=== PATIENT | female | born 1960 | race Caucasian/White ===

== ENCOUNTER 2016-09-25 18:38 | Emergency (ER) | payer MEDICARE, MEDICAID ==
[2016-09-25 18:41] VITALS: BP 125/57; PULSE 70; RESP 20; TEMP 98.1; O2SAT 98
--- NOTE | 2016-09-25 19:59 | PD ---
HPI Chief Complaint: Skin Problem Time Seen by Provider: 19:35 Travel History International Travel<30 days: No Contact w/Intl Traveler<30days: No Traveled to known affect area: No History of Present Illness HPI Patient comes in complaining of a painful lump in right axilla that she first noticed last night. Patient describes pain as a stinging-like sensation is worse with certain movement of her right upper extremity. Patient denies any trauma, numbness tingling, fevers, weight loss, chest pain, shortness breath, or previous symptoms like this. Patient states she's been taking Tylenol and using ice with minimal relief of her symptoms. PFSH Past Medical History Hx Anticoagulant Therapy: Yes (Plavix) Depression: Yes Cerebrovascular Accident: Yes Social History Alcohol Use: No Tobacco Use: No Substance Use: No Allergies-Medications (Allergen,Severity, Reaction): Coded Allergies: Bee Sting (Verified Allergy, Unknown, 09/25/16) Reported Meds & Prescriptions Reported Meds & Active Scripts Active No Active Prescriptions or Reported Medications Review of Systems Except as stated in HPI: all other systems reviewed are Neg Physical Exam Narrative GENERAL: Well-developed, overly nourished, in no acute distress, and non-ill appearing. SKIN: Warm and dry. There is no erythematous, crepitus, mass, lymph nodes, fluctuance, induration, lesion, or other signs of patient's reported mass. When comparing left axilla to the right over the area where patient states the lump/pain is there is no noticeable difference appears just a fatty skin fold. HEAD: Atraumatic. Normocephalic. EYES: Pupils equal and round. EOMI. No scleral icterus. No injection or drainage. ENT: No nasal bleeding or discharge. Mucous membranes pink and moist. NECK: Trachea midline. Supple. No nuclear rigidity. RESPIRATORY: No accessory muscle use. No respiratory distress. MUSCULOSKELETAL: No obvious deformities. No clubbing. No cyanosis. No edema. Full range of motion. NEUROLOGICAL: Awake and alert. No obvious cranial nerve deficits. Motor grossly within normal limits. Normal speech. PSYCHIATRIC: Appropriate mood and affect; insight and judgment normal. Data Data Last Documented VS Vital Signs Date Time Temp Pulse Resp B/P Pulse Ox O2 Delivery O2 Flow Rate FiO2 09/25/16 18:41 98.1 70 20 125/57 98 Room Air MDM Medical Decision Making Medical Screen Exam Complete: Yes Emergency Medical Condition: No Differential Diagnosis Abscess, cellulitis, lymphadenopathy, other Narrative Course Patient in no obvious distress upon re-evaluation. Any questions/concerns in reference to patient diagnosis/condition discussed and clarified prior to patient's discharge. Reinforced sheer importance of close follow up with patient 's primary physician or primary care clinic. Instructed patient to return to ED immediately, if symptoms return/worsen. Pt showed understanding of above instructions. Further instructions and recommendations were detailed in discharge paperwork. Pt ambulated without difficulty out of ED at discharge. Diagnosis Primary Impression: Pain in right axilla Referrals: [facility] Primary Care Physician Patient Instructions: General Instructions Additional Instructions: Follow-up with your primary care physician in 2-3 days reevaluation. Use over- the-counter Tylenol as needed for pain. Follow instructions on the packaging. Return to the emergency department if symptoms get worse. Scripts No Active Prescriptions or Reported Meds Disposition: 01 DISCHARGE HOME Condition: Stable Babatunde Stack Sep 25, 2016 19:58
== END 2016-09-25 20:14 | disposition home or self-care (01) ==
LOC: NEPB 18:38
DX: M79.621 Pain in right upper arm (principal)
CPT/HCPCS: 99283

== ENCOUNTER 2016-11-05 15:24 | Inpatient (IN) | payer MEDICARE, MEDICAID ==
[~2016-11-05] VITALS: Ht 157.5 cm; Wt 60.0 kg
[2016-11-05 15:27] VITALS: BP 93/55; PULSE 87; RESP 16; TEMP 97.8; O2SAT 100
[2016-11-05] MEDS ORDERED: SODIUM CHLOR 0.9% 1000 ML INJ 1,000 ML IV SCH (15:47)
[2016-11-05] MEDS ORDERED: MORPHINE SULFATE 4 MG/ML INJ IV PUSH ONE ×2 (16:00→19:45)
[2016-11-05] MEDS ORDERED: ONDANSETRON HCL 4 MG/2 ML VIAL IVP ONE (16:00)
[2016-11-05] MEDS ORDERED: SODIUM CHLORIDE 0.9% FLUSH 10 ML FLUSH IV FLUSH PRN ×2 (16:00→20:30)
[2016-11-05] MEDS ORDERED: DIATRIZOATE MEGLUM/DIATRIZOATE SOD 9 ML CUP ONE ×2 (16:10)
[2016-11-05 16:20] LABS: AUTOMATED NEUTROPHIL # 5.1 TH/MM3 (1.8-7.7); BASOPHIL % 0.2 % (0.0-2.0); EOSINOPHIL # 0.2 TH/MM3 (0-0.4); EOSINOPHIL % 1.9 % (0.0-4.0); HEMATOCRIT 37.4 % (35.0-46.0); HEMO FLAGS DIFF FINAL; LYMPHOCYTE # 3.1 TH/MM3 (1.0-4.8); MEAN CELL VOLUME 88.1 FL (80.0-100.0); MEAN CORPUSCULAR HEMOGLOBIN 29.9 PG (27.0-34.0); MEAN CORPUSCULAR HGB CONC 33.9 % (32.0-36.0); MONO % 7.2 % (0.0-8.0); NEUT % 56.7 % (16.0-70.0); PLATELET COUNT 337 TH/MM3 (150-450); RED BLOOD COUNT 4.25 MIL/MM3 (4.00-5.30); RED CELL DISTRIBUTION WIDTH 14.9 % (11.6-17.2); WHITE BLOOD COUNT 9.1 TH/MM3 (4.0-11.0)
[2016-11-05 16:23] VITALS: BP 99/61; PULSE 60; RESP 12; O2SAT 100
[2016-11-05 16:28] VITALS: BP 99/61; PULSE 62; RESP 16; O2SAT 100
[2016-11-05 16:29] LABS: ALT (GPT) 15 U/L (10-53); ANION GAP 4 MEQ/L (5-15); AST (GOT) 12 U/L (15-37); BLOOD UREA NITROGEN 11 MG/DL (7-18); CHLORIDE 111 MEQ/L (98-107); GLOMERULAR FILTRATION RATE 76 ML/MIN (>89); POTASSIUM 4.3 MEQ/L (3.5-5.1); SODIUM (NA) 141 MEQ/L (136-145)
[2016-11-05 16:31] LABS: ALKALINE PHOSPHATASE 105 U/L (45-117); TOTAL BILIRUBIN ADULT 0.2 MG/DL (0.2-1.0)
[2016-11-05 16:35] LABS: BLOOD, URINE NEG (NEG); COMMENT (UR) CULT NOT INDICATED; CULTURE IF INDICATED CULT NOT INDICATED; GLUCOSE,URINE NEG (NEG); KETONE, URINE NEG (NEG); NITRITE,URINE NEG (NEG); PH, URINE 6.5 (5.0-8.5); SQUAMOUS EPITHELIAL CELL URINE <1 /hpf (0-5); URINE COLOR LIGHT-YELLOW (YELLW/STRAW)
--- NOTE | 2016-11-05 17:20 | PD ---
HPI Chief Complaint: Abdominal Pain Time Seen by Provider: 15:44 Travel History International Travel<30 days: No Contact w/Intl Traveler<30days: No Traveled to known affect area: No History of Present Illness HPI 55-year-old female here with complaint of abdominal pain, nausea vomiting. Patient states that since this morning she has had mid abdominal pain. Really she describes this as diffuse pain throughout the right side of the abdomen most notable in the right upper but does extend into the right lower quadrant. Associated nausea, vomiting. No hematemesis. She is seen by a PCP today who recommended outpatient ultrasound the patient felt as though she couldn't wait prompting ER visit. No fevers or chills. PFSH Past Medical History Hx Anticoagulant Therapy: Yes (PLAVIX) Depression: Yes (on medication ) Cerebrovascular Accident: Yes (stroke 2007) Diabetes: No Diminished Hearing: No Tetanus Vaccination: > 5 Years ?: Not Past Surgical History Abdominal Surgery: Yes Section: Yes Hysterectomy: Yes Social History Alcohol Use: No Tobacco Use: Yes Substance Use: No Allergies-Medications (Allergen,Severity, Reaction): Coded Allergies: Bee Sting (Verified Allergy, Unknown, 09/25/16) Reported Meds & Prescriptions Reported Meds & Active Scripts Active No Active Prescriptions or Reported Medications Review of Systems Except as stated in HPI: all other systems reviewed are Neg Physical Exam Narrative GENERAL: Middle-aged female in no acute distress SKIN: Focused skin assessment warm/dry. HEAD: Normocephalic. EYES: No scleral icterus. No injection or drainage. ENT: Mucous membranes pink and moist. NECK: Supple CARDIOVASCULAR: Regular rate and rhythm. No murmur appreciated. RESPIRATORY: No accessory muscle use. Clear to auscultation. Breath sounds equal bilaterally. GASTROINTESTINAL: Abdomen soft, diffuse right sided abdominal tenderness to palpation without rebound or guarding, nondistended. No CVA tenderness. MUSCULOSKELETAL: Normal gait NEUROLOGICAL: Awake and alert. Normal speech. PSYCHIATRIC: Appropriate mood and affect; insight and judgment normal. Data Data Last Documented VS Vital Signs Date Time Temp Pulse Resp B/P Pulse Ox O2 Delivery O2 Flow Rate FiO2 11/05/16 16:28 62 16 99/61 100 Room Air 11/05/16 15:27 97.8 Orders Complete Blood Count With Diff (11/05/16 15:47) Comprehensive Metabolic Panel (11/05/16 15:47) Lipase (11/05/16 15:47) Urinalysis - C+S If Indicated (11/05/16 15:47) Ct Abd/Pel W Iv Contrast(Rout) (11/05/16 15:47) Iv Access Insert/Monitor (11/05/16 15:47) Ecg Monitoring (11/05/16 15:47) Oximetry (11/05/16 15:47) Morphine Inj (Morphine Inj) (11/05/16 16:00) Ondansetron Inj (Zofran Inj) (11/05/16 16:00) Sodium Chlor 0.9% 1000 Ml Inj (Ns 1000 M (11/05/16 15:47) Sodium Chloride 0.9% Flush (Ns Flush) (11/05/16 16:00) Oral Contrast - Adult (11/05/16 15:51) Diatrizoate Liq ( Gastroview Liq) (11/05/16 16:10) Diatrizoate Liq (Md Don Liq) (11/05/16 16:10) Labs Laboratory Tests Test 11/05/16 15:45 White Blood Count 9.1 TH/MM3 Red Blood Count 4.25 MIL/MM3 Hemoglobin 12.7 GM/DL Hematocrit 37.4 % Mean Corpuscular Volume 88.1 FL Mean Corpuscular Hemoglobin 29.9 PG Mean Corpuscular Hemoglobin 33.9 % Concent Red Cell Distribution Width 14.9 % Platelet Count 337 TH/MM3 Mean Platelet Volume 7.4 FL Neutrophils (%) (Auto) 56.7 % Lymphocytes (%) (Auto) 34.0 % Monocytes (%) (Auto) 7.2 % Eosinophils (%) (Auto) 1.9 % Basophils (%) (Auto) 0.2 % Neutrophils # (Auto) 5.1 TH/MM3 Lymphocytes # (Auto) 3.1 TH/MM3 Monocytes # (Auto) 0.7 TH/MM3 Eosinophils # (Auto) 0.2 TH/MM3 Basophils # (Auto) 0.0 TH/MM3 CBC Comment DIFF FINAL Differential Comment Urine Color LIGHT-YELLOW Urine Turbidity CLEAR Urine pH 6.5 Urine Specific [place] 1.010 Urine Protein NEG mg/dL Urine Glucose (UA) NEG mg/dL Urine Ketones NEG mg/dL Urine Occult Blood NEG Urine Nitrite NEG Urine Bilirubin NEG Urine Urobilinogen LESS THAN 2.0 MG/DL Urine Leukocyte Esterase NEG Urine WBC LESS THAN 1 /hpf Urine Squamous Epithelial <1 /hpf Cells Microscopic Urinalysis Comment CULT NOT INDICATED Sodium Level 141 MEQ/L Potassium Level 4.3 MEQ/L Chloride Level 111 MEQ/L Carbon Dioxide Level 26.0 MEQ/L Anion Gap 4 MEQ/L Blood Urea Nitrogen 11 MG/DL Creatinine 0.78 MG/DL Estimat Glomerular Filtration 76 ML/MIN Rate Random Glucose 81 MG/DL Calcium Level 8.7 MG/DL Total Bilirubin 0.2 MG/DL Aspartate Amino Transf 12 U/L (AST/SGOT) Alanine Aminotransferase 15 U/L (ALT/SGPT) Alkaline Phosphatase 105 U/L Total Protein 7.6 GM/DL Albumin 3.7 GM/DL Lipase 149 U/L [facility] Medical Decision Making Medical Screen Exam Complete: Yes Emergency Medical Condition: Yes Medical Record Reviewed: Yes Differential Diagnosis 55-year-old female here with right sided abdominal pain, nausea vomiting since this morning. Diffuse right sided abdominal tenderness palpation on exam. Differential includes hepatobiliary pathology, pancreatitis, appendicitis, UTI, ureterolithiasis. Patient has had a previous hysterectomy. Narrative Course Patient placed on monitor, IV established and blood obtained. Given 4 mg morphine, 4 mg Zofran. CBC, CMP, lipase, urinalysis unremarkable. CT of the abdomen and pelvis remains pending at time of dictation. Patient signed out to oncoming provider waiting results of same. Scripts No Active Prescriptions or Reported Meds Kita Starr MD Nov 05, 2016 17:20
[2016-11-05] MEDS ORDERED: IOHEXOL 350 MG/ML 10 ML VIAL (for RAD DIAG) IV ONE (17:53)
--- NOTE | 2016-11-05 18:11 | RADRPT ---
EXAM DATE/TIME: 11/05/2016 17:50 This report includes an Addendum and supersedes previous reports for this exam. [place] COMPARISON: No previous studies available for comparison. INDICATIONS : Abdominal pain and nausea. IV CONTRAST: 100 cc Omnipaque 350 (iohexol) IV ORAL CONTRAST: Prescribed oral contrast ingested. RADIATION DOSE: 5.94 CTDIvol (mGy) MEDICAL HISTORY : Cerebrovascular disease. Bowel obstruction. SURGICAL HISTORY : Hysterectomy. section. ENCOUNTER: Initial ACUITY: 1 day PAIN SCALE: 7/10 LOCATION: Bilateral lower quadrant TECHNIQUE: Volumetric scanning of the abdomen and pelvis was performed. Using automated exposure control and ad justment of the mA and/or kV according to patient size, radiation dose was kept as low as reasonably achievable to obtain optimal diagnostic quality images. FINDINGS: LOWER LUNGS: The visualized lower lungs are clear. LIVER: Homogeneous density without lesion. There is no dilation of the biliary tree. No calcified gallston es. SPLEEN: Normal size without lesion. PANCREAS: Within normal limits. KIDNEYS: Normal in size and shape. There is no mass, stone or hydronephrosis. ADRENAL GLANDS: Within normal limits. VASCULAR: There is no aortic aneurysm. BOWEL/MESENTERY: The stomach, small bowel, and colon demonstrate no acute abnormality. There is no free intraperitone al air or fluid. ABDOMINAL WALL: Findings characteristic of an old subcutaneous, vertical scar vertical scar. RETROPERITONEUM: There is no lymphadenopathy. BLADDER: No wall thickening or mass. REPRODUCTIVE: Patient is status post hysterectomy. INGUINAL: There is no lymphadenopathy or hernia. MUSCULOSKELETAL: Within normal limits for patient age. CONCLUSION: 1. Patient is status post hysterectomy with findings of an infraumbilical vertical scar. 2. No acute intraperitoneal or pelvic process to explain current clinical syndrome. Juan Sun MD on November 05, 2016 at 18:01 Board Certified Radiologist. This report was verified electronically. ADDENDUM: I was asked to take another look at the CT scan. There is wall thickening of the cecum. The re is widening of the base of the appendix which appear somewhat thickened and measures 2 cm in thick ness. I do not see inflammatory changes. The distal appendix appears normal. An early appendicitis al berry the appendiceal base cannot be excluded. Demarcus Hamlin MD on November 05, 2016 at 18:52 Board Certified Radiologist. This report was verified electronically.
[2016-11-05 18:45] VITALS: BP 125/65; PULSE 66; RESP 16; O2SAT 100
--- NOTE | 2016-11-05 19:11 | PD ---
Data Data Last Documented VS Vital Signs Date Time Temp Pulse Resp B/P Pulse Ox O2 Delivery O2 Flow Rate FiO2 11/05/16 18:45 66 16 125/65 100 Room Air 11/05/16 15:27 97.8 Orders Complete Blood Count With Diff (11/05/16 15:47) Comprehensive Metabolic Panel (11/05/16 15:47) Lipase (11/05/16 15:47) Urinalysis - C+S If Indicated (11/05/16 15:47) Ct Abd/Pel W Iv Contrast(Rout) (11/05/16 15:47) Iv Access Insert/Monitor (11/05/16 15:47) Ecg Monitoring (11/05/16 15:47) Oximetry (11/05/16 15:47) Morphine Inj (Morphine Inj) (11/05/16 16:00) Ondansetron Inj (Zofran Inj) (11/05/16 16:00) Sodium Chlor 0.9% 1000 Ml Inj (Ns 1000 M (11/05/16 15:47) Sodium Chloride 0.9% Flush (Ns Flush) (11/05/16 16:00) Oral Contrast - Adult (11/05/16 15:51) Diatrizoate Liq ( Gastroview Liq) (11/05/16 16:10) Diatrizoate Liq ( Gastroview Liq) (11/05/16 16:10) Iohexol 350 Inj (Omnipaque 350 Inj) (11/05/16 17:53) Consult Josh Nfs (11/05/16 ) Tetanus/Diphtheria Tox Adult (Tetanus/Di (11/05/16 19:45) Morphine Inj (Morphine Inj) (11/05/16 19:45) Ondansetron Inj (Zofran Inj) (11/05/16 19:45) Vital Signs (Adult) Q4H (11/05/16 20:18) Activity Oob Ad Janel (11/05/16 20:18) Diet Npo (11/06/16 Breakfast) Sodium Chlor 0.9% 1000 Ml Inj (Ns 1000 M (11/05/16 20:18) Sodium Chloride 0.9% Flush (Ns Flush) (11/05/16 20:30) Sodium Chloride 0.9% Flush (Ns Flush) (11/05/16 21:00) Acetaminophen (Tylenol) (11/05/16 20:30) Ondansetron Inj (Zofran Inj) (11/05/16 20:30) Scd Bilateral/Knee High JEFF.BID (11/05/16 20:18) Naloxone Inj (Narcan Inj) (11/05/16 20:30) Consult General Surgery (11/05/16 ) Admit Order (Ed Use Only) (11/05/16 20:37) Labs Laboratory Tests Test 11/05/16 15:45 White Blood Count 9.1 TH/MM3 Red Blood Count 4.25 MIL/MM3 Hemoglobin 12.7 GM/DL Hematocrit 37.4 % Mean Corpuscular Volume 88.1 FL Mean Corpuscular Hemoglobin 29.9 PG Mean Corpuscular Hemoglobin 33.9 % Concent Red Cell Distribution Width 14.9 % Platelet Count 337 TH/MM3 Mean Platelet Volume 7.4 FL Neutrophils (%) (Auto) 56.7 % Lymphocytes (%) (Auto) 34.0 % Monocytes (%) (Auto) 7.2 % Eosinophils (%) (Auto) 1.9 % Basophils (%) (Auto) 0.2 % Neutrophils # (Auto) 5.1 TH/MM3 Lymphocytes # (Auto) 3.1 TH/MM3 Monocytes # (Auto) 0.7 TH/MM3 Eosinophils # (Auto) 0.2 TH/MM3 Basophils # (Auto) 0.0 TH/MM3 CBC Comment DIFF FINAL Differential Comment Urine Color LIGHT-YELLOW Urine Turbidity CLEAR Urine pH 6.5 Urine Specific [place] 1.010 Urine Protein NEG mg/dL Urine Glucose (UA) NEG mg/dL Urine Ketones NEG mg/dL Urine Occult Blood NEG Urine Nitrite NEG Urine Bilirubin NEG Urine Urobilinogen LESS THAN 2.0 MG/DL Urine Leukocyte Esterase NEG Urine WBC LESS THAN 1 /hpf Urine Squamous Epithelial <1 /hpf Cells Microscopic Urinalysis Comment CULT NOT INDICATED Sodium Level 141 MEQ/L Potassium Level 4.3 MEQ/L Chloride Level 111 MEQ/L Carbon Dioxide Level 26.0 MEQ/L Anion Gap 4 MEQ/L Blood Urea Nitrogen 11 MG/DL Creatinine 0.78 MG/DL Estimat Glomerular Filtration 76 ML/MIN Rate Random Glucose 81 MG/DL Calcium Level 8.7 MG/DL Total Bilirubin 0.2 MG/DL Aspartate Amino Transf 12 U/L (AST/SGOT) Alanine Aminotransferase 15 U/L (ALT/SGPT) Alkaline Phosphatase 105 U/L Total Protein 7.6 GM/DL Albumin 3.7 GM/DL Lipase 149 U/L [facility] Supervised Visit with SRIRAM: No Narrative Course This case is checked out to me by Dr. Starr at 5 PM. I have reviewed the entirety of the workup with the patient. The patient was seen and examined in the presence of the nurse. I've spoken with and examine the patient. She does have right lower quadrant tenderness. I discussed the CT scan at length with radiologist Dr. Hamlin. He cannot definitively rule out appendicitis. It's an atypical look to the CT. There is some inflammation localized to the cecum but also the base of the appendix is dilated and thickened. The distal appendix looks normal. He can't be certain if this represents appendicitis or not. Because of this I spoke general surgeon on-call Dr. Musa. He is aware of the quandary whether this is appendicitis or not. He is coming down to the emergency room to examine the patient and will assist us with disposition. Dr. Musa has evaluated the patient. It is still unclear and he recommends observing overnight on the hospitalist service and he will consult and decide whether to do a laparoscopic procedure to look at the area in more detail. I've spoken with Etta hospitalist nurse practitioner who agrees I gave her injection of morphine for symptom relief Diagnosis Primary Impression: Abdominal pain Qualified Code: R10.31 - Right lower quadrant abdominal pain Admitting Information Admitting Physician Requests: Observation Scripts No Active Prescriptions or Reported Meds Shahid Robles MD Nov 05, 2016 19:11
[2016-11-05] MEDS ORDERED: TETANUS/DIPHTHERIA TOXOID ADULT 0.5 ML VIAL IM ONE (19:45)
[2016-11-05] MEDS ORDERED: ONDANSETRON HCL 4 MG/2 ML VIAL IV ONE (19:45)
[2016-11-05] MEDS ORDERED: NALOXONE HCL 0.4 MG/ML AMP IV PRN (20:30)
[2016-11-05] MEDS ORDERED: ACETAMINOPHEN 325 MG TAB PO PRN (20:30)
[2016-11-05] MEDS: SODIUM CHLORIDE 0.9% FLUSH 10 ML FLUSH IV FLUSH SCH (21:00)
[2016-11-05] MEDS ORDERED: VENL150T PO (21:11)
[2016-11-05] MEDS ORDERED: BIOT5TAB PO (21:11)
[2016-11-05] MEDS ORDERED: RANI150T PO (21:11)
[2016-11-05] MEDS ORDERED: PLAV75TA29 PO (21:11)
[2016-11-05] MEDS ORDERED: ASPI-110 PO (21:11)
[2016-11-05] MEDS ORDERED: TRAZ100T4 PO (21:11)
[2016-11-05] MEDS ORDERED: TOPI1TAB36 PO (21:11)
[2016-11-05] MEDS: SODIUM CHLOR 0.9% 1000 ML INJ 1,000 ML IV SCH (22:11)
[2016-11-05 23:14] VITALS: BP 96/46; PULSE 62; RESP 19; TEMP 98; O2SAT 96
[2016-11-06] MEDS: MORPHINE SULFATE 4 MG/ML INJ IV PRN ×6 (00:34→21:16)
[2016-11-06 03:27] VITALS: BP 105/52; PULSE 53; RESP 19; TEMP 98.2; O2SAT 97
[2016-11-06] MEDS: SODIUM CHLOR 0.9% 1000 ML INJ 1,000 ML IV SCH ×2 (05:55→14:28)
--- NOTE | 2016-11-06 06:52 | MB ---
cc: WILL WILLIS MD DATE OF CONSULTATION: 11/05/2016 REASON FOR CONSULTATION: Rule out appendicitis. HISTORY OF PRESENT ILLNESS The patient is a 55-year-old female who presents with complaints of nausea, vomiting, abdominal pain. She states the pain started this morning and was initially an 8/10 and currently a 9/10. She states that pain is severe, somewhat diffuse, primarily on the right side. It is sharp, better with lying still, worse with movement. She states she saw her primary care physician who recommended obtaining a CT scan for which she attempted but was unable to get to it to schedule. The pain continued to progress and therefore the patient came the emergency department for further evaluation including a CT scan with IV n.p.o. contrast showing significantly severely thickened cecal wall, thickened base of the appendix with normal decompressed distal appendix. Her WBC was 9 and normal. She denies any significant fevers. She was complaining of significant diarrhea. She said she has never had this pain before this time denies any blood in stools and again denies any fevers or chills. Surgery was consulted for further evaluation. On my exam the patient is resting comfortably. She does state the pain is was severe and significant worse on palpation. She denies any in no notable significant rebound or guarding but is exquisitely tender to the right lower quadrant. PAST MEDICAL HISTORY Stroke. Depression. PAST SURGICAL HISTORY: Hysterectomy. Partial colectomy . SOCIAL HISTORY Positive smoking. Denies EtOH or IVDA. ALLERGIES Bee stings. MEDICATIONS See EMR. FAMILY HISTORY Mom with diabetes. Father with colon cancer. MEDICATIONS Plavix, see EMR. REVIEW OF SYSTEMS GENERAL: The patient no acute distress. HEAD, EYES, EARS, NOSE, AND THROAT: Denies eye pain, ear pain. NECK: Denies swelling or pain. CHEST: Denies chest pains or palpitations. LUNGS: Denies wheeze or cough. ABDOMEN: Complains of nausea, vomiting, abdominal pain. EXTREMITIES: Denies arthralgia, myalgias. GENITOURINARY: Denies dysuria, hematuria. ENDOCRINE: Denies polyuria, polydipsia. PSYCHIATRIC: Denies change in mood or affect. PHYSICAL EXAMINATION IN GENERAL: The patient in no acute distress. VITAL SIGNS: Temperature 97.8 pulse 62, respirations 60, blood pressure 99/61, saturation 100% on room air. HEAD, EYES, EARS, NOSE, AND THROAT: Afebrile, PERRLA, EOMI. Pupils equal, round, reactive. No scleral icterus. NECK: Supple. Trachea midline. LUNGS: The lungs are clear to auscultation bilaterally. Bilateral expansion. HEART: S1-S2 regular rhythm. ABDOMEN: Soft, positive tenderness to palpation right lower quadrant. Positive tenderness to palpation left upper quadrant. No significant rebound. Minimal guarding. Well-healed midline surgical scar. EXTREMITIES: 5/5 motor removed all extremities warm, well-perfused. INTEGUMENT: No skin masses or lesions. GENITOURINARY: Within normal limits. PSYCHIATRIC: Good mood, normal affect. LABORATORY AND DIAGNOSTIC DATA WBC 9.1, hemoglobin 12.7, hematocrit 37.4, platelets 337. Sodium 141, potassium 4.3, chloride 111, CO2 26, creatinine 0.78, BUN 11, calcium 8.7, AST 12, ALT 15, alkaline phosphatase 105, lipase 149. RADIOLOGIC: CT reviewed by myself and discussion and review with radiology no evidence of free air or fluid. Hysterectomy, noted thickening of cecal wall. Noted thickening of base of appendix. No obvious appendicolith, distal appendix normal. No significant straining or irritation noted on CT scan. ASSESSMENT The patient 55-year-old female presents with acute onset right lower quadrant pain, rule out appendicitis. PLAN After full clinical radiologic laboratory workup the patient with above-named issues including rule out appendicitis at this point. No suspicion for acute appendicitis as the patient has a normal white count, no fevers. She does have very thickened and distended cecum concerning for some enteritis or other etiology. We will continue to follow along with you and assess the patient with serial laboratory values and abdominal exams as the patient is exquisitely tender. At this point I recommend consultation with gastrointestinal and discussion with Medicine for further management. This was discussed with the patient at bedside. Again we will attempt serial bowel exams and nonoperative management. If the patient's pain does continue to progress or the white count increases significantly consider at diagnostic laparoscopy, possible appendectomy if the patient fails nonoperative management. MD MERRITT Jones/rupali /10:07 PM /6:29 AM
[2016-11-06 07:50] VITALS: BP 118/58; PULSE 52; RESP 18; TEMP 96.8; O2SAT 100
[2016-11-06] MEDS: SODIUM CHLORIDE 0.9% FLUSH 10 ML FLUSH IV FLUSH SCH ×2 (08:12→20:00)
--- NOTE | 2016-11-06 10:28 | MH ---
cc: MOIZ REAGAN MD DATE OF ADMISSION: 11/05/2016 DATE OF : 1960 CHIEF COMPLAINT Abdominal pain. TRAVEL: No travel in the last 30 days. HISTORY OF PRESENT ILLNESS: This is a pleasant 55 year-old female who has been struggling with abdominal pain, nausea and vomiting for approximately three days. She states that the pain started in her right lower quadrant but now is radiating diffusely over her abdomen. She describes the pain as a sharp sensation and does feel more comfortable resting on her left side. She does present with some mild rebound tenderness at times, currently, is not complaining of any nausea and vomiting, just acute pain. The patient denies any headaches, no fevers, no chest pain, no shortness of breath. She states that she really has never had this pain before, denies any diarrhea, no constipation. According to the records the patient did see her primary care physician yesterday on the and was recommended that she come to the emergency room for further testing. The patient is a fair historian but secondary to her pain is not willing to answer extended questions right now. PAST MEDICAL HISTORY: 1. Stroke in 2007 according to the record. The patient takes Plavix. Depression. 2. Tobacco abuse and dependence. 3. Previous alcohol abuse but has not drank in seven years. PAST SURGICAL HISTORY: 1. Hypertension. 2. section. ALLERGIES BEE STINGS. MEDICATIONS: The patient did not bring her medicine in but states that she takes Plavix SOCIAL HISTORY: The patient is , lives alone, tobacco use, she states that she smokes five or less cigarettes per day but did start smoking at the age of 17. Alcohol, none now, quit approximately seven years ago and denies any illicit drugs. REVIEW OF SYSTEMS Positive noting of nausea and vomiting and diffuse abdominal pain, initiated in the right lower quadrant, otherwise in diffuse pain, unrelieved with medications every three hours, other than that systems are negative. PHYSICAL EXAMINATION: VITAL SIGNS: Temperature 98.2. Pulse low at 53 to 66, respirations 19, blood pressure 105/52, during the night. Last night around midnight blood pressure was 96/46, o2 saturation 97% on room air. GENERAL: Thin, female, looks to be her stated age, resting in the bed, obviously uncomfortable. SKIN: The skin is pink. Mucous membranes, warm and dry. HEAD, EYES, EARS, NOSE, AND THROAT: Normocephalic, atraumatic, no scleral icterus. Mucous membranes are pink and moist. Pupils equal, round, reactive to light and accommodation. NECK: The neck is thin, supple. CARDIOVASCULAR SYSTEM: S1, S2, regular rate and rhythm with some bradycardia. No murmurs, rubs or gallops. RESPIRATORY: Essentially clear anteriorly and posteriorly with no wheezes, rales or rhonchi. GASTROINTESTINAL: Abdomen is flat, soft, some guarding, will only allow light palpitation. Bowel sounds are active. States yes to some mild rebound tenderness. MUSCULOSKELETAL: Moves her extremities with purpose. Some minimal left sided weakness secondary to her stroke in 2007 but can ambulate and strap sewer. NEUROLOGICALLY: Awake, speech is clear. Mild anxiety. PSYCHIATRIC: Insight and judgment normal. Mild anxiety. DIAGNOSTIC DATA: White blood cell count 9.1, red blood cells 4.25. Hemoglobin 12.7, hematocrit 37.4, platelet count 337, complete blood count; diff are normal. Sodium 141, potassium 4.3. Chloride 111, carbon dioxide 26. Anion gap 4. Blood urea nitrogen 11. Creatinine 0.78, glomerular filtration rate 76, random glucose 81, aspartate aminotransferase 12. All other tests are normal. Urine is light yellow, PH 6.5 specific gravity 1.010, negative for protein, glucose, ketones, occult blood, nitrates and bilirubin. Negative for leukocyte Estrace. Culture is not indicated. IMAGING STUDIES: Imaging studies show no acute intraperitoneal or pelvic process. She does have some wall thickening to the cecum and widening of the base of the appendix which appear somewhat thickened and measures 2 cm's. No inflammation. Distal appendix appears normal. An early appendicitis along the appendiceal base cannot be excluded. ASSESSMENT: 1. Abdominal pain, possible appendicitis. 2. Tobacco abuse and dependence. 3. Nausea and vomiting.] 4. History of cerebrovascular accident. PLAN Our plan is to admit, we will monitor the vital signs q four hours and as needed, the patient is to be out of bed with assistance. Currently held NPO. Gentle hydration with IV fluids with special attention and monitoring of her blood pressure. Pain management with IV morphine. The patient continues to complain that medication is not affective. We will reevaluate. General surgery was consulted and notes that they will follow but currently does not see an operative need. The patients white count is normal and recommends a gastrointestinal consult for further evaluation and medical management. GI consultation has been obtained. The patients Plavix has been reconciled, she also has as needed medications for nausea. We will also monitor her bowel regimen. Sequential compression devices for deep venous thrombosis prophylaxis. Electrocardiogram monitoring. IV access maintained. Thank you very much we will continue to follow. Moiz Reagan MD DICTATED BY: GABRIEL Fernandez. Kalyn /7:53 AM /8:09 AM
--- NOTE | 2016-11-06 10:31 | PD.CONS ---
HPI History of Present Illness This is a 55 year old female who presented to the ER for evaluation of abdominal pain. Her pain began yesterday morning and she describes this as a constant severe sharp pain in the RLQ pain. This is not related to food intake. She states that it is quite severe, "9/10" on 0-10 pain scale. She does get relieve for a short time with the Morphine she is receiving here in the hospital, but states that it does not last but for a short time. She has associated chills without fever, nausea without vomiting. She reports that she did have 4 loose stools yesterday- without blood or mucous. She has never had this pain before. She reports that she had a partial colectomy last year in [place], secondary to a bowel obstruction. She states that her intestines were wrapped around her colon and forming a bowel obstruction. She last had a colonoscopy in 2011. Abdomen/Pelvis CT (11/05/16)---> 1. Patient is status post hysterectomy with findings of an infraumbilical vertical scar. 2. No acute intraperitoneal or pelvic process to explain current clinical syndrome. ADDENDUM: I was asked to take another look at the CT scan. There is wall thickening of the cecum. There is widening of the base of the appendix which appear somewhat thickened and measures 2 cm in thickness. I do not see inflammatory changes. The distal appendix appears normal. An early appendicitis along the appendiceal base cannot be excluded. GS was consulted and the patient was evaluated by Dr. Musa, who does not feel that this is acute appendicitis based on her normal wbc and the fact that she has been afebrile. She is being treated with antibiotics and the plan is for repeat imaging and surgical intervention if she does not improve or if she develops leukocytosis. (Elizabeth Adams) PFSH Past Medical History CVA Bowel obstruction Depression. Past Surgical History Partial colectomy Colonoscopy Hysterectomy x 3 (Elizabeth Adams) Coded Allergies: Bee Sting (Verified Allergy, Unknown, 09/25/16) Medications Allergies Coded Allergies Type Severity Reaction Last Updated Verified Bee Sting Allergy Unknown 09/25/16 Yes Active Scripts Medications Dose Route/Sig Days Date Category Biotin 5 Mg Tab 5 Mg PO DAILY 11/05/16 Reported Aspirin 81 (Aspirin) 81 Mg Tabdr 81 Mg PO DAILY 11/05/16 Reported Topiramate 50 Mg Tab 50 Mg PO BID 11/05/16 Reported Ranitidine (Ranitidine HCl) 150 Mg Tab 150 Mg PO BID 11/05/16 Reported Plavix (Clopidogrel Bisulfate) 75 Mg Tab 75 Mg PO DAILY 11/05/16 Reported Trazodone (Trazodone HCl) 100 Mg Tab 100 Mg PO HS 11/05/16 Reported Venlafaxine ER 24 HR (Venlafaxine HCl) 150 Mg Tab 150 Mg PO DAILY 11/05/16 Reported Family History One sister from gastric cancer, one sister from colon cancer. Social History Smokes 5 cigarettes per day. No ETOH use. (Elizabeth Adams) Review of Systems Constitutional: COMPLAINS OF: Fatigue, Chills, DENIES: Fever Respiratory: DENIES: Cough, Shortness of breath Cardiovascular: DENIES: Chest pain Gastrointestinal: COMPLAINS OF: Abdominal pain, Diarrhea, Nausea, DENIES: Black stools, Bloody stools, Constipation, Vomiting, Swelling of Abdomen, Hematemesis Musculoskeletal: DENIES: Back pain Integumentary: DENIES: Rash Hematologic/lymphatic: DENIES: Bruising Neurologic: DENIES: Headache Psychiatric: DENIES: Confusion (Elizabeth Adams) GI Exam Vitals I&O Vital Signs Date Time Temp Pulse Resp B/P Pulse Ox O2 Delivery O2 Flow Rate FiO2 11/06/16 07:50 96.8 52 18 118/58 100 11/06/16 03:27 98.2 53 19 105/52 97 11/05/16 23:14 98.0 62 19 96/46 96 11/05/16 18:45 66 16 125/65 100 Room Air 11/05/16 16:28 62 16 99/61 100 Room Air 11/05/16 16:23 60 12 99/61 100 Room Air 11/05/16 15:27 97.8 87 16 93/55 100 Imaging Last Impressions Abdomen/Pelvis CT 11/05/16 4007 Signed Impressions: Service Date/Time: Saturday, November 05, 2016 17:50 - CONCLUSION: 1. Patient is status post hysterectomy with findings of an infraumbilical vertical scar. 2. No acute intraperitoneal or pelvic process to explain current clinical syndrome. Juan Sun MD ADDENDUM: I was asked to take another look at the CT scan. There is wall thickening of the cecum. There is widening of the base of the appendix which appear somewhat thickened and measures 2 cm in thickness. I do not see inflammatory changes. The distal appendix appears normal. An early appendicitis along the appendiceal base cannot be excluded. Demarcus Hamlin MD Laboratory Test 11/05/16 15:45 White Blood Count 9.1 TH/MM3 Red Blood Count 4.25 MIL/MM3 Hemoglobin 12.7 GM/DL Hematocrit 37.4 % Mean Corpuscular Volume 88.1 FL Mean Corpuscular Hemoglobin 29.9 PG Mean Corpuscular Hemoglobin 33.9 % Concent Red Cell Distribution Width 14.9 % Platelet Count 337 TH/MM3 Mean Platelet Volume 7.4 FL Neutrophils (%) (Auto) 56.7 % Lymphocytes (%) (Auto) 34.0 % Monocytes (%) (Auto) 7.2 % Eosinophils (%) (Auto) 1.9 % Basophils (%) (Auto) 0.2 % Neutrophils # (Auto) 5.1 TH/MM3 Lymphocytes # (Auto) 3.1 TH/MM3 Monocytes # (Auto) 0.7 TH/MM3 Eosinophils # (Auto) 0.2 TH/MM3 Basophils # (Auto) 0.0 TH/MM3 CBC Comment DIFF FINAL Differential Comment Urine Color LIGHT-YELLOW Urine Turbidity CLEAR Urine pH 6.5 Urine Specific [place] 1.010 Urine Protein NEG mg/dL Urine Glucose (UA) NEG mg/dL Urine Ketones NEG mg/dL Urine Occult Blood NEG Urine Nitrite NEG Urine Bilirubin NEG Urine Urobilinogen LESS THAN 2.0 MG/DL Urine Leukocyte Esterase NEG Urine WBC LESS THAN 1 /hpf Urine Squamous Epithelial <1 /hpf Cells Microscopic Urinalysis Comment CULT NOT INDICATED Sodium Level 141 MEQ/L Potassium Level 4.3 MEQ/L Chloride Level 111 MEQ/L Carbon Dioxide Level 26.0 MEQ/L Anion Gap 4 MEQ/L Blood Urea Nitrogen 11 MG/DL Creatinine 0.78 MG/DL Estimat Glomerular Filtration 76 ML/MIN Rate Random Glucose 81 MG/DL Calcium Level 8.7 MG/DL Total Bilirubin 0.2 MG/DL Aspartate Amino Transf 12 U/L (AST/SGOT) Alanine Aminotransferase 15 U/L (ALT/SGPT) Alkaline Phosphatase 105 U/L Total Protein 7.6 GM/DL Albumin 3.7 GM/DL Lipase 149 U/L Physical Examination HEENT: Normocephalic; atraumatic; no jaundice. CHEST: CTA CARDIAC: RRR ABDOMEN: Soft, nondistended, moderate RLQ tenderness; no hepatosplenomegaly; bowel sounds are present in all four quadrants. EXTREMITIES: No clubbing, cyanosis, or edema. SKIN: Normal; no rash; no jaundice. 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 (Elizabeth Adams) Assessment and Plan Plan ASSESSMENT: - RLQ Pain. Sudden onset of severe constant sharp RLQ pain yesterday. Abdomen/ Pelvis CT (11/05/16)---> 1. Patient is status post hysterectomy with findings of an infraumbilical vertical scar. 2. No acute intraperitoneal or pelvic process to explain current clinical syndrome. ADDENDUM: I was asked to take another look at the CT scan. There is wall thickening of the cecum. There is widening of the base of the appendix which appear somewhat thickened and measures 2 cm in thickness. I do not see inflammatory changes. The distal appendix appears normal. An early appendicitis along the appendiceal base cannot be excluded. GS was consulted and the patient was evaluated by Dr. Musa, who does not feel that this is acute appendicitis based on her normal wbc and the fact that she has been afebrile. The plan is for repeat imaging and surgical intervention if she does not improve or if she develops leukocytosis. Last colonoscopy 2011. WBC 9.1 yesterday. Will order for today. - Nausea without vomiting. Pt has had nausea without associated vomiting. Add PPI. - Diarrhea. 4 loose stools yesterday without blood or mucous. Stool studies. - Depression, Hx CVA. PLAN: - Clear liquids - D/C Pepcid - Protonix 40mg IV BID - Add Flagyl - CBC, BMP today - Stool for CDiff, C/S, O&P, Giardia - Rpt. Imaging per - Supportive care - Of note, on Plavix. - Consider EGD/Colonoscopy if symptoms persist and no appendicitis on repeat imaging - Pt seen and examined by Dr. Camejo and myself and this note is written on her behalf (Elizabeth Aadms) Physician Comments seen, examined agree with above mra abdomen /pelvis surgical fu (Ammy Camejo MD) Elizabeth Adams Nov 06, 2016 10:31 Ammy Camejo MD Nov 06, 2016 14:25
[2016-11-06] MEDS: PANTOPRAZOLE SODIUM 40 MG VIAL IV PUSH SCH (11:56)
[2016-11-06] MEDS: metroNIDAZOLE 500 MG INJ 100 ML IV SCH ×2 (11:56→19:58)
[2016-11-06 13:20] LABS: AUTOMATED NEUTROPHIL # 3.1 TH/MM3 (1.8-7.7); BASOPHIL # 0.1 TH/MM3 (0-0.2); EOSINOPHIL # 0.2 TH/MM3 (0-0.4); EOSINOPHIL % 2.6 % (0.0-4.0); HEMATOCRIT 34.9 % (35.0-46.0); HEMO FLAGS DIFF FINAL; LYMPHOCYTE # 2.7 TH/MM3 (1.0-4.8); MEAN CELL VOLUME 86.9 FL (80.0-100.0); MEAN CORPUSCULAR HEMOGLOBIN 29.6 PG (27.0-34.0); MONO % 6.3 % (0.0-8.0); NEUT % 48.1 % (16.0-70.0); PLATELET COUNT 276 TH/MM3 (150-450); RED BLOOD COUNT 4.02 MIL/MM3 (4.00-5.30); RED CELL DISTRIBUTION WIDTH 14.6 % (11.6-17.2); WHITE BLOOD COUNT 6.4 TH/MM3 (4.0-11.0)
--- NOTE | 2016-11-06 13:26 | HP.UPD ---
H&P Update Note This is a 55-year-old female who presented to the emergency department [place] with abdominal pain mostly in the right lower quadrant. Also she had diarrhea. The patient is status post partial colectomy at [facility] in [facility] in 2016 for what she describes as bowel obstruction. CT scan on this occasion shows a thickened cecum. She was seen by neurosurgeon origination specialist and she was deemed not to benefit from any emergency surgery at this time. She was also seen by a GI she is due to have an endoscopy tomorrow. She is to continue on IV fluids, pain control, empiric IV antibiotics. She was seen by the undersigned today at the emergency department in room G 81. This was discussed with her and with her nurse. Marta Gamez MD Nov 06, 2016 13:23
[2016-11-06 13:42] LABS: BICARBONATE 25.1 MEQ/L (21.0-32.0)
[2016-11-06] MEDS ORDERED: GADODIAMIDE PF 287 MG/ML 20 ML VIAL (for RAD MRI) IV ONE (15:41)
[2016-11-06 17:06] VITALS: BP 120/60; PULSE 68; RESP 18; O2SAT 95
--- NOTE | 2016-11-06 17:09 | RADRPT ---
EXAM DATE/TIME: 11/06/2016 15:31 [place] COMPARISON: No previous studies available for comparison. INDICATIONS : Abdominal pain. CONTRAST: 20 cc Omniscan (gadodiamide) IV MEDICAL HISTORY : Diabetes mellitus type 2. SURGICAL HISTORY : Hysterectomy. section. ENCOUNTER: Initial ACUITY: 1 day PAIN SCORE: 3/10 LOCATION: upper quadrant TECHNIQUE: Bolus infused MR angiography was performed. The data was postprocessed with a variety of visualizati on algorithms including full-volume maximum-intensity projection, multiplanar sliding thin slab refor mation, and curved planar reformation. FINDINGS: ABDOMINAL AORTA: The lumen is smooth without significant narrowing or aneurysmal dilatation. The proximal celiac and s uperior mesenteric arteries are patent and normal in diameter. RENAL ARTERIES: There are solitary renal arteries bilaterally. No evidence of ostial or segmental stenosis. KIDNEYS: There is symmetric renal size. There is homogeneous enhancement in the parenchyma. BIFURCATION: Normal. RIGHT PELVIS: The right common iliac, internal iliac, and external iliac vessels are patent without luminal irregul arity. LEFT PELVIS: The left common iliac, internal iliac, and external iliac vessels are patent and without luminal irre gularity. RETROPERITONEUM: The adrenal glands are unremarkable. No adenopathy seen. CONCLUSION: Negative exam. Abdominal vasculature is normal in caliber throughout with no significant stenosi s to explain current clinical symptoms. Juan Sun MD on November 06, 2016 at 17:03 Board Certified Radiologist. This report was verified electronically.
[2016-11-06] MEDS: ACETAMINOPHEN/HYDROcodone 325 MG/10 MG TAB PO PRN (17:22)
[2016-11-06 19:04] VITALS: BP 97/59; PULSE 58; RESP 19; TEMP 98.2; O2SAT 96
[2016-11-06] MEDS: TOPIRAMATE 25 MG TAB PO SCH (20:00)
[2016-11-06] MEDS: traZODone HCL 100 MG TAB PO SCH (20:00)
--- NOTE | 2016-11-06 20:44 | HHI.PR ---
Subjective Subjective Notes still c/o RLQ pain Objective Vitals/I&O Vital Signs Date Time Temp Pulse Resp B/P Pulse Ox O2 Delivery O2 Flow Rate FiO2 11/06/16 19:57 18 11/06/16 19:04 98.2 58 97/59 96 11/05/16 18:45 Room Air Labs Laboratory Tests Test 11/06/16 12:20 White Blood Count 6.4 Red Blood Count 4.02 Hemoglobin 11.9 Hematocrit 34.9 Mean Corpuscular Volume 86.9 Mean Corpuscular Hemoglobin 29.6 Mean Corpuscular Hemoglobin 34.0 Concent Red Cell Distribution Width 14.6 Platelet Count 276 Mean Platelet Volume 7.9 Neutrophils (%) (Auto) 48.1 Lymphocytes (%) (Auto) 42.0 Monocytes (%) (Auto) 6.3 Eosinophils (%) (Auto) 2.6 Basophils (%) (Auto) 1.0 Neutrophils # (Auto) 3.1 Lymphocytes # (Auto) 2.7 Monocytes # (Auto) 0.4 Eosinophils # (Auto) 0.2 Basophils # (Auto) 0.1 CBC Comment DIFF FINAL Differential Comment Hematology Comments Sodium Level 143 Potassium Level 4.0 Chloride Level 113 Carbon Dioxide Level 25.1 Anion Gap 5 Blood Urea Nitrogen 8 Creatinine 0.63 Estimat Glomerular Filtration 98 Rate Random Glucose 56 Calcium Level 8.3 Abdomen: Non-distended Narrative Exam RLQ focal peritonitis A/P Assessment and Plan 55yo with RLQ pain, CT scan with very thickened cecum and TI, likely tiflitis/ terminal ileitis. agree with IVF, ABX no acute surgical intervention at this time, agree with colonoscopy if colonoscopy shows no source of inflammation, can consider diagnostic laparoscopy this week Antoine Bird MD Nov 06, 2016 20:44
[2016-11-06] MEDS ORDERED: FAMOTIDINE 20 MG TAB PO SCH (21:00)
[2016-11-06] MEDS: ONDANSETRON HCL 4 MG/2 ML VIAL IVP PRN (21:15)
[2016-11-06 23:44] VITALS: BP 92/53; PULSE 52; RESP 18; TEMP 98.1; O2SAT 94
[2016-11-07] VITALS (9 sets, daily range): BP systolic 92–128; BP diastolic 53–60; PULSE 48–63; RESP 16–19; TEMP 97.6–98.5; O2SAT 93–100
[2016-11-07] MEDS: SODIUM CHLOR 0.9% 1000 ML INJ 1,000 ML IV SCH ×3 (02:18→22:18)
[2016-11-07] MEDS: ACETAMINOPHEN/HYDROcodone 325 MG/10 MG TAB PO PRN ×3 (04:14→15:58)
[2016-11-07] MEDS: metroNIDAZOLE 500 MG INJ 100 ML IV SCH ×3 (04:15→19:52)
[2016-11-07] MEDS: ASPIRIN EC 81 MG TABEC PO SCH (08:23)
[2016-11-07] MEDS: CLOPIDOGREL 75 MG TAB PO SCH (08:24)
[2016-11-07] MEDS: TOPIRAMATE 25 MG TAB PO SCH ×2 (08:26→21:08)
[2016-11-07] MEDS: VENLAFAXINE HCL XR 75 MG CAP PO SCH (08:27)
[2016-11-07] MEDS: SODIUM CHLORIDE 0.9% FLUSH 10 ML FLUSH IV FLUSH SCH ×2 (08:30→21:00)
--- NOTE | 2016-11-07 08:37 | HHI.PR ---
Subjective Remarks RLQ pain, mid lower umbilicus no emesis bradycardia,mild dizziness awake, responsive afebrile Objective Objective Results - Vital Signs Date Time Temp Pulse Resp B/P Pulse Ox O2 Delivery O2 Flow Rate FiO2 11/07/16 07:18 48 18 96/54 100 11/07/16 07:15 97.6 11/07/16 06:34 98/54 11/07/16 05:39 18 11/07/16 04:22 98.1 56 19 92/56 93 11/06/16 23:44 98.1 52 18 92/53 94 11/06/16 21:22 18 11/06/16 19:04 98.2 58 19 97/59 96 11/06/16 17:06 68 18 120/60 95 Result Diagram: 11/06/16 1220 11/06/16 1220 ROS General: Fatigue, Weakness, Other (10 point ROS done,, positives noted otherwise systems negative) GI: Abdominal Pain Physical Exam Physical Exam PHYSICAL EXAMINATION GENERAL: This is a well-developed, well-nourished slim female who appears to be in mild distress. She is alert and awake, HEAD: Normocephalic without any lesion or mass noted. Facial features appear symmetric. OROPHARYNGEAL: Oropharynx without erythema or edema. NECK: Supple. No nuchal rigidity or lymphadenopathy. Trachea midline without deviation. CARDIAC: Regular rhythm slow , regular rate, S1 and S2 are heard. LUNGS: Clear to auscultation bilaterally. No wheezes rhonchi or rales ABDOMEN: Soft, , mild guarding to light palpation. Bowel sounds are heard in all four quadrants. Tenderness in right lower quadrant EXTREMITIES: no edema. Pulses equal bilateral. NEUROLOGICAL: Patient mood and affect appropriate. No focal deficit SKIN:Warm and moist Objective Remarks I'm still heard in my abdomen A/P Assessment and Plan 1. Abdominal pain, possible appendicitis. 2. Tobacco abuse and dependence. 3. Nausea and vomiting.] 4. History of cerebrovascular accident. GI workup MRA/pelvis normal. Looking at colonoscopy for causes. Surgical consult appreciate, non surgical needs for now, but may need to consider laporscopy / ovary or uterine pain, Still states pain is RLQ, with some lower mid umbilical pain. pain management No diarrhea noted, No BM X 2 days. Will monitor. laxative prn No vomiting trial Clear liquids D/C Pepcid ,Protonix 40mg IV BID, Add Flagyl -Stool for CDiff, C/S, O&P, Giardia Bradycardia, states some mild dizziness when up yesterday. Low pulse, 48- 58 according to graphic, monitor Telemetry. On no BB. BP still trends low. Telemetry to call for HR < 55. for symptom eval. labs CBC, BMP ordered for am. Discussed With: Nurse, Family (patient), Other (dr. cantu, seen on his behalf) Michelle Stapleton Nov 07, 2016 08:37
[2016-11-07] MEDS ORDERED: NON-FORMULARY DRUG (Biotin 5 MG) PO SCH (09:00)
[2016-11-07] MEDS: ONDANSETRON HCL 4 MG/2 ML VIAL IVP PRN (10:15)
[2016-11-07] MEDS: PANTOPRAZOLE SODIUM 40 MG VIAL IV PUSH SCH (12:06)
[2016-11-07] MEDS: MORPHINE SULFATE 4 MG/ML INJ IV PRN ×2 (12:09→19:52)
--- NOTE | 2016-11-07 12:09 | HHI.PR ---
Subjective Subjective Notes still with pain, no fevers, +flatus Objective Vitals/I&O Vital Signs Date Time Temp Pulse Resp B/P Pulse Ox O2 Delivery O2 Flow Rate FiO2 11/07/16 11:28 97.9 51 16 115/59 100 11/05/16 18:45 Room Air Labs Laboratory Tests Test 11/06/16 12:20 White Blood Count 6.4 Red Blood Count 4.02 Hemoglobin 11.9 Hematocrit 34.9 Mean Corpuscular Volume 86.9 Mean Corpuscular Hemoglobin 29.6 Mean Corpuscular Hemoglobin 34.0 Concent Red Cell Distribution Width 14.6 Platelet Count 276 Mean Platelet Volume 7.9 Neutrophils (%) (Auto) 48.1 Lymphocytes (%) (Auto) 42.0 Monocytes (%) (Auto) 6.3 Eosinophils (%) (Auto) 2.6 Basophils (%) (Auto) 1.0 Neutrophils # (Auto) 3.1 Lymphocytes # (Auto) 2.7 Monocytes # (Auto) 0.4 Eosinophils # (Auto) 0.2 Basophils # (Auto) 0.1 CBC Comment DIFF FINAL Differential Comment Hematology Comments Sodium Level 143 Potassium Level 4.0 Chloride Level 113 Carbon Dioxide Level 25.1 Anion Gap 5 Blood Urea Nitrogen 8 Creatinine 0.63 Estimat Glomerular Filtration 98 Rate Random Glucose 56 Calcium Level 8.3 Cardiovascular: Regular Lungs: Clear Abdomen: Other (soft no rebound, +ttp right worse then left) A/P Assessment and Plan abdominal pain cecal thickening PLAN liquid diet pain control unlikely appendicitis appreciate gi recs abdominal exams Arnoldo Musa MD Nov 07, 2016 12:09
--- NOTE | 2016-11-07 14:51 | HHI.GIFU ---
Subjective Remarks Pt reports that her pain is worse today Pt has been afebrile +Flatus No vomiting Pt reports that this pain is similar to when she had a bowel obstruction in 2014. She states that at that time she had multiple imaging tests at that time but that the blockage wasn't found until they did surgery and she reports that her "small bowel was wrapped around her colon" (Adry Mitchell) Objective Vitals I&O Vital Signs Date Time Temp Pulse Resp B/P Pulse Ox O2 Delivery O2 Flow Rate FiO2 11/07/16 11:28 97.9 51 16 115/59 100 11/07/16 07:18 48 18 96/54 100 11/07/16 07:15 97.6 11/07/16 06:34 98/54 11/07/16 05:39 18 11/07/16 04:22 98.1 56 19 92/56 93 11/06/16 23:44 98.1 52 18 92/53 94 11/06/16 21:22 18 11/06/16 19:04 98.2 58 19 97/59 96 11/06/16 17:06 68 18 120/60 95 I/O 11/06/16 11/06/16 11/06/16 11/07/16 11/07/16 11/07/16 07:00 15:00 23:00 07:00 15:00 23:00 Output Total 200 ml Balance -200 ml Output Urine Total 200 ml # Voids 2 Laboratory Laboratory Tests Test 11/05/16 11/06/16 15:45 12:20 White Blood Count 9.1 TH/MM3 6.4 TH/MM3 Red Blood Count 4.25 MIL/MM3 4.02 MIL/MM3 Hemoglobin 12.7 GM/DL 11.9 GM/DL Hematocrit 37.4 % 34.9 % Mean Corpuscular Volume 88.1 FL 86.9 FL Mean Corpuscular Hemoglobin 29.9 PG 29.6 PG Mean Corpuscular Hemoglobin 33.9 % 34.0 % Concent Red Cell Distribution Width 14.9 % 14.6 % Platelet Count 337 TH/MM3 276 TH/MM3 Mean Platelet Volume 7.4 FL 7.9 FL Neutrophils (%) (Auto) 56.7 % 48.1 % Lymphocytes (%) (Auto) 34.0 % 42.0 % Monocytes (%) (Auto) 7.2 % 6.3 % Eosinophils (%) (Auto) 1.9 % 2.6 % Basophils (%) (Auto) 0.2 % 1.0 % Neutrophils # (Auto) 5.1 TH/MM3 3.1 TH/MM3 Lymphocytes # (Auto) 3.1 TH/MM3 2.7 TH/MM3 Monocytes # (Auto) 0.7 TH/MM3 0.4 TH/MM3 Eosinophils # (Auto) 0.2 TH/MM3 0.2 TH/MM3 Basophils # (Auto) 0.0 TH/MM3 0.1 TH/MM3 CBC Comment DIFF FINAL DIFF FINAL Differential Comment Urine Color LIGHT-YELLOW Urine Turbidity CLEAR Urine pH 6.5 Urine Specific [place] 1.010 Urine Protein NEG mg/dL Urine Glucose (UA) NEG mg/dL Urine Ketones NEG mg/dL Urine Occult Blood NEG Urine Nitrite NEG Urine Bilirubin NEG Urine Urobilinogen LESS THAN 2.0 MG/DL Urine Leukocyte Esterase NEG Urine WBC LESS THAN 1 /hpf Urine Squamous Epithelial <1 /hpf Cells Microscopic Urinalysis Comment CULT NOT INDICATED Sodium Level 141 MEQ/L 143 MEQ/L Potassium Level 4.3 MEQ/L 4.0 MEQ/L Chloride Level 111 MEQ/L 113 MEQ/L Carbon Dioxide Level 26.0 MEQ/L 25.1 MEQ/L Anion Gap 4 MEQ/L 5 MEQ/L Blood Urea Nitrogen 11 MG/DL 8 MG/DL Creatinine 0.78 MG/DL 0.63 MG/DL Estimat Glomerular Filtration 76 ML/MIN 98 ML/MIN Rate Random Glucose 81 MG/DL 56 MG/DL Calcium Level 8.7 MG/DL 8.3 MG/DL Total Bilirubin 0.2 MG/DL Aspartate Amino Transf 12 U/L (AST/SGOT) Alanine Aminotransferase 15 U/L (ALT/SGPT) Alkaline Phosphatase 105 U/L Total Protein 7.6 GM/DL Albumin 3.7 GM/DL Lipase 149 U/L Hematology Comments Imaging Last Impressions Abdomen Magnetic Resonance Angio 11/06/16 0000 Signed Impressions: Service Date/Time: Sunday, November 06, 2016 15:31 - CONCLUSION: Negative exam. Abdominal vasculature is normal in caliber throughout with no significant stenosis to explain current clinical symptoms. Juan Sun MD Abdomen/Pelvis CT 11/05/16 1547 Signed Impressions: Service Date/Time: Negrito, November 05, 2016 17:50 - CONCLUSION: 1. Patient is status post hysterectomy with findings of an infraumbilical vertical scar. 2. No acute intraperitoneal or pelvic process to explain current clinical syndrome. Juan Sun MD ADDENDUM: I was asked to take another look at the CT scan. There is wall thickening of the cecum. There is widening of the base of the appendix which appear somewhat thickened and measures 2 cm in thickness. I do not see inflammatory changes. The distal appendix appears normal. An early appendicitis along the appendiceal base cannot be excluded. Demarcus Hamlin MD Physical Exam HEENT: Pupils round and reactive to light; normocephalic; atraumatic; no jaundice. Throat is clear. NECK: Neck is supple CHEST: CTA CARDIAC: Regular, bradycardic ABDOMEN: +BS, soft, nondistended, diffusely tender but moreso in the RLQ EXTREMITIES: No clubbing, cyanosis, or edema. SKIN: Normal; no rash; no jaundice. 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 (Adry Mitchell) Assessment and Plan Plan ASSESSMENT: - RLQ Pain. Sudden onset of severe constant sharp RLQ pain yesterday. Abdomen/ Pelvis CT (11/05/16)---> 1. Patient is status post hysterectomy with findings of an infraumbilical vertical scar. 2. No acute intraperitoneal or pelvic process to explain current clinical syndrome. ADDENDUM: I was asked to take another look at the CT scan. There is wall thickening of the cecum. There is widening of the base of the appendix which appear somewhat thickened and measures 2 cm in thickness. I do not see inflammatory changes. The distal appendix appears normal. An early appendicitis along the appendiceal base cannot be excluded. GS was consulted and the patient was evaluated by Dr. Musa, who does not feel that this is acute appendicitis based on her normal wbc and the fact that she has been afebrile. MRA Abdomen (11/06/16) --> Negative exam. Abdominal vasculature is normal in caliber throughout with no significant stenosis to explain current clinical symptoms. Last colonoscopy 2011. WBC stable. - Nausea without vomiting. Pt has had nausea without associated vomiting. Add PPI. - Diarrhea. 4 loose stools on 11/05 without blood or mucous. Stool studies ordered. - Depression, Hx CVA. PLAN: - We will plan for evaluation with EGD/colonoscopy for tomorrow. Pt is on Plavix. - GoLytely - Clear liquids - NPO after MN except meds - Protonix 40mg IV BID - Cont. Flagyl - Stool for CDiff, C/S, O&P, Giardia ordered - Supportive care - Pts HR and BP are low today but pt reports that her BP typically runs in the 110's systolic normally - Attending is aware of low HR. - Pt seen and examined by Dr. Camejo and myself and this note is written on her behalf (Adry Mitchell) Physician Comments seen, examined agree with above (Ammy Camejo MD) Adry Mitchell Nov 07, 2016 14:51 Ammy Camejo MD Nov 07, 2016 17:03
[2016-11-07] MEDS ORDERED: PEG (High)/E-LYTE SOLN 4000 ML BTL PO ONE (15:00)
[2016-11-07] MEDS: traZODone HCL 100 MG TAB PO SCH (21:08)
[2016-11-07] MEDS: cefTRIAXone INJ 1,000 MG in SODIUM CHLORIDE 0.9% INJ 100 ML IV SCH (21:09)
[2016-11-08] VITALS (9 sets, daily range): BP systolic 100–141; BP diastolic 54–64; PULSE 48–75; RESP 16–20; TEMP 96–98.7; O2SAT 94–98
[2016-11-08] MEDS: ACETAMINOPHEN/HYDROcodone 325 MG/10 MG TAB PO PRN ×3 (00:03→10:22)
[2016-11-08] MEDS: metroNIDAZOLE 500 MG INJ 100 ML IV SCH ×4 (04:14→23:58)
[2016-11-08 06:37] LABS: HEMATOCRIT 33.7 % (35.0-46.0); MEAN CELL VOLUME 88.3 FL (80.0-100.0); MEAN CORPUSCULAR HEMOGLOBIN 28.9 PG (27.0-34.0); MEAN CORPUSCULAR HGB CONC 32.7 % (32.0-36.0); PLATELET COUNT 258 TH/MM3 (150-450); RED BLOOD COUNT 3.82 MIL/MM3 (4.00-5.30); RED CELL DISTRIBUTION WIDTH 14.4 % (11.6-17.2); REVIEW FLAG FINAL
[2016-11-08 07:02] LABS: BICARBONATE 25.5 MEQ/L (21.0-32.0); POTASSIUM 3.6 MEQ/L (3.5-5.1)
--- NOTE | 2016-11-08 08:47 | HHI.PR ---
Subjective Remarks RLQ pain, mid lower umbilicus no emesis bradycardia, noted on telemetry awake, responsive afebrile (Michelle Stapleton) Objective Objective Results - Vital Signs Date Time Temp Pulse Resp B/P Pulse Ox O2 Delivery O2 Flow Rate FiO2 11/08/16 08:00 96.4 53 20 119/58 98 11/08/16 07:38 16 11/08/16 04:11 98.4 60 18 100/54 94 11/07/16 23:56 98.5 50 18 128/60 97 11/07/16 21:18 54 11/07/16 20:18 18 11/07/16 19:38 98.2 63 18 125/60 94 11/07/16 15:44 98.0 53 16 114/53 98 11/07/16 11:28 97.9 51 16 115/59 100 I/O 11/07/16 11/07/16 11/07/16 11/08/16 11/08/16 11/08/16 07:00 15:00 23:00 07:00 15:00 23:00 Output Total 200 ml Balance -200 ml Output Urine Total 200 ml # Voids 3 2 (Michelle Stapleton) Result Diagram: 11/08/16 0615 11/08/16 0615 Other Results Last Impressions Abdomen Magnetic Resonance Angio 11/06/16 0000 Signed Impressions: Service Date/Time: Sunday, November 06, 2016 15:31 - CONCLUSION: Negative exam. Abdominal vasculature is normal in caliber throughout with no significant stenosis to explain current clinical symptoms. Juan Sun MD Abdomen/Pelvis CT 11/05/16 1547 Signed Impressions: Service Date/Time: Saturday, November 05, 2016 17:50 - CONCLUSION: 1. Patient is status post hysterectomy with findings of an infraumbilical vertical scar. 2. No acute intraperitoneal or pelvic process to explain current clinical syndrome. Juan Sun MD ADDENDUM: I was asked to take another look at the CT scan. There is wall thickening of the cecum. There is widening of the base of the appendix which appear somewhat thickened and measures 2 cm in thickness. I do not see inflammatory changes. The distal appendix appears normal. An early appendicitis along the appendiceal base cannot be excluded. Demarcus Hamlin MD Medications and IVs Administered Medications Medications (Trade) Dose Ordered Sig/Prabhakar Route PRN Reason Start Time Stop Time Status Last Admin Dose Admin Sodium Chloride (NS 1000 ml Inj) 1,000 ml @ 100 mls/hr Q10H IV 11/05/16 20:18 11/07/16 17:42 Ondansetron HCl (Zofran Inj) 4 mg Q6H PRN IVP NAUSEA OR VOMITING 11/05/16 20:30 11/07/16 10:15 Morphine Sulfate (Morphine Inj) 2 mg Q3H PRN IV pain 8-10 11/06/16 00:30 11/07/16 19:52 Clopidogrel Bisulfate (Plavix) 75 mg DAILY PO 11/07/16 09:00 11/07/16 08:24 Topiramate (Topamax) 50 mg BID PO 11/06/16 21:00 11/07/16 21:08 Trazodone HCl (Desyrel) 100 mg HS PO 11/06/16 21:00 11/07/16 21:08 Venlafaxine HCl (Effexor Xr) 150 mg DAILY PO 11/07/16 09:00 11/07/16 08:27 Aspirin 81 mg 81 mg DAILY PO 11/07/16 09:00 11/07/16 08:23 Metronidazole (Flagyl 500 Mg Inj) 100 ml @ 100 mls/hr Q8H IV 11/06/16 12:00 11/08/16 04:14 Pantoprazole Sodium (Protonix Inj) 40 mg Q24H IV PUSH 11/06/16 11:45 11/07/16 12:06 Acetaminophen/ Hydrocodone Bitart 1 tab 1 tab Q4H PRN PO pain 2-7 11/06/16 13:30 11/08/16 06:20 Ceftriaxone Sodium/Sodium Chloride (Rocephin Inj/NS Inj) 100 ml @ 200 mls/hr Q24H IV 11/07/16 21:00 11/07/16 21:09 (Michelle Stapleton) ROS General: Fatigue, Weakness GI: Abdominal Pain (right lower quadrant radiates diffusely), N/V (nausea no emesis, decreased appetite) (Michelle Stapleton) Physical Exam Physical Exam PHYSICAL EXAMINATION GENERAL: This is a well-developed, thin female who appears to be in mild distress. She is alert and awake, NPO for testing today HEAD: Normocephalic without any lesion or mass noted. Facial features appear symmetric. OROPHARYNGEAL: Oropharynx without erythema or edema. NECK: Supple. No nuchal rigidity or lymphadenopathy. Trachea midline without deviation. CARDIAC: Regular rhythm, regular rate, S1 and S2 are heard. . LUNGS: Clear to auscultation bilaterally. ABDOMEN: Soft, mild generalized tenderness with special attention to the right lower quadrant, no organomegaly or masses. Bowel sounds are heard in all four quadrants. No guarding. EXTREMITIES: No edema. Pulses equal bilateral. NEUROLOGICAL: Patient mood and affect appropriate. Anxiety SKIN:Warm and moist Objective Remarks I wish to get feeling better (Michelle Stapleton) A/P Assessment and Plan 1. Abdominal pain, possible appendicitis. 2. Tobacco abuse and dependence. 3. Nausea and vomiting.] 4. History of cerebrovascular accident. GI workup MRA/pelvis normal. Probable no appendicitis. Plan for EGD and colonoscopy today IV antibiotics, continue Rocephin Surgical consult appreciate, non surgical needs for now, but may need to consider laporscopy / ovary or uterine pain, Still states pain is RLQ, with some lower mid umbilical pain. pain management No diarrhea noted, no BM since admission, prepped for colonoscopy Will monitor. No vomiting trial Clear liquids yesterday, was able to keep down liquids D/C Pepcid ,Protonix 40mg IV BID, Add Flagyl -Stool for CDiff, C/S, O&P, Giardia pending labs Bradycardia, states some mild dizziness when up yesterday. Low pulse, 48- 58 according to graphic, monitor Telemetry. On no beta cortney BP still trends low. Telemetry to call for HR < 55. for symptom eval. nurse states heart rate alarms last a.m. for 45 and less, but no strips available. Patient has never been worked up for any cardiac issues in the past. Vital signs reviewed normal ranges, BP 100/54, but patient states her BP usually runs on the lower ranges Labs reviewed, sodium 147, the patient has been on IV fluids. We'll DC normal saline and change to D5 W at least until test completed today Discussed With: Nurse, Family (patient), Other (dr. arambula, seen on his behalf) (Michelle Stapleton) Assessment and Plan pt is seen & Examined chart reviewed d/w PT still having sig abd pain /requiring round the clock pain meds. empiric iV abx For EGD & Cscope today d/w Michelle agree w above d/w case management assistant joão, Pt meets Inpatient Criteria d/t severe abd pain needing round the clock IV pain meds /IVF & empiric IV abx . will change her to Inpatient Expected LOS is 3 to 4 days , possible dc home when stable will f/u (Rodney Arambula MD) Michelle Stapleton Nov 08, 2016 08:47 Rodney Arambula MD Nov 08, 2016 11:26
[2016-11-08] MEDS: SODIUM CHLORIDE 0.9% FLUSH 10 ML FLUSH IV FLUSH SCH ×2 (09:00→20:40)
[2016-11-08] MEDS: CLOPIDOGREL 75 MG TAB PO SCH (09:00)
[2016-11-08] MEDS: ASPIRIN EC 81 MG TABEC PO SCH (09:00)
[2016-11-08] MEDS: DEXTROSE 5% IN WATE 1000ML INJ 1,000 ML IV SCH (09:24)
[2016-11-08] MEDS: VENLAFAXINE HCL XR 75 MG CAP PO SCH (09:25)
[2016-11-08] MEDS: TOPIRAMATE 25 MG TAB PO SCH ×2 (09:25→21:23)
[2016-11-08] MEDS: PANTOPRAZOLE SODIUM 40 MG VIAL IV PUSH SCH ×2 (11:45→16:01)
[2016-11-08] MEDS ORDERED: PROPOFOL 200 MG/20 ML AMP IV ONE (14:35)
--- NOTE | 2016-11-08 14:38 | GIPROC ---
[facility] [address] [facility]. [facility], [address] EGD PROCEDURE REPORT EXAM DATE: 11/08/2016 PATIENT NAME: Trina Emery MR #: [id number] BIRTHDATE: 1960 ATTENDING: Eliu Ahumada MD ORDER #: [id number] MOBILE SERV[employer] RV TECHNICIAN: Mirna Wallace and Dona العلي STATUS: inpatient INDICATIONS: The patient is a 55 yr old female here for an EGD due to nausea PROCEDURE PERFORMED: EGD w/ biopsy MEDICATIONS: None, Per Anesthesia, None, and Per Anesthesia. TOPICAL ANESTHETIC: CONSENT: The patient understands the risks and benefits of the procedure and understands that these risks include, but are not limited to: sedation, allergic reaction, infection, perforation and/or bleeding. Alternative means of evaluation and treatment include, among others: physical exam, x-rays, and/or surgical intervention. The patient elects to proceed with this endoscopic procedure. medical equipment was checked for proper function. Hand hygiene and appropriate measures for infection prevention was taken. After the risks, benefits and alternatives of the procedure were thoroughly explained, Informed consent was verified, confirmed and timeout was successfully executed by the treatment team. The patient was anesthetized with topical anesthesia and the Pentax [id number] endoscope was introduced through the mouth and advanced to the second portion of the duodenum. Retroflexed views revealed no abnormalities The gastroscope was then slowly withdrawn and removed. STOMACH: There was mild gastritis in the gastric antrum. Multiple biopsies were performed. Possible mild pyloric stenosis is evidenced by a faculty passing the scope through the pylorus. The endoscopy was otherwise normal. ADVERSE EVENTS: There were no complications. IMPRESSIONS: 1. There was mild gastritis in the gastric antrum; multiple biopsies were performed 2. Possible mild pyloric stenosis is evidenced by a faculty passing the scope through the pylorus 3. Normal endoscopy otherwise 4. Retroflexed views revealed no abnormalities RECOMMENDATIONS: 1. Await biopsy results. Biopsy results will not be ready for 7-10 days. If you don't hear from us in two weeks, call our office for biopsy results. 2. Follow-up: GI clinic 4 week(s) PATIENT CONDITION: stable DISPOSITION: Inpatient REPEAT EXAM: Eliu Ahumada MD eSigned: Eliu Ahumada MD 11/08/2016 2:38 PM cc:
--- NOTE | 2016-11-08 14:39 | GIPROC ---
[facility] [address] [facility]. 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 PREP QUALITY: excellent ESTIMATED BLOOD LOSS: None CONSENT: The patient understands the risks and benefits of the procedure and understands that these risks include, but are not limited to: sedation, allergic reaction, infection, perforation and/or bleeding. Alternative means of evaluation and treatment include, among others: physical exam, x-rays, and/or surgical intervention. The patient elects to proceed with this endoscopic procedure. medical equipment was checked for proper function. Hand hygiene and appropriate measures for infection prevention was taken. After the risks, benefits and alternatives of the procedure were thoroughly explained, Informed consent was verified, confirmed and timeout was successfully executed by the treatment team. A digital exam revealed no abnormalities of the rectum The endoscope was introduced through the anus and advanced to the cecum, which was identified by both the appendix and ileocecal valve. The instrument was then slowly withdrawn as the colon was fully examined. COLON FINDINGS: The colonic mucosa appeared normal. Retroflexed views revealed no abnormalities The scope was then completely withdrawn from the patient and the procedure terminated. PROCEDURE WITHDRAWAL TIME:6.3minutes ADVERSE EVENTS: There were no complications. IMPRESSIONS: 1. The colonic mucosa appeared normal 2. Retroflexed views revealed no abnormalities 3. Revealed no abnormalities of the rectum RECOMMENDATIONS: 1. High fiber diet 2. Yearly hemoccult 3. Follow-up: GI Clinic PRN RECALL: Return 10 years Colonoscopy Eliu Ahumada MD eSigned: Eliu Ahumada MD 11/08/2016 2:39 PM cc:
--- NOTE | 2016-11-08 17:33 | HHI.PR ---
Subjective Subjective Notes Resting in bed Pains feels about the same as yesterday Objective Vitals/I&O Vital Signs Date Time Temp Pulse Resp B/P Pulse Ox O2 Delivery O2 Flow Rate FiO2 11/08/16 16:45 51 11/08/16 15:58 96.0 20 141/64 97 11/05/16 18:45 Room Air Labs Laboratory Tests Test 11/08/16 06:15 White Blood Count 5.0 Red Blood Count 3.82 Hemoglobin 11.0 Hematocrit 33.7 Mean Corpuscular Volume 88.3 Mean Corpuscular Hemoglobin 28.9 Mean Corpuscular Hemoglobin 32.7 Concent Red Cell Distribution Width 14.4 Platelet Count 258 Mean Platelet Volume 7.1 Sodium Level 147 Potassium Level 3.6 Chloride Level 115 Carbon Dioxide Level 25.5 Anion Gap 7 Blood Urea Nitrogen 4 Creatinine 0.62 Estimat Glomerular Filtration 100 Rate Random Glucose 70 Calcium Level 8.2 Date/Time Procedure Status Source Growth 11/07/16 17:20 Cryptosporidium Exam Resulted Stool Stool Pending 11/07/16 17:20 Stool Pus (UMBERTO) - Final Resulted Stool Stool FEW WBC'S 11/07/16 17:20 Giardia Antigen (UMBERTO) Resulted Stool Stool Pending 11/07/16 17:20 - Final Complete Stool Stool NO ENTERIC PATHOGENS DETECTED BY PCR... Cardiovascular: Regular Lungs: Clear Abdomen: Other (RLQ tenderness with palpation ) Extremities: No edema A/P Assessment and Plan 55 year old female with RLQ pain; rule out appendicitis -Diet as tolerated -EGD/colonoscopy completed today--- shows no acute process -Pain control -Will monitor lab -If pain does not improve may plan to do operative intervention Attending Statement patient seen at bedside f/u on egd/colonoscopy possible or if no improvement Attestation The exam, history, and the medical decision-making described in the above note were completed with the assistance of the mid-level provider. I reviewed and agree with the findings presented. I attest that I had a [id number] encounter with the patient on the same day, and personally performed and documented my assessment and findings in the medical record. Riddhi Jones Nov 08, 2016 17:33 Arnoldo Musa MD November 21, 2016 23:56
[2016-11-08] MEDS: MORPHINE SULFATE 4 MG/ML INJ IV PRN (20:00)
[2016-11-08] MEDS: traZODone HCL 100 MG TAB PO SCH (21:24)
[2016-11-08] MEDS: cefTRIAXone INJ 1,000 MG in SODIUM CHLORIDE 0.9% INJ 100 ML IV SCH (21:24)
[2016-11-09 00:19] VITALS: BP 104/58; PULSE 58; RESP 15; TEMP 97; O2SAT 96
[2016-11-09] MEDS: MORPHINE SULFATE 4 MG/ML INJ IV PRN ×2 (02:28→06:30)
[2016-11-09 04:00] VITALS: BP 162/89; PULSE 92; RESP 18; TEMP 98.9; O2SAT 96
[2016-11-09 07:42] LABS: HEMATOCRIT 36.1 % (35.0-46.0); MEAN CELL VOLUME 88.5 FL (80.0-100.0); MEAN CORPUSCULAR HEMOGLOBIN 28.8 PG (27.0-34.0); MEAN CORPUSCULAR HGB CONC 32.5 % (32.0-36.0); PLATELET COUNT 265 TH/MM3 (150-450); RED BLOOD COUNT 4.08 MIL/MM3 (4.00-5.30); RED CELL DISTRIBUTION WIDTH 14.6 % (11.6-17.2); REVIEW FLAG FINAL; WHITE BLOOD COUNT 5.3 TH/MM3 (4.0-11.0)
[2016-11-09 08:17] LABS: WESTERGREN SEDIMENTATION RATE 17 mm/hr (0-30)
[2016-11-09 08:34] VITALS: BP 105/57; PULSE 57; RESP 14; TEMP 97.6; O2SAT 95
[2016-11-09] MEDS: DEXTROSE 5% IN WATE 1000ML INJ 1,000 ML IV SCH (08:49)
[2016-11-09] MEDS: SODIUM CHLORIDE 0.9% FLUSH 10 ML FLUSH IV FLUSH SCH (09:00)
[2016-11-09] MEDS: metroNIDAZOLE 500 MG INJ 100 ML IV SCH (09:01)
[2016-11-09] MEDS: CLOPIDOGREL 75 MG TAB PO SCH (09:02)
[2016-11-09] MEDS: TOPIRAMATE 25 MG TAB PO SCH (09:02)
[2016-11-09] MEDS: VENLAFAXINE HCL XR 75 MG CAP PO SCH (09:02)
[2016-11-09] MEDS: ASPIRIN EC 81 MG TABEC PO SCH (09:06)
--- NOTE | 2016-11-09 09:37 | HHI.PR ---
Subjective Remarks RLQ pain, mid lower umbilicus, improving no acute soreness today awake, responsive afebrile increase activity (Michelle Stapleton) Objective Objective Results - Vital Signs Date Time Temp Pulse Resp B/P Pulse Ox O2 Delivery O2 Flow Rate FiO2 11/09/16 08:34 97.6 57 14 105/57 95 11/09/16 06:41 14 11/09/16 04:00 98.9 92 18 162/89 96 11/09/16 00:19 97.0 58 15 104/58 96 11/08/16 20:19 96.2 75 16 103/59 97 11/08/16 19:45 61 11/08/16 16:45 51 11/08/16 15:58 96.0 54 20 141/64 97 11/08/16 14:58 51 16 118/65 100 11/08/16 14:48 54 16 109/67 100 11/08/16 14:38 53 16 107/63 100 11/08/16 13:30 98.7 51 20 114/58 96 11/08/16 12:00 96.5 51 20 114/58 96 11/08/16 10:58 48 I/O 11/08/16 11/08/16 11/08/16 11/09/16 11/09/16 11/09/16 07:00 15:00 23:00 07:00 15:00 23:00 Intake Total 250 ml Balance 250 ml Intake Other 250 ml # Voids 2 2 3 (Michelle Stapleton) Result Diagram: 11/09/16 0613 11/08/16 0615 ROS General: Fatigue (improving), Weakness, Other (10 point ROS done right lower quadrant pain less intense, improving generalized weakness and fatigue, other systems unremarkable) GI: Abdominal Pain (right lower quadrant, improving) (Michelle Stapleton) Physical Exam Physical Exam PHYSICAL EXAMINATION GENERAL: This is a well-developed, well-nourished female who appears to be in no acute distress. She is alert and awake, HEAD: Normocephalic without any lesion or mass noted. Facial features appear symmetric. OROPHARYNGEAL: Oropharynx without erythema or edema. NECK: Supple. No nuchal rigidity or lymphadenopathy. Trachea midline without deviation. CARDIAC: Regular rhythm, regular rate, S1 and S2 are heard LUNGS: Clear to auscultation bilaterally. No cough ABDOMEN: Soft, nontender, no organomegaly or masses. Bowel sounds are heard in all four quadrants. No rebound. No guarding. EXTREMITIES: No edema. Pulses equal bilateral. NEUROLOGICAL: Patient mood and affect appropriate. No focal deficit SKIN:Warm and moist Objective Remarks I am starting to feel better today (Michelle Stapleton) A/P Assessment and Plan 1. Abdominal pain, possible appendicitis. 2. Tobacco abuse and dependence. 3. Nausea and vomiting.] 4. History of cerebrovascular accident. GI consult and workup appreciate GI workup MRA/pelvis normal. EGD and colonoscopy done yesterday, multiple biopsies taken, but no acute findings IV antibiotics, continue Rocephin, advance diet today for monitoring, Surgical consult appreciate, non surgical needs for now, patient has already had a hysterectomy and has no uterus and no ovaries, so laparoscopic is probably not the best option. Still states pain is RLQ, but is improving and resolving. Patient had abdominal surgery last year with adhesions removed. Advanced activity today and reassess pain. pain management Bradycardia, heart rate has increased to the 60s and 70s over the past 24 hours , with some bradycardia noted monitor Telemetry. On no beta cortney Asymptomatic Patient has never been worked up for any cardiac issues in the past. Vital signs reviewed normal ranges, this a.m. Labs reviewed, sodium 147 DC'd IV fluids Activity to be increased to be up in chair up in room and ambulate. Monitor food intake today for any acute signs and symptoms. Discharge planning possible tomorrow depending on patient's response to treatment Discussed With: Nurse, Family (patient), Other (dr. arambula, seen on his behalf) (Michelle Stapleton) Assessment and Plan pt is seen & examined s/p EGD & cscope , findings noted , d/w PT pt is feeling better , had breakfast & lunch today , tolerated it well pain is much better medically stable eager to go home d/c if ok w GI will d/c abx d/w PT d/w Michelle d/w RN see Orders f/u pcp & GI (Rodney Arambula MD) Michelle Stapleton Nov 09, 2016 09:37 Rodney Arambula MD Nov 09, 2016 14:56
--- NOTE | 2016-11-09 11:42 | HHI.GIFU ---
Subjective Remarks Pt is seated in chair, watching TV. She feels much better today. SHe had a soft BM this morning. Her pain is a 5/10. She ate breakfast this morning. No n/v, blood in stool. (Chata Gannon) Objective Vitals I&O Vital Signs Date Time Temp Pulse Resp B/P Pulse Ox O2 Delivery O2 Flow Rate FiO2 11/09/16 08:34 97.6 57 14 105/57 95 11/09/16 06:41 14 11/09/16 04:00 98.9 92 18 162/89 96 11/09/16 00:19 97.0 58 15 104/58 96 11/08/16 20:19 96.2 75 16 103/59 97 11/08/16 19:45 61 11/08/16 16:45 51 11/08/16 15:58 96.0 54 20 141/64 97 11/08/16 14:58 51 16 118/65 100 11/08/16 14:48 54 16 109/67 100 11/08/16 14:38 53 16 107/63 100 11/08/16 13:30 98.7 51 20 114/58 96 11/08/16 12:00 96.5 51 20 114/58 96 I/O 11/08/16 11/08/16 11/08/16 11/09/16 11/09/16 11/09/16 07:00 15:00 23:00 07:00 15:00 23:00 Intake Total 250 ml Balance 250 ml Intake Other 250 ml # Voids 2 2 3 Laboratory Laboratory Tests Test 11/09/16 06:13 White Blood Count 5.3 Red Blood Count 4.08 Hemoglobin 11.7 Hematocrit 36.1 Mean Corpuscular Volume 88.5 Mean Corpuscular Hemoglobin 28.8 Mean Corpuscular Hemoglobin 32.5 Concent Red Cell Distribution Width 14.6 Platelet Count 265 Mean Platelet Volume 7.6 Erythrocyte Sedimentation Rate 17 C-Reactive Protein LESS THAN 0.29 Date/Time Procedure Status Source Growth 11/07/16 17:20 Cryptosporidium Exam Resulted Stool Stool Pending 11/07/16 17:20 Stool Pus (UMBERTO) - Final Resulted Stool Stool FEW WBC'S 11/07/16 17:20 Giardia Antigen (UMBERTO) Resulted Stool Stool Pending 11/07/16 17:20 - Final Complete Stool Stool NO ENTERIC PATHOGENS DETECTED BY PCR... Imaging Last Impressions Abdomen Magnetic Resonance Angio 11/06/16 0000 Signed Impressions: Service Date/Time: Sunday, November 06, 2016 15:31 - CONCLUSION: Negative exam. Abdominal vasculature is normal in caliber throughout with no significant stenosis to explain current clinical symptoms. Juan Sun MD Abdomen/Pelvis CT 11/05/16 1547 Signed Impressions: Service Date/Time: Saturday, November 05, 2016 17:50 - CONCLUSION: 1. Patient is status post hysterectomy with findings of an infraumbilical vertical scar. 2. No acute intraperitoneal or pelvic process to explain current clinical syndrome. Juan Sun MD ADDENDUM: I was asked to take another look at the CT scan. There is wall thickening of the cecum. There is widening of the base of the appendix which appear somewhat thickened and measures 2 cm in thickness. I do not see inflammatory changes. The distal appendix appears normal. An early appendicitis along the appendiceal base cannot be excluded. Demarcus Hamlin MD Physical Exam HEENT: EOMI; atraumatic; no jaundice. Throat is clear. CHEST: CTA CARDIAC: RRR ABDOMEN: +BS, soft, nondistended, no TTP EXTREMITIES: No clubbing, cyanosis, or edema. SKIN: Normal; no rash; no jaundice. HAND CARVER: No focal deficits; alert and oriented times three. (Chata Gannon [facility]) Assessment and Plan Plan ASSESSMENT: - RLQ Pain. Improving. Sudden onset of severe constant sharp RLQ pain yesterday. Abdomen/Pelvis CT (11/05/16)---> 1. Patient is status post hysterectomy with findings of an infraumbilical vertical scar. 2. No acute intraperitoneal or pelvic process to explain current clinical syndrome. ADDENDUM: I was asked to take another look at the CT scan. There is wall thickening of the cecum. There is widening of the base of the appendix which appear somewhat thickened and measures 2 cm in thickness. I do not see inflammatory changes. The distal appendix appears normal. An early appendicitis along the appendiceal base cannot be excluded. GS was consulted and the patient was evaluated by Dr. Musa, who does not feel that this is acute appendicitis based on her normal wbc and the fact that she has been afebrile. MRA Abdomen (11/06/16) --> Negative exam. Abdominal vasculature is normal in caliber throughout with no significant stenosis to explain current clinical symptoms. Last colonoscopy 2011. WBC stable. - Nausea without vomiting. Improved. Today denies nausea, ate breakfast. s/p EGD ----> mild gastritis, poss mild pyloric stenosis evidenced by [difficulty] passing scope through pylorus, normal otherwise, bx pending. Pt has had nausea without associated vomiting. PPI. - Diarrhea. Improving. 1 soft BM this morning. 4 loose stools on 11/05 without blood or mucous. s/p colonoscopy 11/08 ---> colonic mucosa appeared normal, retroflexed views revealed nor abnormalities. Stool studies- no enteric pathogens, giardia & cryptosporidium pending. Few WBCs. - Depression, Hx CVA. PLAN: - VINOD - Protonix 40mg IV BID - Cont. Flagyl - await stool studies - await EGD biopsies - Supportive care - f/u as outpatient in 4w - Pt seen and examined by Dr. Ahumada and myself and this note is written on his behalf (Chata Gannon) Physician Comments Patient seen and examined Agree with above Continue with current supportive care Monitor labs Follow-up with GI post discharge (Eliu Ahumada MD) Chata Gannon Nov 09, 2016 11:42 Eliu Ahumada MD Nov 09, 2016 21:27
[2016-11-09 11:47] VITALS: BP 113/62; PULSE 60; RESP 22; TEMP 97.7; O2SAT 99
[2016-11-09] MEDS ORDERED: HYDR-3583 PO (11:48)
[2016-11-09] MEDS ORDERED: PROT40TA PO (11:51)
[2016-11-09] MEDS ORDERED: PADIMATE (CHAPSTICK) 4.5 GM TUBE TOPICAL PRN (12:00)
[2016-11-09] MEDS: PANTOPRAZOLE SODIUM 40 MG VIAL IV PUSH SCH (12:39)
--- NOTE | 2016-11-09 13:55 | HHI.PR ---
Subjective Subjective Notes no acute issues, pain improving, tolerating diet, +bm Objective Vitals/I&O Vital Signs Date Time Temp Pulse Resp B/P Pulse Ox O2 Delivery O2 Flow Rate FiO2 11/09/16 11:47 97.7 60 22 113/62 99 11/05/16 18:45 Room Air Labs Laboratory Tests Test 11/09/16 06:13 White Blood Count 5.3 Red Blood Count 4.08 Hemoglobin 11.7 Hematocrit 36.1 Mean Corpuscular Volume 88.5 Mean Corpuscular Hemoglobin 28.8 Mean Corpuscular Hemoglobin 32.5 Concent Red Cell Distribution Width 14.6 Platelet Count 265 Mean Platelet Volume 7.6 Erythrocyte Sedimentation Rate 17 C-Reactive Protein LESS THAN 0.29 Date/Time Procedure Status Source Growth 11/07/16 17:20 Cryptosporidium Exam - Final Complete Stool Stool NEGATIVE - NO CRYPTOSPORIDIUM ANTIGEN... 11/07/16 17:20 Stool Pus (UMBERTO) - Final Complete Stool Stool FEW WBC'S 11/07/16 17:20 Giardia Antigen (UMBERTO) - Final Complete Stool Stool NEGATIVE - NO GIARDIA ANTIGEN DETECTE... 11/07/16 17:20 - Final Complete Stool Stool NO ENTERIC PATHOGENS DETECTED BY PCR... Cardiovascular: Regular Lungs: Clear Abdomen: Non-tender (soft +ttp no rebound- improving) A/P Assessment and Plan abdominal pain cecal thickening PLAN advance diet pain control unlikely appendicitis appreciate gi recs abdominal exams d/c planning Arnoldo Musa MD Nov 09, 2016 13:55
[2016-11-09 15:29] VITALS: BP 135/58; PULSE 66; RESP 18; TEMP 98.1; O2SAT 100
[2016-11-09 16:13] VITALS: PULSE 48
--- NOTE | 2016-11-09 18:30 | HHI.DS ---
Discharge Summary Admission Date Nov 08, 2016 at 11:30 Discharge Date: Nov 09, 2016 Admitting Diagnosis abd pain, poss appendicitis Procedures egd, colonoscopy Brief History This was a pleasant 55 year-old female who has been struggling with abdominal pain, nausea and vomiting for approximately three days. She stated that the pain started in her right lower quadrant but was now radiating diffusely over her abdomen. She described the pain as a sharp sensation and does feel more comfortable resting on her left side. She did present with some mild rebound tenderness at times, currently, was not complaining of any nausea and vomiting, just acute pain. The patient denied any headaches, no fevers, no chest pain, no shortness of breath. She stated that she really had never had this pain before, denies any diarrhea, no constipation. According to the records the patient did see her primary care physician yesterday on the and was recommended that she come to the emergency room for further testing. The patient was a fair historian but secondary to her pain was not willing to answer extended questions right now. CBC/BMP: 11/09/16 0613 11/08/16 0615 Significant Findings Laboratory Tests Test 11/08/16 06:15 Red Blood Count 3.82 MIL/MM3 (4.00-5.30) Hemoglobin 11.0 GM/DL (11.6-15.3) Hematocrit 33.7 % (35.0-46.0) Sodium Level 147 MEQ/L (136-145) Chloride Level 115 MEQ/L (98-107) Blood Urea Nitrogen 4 MG/DL (7-18) Random Glucose 70 MG/DL (74-106) Calcium Level 8.2 MG/DL (8.5-10.1) Imaging Last Impressions Abdomen Magnetic Resonance Angio 11/06/16 0000 Signed Impressions: Service Date/Time: Sunday, November 06, 2016 15:31 - CONCLUSION: Negative exam. Abdominal vasculature is normal in caliber throughout with no significant stenosis to explain current clinical symptoms. Juan Sun MD Abdomen/Pelvis CT 11/05/16 1547 Signed Impressions: Service Date/Time: Saturday, November 05, 2016 17:50 - CONCLUSION: 1. Patient is status post hysterectomy with findings of an infraumbilical vertical scar. 2. No acute intraperitoneal or pelvic process to explain current clinical syndrome. Juan Sun MD ADDENDUM: I was asked to take another look at the CT scan. There is wall thickening of the cecum. There is widening of the base of the appendix which appear somewhat thickened and measures 2 cm in thickness. I do not see inflammatory changes. The distal appendix appears normal. An early appendicitis along the appendiceal base cannot be excluded. Demarcus Hamlin MD PE at Discharge GENERAL: This was a well-developed, well-nourished female who appeared to be in no acute distress. She is alert and awake, HEAD: Normocephalic without any lesion or mass noted. Facial features appear symmetric. OROPHARYNGEAL: Oropharynx without erythema or edema. NECK: Supple. No nuchal rigidity or lymphadenopathy. Trachea midline without deviation. CARDIAC: Regular rhythm, regular rate, S1 and S2 are heard LUNGS: Clear to auscultation bilaterally. No cough ABDOMEN: Soft, nontender, no organomegaly or masses. Bowel sounds are heard in all four quadrants. No rebound. No guarding. EXTREMITIES: No edema. Pulses equal bilateral. NEUROLOGICAL: Patient mood and affect appropriate. No focal deficit SKIN:Warm and moist Hospital Course Easily the diagnoses that were used to treat this patient during this brief hospital stay and her plan of care. 1. Abdominal pain, possible appendicitis. 2. Tobacco abuse and dependence. 3. Nausea and vomiting.] 4. History of cerebrovascular accident. Vital signs were monitored every 4 for any abnormals. Patient was not found to be febrile, other vital signs within normal trends except for pulse. Patient was noted to have a slow heart rate in the 50s and 60s, decreased to 40 during the a.m. hours. Patient was placed on telemetry 24 hours into her admission and monitored for any signs of dizziness or vertigo or syncope. She states she did note some dizziness before coming into the hospital but seemed to be were more related to her abdominal pain. She has no history of any heart problems. Day of discharge patient's heart rate was in the 60s had been and has highs in the 70s. No dizziness or vertigo when up ambulating Patient was started on IV antibiotics throughout her hospital stay Labs were reviewed day of admission and 24 hours later. No acute abnormalities , unless that were treated. Patient was on normal saline for the first day and a half of her stay. Sodium level was mildly elevated after IV fluids begun, changed to D5W and DC'd today without any other problems. GI consult and workup appreciate GI workup MRA/pelvis normal. EGD and colonoscopy done yesterday, multiple biopsies taken, but no acute findings IV antibiotics, continue Rocephin, advance diet day of discharge to see if she could tolerate. Monitored Surgical consult appreciate, non surgical needs for now, patient has already had a hysterectomy and has no uterus and no ovaries, so laparoscopic is probably not the best option. Still states pain is RLQ, but is improving and resolving. Patient had abdominal surgery last year with adhesions removed. Advanced activity today and reassess pain. She was able to walk up and down the wiley, dates that her abdominal pain is tolerable now and seems to be resolving. pain management and IV meds during her hospital stay Bradycardia, heart rate has increased to the 60s and 70s over the past 24 hours for discharge , with some bradycardia noted monitor. Patient is on no beta blockers or and cardiac meds. She is to follow-up with her PCP if she has new problems with her heart rate this is probably her norm. Asymptomatic Patient has never been worked up for any cardiac issues in the past. Activity to be increased to be up in chair up in room and ambulate. Monitor food intake today for any acute signs and symptoms. and ross follow this patient with [facility]. This was his final note pt is seen & examined s/p EGD & cscope , findings noted , d/w PT pt is feeling better , had breakfast & lunch today , tolerated it well pain is much better medically stable eager to go home d/c if ok w GI will d/c abx d/w PT d/w Michelle d/w RN see Orders f/u pcp & GI (Rodney Arambula MD) Pt Condition on Discharge: Stable Discharge Disposition: Discharge Home Discharge Instructions DIET: Follow Instructions for: Heart Healthy Diet Fluid Restrictions: none Activities you can perform: Regular-No Restrictions Follow up Referrals: Gastroenterology - 2 Weeks PCP Follow-up - 1 Week New Medications: Pantoprazole (Protonix) 40 Mg Tab 40 MG PO DAILY Reflux #30 Ref 0 TAB Hydrocodone-Acetaminophen (Hydrocodone-Acetaminophen) 10-325 mg Tab 1 TAB PO Q4H PRN pain 2-7 #20 TAB Continued Medications: Aspirin DR (Aspirin 81) 81 Mg Tabdr 81 MG PO DAILY Ref 0 TAB Biotin (Biotin) 5 Mg Tab 5 MG PO DAILY #1 BOTTLE Clopidogrel (Plavix) 75 Mg Tab 75 MG PO DAILY Blood Clot Prevention #30 Ref 0 TAB Topiramate (Topiramate) 50 Mg Tab 50 MG PO BID Control Seizures #60 Ref 0 TAB Trazodone (Trazodone) 100 Mg Tab 100 MG PO HS Control Depression #30 Ref 0 TAB Venlafaxine ER 24 HR (Venlafaxine ER 24 HR) 150 Mg Tab 150 MG PO DAILY #30 Ref 0 TAB Discontinued Medications: Ranitidine (Ranitidine) 150 Mg Tab 150 MG PO BID Heartburn Management #60 Ref 0 TAB Michelle StapletonP Nov 09, 2016 18:30
== END 2016-11-09 17:22 | disposition home or self-care (01) | DRG 394 ==
LOC: NEPD 15:24 → NEDA 20:39 → NEPGCP 22:34 → OBSVTOIN 11-08 11:30
PROVIDERS: ADMIT Specialist; ATTEND Specialist
PROC: 0DJD8ZZ Inspection of Lower Intestinal Tract, Via Natural or Artificial Opening Endoscopic (ICD-10-PCS; principal; 2016-11-08 13:54)
PROC: 0DB68ZX Excision of Stomach, Via Natural or Artificial Opening Endoscopic, Diagnostic (ICD-10-PCS; 2016-11-08 13:54)
DX: K37 Unspecified appendicitis (principal); I69.354 Hemiplegia and hemiparesis following cerebral infarction affecting left non-dominant side; R00.1 Bradycardia, unspecified; R10.31 Right lower quadrant pain; F32.9 Major depressive disorder, single episode, unspecified; Z91.030 Bee allergy status; Z80.0 Family history of malignant neoplasm of digestive organs; Z83.3 Family history of diabetes mellitus; F17.210 Nicotine dependence, cigarettes, uncomplicated; R42 Dizziness and giddiness; Z90.710 Acquired absence of both cervix and uterus
CPT/HCPCS: 74177; 80048; 80053; 81001; 83690; 85025; 85027; 85652; 86140; 87205; 87328; 87329; 87506; 88305; 96361; 96374; 96375; 96376; A9579; C8900; C9113; G0378; J0696; J2270; J2405; J7030; J7070; Q9963; Q9967

== ENCOUNTER 2016-11-16 21:06 | Inpatient (IN) | payer MEDICARE, OTHER ==
[~2016-11-16] VITALS: Ht 160 cm; Wt 75.0 kg
[~2016-11-16 21:06] MED LIST: ASPI-110 PO; BIOT5TAB PO; HYDR-3583 PO; PLAV75TA29 PO; PROT40TA PO; TOPI1TAB36 PO; TRAZ100T4 PO; VENL150T PO
[2016-11-16 21:24] VITALS: BP 126/58; PULSE 58; RESP 16; TEMP 98.1; O2SAT 99
[2016-11-16] MEDS ORDERED: SODIUM CHLOR 0.9% 1000 ML INJ 1,000 ML IV SCH (21:36)
--- NOTE | 2016-11-16 21:39 | PD ---
HPI Chief Complaint: Abdominal Pain Time Seen by Provider: 21:26 Travel History International Travel<30 days: No Contact w/Intl Traveler<30days: No Traveled to known affect area: No History of Present Illness HPI 55-year-old female here for evaluation by ambulance for abdominal pain. Patient was admitted on 11/08/[address] scan that showed possible early appendicitis and was discharged on 11/09/16. She was evaluated by general surgery who did not believe she had appendicitis at that time. She was also evaluated by gastroenterology who performed upper endoscopy which showed mild gastritis as well as a colonoscopy which was unremarkable. Patient states that her pain returned today, is severe, lower, constant, worse with movement and palpation. She also noted bright red blood per rectum today and has had a couple episodes of vomiting. She has felt chills, but no fevers. History of total abdominal hysterectomy. No urinary symptoms. PFSH Past Medical History Hx Anticoagulant Therapy: Yes (PLAVIX) Asthma: No Blood Disorders: No (PT CURRENTLY ON BLOOD THINNERS (PLAVIX)) Anxiety: No Depression: Yes Heart Rhythm Problems: No Cancer: No Cardiovascular Problems: Yes High Cholesterol: No Chemotherapy: No Chest Pain: No Congestive Heart Failure: No COPD: No Cerebrovascular Accident: Yes (stroke 2007) Diabetes: Yes Patient Takes Glucophage: Yes Diminished Hearing: No Endocrine: Yes Genitourinary: No Immune Disorder: No Musculoskeletal: No Neurologic: Yes (STROKE IN 2007) Psychiatric: Yes Reproductive: No Respiratory: No Radiation Therapy: No Sleep Apnea: No Thyroid Disease: No Tetanus Vaccination: Unknown Influenza Vaccination: No ?: Not Past Surgical History Abdominal Surgery: Yes Section: Yes Hysterectomy: Yes Other Surgery: Yes (, HYSTERECTOMY ) Social History Alcohol Use: No Tobacco Use: Yes Substance Use: No Allergies-Medications (Allergen,Severity, Reaction): Coded Allergies: Bee Sting (Verified Allergy, Unknown, 09/25/16) Reported Meds & Prescriptions Reported Meds & Active Scripts Active Protonix (Pantoprazole Sodium) 40 Mg Tab 40 Mg PO DAILY Hydrocodone-Acetaminophen 10-325 mg Tab 1 Tab PO Q4H PRN Reported Biotin 5 Mg Tab 5 Mg PO DAILY Aspirin 81 (Aspirin) 81 Mg Tabdr 81 Mg PO DAILY Topiramate 50 Mg Tab 50 Mg PO BID Plavix (Clopidogrel Bisulfate) 75 Mg Tab 75 Mg PO DAILY Trazodone (Trazodone HCl) 100 Mg Tab 100 Mg PO HS Venlafaxine ER 24 HR (Venlafaxine HCl) 150 Mg Tab 150 Mg PO DAILY Review of Systems Except as stated in HPI: all other systems reviewed are Neg Physical Exam Narrative GENERAL: Well-developed, well-nourished, moderate distress secondary to abdominal pain. SKIN: Focused skin assessment warm/dry. HEAD: Atraumatic. Normocephalic. EYES: Pupils equal and round. No scleral icterus. No injection or drainage. ENT: Mucous membranes pink and moist. NECK: Trachea midline. No JVD. CARDIOVASCULAR: Regular rate and rhythm. RESPIRATORY: No accessory muscle use. Clear to auscultation. Breath sounds equal bilaterally. GASTROINTESTINAL: Abdomen soft, nondistended. Moderate diffuse tenderness without peritoneal signs. Normal bowel sounds. No hernias. RECTUM: Exam performed in the presence of a female nurse. No masses, no fissures, no hemorrhoids, heme-negative brown stool. MUSCULOSKELETAL: No obvious deformities. No clubbing. No cyanosis. No edema. NEUROLOGICAL: Awake and alert. No obvious cranial nerve deficits. Motor grossly within normal limits. Normal speech. PSYCHIATRIC: Appropriate mood and affect; insight and judgment normal. Data Data Last Documented VS Vital Signs Date Time Temp Pulse Resp B/P Pulse Ox O2 Delivery O2 Flow Rate FiO2 11/16/16 21:26 16 11/16/16 21:24 98.1 58 126/58 99 Orders Complete Blood Count With Diff (11/16/16 21:36) Comprehensive Metabolic Panel (11/16/16 21:36) Lipase (11/16/16 21:36) Lactic Acid (11/16/16 21:36) Prothrombin Time / Inr (Pt) (11/16/16 21:36) Act Partial Throm Time (Ptt) (11/16/16 21:36) Urinalysis - C+S If Indicated (11/16/16 21:36) Ct Abd/Pel W Iv Contrast(Rout) (11/16/16 21:36) Iv Access Insert/Monitor (11/16/16 21:36) Ecg Monitoring (11/16/16 21:36) Oximetry (11/16/16 21:36) Ondansetron Inj (Zofran Inj) (11/16/16 21:45) Sodium Chlor 0.9% 1000 Ml Inj (Ns 1000 M (11/16/16 21:36) Sodium Chloride 0.9% Flush (Ns Flush) (11/16/16 21:45) Hydromorphone Pf Inj (Dilaudid Pf Inj) (11/16/16 21:45) Iohexol 350 Inj (Omnipaque 350 Inj) (11/16/16 23:35) Hydromorphone Pf Inj (Dilaudid Pf Inj) (11/16/16 23:45) Labs Laboratory Tests Test 11/16/16 11/16/16 21:53 23:05 White Blood Count 11.4 TH/MM3 Red Blood Count 4.33 MIL/MM3 Hemoglobin 12.4 GM/DL Hematocrit 37.7 % Mean Corpuscular Volume 87.1 FL Mean Corpuscular Hemoglobin 28.7 PG Mean Corpuscular Hemoglobin 33.0 % Concent Red Cell Distribution Width 14.3 % Platelet Count 323 TH/MM3 Mean Platelet Volume 8.0 FL Neutrophils (%) (Auto) 78.6 % Lymphocytes (%) (Auto) 16.3 % Monocytes (%) (Auto) 4.3 % Eosinophils (%) (Auto) 0.6 % Basophils (%) (Auto) 0.2 % Neutrophils # (Auto) 8.9 TH/MM3 Lymphocytes # (Auto) 1.9 TH/MM3 Monocytes # (Auto) 0.5 TH/MM3 Eosinophils # (Auto) 0.1 TH/MM3 Basophils # (Auto) 0.0 TH/MM3 CBC Comment DIFF FINAL Differential Comment Prothrombin Time 10.4 SEC Prothromb Time International 0.9 RATIO Ratio Activated Partial 25.2 SEC Thromboplast Time Sodium Level 142 MEQ/L Potassium Level 4.1 MEQ/L Chloride Level 113 MEQ/L Carbon Dioxide Level 20.9 MEQ/L Anion Gap 8 MEQ/L Blood Urea Nitrogen 9 MG/DL Creatinine 0.68 MG/DL Estimat Glomerular Filtration 90 ML/MIN Rate Random Glucose 97 MG/DL Lactic Acid Level 1.2 mmol/L Calcium Level 8.3 MG/DL Total Bilirubin 0.4 MG/DL Aspartate Amino Transf 21 U/L (AST/SGOT) Alanine Aminotransferase 18 U/L (ALT/SGPT) Alkaline Phosphatase 82 U/L Total Protein 7.0 GM/DL Albumin 3.4 GM/DL Lipase 113 U/L Urine Color LIGHT-YELLOW Urine Turbidity CLEAR Urine pH 8.0 Urine Specific [place] 1.007 Urine Protein NEG mg/dL Urine Glucose (UA) NEG mg/dL Urine Ketones NEG mg/dL Urine Occult Blood NEG Urine Nitrite NEG Urine Bilirubin NEG Urine Urobilinogen LESS THAN 2.0 MG/DL Urine Leukocyte Esterase NEG Urine RBC LESS THAN 1 /hpf Urine WBC 1 /hpf Microscopic Urinalysis Comment CULT NOT INDICATED MDM Medical Decision Making Medical Screen Exam Complete: Yes Emergency Medical Condition: Yes Medical Record Reviewed: Yes Differential Diagnosis Appendicitis, colitis, diverticulitis, cystitis, mesenteric ischemia, bowel obstruction Narrative Course Vital signs reviewed and are within normal limits. CBC shows WBC 11.4, hemoglobin 12.4, hematocrit 37.7, platelets 323, neutrophils 78.6%. CMP is essentially unremarkable. Lipase is 113. Lactic acid is 1.2. UA is not suggestive of UTI. CT abdomen pelvis: No evidence of acute abdominal or pelvic process. No masses are identified. The patient was given 2 doses of Dilaudid and is still complaining of mid and lower abdominal pain. She did have a total abdominal hysterectomy, and could potentially have adhesions that are causing her pain. Given intractable abdominal pain, the patient be admitted for overnight observation. Case discussed with [facility] hospitalist KARLENE Bowden. The patient will be admitted to their service under Dr. Arambula. [facility] Point of Care Internal Pos. & Neg. Controls: Passed Fecal Specimen Occult Blood: Negative Comment Heme-negative brown stool Diagnosis Primary Impression: Intractable abdominal pain Hal Rodney MD November 16, 2016 21:39 Hal Rodney MD November 16, 2016 21:39
[2016-11-16] MEDS ORDERED: HYDROmorphone HCL PF 1 MG/ML VIAL IVS ONE (21:45)
[2016-11-16] MEDS ORDERED: SODIUM CHLORIDE 0.9% FLUSH 10 ML FLUSH IV FLUSH PRN (21:45)
[2016-11-16] MEDS ORDERED: ONDANSETRON HCL 4 MG/2 ML VIAL IVP ONE (21:45)
[2016-11-16 22:09] LABS: AUTOMATED NEUTROPHIL # 8.9 TH/MM3 (1.8-7.7); BASOPHIL % 0.2 % (0.0-2.0); EOSINOPHIL # 0.1 TH/MM3 (0-0.4); EOSINOPHIL % 0.6 % (0.0-4.0); HEMATOCRIT 37.7 % (35.0-46.0); HEMO FLAGS DIFF FINAL; LYMPH % 16.3 % (9.0-44.0); LYMPHOCYTE # 1.9 TH/MM3 (1.0-4.8); MEAN CELL VOLUME 87.1 FL (80.0-100.0); MEAN CORPUSCULAR HEMOGLOBIN 28.7 PG (27.0-34.0); MONO % 4.3 % (0.0-8.0); NEUT % 78.6 % (16.0-70.0); PLATELET COUNT 323 TH/MM3 (150-450); RED BLOOD COUNT 4.33 MIL/MM3 (4.00-5.30); RED CELL DISTRIBUTION WIDTH 14.3 % (11.6-17.2); WHITE BLOOD COUNT 11.4 TH/MM3 (4.0-11.0)
[2016-11-16 22:20] LABS: APTT (PATIENT) 25.2 SEC (24.3-30.1); INTERNATIONAL NORMALIZED RATIO 0.9 RATIO; PROTHROMBIN TIME - PATIENT 10.4 SEC (9.8-11.6)
[2016-11-16 22:26] LABS: ALKALINE PHOSPHATASE 82 U/L (45-117); TOTAL BILIRUBIN ADULT 0.4 MG/DL (0.2-1.0)
[2016-11-16 22:29] LABS: ALT (GPT) 18 U/L (10-53); ANION GAP 8 MEQ/L (5-15); AST (GOT) 21 U/L (15-37); BICARBONATE 20.9 MEQ/L (21.0-32.0); BLOOD UREA NITROGEN 9 MG/DL (7-18); CHLORIDE 113 MEQ/L (98-107); GLOMERULAR FILTRATION RATE 90 ML/MIN (>89); POTASSIUM 4.1 MEQ/L (3.5-5.1); SODIUM (NA) 142 MEQ/L (136-145)
[2016-11-16 23:25] LABS: BLOOD, URINE NEG (NEG); COMMENT (UR) CULT NOT INDICATED; CULTURE IF INDICATED CULT NOT INDICATED; GLUCOSE,URINE NEG (NEG); KETONE, URINE NEG (NEG); NITRITE,URINE NEG (NEG); URINE COLOR LIGHT-YELLOW (YELLW/STRAW)
[2016-11-16] MEDS ORDERED: IOHEXOL 350 MG/ML 10 ML VIAL (for RAD DIAG) IV ONE (23:35)
[2016-11-16] MEDS ORDERED: HYDROmorphone HCL PF 1 MG/ML VIAL IV PUSH ONE (23:45)
--- NOTE | 2016-11-17 00:41 | RADRPT ---
EXAM DATE/TIME: 11/16/2016 23:33 [facility] COMPARISON: CT ABDOMEN & PELVIS W CONTRAST, November 05, 2016, 17:50. INDICATIONS : Abdomen pain with rectal bleeding past week. IV CONTRAST: 80 cc Omnipaque 350 (iohexol) IV ORAL CONTRAST: No oral contrast ingested. RADIATION DOSE: 6.58 CTDIvol (mGy) MEDICAL HISTORY : Cardiovascular disease. Cerebrovascular disease. Diabetes mellitus type 2. SURGICAL HISTORY : Hysterectomy. ENCOUNTER: Initial ACUITY: 1 week PAIN SCALE: 8/10 LOCATION: Bilateral abdomen TECHNIQUE: Volumetric scanning of the abdomen and pelvis was performed. Using automated exposure control and ad justment of the mA and/or kV according to patient size, radiation dose was kept as low as reasonably achievable to obtain optimal diagnostic quality images. FINDINGS: Examination of the lung bases demonstrates no abnormality. No pleural fluid is identified. No pulmona ry nodules are present. The liver and spleen are free of focal defects. The gallbladder and pancreas demonstrate no abnormality. The adrenal glands are normal. The kidneys demonstrate no evidence of rina id renal mass or hydronephrosis. No free fluid or abdominal masses are identified. No para-aortic zachery nopathy is seen. Examination of the pelvis demonstrates no evidence of free fluid or pelvic mass. No abnormally enlarg ed inguinal or retroperitoneal lymph nodes are present. The bladder is unremarkable. CONCLUSION: 1. No evidence of acute abdominal or pelvic process. No masses are identified. Sanjeev Hu MD on November 17, 2016 at 0:36 Board Certified Radiologist. This report was verified electronically.
[2016-11-17] MEDS: SODIUM CHLOR 0.9% 1000 ML INJ 1,000 ML IV SCH ×2 (01:07→21:07)
[2016-11-17] MEDS ORDERED: ACETAMINOPHEN 325 MG TAB PO PRN (01:15)
[2016-11-17] MEDS ORDERED: NALOXONE HCL 0.4 MG/ML AMP IV PRN (01:15)
[2016-11-17] MEDS ORDERED: SODIUM CHLORIDE 0.9% FLUSH 10 ML FLUSH IV FLUSH PRN (01:15)
[2016-11-17] MEDS ORDERED: HYDROmorphone HCL PF 1 MG/ML VIAL IV PUSH PRN (01:15)
[2016-11-17] MEDS: HEPARIN SODIUM - SQ 10,000 UNITS/ML VIAL SQ SCH ×2 (02:00→13:55)
[2016-11-17] MEDS: ONDANSETRON HCL 4 MG/2 ML VIAL IVP PRN ×3 (02:00→19:14)
[2016-11-17 03:27] VITALS: BP 105/68; PULSE 68; RESP 18; TEMP 96.8; O2SAT 98
[2016-11-17] MEDS: HYDROmorphone HCL PF 1 MG/ML VIAL IV PUSH PRN ×2 (05:32→09:57)
--- NOTE | 2016-11-17 08:10 | HHI.HP ---
HPI Service [facility] Primary Care Physician Dominic Hunter M.D. Admission Diagnosis intractable abdominal pain Diagnoses: Chief Complaint: abd. pain (Taya Hicks) Travel History International Travel<30 Days: No Contact w/Intl Traveler <30 Da: No Traveled to Known Affected Are: No (Taya Hicks) History of Present Illness This a 55-year-old female who presented to the emergency room via ambulance for abdominal pain. Patient was recently admitted on 11/08/2016 for evaluation of abdominal pain, at that time she had a CT of the abdomen with possible early appendicitis. Patient was evaluated by Dr. Musa who reviewed her films and notice cecal thickening but no appendicitis. GI was consulted. Patient had upper endoscopy that only show mild gastritis, possible mild pyloric stenosis. Colonoscopy did not reveal any acute findings. Patient was discharged in stable condition. According to the patient, her abdominal pain has increased over the last couple days. Indicates that the [place] is not working. Indicates the pain is sharp, burning it is located to the mid abdomen and right lower abdomen. She has been eating very little. She's had several episodes of nausea vomiting with yellow emesis. She also reported bright red blood per rectum, rectal exam was negative for blood in the ER. H&H is stable. The last time she vomited was before coming to the emergency room. Denies any fever, has had chills. No other symptoms such as chest pain, no shortness of breath. She does have a history of bowel obstruction and headache colon resection when she was in [place]. Indicates that CAT scans are not going to show what the problem is therefore she presented to the emergency room to have abdominal pain reevaluated. Laboratory workup completed in the emergency room was essentially unremarkable. Lactic acid was normal. Repeat CT of the abdomen did not reveal any acute findings. Patient is admitted for further evaluation and treatment. ( Taya Hicks) Review of Systems Constitutional: COMPLAINS OF: Chills, Change in appetite, DENIES: Diaphoretic episodes, Fatigue, Fever, Weight gain, Weight loss, Dizziness, Night Sweats Endocrine: DENIES: Abnorml menstrual pattern, Heat/cold intolerance, Polydipsia , Polyuria, Polyphagia Eyes: DENIES: Blurred vision, Diplopia, Eye inflammation, Eye pain, Vision loss , Photosensitivity, Double Vision Ears, nose, mouth, throat: DENIES: Tinnitus, Hearing loss, Vertigo, Nasal discharge, Oral lesions, Throat pain, Hoarseness, Ear Pain, Running Nose, Epistaxis, Sinus Pain, Toothache, Odynophagia Respiratory: DENIES: Apneas, Cough, Snoring, Wheezing, Hemoptysis, Sputum production, Shortness of breath Cardiovascular: DENIES: Chest pain, Palpitations, Syncope, Dyspnea on Exertion , PND, Lower Extremity Edema, Orthopnea, Claudication Gastrointestinal: COMPLAINS OF: Abdominal pain, Bloody stools (bright red, heme negative in the ED ), Nausea, Vomiting, DENIES: Black stools, Constipation , Diarrhea, Difficulty Swallowing, Anorexia Genitourinary: DENIES: Abnormal vaginal bleeding, Dysmenorrhea, Dyspareunia, Sexual dysfunction, Urinary frequency, Urinary incontinence, Urgency, Hematuria , Dysuria, Nocturia, Vaginal discharge Musculoskeletal: DENIES: Joint pain, Muscle aches, Stiffness, Joint Swelling, Back pain, Neck pain Integumentary: DENIES: Abnormal pigmentation, Pruritus, Rash, Nail changes, Breast masses, Breast skin changes, Nipple discharge Hematologic/lymphatic: DENIES: Bruising, Lymphadenopathy Immunologic/allergic: DENIES: Eczema, Urticaria Neurologic: DENIES: Abnormal gait, Headache, Localized weakness, Paresthesias, Seizures, Speech Problems, Tremor, Poor Balance Psychiatric: DENIES: Anxiety, Confusion, Mood changes, Depression, Hallucinations, Agitation, Suicidal Ideation, Homicidal Ideation, Delusions ( Taya Hicks) Past Family Social History Past Medical History CVA Bowel obstruction Depression. Past Surgical History Partial colectomy Colonoscopy Hysterectomy x 3 (Elizabeth Adams) Reported Medications Reported Meds & Active Scripts Active Protonix (Pantoprazole Sodium) 40 Mg Tab 40 Mg PO DAILY Hydrocodone-Acetaminophen 10-325 mg Tab 1 Tab PO Q4H PRN Reported Biotin 5 Mg Tab 5 Mg PO DAILY Aspirin 81 (Aspirin) 81 Mg Tabdr 81 Mg PO DAILY Topiramate 50 Mg Tab 50 Mg PO BID Plavix (Clopidogrel Bisulfate) 75 Mg Tab 75 Mg PO DAILY Trazodone (Trazodone HCl) 100 Mg Tab 100 Mg PO HS Venlafaxine ER 24 HR (Venlafaxine HCl) 150 Mg Tab 150 Mg PO DAILY (Taya Hicks) Allergies: Coded Allergies: Bee Sting (Verified Allergy, Unknown, 09/25/16) Active Ordered Medications Inpatient Medications Acetaminophen (Tylenol) 650 mg Q4H PRN PO TEMP > 100.4; Start 11/17/16 at 01:15 Heparin Sodium (Porcine) (Heparin Inj) 5,000 units Q12H SQ Last administered on 11/17/16 02:00; Start 11/17/16 at 02:00 Hydromorphone HCl (Dilaudid Pf Inj) 1 mg Q4H PRN IV PUSH severe pain Last administered on 11/17/16 02:00; Start 11/17/16 at 01:15 Hydromorphone HCl 1 mg 1 mg ONCE ONCE IV PUSH Last administered on 11/17/16 00 :01; Start 11/16/16 at 23:45; Stop 11/16/16 at 23:46; Status DC Naloxone HCl (Narcan Inj) 0.4 mg UNSCH PRN IV SEE LABEL COMMENTS; Start at 01:15 Ondansetron HCl (Zofran Inj) 4 mg Q6H PRN IVP NAUSEA OR VOMITING Last administered on 11/17/16 06:31; Start 11/17/16 at 01:15 Pantoprazole Sodium (Protonix) 40 mg DAILY PO ; Start 11/17/16 at 09:00 Sodium Chloride (NS 1000 ml Inj) 1,000 ml @ 50 mls/hr Q20H IV Last administered on 11/17/16 01:07; Start 11/17/16 at 01:07 Sodium Chloride (NS Flush) 2 ml BID IV FLUSH ; Start 11/17/16 at 09:00 Family History One sister from gastric cancer, one sister from colon cancer. Social History Smokes 5 cigarettes per day. No ETOH use. (Taya Hicks) Physical Exam Vital Signs Vital Signs Date Time Temp Pulse Resp B/P Pulse Ox O2 Delivery O2 Flow Rate FiO2 11/17/16 06:05 18 11/17/16 03:27 96.8 68 18 105/68 98 11/17/16 02:42 18 11/17/16 02:41 18 11/17/16 02:38 18 11/16/16 21:26 16 11/16/16 21:24 98.1 58 16 126/58 99 Physical Exam GENERAL: This is a well-nourished, well-developed patient, in no apparent distress. SKIN: No rashes, ecchymoses or lesions. Cool and dry. HEAD: Atraumatic. Normocephalic. No temporal or scalp tenderness. EYES: Pupils equal round and reactive. Extraocular motions intact. No scleral icterus. No injection or drainage. ENT: Nose without bleeding, purulent drainage or septal hematoma. Throat without erythema, tonsillar hypertrophy or exudate. Uvula midline. Airway patent. NECK: Trachea midline. No JVD or lymphadenopathy. Supple, nontender, no meningeal signs. CARDIOVASCULAR: Regular rate and rhythm without murmurs, gallops, or rubs. RESPIRATORY: Clear to auscultation. Breath sounds equal bilaterally. No wheezes , rales, or rhonchi. GASTROINTESTINAL: Abdomen soft, moderately tender over the mid abdomen, nondistended. No hepato-splenomegaly, or palpable masses. No guarding. MUSCULOSKELETAL: Extremities without clubbing, cyanosis, or edema. No joint tenderness, effusion, or edema noted. No calf tenderness. Negative Homans sign bilaterally. NEUROLOGICAL: Awake and alert. Cranial nerves II through XII intact. Motor and sensory grossly within normal limits. Five out of 5 muscle strength in all muscle groups. Normal speech. Laboratory Laboratory Tests Test 11/16/16 11/16/16 21:53 23:05 White Blood Count 11.4 Red Blood Count 4.33 Hemoglobin 12.4 Hematocrit 37.7 Mean Corpuscular Volume 87.1 Mean Corpuscular Hemoglobin 28.7 Mean Corpuscular Hemoglobin 33.0 Concent Red Cell Distribution Width 14.3 Platelet Count 323 Mean Platelet Volume 8.0 Neutrophils (%) (Auto) 78.6 Lymphocytes (%) (Auto) 16.3 Monocytes (%) (Auto) 4.3 Eosinophils (%) (Auto) 0.6 Basophils (%) (Auto) 0.2 Neutrophils # (Auto) 8.9 Lymphocytes # (Auto) 1.9 Monocytes # (Auto) 0.5 Eosinophils # (Auto) 0.1 Basophils # (Auto) 0.0 CBC Comment DIFF FINAL Differential Comment Prothrombin Time 10.4 Prothromb Time International 0.9 Ratio Activated Partial 25.2 Thromboplast Time Sodium Level 142 Potassium Level 4.1 Chloride Level 113 Carbon Dioxide Level 20.9 Anion Gap 8 Blood Urea Nitrogen 9 Creatinine 0.68 Estimat Glomerular Filtration 90 Rate Random Glucose 97 Lactic Acid Level 1.2 Calcium Level 8.3 Total Bilirubin 0.4 Aspartate Amino Transf 21 (AST/SGOT) Alanine Aminotransferase 18 (ALT/SGPT) Alkaline Phosphatase 82 Total Protein 7.0 Albumin 3.4 Lipase 113 Urine Color LIGHT-YELLOW Urine Turbidity CLEAR Urine pH 8.0 Urine Specific [place] 1.007 Urine Protein NEG Urine Glucose (UA) NEG Urine Ketones NEG Urine Occult Blood NEG Urine Nitrite NEG Urine Bilirubin NEG Urine Urobilinogen LESS THAN 2.0 Urine Leukocyte Esterase NEG Urine RBC LESS THAN 1 Urine WBC 1 Microscopic Urinalysis Comment CULT NOT INDICATED (Taya Hicks) Result Diagram: 11/16/16215211/16/162152 Imaging Last Impressions Abdomen/Pelvis CT 11/16/162135 Signed Impressions: Service Date/Time: Wednesday, November 16, 2016 23:33 - CONCLUSION: 1. No evidence of acute abdominal or pelvic process. No masses are identified. Sanjeev Hu MD (Taya Hicks) Assessment and Plan Problem List: (1) Intractable abdominal pain (2) History of CVA (cerebrovascular accident) (3) Hx of intestinal obstruction (4) Tobacco abuse (5) Tobacco abuse counseling Assessment and Plan Admit to Dr. Arambula 55-year-old female admitted with recurrent abdominal pain that is intractable associated with nausea vomiting and reported bright red blood per rectum. Heme negative per evaluation in the ED. Had recent EGD with findings of mild gastritis, colonoscopy did not reveal any acute findings. Evaluated by general surgery, no evidence of appendicitis. Patient with prior history of bowel resection and hysterectomy. Abdominal pain, etiology unclear possibly secondary to adhesions -Continue with IV fluids Continue with pain management, patient indicates Dilaudid is not working and is requesting morphine. -May require surgical evaluation if pain is not controlled -Continue with antiemetics as needed History of CVA Continue with aspirin and Plavix, Tobacco abuse -Counseled about tobacco abuse SCDs and heparin for DVT prophylaxis Protonix for GI prophylax Plan of care has been discussed with the patient, attending and registered nurse. Further management of the patient be dependent on hospital course This patient was seen by myself and Dr. Arambula, this H&P is written his behalf ( Taya Hicks) Assessment and Plan PT IS SEEN & EXAMINED D/W PT D/W TAYA FERREIRA W ABOVE extensive w/u recently including CT abd/MRA abd/EGD/Cscope / labs , all unrevealing WILL ORDER UGI SERIES w SMALL BOWELL FOLLOW THROUGH OBTAIN GI CONSULT MAY ALSO NEED LAPAROSCOPIC EVAL IF PAIN PERSIST (Rodney Arambula MD) Taya Hicks November 17, 2016 08:10 Rodney Arambula MD November 17, 2016 10:07
[2016-11-17 08:24] VITALS: BP 114/57; PULSE 55; RESP 21; TEMP 98.4; O2SAT 100
[2016-11-17] MEDS: SODIUM CHLORIDE 0.9% FLUSH 10 ML FLUSH IV FLUSH SCH ×2 (08:42→21:00)
[2016-11-17] MEDS: PANTOPRAZOLE SOD 40 MG DELAYED RELEASE TAB PO SCH (08:42)
[2016-11-17] MEDS: CLOPIDOGREL 75 MG TAB PO SCH (09:57)
[2016-11-17] MEDS: VENLAFAXINE HCL XR 75 MG CAP PO SCH (09:57)
[2016-11-17] MEDS: TOPIRAMATE 25 MG TAB PO SCH ×2 (09:57→21:11)
[2016-11-17] MEDS: ASPIRIN EC 81 MG TABEC PO SCH (10:01)
[2016-11-17] MEDS ORDERED: MAGNESIUM CITRATE SOLN 300 ML BTL PO ONE ×2 (12:00→18:00)
--- NOTE | 2016-11-17 12:11 | PD.CONS ---
HPI History of Present Illness This is a 55 year old [lady] who came to the hospital for n/v, abdominal pain. She was in ER for same last week and was feeling better but then the pain got worse over the last week. She started throwing up yesterday. No blood. Her pain is on the right side abd, burning stabbing pain that is constant. Stillness alleviates, movement exacerbates. Eating exacerbates pain. The nausea and vomiting occurs after she eats. Her BMs have been soft the last couple days. Her last BM was yesterday and she noticed BRBPR on wipe. She also noticed bright red blood on wipe also after urinating. She has been urinating more than usual. Denies polydipsia. She says her calves and hips have been aching for the last week. Denies constipation, weight loss. When she was here late October she had work up for these symptoms including MRA which was neg, colonoscopy which was normal, EGD which showed possible mild pyloric stenosis based on difficulty passing camera through. CT yesterday neg. She does have hx abdominal surgeries including section x 3, hysterectomy, and partial colectomy last october due to intestinal obstruction. (Chata Gannon) PFSH Past Medical History CVA - 2008 depression Past Surgical History x 3 partial colectomy for bowel obstruction hysterectomy with oopherectomy shoulder repair ankle repair Tubal ligation (Chata Gannon) Coded Allergies: Bee Sting (Verified Allergy, Unknown, 09/25/16) Medications Current Medications Medications (Trade) Dose Ordered Sig/Prabhakar Route PRN Reason Start Time Stop Time Status Last Admin Dose Admin Sodium Chloride (NS 1000 ml Inj) 1,000 ml @ 50 mls/hr Q20H IV 11/17/16 01:07 11/17/16 01:07 Sodium Chloride (NS Flush) 2 ml UNSCH PRN IV FLUSH FLUSH AFTER USING IV ACCESS 11/17/16 01:15 Sodium Chloride (NS Flush) 2 ml BID IV FLUSH 11/17/16 09:00 11/17/16 08:42 Acetaminophen (Tylenol) 650 mg Q4H PRN PO TEMP > 100.4 11/17/16 01:15 Ondansetron HCl (Zofran Inj) 4 mg Q6H PRN IVP NAUSEA OR VOMITING 11/17/16 01:15 11/17/16 06:31 Heparin Sodium (Porcine) (Heparin Inj) 5,000 units Q12H SQ 11/17/16 02:00 11/17/16 02:00 Naloxone HCl (Narcan Inj) 0.4 mg UNSCH PRN IV SEE LABEL COMMENTS 11/17/16 01:15 Hydromorphone HCl (Dilaudid Pf Inj) 0.5 mg Q4H PRN IV PUSH moderate pain 11/17/16 01:15 11/17/16 09:57 Hydromorphone HCl (Dilaudid Pf Inj) 1 mg Q4H PRN IV PUSH severe pain 11/17/16 01:15 11/17/16 02:00 Pantoprazole Sodium (Protonix) 40 mg DAILY PO 11/17/16 09:00 11/17/16 08:42 Clopidogrel Bisulfate (Plavix) 75 mg DAILY PO 11/17/16 09:00 11/17/16 09:57 Topiramate (Topamax) 50 mg BID PO 11/17/16 09:00 11/17/16 09:57 Trazodone HCl (Desyrel) 100 mg HS PO 11/17/16 21:00 Venlafaxine HCl (Effexor Xr) 150 mg DAILY PO 11/17/16 09:00 11/17/16 09:57 Aspirin (Ecotrin Ec) 81 mg DAILY PO 11/17/16 09:15 11/17/16 10:01 Magnesium Citrate (Citroma Liq) 300 ml ONCE ONCE PO 11/17/16 12:00 11/17/16 12:01 Magnesium Citrate (Citroma Liq) 300 ml ONCE ONCE PO 11/17/16 18:00 11/17/16 18:01 Bisacodyl (Dulcolax Ec) 10 mg DAILY@18,21 PO 11/17/16 18:00 11/17/16 21:01 Family History sister - stomach ca sister - colon ca father - colon ca sister - neck ca CVD DM mult relatives HTN Social History no ETOH smokes 5 cigarettes daily no illicit drugs (Chata Gannon) Review of Systems Constitutional: DENIES: Fever, Weight loss Endocrine: COMPLAINS OF: Polyuria, DENIES: Polydipsia Eyes: DENIES: Blurred vision Ears, nose, mouth, throat: DENIES: Hearing loss Respiratory: COMPLAINS OF: Cough, DENIES: Hemoptysis Cardiovascular: DENIES: Chest pain Gastrointestinal: COMPLAINS OF: Abdominal pain, Diarrhea, Nausea, Vomiting, DENIES: Black stools, Bloody stools, Constipation, Difficulty Swallowing, Swelling of Abdomen, Hematemesis Genitourinary: COMPLAINS OF: Urinary frequency Musculoskeletal: COMPLAINS OF: Joint pain (hips, for last week), Muscle aches ( calves ache) Integumentary: DENIES: Rash, Jaundice Hematologic/lymphatic: DENIES: Lymphadenopathy Neurologic: DENIES: Abnormal gait Psychiatric: DENIES: Confusion (Chata Gannon) GI Exam Vitals I&O Vital Signs Date Time Temp Pulse Resp B/P Pulse Ox O2 Delivery O2 Flow Rate FiO2 11/17/16 10:43 18 11/17/16 08:24 98.4 55 21 114/57 100 11/17/16 03:27 96.8 68 18 105/68 98 11/17/16 02:42 18 11/17/16 02:41 18 11/17/16 02:38 18 11/16/16 21:26 16 11/16/16 21:24 98.1 58 16 126/58 99 I/O 11/16/16 11/16/16 11/16/16 11/17/16 11/17/16 11/17/16 07:00 15:00 23:00 07:00 15:00 23:00 Intake Total 200 ml Balance 200 ml Intake Oral 200 ml Laboratory Test 11/16/16 11/16/16 21:53 23:05 White Blood Count 11.4 TH/MM3 Red Blood Count 4.33 MIL/MM3 Hemoglobin 12.4 GM/DL Hematocrit 37.7 % Mean Corpuscular Volume 87.1 FL Mean Corpuscular Hemoglobin 28.7 PG Mean Corpuscular Hemoglobin 33.0 % Concent Red Cell Distribution Width 14.3 % Platelet Count 323 TH/MM3 Mean Platelet Volume 8.0 FL Neutrophils (%) (Auto) 78.6 % Lymphocytes (%) (Auto) 16.3 % Monocytes (%) (Auto) 4.3 % Eosinophils (%) (Auto) 0.6 % Basophils (%) (Auto) 0.2 % Neutrophils # (Auto) 8.9 TH/MM3 Lymphocytes # (Auto) 1.9 TH/MM3 Monocytes # (Auto) 0.5 TH/MM3 Eosinophils # (Auto) 0.1 TH/MM3 Basophils # (Auto) 0.0 TH/MM3 CBC Comment DIFF FINAL Differential Comment Prothrombin Time 10.4 SEC Prothromb Time International 0.9 RATIO Ratio Activated Partial 25.2 SEC Thromboplast Time Sodium Level 142 MEQ/L Potassium Level 4.1 MEQ/L Chloride Level 113 MEQ/L Carbon Dioxide Level 20.9 MEQ/L Anion Gap 8 MEQ/L Blood Urea Nitrogen 9 MG/DL Creatinine 0.68 MG/DL Estimat Glomerular Filtration 90 ML/MIN Rate Random Glucose 97 MG/DL Lactic Acid Level 1.2 mmol/L Calcium Level 8.3 MG/DL Total Bilirubin 0.4 MG/DL Aspartate Amino Transf 21 U/L (AST/SGOT) Alanine Aminotransferase 18 U/L (ALT/SGPT) Alkaline Phosphatase 82 U/L Total Protein 7.0 GM/DL Albumin 3.4 GM/DL Lipase 113 U/L Urine Color LIGHT-YELLOW Urine Turbidity CLEAR Urine pH 8.0 Urine Specific [place] 1.007 Urine Protein NEG mg/dL Urine Glucose (UA) NEG mg/dL Urine Ketones NEG mg/dL Urine Occult Blood NEG Urine Nitrite NEG Urine Bilirubin NEG Urine Urobilinogen LESS THAN 2.0 MG/DL Urine Leukocyte Esterase NEG Urine RBC LESS THAN 1 /hpf Urine WBC 1 /hpf Microscopic Urinalysis Comment CULT NOT INDICATED Physical Examination HEENT: EOMI; normocephalic; atraumatic; no jaundice. CHEST: Chest is clear to auscultation and percussion. CARDIAC: Regular rate and rhythm with no murmur gallop or rubs. ABDOMEN: Soft, nondistended, TTP RUQ, RLQ; no hepatosplenomegaly; bowel sounds are present in all four quadrants. EXTREMITIES: No clubbing, cyanosis, or edema. SKIN: Normal; no rash; no jaundice. 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 (Chata Gannon) Assessment and Plan Plan ASSESSMENT - n/v, right side abdominal pain- unclear etiology. UGI sm bowel series pending. CT 11/16/16 --> no evidence acute abdominal or pelvic process, no masses identified. Previous MRA 11/06 neg. EGD 11/08/16 --> poss mild pyloric stenosis, path benign, Colonoscopy 11/08/16---> normal. WBC 11.4 Hx abdominal surgeries including section x 3, hysterectomy, and partial colectomy last october due to intestinal obstruction. Possibly pain r/t adhesions. GS consult pending. PLAN - await GS consult - await results UGI with small bowel series - monitor labs - VINOD - further recommendations based on results of above This pt seen by myself and Dr Parra and this note is written on his behalf ( Chata Gannon) Physician Comments Seen and examined with RECEIVING TEAM MEMBER, no clear etiology of pain for two weeks. GS referral placed. SBFT -p. Discussedw ith Dr. Esteves. Will follow. Thank you ( Milvia Parra MD) Chata Gannon November 17, 2016 12:11 Milvia Parra MD November 17, 2016 13:46
[2016-11-17] MEDS: MORPHINE SULFATE 4 MG/ML INJ IV PRN ×3 (13:56→23:05)
[2016-11-17 16:00] VITALS: BP 128/68; PULSE 63; RESP 18; TEMP 98.4; O2SAT 97
[2016-11-17] MEDS: BISACODYL EC 5 MG TABEC PO SCH ×2 (17:30→21:00)
[2016-11-17 20:25] VITALS: BP 103/51; PULSE 60; RESP 18; TEMP 98.4; O2SAT 100
[2016-11-17] MEDS: traZODone HCL 100 MG TAB PO SCH (21:11)
--- NOTE | 2016-11-17 21:14 | HHI.PR ---
Subjective Subjective Notes pt presents with recurrent abdominal pain rlq, along with nausea and vomiting, she had CT which was normal and mild leukocytosis, she is currently on regular diet Objective Vitals/I&O Vital Signs Date Time Temp Pulse Resp B/P Pulse Ox O2 Delivery O2 Flow Rate FiO2 11/17/16 20:25 98.4 60 18 103/51 100 Labs Laboratory Tests Test 11/16/16 11/16/16 21:53 23:05 White Blood Count 11.4 Red Blood Count 4.33 Hemoglobin 12.4 Hematocrit 37.7 Mean Corpuscular Volume 87.1 Mean Corpuscular Hemoglobin 28.7 Mean Corpuscular Hemoglobin 33.0 Concent Red Cell Distribution Width 14.3 Platelet Count 323 Mean Platelet Volume 8.0 Neutrophils (%) (Auto) 78.6 Lymphocytes (%) (Auto) 16.3 Monocytes (%) (Auto) 4.3 Eosinophils (%) (Auto) 0.6 Basophils (%) (Auto) 0.2 Neutrophils # (Auto) 8.9 Lymphocytes # (Auto) 1.9 Monocytes # (Auto) 0.5 Eosinophils # (Auto) 0.1 Basophils # (Auto) 0.0 CBC Comment DIFF FINAL Differential Comment Prothrombin Time 10.4 Prothromb Time International 0.9 Ratio Activated Partial 25.2 Thromboplast Time Sodium Level 142 Potassium Level 4.1 Chloride Level 113 Carbon Dioxide Level 20.9 Anion Gap 8 Blood Urea Nitrogen 9 Creatinine 0.68 Estimat Glomerular Filtration 90 Rate Random Glucose 97 Lactic Acid Level 1.2 Calcium Level 8.3 Total Bilirubin 0.4 Aspartate Amino Transf 21 (AST/SGOT) Alanine Aminotransferase 18 (ALT/SGPT) Alkaline Phosphatase 82 Total Protein 7.0 Albumin 3.4 Lipase 113 Urine Color LIGHT-YELLOW Urine Turbidity CLEAR Urine pH 8.0 Urine Specific [place] 1.007 Urine Protein NEG Urine Glucose (UA) NEG Urine Ketones NEG Urine Occult Blood NEG Urine Nitrite NEG Urine Bilirubin NEG Urine Urobilinogen LESS THAN 2.0 Urine Leukocyte Esterase NEG Urine RBC LESS THAN 1 Urine WBC 1 Microscopic Urinalysis Comment CULT NOT INDICATED Cardiovascular: Regular Lungs: Clear Abdomen: Other (+ttp diffuse, worse RLQ, no rebound) A/P Assessment and Plan recurrent RLQ pain, ct normal, hx of multiple surgeries PLAN Recommend possible liquid diet instead of regular will f/u on UGI Consider dx lap, possible lap appy if etiology still remains unclear, will continue to follow thank you for consult Arnoldo Musa MD November 17, 2016 21:14
[2016-11-18] MEDS: HEPARIN SODIUM - SQ 10,000 UNITS/ML VIAL SQ SCH ×2 (02:00→14:08)
[2016-11-18 02:55] VITALS: BP 97/55; PULSE 49; RESP 18; TEMP 97.9; O2SAT 98
[2016-11-18 03:30] VITALS: BP 118/68; PULSE 87; RESP 18; TEMP 98.8; O2SAT 97
[2016-11-18 07:23] VITALS: BP 111/59; PULSE 54; RESP 21; TEMP 97.8; O2SAT 100
--- NOTE | 2016-11-18 08:11 | HHI.PR ---
Subjective Remarks c/o diffuse abd. pain, an "8" + nausea, no vomiting inc. stools after mag citrate no cp no sob no fever Objective Objective Results - Vital Signs Date Time Temp Pulse Resp B/P Pulse Ox O2 Delivery O2 Flow Rate FiO2 11/18/16 07:23 97.8 54 21 111/59 100 11/18/16 02:55 97.9 49 18 97/55 98 11/17/16 23:26 18 11/17/16 20:25 98.4 60 18 103/51 100 11/17/16 16:00 98.4 63 18 128/68 97 11/17/16 10:43 18 11/17/16 08:24 98.4 55 21 114/57 100 I/O 11/17/16 11/17/16 11/17/16 11/18/16 11/18/16 11/18/16 07:00 15:00 23:00 07:00 15:00 23:00 Intake Total 200 ml 300 ml Balance 200 ml 300 ml Intake Oral 200 ml 300 ml # Bowel Movements 5 Result Diagram: 11/16/16215211/16/162152 Imaging Last Impressions Abdomen/Pelvis CT 11/16/162135 Signed Impressions: Service Date/Time: Wednesday, November 16, 2016 23:33 - CONCLUSION: 1. No evidence of acute abdominal or pelvic process. No masses are identified. Sanjeev Hu MD ROS General: No: Fatigue, Weakness HEENT: No: Sore Throat, Dysphagia Cardiac: No: Chest Pain, Edema, Palpitations Pulmonary: No: Cough, SOB, Wheezing GI: Abdominal Pain, N/V, No: BM, Diarrhea, Other /JOSS HOUSE KEEPER: No: Dysuria, Urgency Neuro/MS: No: Lightheaded, Confusion Psych: No: Anxiety, Depression Skin: No: Itching, Rash Physical Exam Physical Exam GENERAL: This is a well-nourished, well-developed patient, in no apparent distress. SKIN: No rashes, ecchymoses or lesions. Cool and dry. HEAD: Atraumatic. Normocephalic. No temporal or scalp tenderness. EYES: Pupils equal round and reactive. Extraocular motions intact. No scleral icterus. No injection or drainage. ENT: Nose without bleeding, purulent drainage or septal hematoma. Throat without erythema, tonsillar hypertrophy or exudate. Uvula midline. Airway patent. NECK: Trachea midline. No JVD or lymphadenopathy. Supple, nontender, no meningeal signs. CARDIOVASCULAR: Regular rate and rhythm without murmurs, gallops, or rubs. RESPIRATORY: Clear to auscultation. Breath sounds equal bilaterally. No wheezes , rales, or rhonchi. GASTROINTESTINAL: Abdomen soft, diffuse tenderness, nondistended. No hepato- splenomegaly, or palpable masses. No guarding. MUSCULOSKELETAL: Extremities without clubbing, cyanosis, or edema. No joint tenderness, effusion, or edema noted. No calf tenderness. Negative Homans sign bilaterally. NEUROLOGICAL: Awake and alert. Cranial nerves II through XII intact. Motor and sensory grossly within normal limits. Five out of 5 muscle strength in all muscle groups. Normal speech. Urinary Catheter: No Vascular Central Line Catheter: No A/P Diagnosis: (1) Intractable abdominal pain (2) History of CVA (cerebrovascular accident) (3) Hx of intestinal obstruction (4) Tobacco abuse (5) Tobacco abuse counseling Assessment and Plan 55-year-old female admitted with recurrent abdominal pain that is intractable associated with nausea vomiting and reported bright red blood per rectum. Heme negative per evaluation in the ED. Had recent EGD with findings of mild gastritis, colonoscopy did not reveal any acute findings. Evaluated by general surgery, no evidence of appendicitis. Patient with prior history of bowel resection and hysterectomy. Abdominal pain, etiology unclear possibly secondary to adhesions. Recent work up with no significant findings, poss. adhesions -Continue with IV fluids Continue with pain management- and antiemetics as needed -surgery and GI following, input appreciated. -if no improvement poss lap with exploration -for GI series today History of CVA Continue with aspirin and Plavix, Tobacco abuse -Counseled about tobacco abuse SCDs and heparin for DVT prophylaxis Protonix for GI prophylax labs pending f/u GI series results will change to inpatient, intractable abd. pain, requiring IV narcotics. Needs further work up, poss surgery to evaluate source of pain. Risk of perforation, sepsis, if not treated. D/W RN D/W Dr. Arambula D/W pt This patient was seen by myself and Dr. Arambula, this note is written his behalf Taya Hicks November 18, 2016 08:11
[2016-11-18 08:42] LABS: AUTOMATED NEUTROPHIL # 2.5 TH/MM3 (1.8-7.7); BASOPHIL % 0.2 % (0.0-2.0); EOSINOPHIL # 0.1 TH/MM3 (0-0.4); EOSINOPHIL % 2.6 % (0.0-4.0); HEMATOCRIT 34.9 % (35.0-46.0); HEMO FLAGS DIFF FINAL; LYMPH % 46.5 % (9.0-44.0); LYMPHOCYTE # 2.7 TH/MM3 (1.0-4.8); MEAN CORPUSCULAR HEMOGLOBIN 29.7 PG (27.0-34.0); MEAN CORPUSCULAR HGB CONC 33.8 % (32.0-36.0); MONO % 7.2 % (0.0-8.0); NEUT % 43.5 % (16.0-70.0); PLATELET COUNT 287 TH/MM3 (150-450); RED BLOOD COUNT 3.97 MIL/MM3 (4.00-5.30); RED CELL DISTRIBUTION WIDTH 14.5 % (11.6-17.2); WHITE BLOOD COUNT 5.8 TH/MM3 (4.0-11.0)
[2016-11-18] MEDS: TOPIRAMATE 25 MG TAB PO SCH ×2 (09:05→21:16)
[2016-11-18] MEDS: CLOPIDOGREL 75 MG TAB PO SCH (09:05)
[2016-11-18] MEDS: SODIUM CHLORIDE 0.9% FLUSH 10 ML FLUSH IV FLUSH SCH ×2 (09:05→21:17)
[2016-11-18] MEDS: VENLAFAXINE HCL XR 75 MG CAP PO SCH (09:06)
[2016-11-18] MEDS: PANTOPRAZOLE SOD 40 MG DELAYED RELEASE TAB PO SCH (09:06)
[2016-11-18] MEDS: ASPIRIN EC 81 MG TABEC PO SCH (09:06)
[2016-11-18] MEDS: MORPHINE SULFATE 4 MG/ML INJ IV PRN (14:08)
--- NOTE | 2016-11-18 14:46 | RADRPT ---
EXAM DATE/TIME: 11/18/2016 11:49 [facility] COMPARISON: CT ABDOMEN & PELVIS W CONTRAST, November 16, 2016, 23:33. INDICATIONS : Vomiting FLUORO TIME: minutes IMAGE COUNT: ? CONTRAST: Liquid E-Z Paque Barium Sulfate (60% w/v, 41% w/w) IMAGING TIME(S): 15 min, 30 min MEDICAL HISTORY : None. SURGICAL HISTORY : 3 , hysterectomy, colon surgery ENCOUNTER: Initial ACUITY: 2 days PAIN SCORE: 8/10 LOCATION: Bilateral abdomen FINDINGS: The initial ware finisher radiograph shows a nonobstructive bowel gas pattern. Esophagus grossly normal. The GE junction is normal. The stomach is normal. Normal appearing duodenal bulb and duodenal sweep. There is a 2.7 cm duodenal diverticulum near the l igament of Treitz. Small bowel transit time is approximately one hour. There is an approximately 15 cm long segment of m ild wall thickening and luminal narrowing of small bowel in the left lower quadrant, probably in the area of distal jejunum. This does seem to have a correlate on the CT, series 2 image 50. In general, small bowel loops in the periumbilical region are displaced. No abrupt caliber changes are demonstrat ed. Contrast passes into the colon. CONCLUSION: Mildly tethered and displaced distal jejunum with mild narrowing in the left lower quadrant and carlie- umbilical region. Nonobstructive pattern currently. Saeed Francis MD on November 18, 2016 at 14:34 Board Certified Radiologist. This report was verified electronically.
--- NOTE | 2016-11-18 16:08 | HHI.GIFU ---
Subjective Remarks Pt resting in bed, in no acute distress. She said she ate a little and it did not make her pain worse. Otherwise she says her symptoms are unchanged from yesterday. (Chata Gannon) Objective Vitals I&O Vital Signs Date Time Temp Pulse Resp B/P Pulse Ox O2 Delivery O2 Flow Rate FiO2 11/18/16 07:23 97.8 54 21 111/59 100 11/18/16 02:55 97.9 49 18 97/55 98 11/17/16 23:26 18 11/17/16 20:25 98.4 60 18 103/51 100 I/O 11/17/16 11/17/16 11/17/16 11/18/16 11/18/16 11/18/16 07:00 15:00 23:00 07:00 15:00 23:00 Intake Total 200 ml 300 ml Balance 200 ml 300 ml Intake Oral 200 ml 300 ml # Bowel Movements 5 Laboratory Laboratory Tests Test 11/18/16 08:14 White Blood Count 5.8 Red Blood Count 3.97 Hemoglobin 11.8 Hematocrit 34.9 Mean Corpuscular Volume 88.0 Mean Corpuscular Hemoglobin 29.7 Mean Corpuscular Hemoglobin 33.8 Concent Red Cell Distribution Width 14.5 Platelet Count 287 Mean Platelet Volume 7.6 Neutrophils (%) (Auto) 43.5 Lymphocytes (%) (Auto) 46.5 Monocytes (%) (Auto) 7.2 Eosinophils (%) (Auto) 2.6 Basophils (%) (Auto) 0.2 Neutrophils # (Auto) 2.5 Lymphocytes # (Auto) 2.7 Monocytes # (Auto) 0.4 Eosinophils # (Auto) 0.1 Basophils # (Auto) 0.0 CBC Comment DIFF FINAL Differential Comment Imaging Last Impressions Upper GI and Small Bowel X-Ray 11/18/16 0000 Signed Impressions: Service Date/Time: November 11:49 - CONCLUSION: Mildly tethered and displaced distal jejunum with mild narrowing in the left lower quadrant and carlie-umbilical region. Nonobstructive pattern currently. Saeed Francis MD Abdomen/Pelvis CT 11/16/16 2136 Signed Impressions: Service Date/Time: Wednesday, November 16, 2016 23:33 - CONCLUSION: 1. No evidence of acute abdominal or pelvic process. No masses are identified. Sanjeev Hu MD Physical Exam HEENT: EOMI; normocephalic; atraumatic; no jaundice. CHEST: CTA CARDIAC: Regular rate and rhythm with no murmur gallop or rubs. ABDOMEN: Soft, nondistended, RUQ & RLQ TTP; no hepatosplenomegaly; bowel sounds are present in all four quadrants. EXTREMITIES: No clubbing, cyanosis, or edema. SKIN: Normal; no rash; no jaundice. CAMPAIGN MANAGEMENT SPECIALIST: No focal deficits; alert and oriented times three. (Chata Gannon) Assessment and Plan Plan ASSESSMENT - n/v, right side abdominal pain- appears to be adhesions. UGI sm bowel series 11-18-16 ---> Mildly tethered and displaced distal jejunum with mild narrowing in the left lower quadrant and carlie-umbilical region. Nonobstructive pattern currently. CT 11/16/16 --> no evidence acute abdominal or pelvic process, no masses identified. Previous MRA 11/06 neg. EGD 11/08/16 --> poss mild pyloric stenosis , path benign, Colonoscopy 11/08/16---> normal. WBC 11.4 Hx abdominal surgeries including section x 3, hysterectomy, and partial colectomy last october due to intestinal obstruction. Possibly pain r/t adhesions. GS consult pending. PLAN - Diet per GS - monitor labs - further mgmt per GS -GI will sign off, reconsult as needed This pt seen by myself and Dr Parra and this note is written on his behalf ( Chata Gannon) Physician Comments Seen and examined, still with pain. SBFT consistent with bowel adhesions. Surgery on case. Will sign off. Thank you (Milvia Parra MD) Chata Gannon November 18, 2016 16:08 Milvia Parra MD November 18, 2016 16:20
[2016-11-18] MEDS: SODIUM CHLOR 0.9% 1000 ML INJ 1,000 ML IV SCH (17:51)
[2016-11-18] MEDS: HYDROmorphone HCL PF 1 MG/ML VIAL IV PRN ×2 (17:52→21:17)
[2016-11-18 20:00] VITALS: BP 108/50; PULSE 63; RESP 20; TEMP 97.8; O2SAT 98
[2016-11-18] MEDS: traZODone HCL 100 MG TAB PO SCH (21:16)
[2016-11-18] MEDS: ONDANSETRON HCL 4 MG/2 ML VIAL IVP PRN (22:03)
--- NOTE | 2016-11-18 22:07 | HHI.PR ---
Subjective Subjective Notes no acute issues, wbc normal, still with persistent pain more in RLQ Objective Vitals/I&O Vital Signs Date Time Temp Pulse Resp B/P Pulse Ox O2 Delivery O2 Flow Rate FiO2 11/18/16 20:00 97.8 63 20 108/50 98 Labs Laboratory Tests Test 11/18/16 08:14 White Blood Count 5.8 Red Blood Count 3.97 Hemoglobin 11.8 Hematocrit 34.9 Mean Corpuscular Volume 88.0 Mean Corpuscular Hemoglobin 29.7 Mean Corpuscular Hemoglobin 33.8 Concent Red Cell Distribution Width 14.5 Platelet Count 287 Mean Platelet Volume 7.6 Neutrophils (%) (Auto) 43.5 Lymphocytes (%) (Auto) 46.5 Monocytes (%) (Auto) 7.2 Eosinophils (%) (Auto) 2.6 Basophils (%) (Auto) 0.2 Neutrophils # (Auto) 2.5 Lymphocytes # (Auto) 2.7 Monocytes # (Auto) 0.4 Eosinophils # (Auto) 0.1 Basophils # (Auto) 0.0 CBC Comment DIFF FINAL Differential Comment Cardiovascular: Regular Lungs: Clear Abdomen: Other (soft mild ttp diffuse, worse in RLQ) A/P Assessment and Plan recurrent RLQ pain, ct normal, hx of multiple surgeries PLAN NPO After mn will f/u on UGI- possible OR for dx lap possible ex lap possible appy pending results Arnlodo Musa MD November 18, 2016 22:07
[2016-11-19 00:06] VITALS: BP 97/55; PULSE 55; RESP 20; TEMP 98.1; O2SAT 96
[2016-11-19] MEDS: HEPARIN SODIUM - SQ 10,000 UNITS/ML VIAL SQ SCH (01:00)
[2016-11-19] MEDS: HYDROmorphone HCL PF 1 MG/ML VIAL IV PRN ×5 (01:03→20:14)
[2016-11-19 04:07] VITALS: BP 118/57; PULSE 61; RESP 20; TEMP 97.5; O2SAT 97
[2016-11-19 07:50] VITALS: BP 112/57; PULSE 67; RESP 22; TEMP 97.9; O2SAT 100
--- NOTE | 2016-11-19 07:58 | HHI.PR ---
Subjective Remarks Continues to complain of abdominal pain, more right lower quadrant No nausea, no vomiting No fever Discussed findings of upper GI, agreeable with going to surgery Objective Objective Results - Vital Signs Date Time Temp Pulse Resp B/P Pulse Ox O2 Delivery O2 Flow Rate FiO2 11/19/16 04:07 97.5 61 20 118/57 97 11/19/16 00:06 98.1 55 20 97/55 96 11/18/16 20:00 97.8 63 20 108/50 98 11/18/16 18:47 18 11/18/16 14:20 15 Result Diagram: 11/18/16 0814 11/16/162152 Imaging Last Impressions Abdomen/Pelvis CT 11/16/162135 Signed Impressions: Service Date/Time: Wednesday, November 16, 2016 23:33 - CONCLUSION: 1. No evidence of acute abdominal or pelvic process. No masses are identified. Sanjeev Hu MD Other Results Laboratory Tests Test 11/18/16 08:14 White Blood Count 5.8 Red Blood Count 3.97 Hemoglobin 11.8 Hematocrit 34.9 Mean Corpuscular Volume 88.0 Mean Corpuscular Hemoglobin 29.7 Mean Corpuscular Hemoglobin 33.8 Concent Red Cell Distribution Width 14.5 Platelet Count 287 Mean Platelet Volume 7.6 Neutrophils (%) (Auto) 43.5 Lymphocytes (%) (Auto) 46.5 Monocytes (%) (Auto) 7.2 Eosinophils (%) (Auto) 2.6 Basophils (%) (Auto) 0.2 Neutrophils # (Auto) 2.5 Lymphocytes # (Auto) 2.7 Monocytes # (Auto) 0.4 Eosinophils # (Auto) 0.1 Basophils # (Auto) 0.0 CBC Comment DIFF FINAL Differential Comment ROS General: No: Fatigue, Weakness HEENT: No: Sore Throat, Dysphagia Cardiac: No: Chest Pain, Edema, Palpitations Pulmonary: No: Cough, SOB, Wheezing GI: Abdominal Pain, No: BM, Diarrhea, N/V, Other /SHARK BIOLOGIST: No: Dysuria, Urgency Neuro/MS: No: Lightheaded, Confusion Psych: No: Anxiety, Depression Skin: No: Itching, Rash Physical Exam Physical Exam GENERAL: This is a well-nourished, well-developed patient, in no apparent distress. SKIN: No rashes, ecchymoses or lesions. Cool and dry. HEAD: Atraumatic. Normocephalic. No temporal or scalp tenderness. EYES: Pupils equal round and reactive. Extraocular motions intact. No scleral icterus. No injection or drainage. ENT: Nose without bleeding, purulent drainage or septal hematoma. Throat without erythema, tonsillar hypertrophy or exudate. Uvula midline. Airway patent. NECK: Trachea midline. No JVD or lymphadenopathy. Supple, nontender, no meningeal signs. CARDIOVASCULAR: Regular rate and rhythm without murmurs, gallops, or rubs. RESPIRATORY: Clear to auscultation. Breath sounds equal bilaterally. No wheezes , rales, or rhonchi. GASTROINTESTINAL: Abdomen soft, diffuse tenderness, nondistended. No hepato- splenomegaly, or palpable masses. No guarding. MUSCULOSKELETAL: Extremities without clubbing, cyanosis, or edema. No joint tenderness, effusion, or edema noted. No calf tenderness. Negative Homans sign bilaterally. NEUROLOGICAL: Awake and alert. Cranial nerves II through XII intact. Motor and sensory grossly within normal limits. Five out of 5 muscle strength in all muscle groups. Normal speech. Urinary Catheter: No Vascular Central Line Catheter: No A/P Diagnosis: (1) Intractable abdominal pain (2) History of CVA (cerebrovascular accident) (3) Hx of intestinal obstruction (4) Tobacco abuse (5) Tobacco abuse counseling Assessment and Plan 55-year-old female admitted with recurrent abdominal pain that is intractable associated with nausea vomiting and reported bright red blood per rectum. Heme negative per evaluation in the ED. Had recent EGD with findings of mild gastritis, colonoscopy did not reveal any acute findings. Evaluated by general surgery, no evidence of appendicitis. Patient with prior history of bowel resection and hysterectomy. Abdominal pain, etiology unclear possibly secondary to adhesions. Recent work up with no significant findings, poss. adhesions -Continue with IV fluids Continue with pain management- and antiemetics as needed -surgery and GI following, input appreciated. -UGI -tethered and displaced distal jejunum with mild narrowing of the left lower quad and periumbilical region. Per GI consistent with adhesions -for exp lap today History of CVA Continue with aspirin and Plavix, Tobacco abuse -Counseled about tobacco abuse SCDs and heparin for DVT prophylaxis Protonix for GI prophylax going to OR today, stable to proceed D/W RN D/W Dr. Arambula D/W pt This patient was seen by myself and Dr. Arambula, this note is written his behalf Taya Hicks November 19, 2016 07:58
[2016-11-19] MEDS: ASPIRIN EC 81 MG TABEC PO SCH (08:17)
[2016-11-19] MEDS: CLOPIDOGREL 75 MG TAB PO SCH (08:17)
[2016-11-19] MEDS: PANTOPRAZOLE SOD 40 MG DELAYED RELEASE TAB PO SCH (08:17)
[2016-11-19] MEDS: VENLAFAXINE HCL XR 75 MG CAP PO SCH (08:17)
[2016-11-19] MEDS: TOPIRAMATE 25 MG TAB PO SCH ×2 (08:18→20:15)
[2016-11-19] MEDS: ONDANSETRON HCL 4 MG/2 ML VIAL IVP PRN (08:35)
[2016-11-19] MEDS: SODIUM CHLORIDE 0.9% FLUSH 10 ML FLUSH IV FLUSH SCH ×2 (09:00→20:15)
[2016-11-19 11:22] VITALS: BP 109/56; PULSE 61; RESP 23; TEMP 98; O2SAT 100
[2016-11-19] MEDS ORDERED: BUPIVACAINE/EPINEPHRINE 0.25% PF 10 ML VIAL ONE (13:02)
[2016-11-19] MEDS ORDERED: MIDAZOLAM HCL 2 MG/2 ML VIAL ONE (13:15)
[2016-11-19] MEDS ORDERED: FAMOTIDINE 20 MG/2 ML VIAL ONE (13:15)
[2016-11-19] MEDS ORDERED: fentaNYL CITRATE 250 MCG/5 ML AMP ONE (13:16)
[2016-11-19] MEDS ORDERED: HYDROmorphone HCL PF 2 MG/ML VIAL ONE (13:16)
[2016-11-19] MEDS ORDERED: BUPIVACAINE/EPINEPHRINE 0.5% PF 30 ML VIAL ONE (13:19)
[2016-11-19] MEDS ORDERED: ACETAMINOPHEN 1000 MG/100 ML VIAL IV ONE (13:48)
--- NOTE | 2016-11-19 14:05 | HHI.PR ---
Immediate Post Op Note Procedure Date: November 19, 2016 Pre Op Diagnosis: adhesions Post Op Diagnosis: same Surgeon: Arnoldo Musa MD Edge Sawyer(s): see or sheet Procedure: diagnostic laparoscopy with SEVERIANO to right lower quadrant 45 minutes Findings: adhesions Complications: none Specimen(s) removed: none Estimated blood loss: 5cc Anesthesia: General Patient to: PACU Patient Condition: Good Arnoldo Musa MD November 19, 2016 14:05
[2016-11-19] MEDS ORDERED: ceFAZolin INJ 1,000 MG VIAL IV ONE (14:15)
[2016-11-19] MEDS ORDERED: BUPIVACAINE/EPINEPHRINE 0.25% PF 30 ML VIAL INFIL ONE (14:21)
[2016-11-19] MEDS ORDERED: PROPOFOL 200 MG/20 ML AMP IV ONE (14:55)
[2016-11-19] MEDS ORDERED: NEOSTIGMINE 3 MG/3 ML SYR IV ONE (14:55)
[2016-11-19] MEDS ORDERED: LACTATED RINGER'S 1000 ML INJ 1,000 ML IV ONE (14:56)
[2016-11-19] MEDS ORDERED: ONDANSETRON HCL 4 MG/2 ML VIAL IV PUSH ONE (14:56)
[2016-11-19] MEDS ORDERED: DO NOT ADM ANY ANTICOAGULANT DRUGS PRN (16:30)
[2016-11-19 17:45] VITALS: BP 135/65; PULSE 64; RESP 17; TEMP 95.9; O2SAT 96
[2016-11-19 20:00] VITALS: BP 133/65; PULSE 59; RESP 19; TEMP 96.5; O2SAT 96
[2016-11-19] MEDS: traZODone HCL 100 MG TAB PO SCH (20:15)
[2016-11-20] VITALS (7 sets, daily range): BP systolic 80–148; BP diastolic 53–69; PULSE 48–102; RESP 16–18; TEMP 96–98; O2SAT 96–100
[2016-11-20] MEDS: HYDROmorphone HCL PF 1 MG/ML VIAL IV PRN ×7 (00:27→21:20)
[2016-11-20] MEDS: SODIUM CHLOR 0.9% 1000 ML INJ 1,000 ML IV SCH (05:35)
[2016-11-20 06:35] LABS: HEMATOCRIT 36.2 % (35.0-46.0); MEAN CELL VOLUME 88.4 FL (80.0-100.0); MEAN CORPUSCULAR HEMOGLOBIN 30.1 PG (27.0-34.0); MEAN CORPUSCULAR HGB CONC 34.1 % (32.0-36.0); PLATELET COUNT 301 TH/MM3 (150-450); RED CELL DISTRIBUTION WIDTH 14.3 % (11.6-17.2)
[2016-11-20 07:13] LABS: REVIEW FLAG FINAL
[2016-11-20] MEDS: SODIUM CHLORIDE 0.9% FLUSH 10 ML FLUSH IV FLUSH SCH ×2 (08:50→20:02)
[2016-11-20] MEDS: PANTOPRAZOLE SOD 40 MG DELAYED RELEASE TAB PO SCH (08:50)
[2016-11-20] MEDS: TOPIRAMATE 25 MG TAB PO SCH ×2 (08:50→20:02)
[2016-11-20] MEDS: VENLAFAXINE HCL XR 75 MG CAP PO SCH (08:50)
[2016-11-20] MEDS: ASPIRIN EC 81 MG TABEC PO SCH (08:50)
--- NOTE | 2016-11-20 10:26 | EKG ---
Date Performed: 11/19/2016 Time Performed: 13:35:54 PTAGE: 55 years EKG: SINUS BRADYCARDIA WITH SHORT KS INTERVAL NONSPECIFIC T-WAVE ABNORMALITY BORDERLINE ECG NO PREVIOUS TRACING DOCTOR: Rober Galeano Interpretating Date/Time 11/20/2016 10:26:22
--- NOTE | 2016-11-20 11:12 | HHI.PR ---
Subjective Remarks Alert, oriented No acute shortness of breath Abdominal pain minimal soreness Up ambulatory in chair in room, bedside commode Abdominal drain still in place, clear red fluid abdominal dressing clean dry and intact Afebrile (Michelle Stapleton) Objective Objective Results - Vital Signs Date Time Temp Pulse Resp B/P Pulse Ox O2 Delivery O2 Flow Rate FiO2 11/20/16 08:00 97.6 48 16 126/60 98 11/20/16 04:00 96.0 54 18 134/58 96 11/20/16 00:57 18 11/20/16 00:00 96.0 52 18 148/69 98 11/19/16 20:00 96.5 59 19 133/65 96 11/19/16 17:45 95.9 64 17 135/65 96 11/19/16 17:05 98.1 59 16 117/72 100 Nasal Cannula 3 11/19/16 17:00 59 16 116/75 100 Nasal Cannula 3 11/19/16 16:45 60 15 109/57 100 Nasal Cannula 3 11/19/16 16:30 57 16 116/61 100 Nasal Cannula 3 11/19/16 16:15 60 15 119/72 100 Nasal Cannula 3 11/19/16 15:59 98.0 71 14 125/75 100 Nasal Cannula 3 11/19/16 11:22 98.0 61 23 109/56 100 I/O 11/19/16 11/19/16 11/19/16 11/20/16 11/20/16 11/20/16 07:00 15:00 23:00 07:00 15:00 23:00 Intake Total 1820 ml 873 ml Output Total 430 ml 800 ml Balance 1390 ml 73 ml Intake Oral 120 ml 240 ml IV Total 200 ml 633 ml Other 1500 ml Output Urine Total 400 ml 800 ml Drainage Total 5 ml Estimated Blood Loss 25 ml # Bowel Movements 0 0 (Michelle Stapleton) Result Diagram: 11/20/16 0550 11/20/16 0550 ROS General: Weakness (generalized but mild, improving), Other (10 point ROS done positives noted other systems unremarkable, no BM yet) GI: Abdominal Pain (improving), Other (abdominal drain draining clear red serous fluid) (Michelle Stapleton) Physical Exam Physical Exam PHYSICAL EXAMINATION GENERAL: This is a well-developed, well-nourished female She is alert and awake, HEAD: Normocephalic without any lesion or mass noted. Facial features appear symmetric. OROPHARYNGEAL: Oropharynx without erythema or edema. NECK: Supple. No nuchal rigidity or lymphadenopathy. Trachea midline without deviation. CARDIAC: Regular rhythm, regular rate, S1 and S2 are heard. LUNGS: Clear to auscultation bilaterally. , Encouraged to turn cough and deep breathe ABDOMEN: Soft, mild tenderness Bowel sounds are heard in all four quadrants. EXTREMITIES: No edema. Pulses equal bilateral. NEUROLOGICAL: Patient mood and affect appropriate. No focal deficit SKIN:Warm and moist Objective Remarks I'm feeling okay just a little weak (Michelle Stapleton) A/P Assessment and Plan Abdominal pain, status post exploratory lap on 11-19 Adhesions seen -Continue with IV fluids, taking by mouth fluids well we'll DC IV fluids as long as she is drinking well Abdominal drain still intact Continue with pain management- and antiemetics as needed -surgery , reviewing post op needs Encourage patient to increase activity, and ambulate for her mobility History of tobacco use and dependence, states she is doing fine and refuses needing a tobacco patch History of CVA Medical management, no acute issues SCDs and heparin for DVT prophylaxis Protonix for GI prophylax Discharge planning soon, will evaluate along with surgical input D/W RN D/W Dr. Arambula, seen on his behalf D/W pt (Michelle Stapleton) Assessment and Plan pt is seen & examined d/w PT d/w Michelle feels better/tolerating Clears , +ve flatus advance diet to full liquids analgesic will f/u (Rodney Arambula MD) Michelle Stapleton November 20, 2016 11:12 Rodney Arambula MD November 20, 2016 12:37
--- NOTE | 2016-11-20 14:51 | MP ---
cc: WILL MUSA MD DATE OF SURGERY: 11/19/2016. PREOPERATIVE DIAGNOSIS: Abdominal pain. POSTOPERATIVE DIAGNOSIS: 1. Abdominal pain. 2. Adhesions. OPERATIVE PROCEDURE PERFORMED: 1. Diagnostic laparoscopy. 2. Laparoscopic lysis of adhesions 45 minutes to the right lower quadrant. SURGEON: Will Musa MD. POWERTRAIN CALIBRATION ENGINEER: See the OR sheet. ANESTHESIA: GETA. IV FLUIDS: See anesthesia sheet. ESTIMATED BLOOD LOSS: 5 mL. DRAINS: A 10-Kinyarwanda Baljinder-Guillen drain. COMPLICATIONS: None. WOUND CLASSIFICATION: Clean. FINDINGS: Multiple adhesions. Significant adhesions to the right lower quadrant. Some bloody oozing from tissue. INDICATIONS FOR THE PROCEDURE: The patient is A 55-year-old female who has several medical issues with history of stroke on Plavix who presented with complaints of abdominal pain significantly in the right lower quadrant. She came here approximately two weeks ago, was evaluated to rule out appendicitis, low likelihood of appendicitis; however, concern for some adhesions; however, the patient did improve nonoperatively with conservative management. She returned to the hospital due to recurrence of abdominal pain significantly in the right lower quadrant. She did have some nausea and vomiting as well. Decision was made for operative intervention including a diagnostic laparoscopy, possible appendectomy, possible lysis of adhesions. This was discussed with the patient in detail who stated understanding and agreed. DESCRIPTION OF THE PROCEDURE IN DETAIL: The patient was taken to the operating suite and placed in supine position. She was prepped and draped in the usual sterile fashion after induction of general endotracheal anesthesia. Brief time-out done stating correct patient, procedure, surgical site and all were in agreement with this. Attention was first directed to the umbilicus. A stab graciela incision was made. A Veress needle was placed into the abdomen and placement confirmed with saline drop test. The abdomen was insufflated with 50 mm pneumoperitoneum. The Veress needle was switched to the 5 millimeter port and camera. On cursory inspection, no evidence of injury. There were noted to be multiple adhesions. Two other trocars were placed: one in the left upper quadrant and one in the left lower quadrant 5 mm. Attention was directed to several adhesions in the pelvis. The harmonic scalpel used for lysis of adhesions. There was noted to be some diffuse bleeding. No significant arterial bleeding. The patient was noted to have a recent history of Plavix. Continued the dissection. There was a small bowel loop that was stuck to the anterior abdominal wall and tethered. This was mobilized from the anterior abdominal wall. There remained several adhesions in the abdomen that were mobilized in the right lower quadrant and given some bleeding and oozing, decision was made for completion procedure. There was no significant dilated obstructed bowel or decompressed bowel. At this point, the abdomen was desufflated. A drain was placed 10-Kinyarwanda to the pelvis and secured with 2-0 nylon. The incisions were closed with 4-0 Monocryl. Sterile dressings were then placed. The patient tolerated the procedure well. There were no complications. Lap and instrument counts were correct at the end of the procedure. The patient was extubated and taken to the post-anesthesia care unit. MD MERRITT Jones/EMELINA /1:17 PM /2:39 PM
--- NOTE | 2016-11-20 17:34 | HHI.PR ---
Subjective Subjective Notes Feels much better; pain resolved. Objective Vitals/I&O Vital Signs Date Time Temp Pulse Resp B/P Pulse Ox O2 Delivery O2 Flow Rate FiO2 11/20/16 16:00 96.9 68 18 103/55 100 11/19/16 17:05 Nasal Cannula 3 Labs Laboratory Tests Test 11/20/16 05:50 White Blood Count 10.0 Red Blood Count 4.10 Hemoglobin 12.3 Hematocrit 36.2 Mean Corpuscular Volume 88.4 Mean Corpuscular Hemoglobin 30.1 Mean Corpuscular Hemoglobin 34.1 Concent Red Cell Distribution Width 14.3 Platelet Count 301 Mean Platelet Volume 7.7 Sodium Level 144 Potassium Level 4.0 Chloride Level 110 Carbon Dioxide Level 24.0 Anion Gap 10 Blood Urea Nitrogen 5 Creatinine 0.68 Estimat Glomerular Filtration 90 Rate Random Glucose 106 Calcium Level 8.4 Lungs: Clear Abdomen: Non-distended, Post-op tenderness A/P Assessment and Plan POD #1 diagnostic laparoscopy with SEVERIANO Doing well Advance diet to full liquids Stop IVF Danielito Frederick MD November 20, 2016 17:34
[2016-11-20] MEDS: traZODone HCL 100 MG TAB PO SCH (20:02)
[2016-11-21] VITALS: BP 98/53; PULSE 66; RESP 17; TEMP 97.1; O2SAT 97
[2016-11-21] MEDS: HYDROmorphone HCL PF 1 MG/ML VIAL IV PRN ×3 (00:52→10:28)
[2016-11-21 04:00] VITALS: BP 96/51; PULSE 64; RESP 17; TEMP 96.9; O2SAT 98
[2016-11-21 06:36] VITALS: BP 102/55; PULSE 56; RESP 17; O2SAT 99
[2016-11-21 08:00] VITALS: BP 114/59; PULSE 61; RESP 17; TEMP 97.9; O2SAT 98
--- NOTE | 2016-11-21 09:08 | HHI.PR ---
Subjective Subjective Notes no acute issues, tolerating fulls, +flatus Objective Vitals/I&O Vital Signs Date Time Temp Pulse Resp B/P Pulse Ox O2 Delivery O2 Flow Rate FiO2 11/21/16 06:36 56 17 102/55 99 11/21/16 04:00 96.9 11/19/16 17:05 Nasal Cannula 3 Cardiovascular: Regular Lungs: Clear Abdomen: Other (incisions c/d/i mary serous) A/P Assessment and Plan recurrent RLQ pain, ct normal, hx of multiple surgeries PLAN reg diet soft oob pain control d/c mary start plavix tomorrow, ok for heparin tomorrow Arnoldo Musa MD November 21, 2016 09:08
[2016-11-21] MEDS: PANTOPRAZOLE SOD 40 MG DELAYED RELEASE TAB PO SCH (09:20)
[2016-11-21] MEDS: ASPIRIN EC 81 MG TABEC PO SCH (09:20)
[2016-11-21] MEDS: TOPIRAMATE 25 MG TAB PO SCH (09:20)
[2016-11-21] MEDS: VENLAFAXINE HCL XR 75 MG CAP PO SCH (09:20)
[2016-11-21] MEDS: SODIUM CHLORIDE 0.9% FLUSH 10 ML FLUSH IV FLUSH SCH (09:21)
--- NOTE | 2016-11-21 10:43 | HHI.PR ---
Subjective Remarks Alert, oriented No acute shortness of breath States abdominal pain gone Up ambulatory in chair in room, bedside commode abdominal dressing clean dry and intact, DC drain today Afebrile (Michelle Stapleton) Objective Objective Results - Vital Signs Date Time Temp Pulse Resp B/P Pulse Ox O2 Delivery O2 Flow Rate FiO2 11/21/16 08:00 97.9 61 17 114/59 98 11/21/16 06:36 56 17 102/55 99 11/21/16 04:00 96.9 64 17 96/51 98 11/21/16 00:00 97.1 66 17 98/53 97 11/20/16 20:28 96 11/20/16 20:00 98.0 69 17 109/53 97 11/20/16 16:00 96.9 68 18 103/55 100 11/20/16 16:00 97.3 102 18 80/56 98 11/20/16 12:00 98.0 58 17 124/61 98 I/O 11/20/16 11/20/16 11/20/16 11/21/16 11/21/16 11/21/16 07:00 15:00 23:00 07:00 15:00 23:00 Intake Total 873 ml 1737 ml 240 ml 240 ml Output Total 800 ml 1380 ml 710 ml 410 ml Balance 73 ml 357 ml -470 ml -170 ml Intake Oral 240 ml 690 ml 240 ml 240 ml IV Total 633 ml 1047 ml 0 ml 0 ml Output Urine Total 800 ml 1350 ml 700 ml 400 ml Drainage Total 30 ml 10 ml 10 ml # Bowel Movements 0 1 (Michelle Stapleton) Result Diagram: 11/20/16 0550 11/20/16 0550 ROS General: Weakness (improving), Other (10 point ROS done, positives noted other systems unremarkable) GI: Abdominal Pain (resolved), BM (bowel regimen) (Michelle Stapleton) Physical Exam Physical Exam PHYSICAL EXAMINATION GENERAL: This is a well-developed, well-nourished female who appears to be in no acute distress. She is alert and awake, HEAD: Normocephalic without any lesion or mass noted. Facial features appear symmetric. OROPHARYNGEAL: Oropharynx without erythema or edema. NECK: Supple. No nuchal rigidity or lymphadenopathy. Trachea midline without deviation. CARDIAC: Regular rhythm, regular rate, S1 and S2 are heard. LUNGS: Clear to auscultation bilaterally. Lung volumes normal ABDOMEN: Soft, minimal tender, no organomegaly or masses. Bowel sound active EXTREMITIES: No edema. Pulses equal bilateral. NEUROLOGICAL: Patient mood and affect appropriate. No focal deficit SKIN:Warm and moist Objective Remarks I'm tired today but mild abdominal pain is gone. (Michelle Stapleton) A/P Assessment and Plan Abdominal pain, status post exploratory lap on 5-5 Abdominal drain draining minimal amount of fluid DC'd today, Increased diet today, will check for toleration otherwise patient is ready for discharge Encourage patient to increase activity, and ambulate for her mobility, tolerate fairly well patient denies any further abdominal pain History of tobacco use and dependence, states she is doing fine and refuses needing a tobacco patch History of CVA Medical management, no acute issues SCDs and heparin for DVT prophylaxis Protonix for GI prophylax Discharge planning probable today if patient tolerates diet D/W RN D/W Dr. Arambula, seen on his behalf D/W pt (Michelle Stapleton) Assessment and Plan 1) Intractable recurrent abdominal pain d/t Abdominal adhesions s/p Lap SEVERIANO (2) History of CVA (cerebrovascular accident) (3) Hx of intestinal obstruction (4) Tobacco abuse PT is seen & examined d/w PT d/w Michelle , medically stable d/c home today , if ok w Surgery stop smoking cigarettes, Risks of smoking were explained in detail/ benefits of smoking cessations were explained resume plavix from tomorrow see Orders see [facility] f/u pcp f/u Gen surgery (Rodney Arambula MD) Michelle Stapleton November 21, 2016 10:43 Rodney Arambula MD November 21, 2016 11:28
[2016-11-21] MEDS ORDERED: HYDR-3288 PO (11:30)
[2016-11-21 11:42] VITALS: O2SAT 98
--- NOTE | 2016-11-21 15:16 | HHI.DS ---
Discharge Summary Admission Date November 18, 2016 at 08:11 Discharge Date: November 21, 2016 Admitting Diagnosis intractable abdominal pain (1) Intractable abdominal pain Diagnosis: Principal (2) History of CVA (cerebrovascular accident) Diagnosis: Secondary (3) Hx of intestinal obstruction Diagnosis: Secondary (4) Tobacco abuse Diagnosis: Secondary (5) Tobacco abuse counseling Diagnosis: Secondary Procedures Exporatory lap. Brief History This was a 55-year-old female who presented to the emergency room via ambulance for abdominal pain. Patient was recently admitted on 11/08/2016 for evaluation of abdominal pain, at that time she had a CT of the abdomen with possible early appendicitis. Patient was evaluated by Dr. Musa who reviewed her films and notice cecal thickening but no appendicitis. GI was consulted. Patient had upper endoscopy that only show mild gastritis, possible mild pyloric stenosis. Colonoscopy did not reveal any acute findings. Patient was discharged in stable condition. According to the patient, her abdominal pain has increased over the last couple days. Indicated that the [place] was not working. Indicated the pain was sharp, burning it was located to the mid abdomen and right lower abdomen. She had been eating very little. She's had several episodes of nausea vomiting with yellow emesis. She also reported bright red blood per rectum, rectal exam was negative for blood in the ER. H&H was stable. The last time she vomited was before coming to the emergency room. Denied any fever, had chills. No other symptoms such as chest pain, no shortness of breath. She did have a history of bowel obstruction and headache colon resection when she was in [place]. Indicates that CAT scans were not going to show what the problem is therefore she presented to the emergency room to have abdominal pain reevaluated. Laboratory workup completed in the emergency room was essentially unremarkable. Lactic acid was normal. Repeat CT of the abdomen did not reveal any acute findings. Patient was admitted for further evaluation and treatment. CBC/BMP: 11/20/16 0550 11/20/16 0550 Significant Findings Laboratory Tests Test 11/20/16 05:50 Chloride Level 110 MEQ/L (98-107) Blood Urea Nitrogen 5 MG/DL (7-18) Calcium Level 8.4 MG/DL (8.5-10.1) Imaging Last Impressions Upper GI and Small Bowel X-Ray 11/18/16 0000 Signed Impressions: Service Date/Time: November 11:49 - CONCLUSION: Mildly tethered and displaced distal jejunum with mild narrowing in the left lower quadrant and carlie-umbilical region. Nonobstructive pattern currently. Saeed Francis MD Abdomen/Pelvis CT 11/16/162135 Signed Impressions: Service Date/Time: Wednesday, November 16, 2016 23:33 - CONCLUSION: 1. No evidence of acute abdominal or pelvic process. No masses are identified. Sanjeev Hu MD PE at Discharge PHYSICAL EXAMINATION GENERAL: This was a well-developed, well-nourished female She was alert and awake, HEAD: Normocephalic without any lesion or mass noted. Facial features appear symmetric. OROPHARYNGEAL: Oropharynx without erythema or edema. NECK: Supple. No nuchal rigidity or lymphadenopathy. Trachea midline without deviation. CARDIAC: Regular rhythm, regular rate, S1 and S2 are heard. LUNGS: Clear to auscultation bilaterally. , Encouraged to turn cough and deep breathe ABDOMEN: Soft, mild tenderness Bowel sounds are heard in all four quadrants. EXTREMITIES: No edema. Pulses equal bilateral. NEUROLOGICAL: Patient mood and affect appropriate. No focal deficit SKIN:Warm and moist Hospital Course These are the diagnoses that were used to treat this patient during this hospital stay Irretractable abdominal pain Treat of CVA History of intestinal obstruction Tobacco abuse and tobacco counseling Abdominal pain, status post exploratory lap on 11-19 for abdominal adhesions. Postop care per surgeon as well as pain management Patient was maintained on IV fluids for her hydration until she is taking by mouth fluids well-Continue with IV fluids, taking by mouth fluids well, discontinued evening before discharge next day. Abdominal drain still intact, discontinued day of discharge without any issues. Continue with pain management- and antiemetics as needed -surgery , reviewing post op needs Encourage patient to increase activity, and ambulate for her mobility after surgical procedure for performed. Patient states she tires easily but was able to get up and move around. Up in chair up to bathroom. Patient vital signs were monitored as well as her labs for any acute needs. Medically stable for discharge we'll follow-up with her PCP and her surgeon as instructions given. Tolerated regular food before leaving the hospital. History of tobacco use and dependence, states she is doing fine and refuses needing a tobacco patch History of CVA Medical management, no acute issues SCDs and heparin for DVT prophylaxis Protonix for GI prophylax Patient was also examined by Dr. wilkins pt is seen & examined d/w PT d/w Michelle feels better/tolerating Clears , +ve flatus advance diet to full liquids, then advance to regular diet analgesic Pt Condition on Discharge: Stable Discharge Disposition: Discharge Home Discharge Instructions DIET: Follow Instructions for: Heart Healthy Diet Additional Diet Instructions: No smoking Fluid Restrictions: none Activities you can perform: Weight Bearing as Reji Follow up Referrals: PCP Follow-up - 1 Week Surgical - 3 Weeks New Medications: Hydrocodone-Acetaminophen ([place]) 7.5-325 mg Tab 1 TAB PO Q6H PRN PAIN #20 Ref 0 TAB Continued Medications: Aspirin DR (Aspirin 81) 81 Mg Tabdr 81 MG PO DAILY Ref 0 TAB Biotin (Biotin) 5 Mg Tab 5 MG PO DAILY #1 BOTTLE Clopidogrel (Plavix) 75 Mg Tab 75 MG PO DAILY Blood Clot Prevention #30 Ref 0 TAB Pantoprazole (Protonix) 40 Mg Tab 40 MG PO DAILY Reflux #30 Ref 0 TAB Topiramate (Topiramate) 50 Mg Tab 50 MG PO BID Control Seizures #60 Ref 0 TAB Trazodone (Trazodone) 100 Mg Tab 100 MG PO HS Control Depression #30 Ref 0 TAB Venlafaxine ER 24 HR (Venlafaxine ER 24 HR) 150 Mg Tab 150 MG PO DAILY #30 Ref 0 TAB Discontinued Medications: Hydrocodone-Acetaminophen (Hydrocodone-Acetaminophen) 10-325 mg Tab 1 TAB PO Q4H PRN pain 2-7 #20 TAB Michelle Stapleton November 21, 2016 15:16
== END 2016-11-21 12:12 | disposition home or self-care (01) | DRG 327 ==
LOC: NEPE 21:06 → NEDA 11-17 00:55 → NEPHCDU 11-17 02:24 → OBSVTOIN 11-18 08:11 → N07B 11-19 15:22
PROVIDERS: ADMIT Specialist; ATTEND Specialist
PROC: 0DN64ZZ Release Stomach, Percutaneous Endoscopic Approach (ICD-10-PCS; principal; 2016-11-20)
DX: K66.0 Peritoneal adhesions (postprocedural) (postinfection) (principal); K62.5 Hemorrhage of anus and rectum; E11.9 Type 2 diabetes mellitus without complications; K29.70 Gastritis, unspecified, without bleeding; F17.210 Nicotine dependence, cigarettes, uncomplicated; Z86.73 Personal history of transient ischemic attack (TIA), and cerebral infarction without residual deficits; Z90.710 Acquired absence of both cervix and uterus
CPT/HCPCS: 74177; 74245; 80048; 80053; 81001; 83605; 83690; 85025; 85027; 85610; 85730; 86850; 86900; 86901; 93005; 96374; 96375; 96376; G0378; J0131; J0690; J1170; J1644; J2250; J2270; J2405; J2710; J3010; J7030; J7120; Q9967

== ENCOUNTER 2016-12-19 21:44 | Emergency (ER) | payer MEDICARE, OTHER ==
[~2016-12-19] VITALS: Ht 157.5 cm; Wt 60.0 kg
[~2016-12-19 21:44] MED LIST changes: +HYDR-3288 PO; -HYDR-3583 PO
[2016-12-19 21:45] VITALS: BP 127/73; PULSE 91; RESP 18; TEMP 97.7; O2SAT 95
--- NOTE | 2016-12-19 22:05 | PD ---
Physical Exam Date Seen by Provider: Dec 19, 2016 Time Seen by Provider: 22:04 Data Data Last Documented VS Vital Signs Date Time Temp Pulse Resp B/P Pulse Ox O2 Delivery O2 Flow Rate FiO2 12/19/16 21:45 97.7 91 18 127/73 95 Room Air [facility] Supervised Visit with SRIRAM: No Narrative Course 56 YO F with complaint of abdominal pain, nausea since yesterday. Denies vomiting. Denies fever, Vitals reviewed. Awaiting bed placement. Padmini Bae Dec 19, 2016 22:05
[2016-12-19] MEDS ORDERED: CIPR500T2 PO (22:33)
--- NOTE | 2016-12-19 23:04 | RADRPT ---
EXAM DATE/TIME: 12/19/2016 22:53 [place] COMPARISON: No previous studies available for comparison. INDICATIONS : Abdominal pain. MEDICAL HISTORY : Cardiovascular disease. Cerebrovascular disease. Diabetes mellitus type II. SURGICAL HISTORY : Hysterectomy. section. ENCOUNTER: Initial ACUITY: 3 days PAIN SCORE: 10/10 LOCATION: Bilateral Abdomen FINDINGS: Supine and upright views of the abdomen were performed. The abdominal bowel gas pattern is normal. No air fluid levels are seen. No abnormal masses, calcifications, or organomegaly is seen. The visu alized lower lungs are clear. No evidence of free intraperitoneal gas. The osseous structures are u nremarkable. CONCLUSION: Normal examination. Ludin Chambers MD on December 19, 2016 at 23:02 Board Certified Radiologist. This report was verified electronically.
[2016-12-19 23:11] LABS: AUTOMATED NEUTROPHIL # 4.8 TH/MM3 (1.8-7.7); BASOPHIL % 0.3 % (0.0-2.0); EOSINOPHIL # 0.2 TH/MM3 (0-0.4); EOSINOPHIL % 1.9 % (0.0-4.0); HEMATOCRIT 40.8 % (35.0-46.0); HEMO FLAGS DIFF FINAL; LYMPH % 44.7 % (9.0-44.0); LYMPHOCYTE # 4.7 TH/MM3 (1.0-4.8); MEAN CELL VOLUME 87.9 FL (80.0-100.0); MEAN CORPUSCULAR HEMOGLOBIN 29.8 PG (27.0-34.0); MEAN CORPUSCULAR HGB CONC 33.9 % (32.0-36.0); MONO % 7.2 % (0.0-8.0); NEUT % 45.9 % (16.0-70.0); PLATELET COUNT 409 TH/MM3 (150-450); RED BLOOD COUNT 4.64 MIL/MM3 (4.00-5.30); RED CELL DISTRIBUTION WIDTH 14.4 % (11.6-17.2); WHITE BLOOD COUNT 10.5 TH/MM3 (4.0-11.0)
--- NOTE | 2016-12-19 23:14 | PD ---
HPI Chief Complaint: Abdominal Pain Time Seen by Provider: 22:36 Travel History International Travel<30 days: No Contact w/Intl Traveler<30days: No Traveled to known affect area: No History of Present Illness HPI The patient is a 56 year old female who presents to the [facility] emergency department with a history of having a recurrence of abdominal pain that began last night. The patient reports that on November 18, 2016 she underwent adhesion lysis by Dr. Musa. She reports that she had a follow-up with him as an outpatient approximately 2 weeks ago. She reports that she has continued to have minimal discomfort at that time. She reports that she ran out of the hydrocodone postop a long time ago. She reports that last night with the pain worsened she started taking Tylenol without any relief. She reports that the pain is been constant since last night. She reports that is gradually worsening with time. She reports that it was a burning/stinging sensation. She reports that is 10 out of 10 in severity. The patient reports having nausea but no vomiting or diarrhea. She reports that her stools have been soft up until this morning when she had a small hard stool. She denies having any blood in her stool or black or tarry stools. The patient denies any recent fevers, cough, congestion, neck pain, chest pain, shortness of breath, urinary symptoms, or neurologic symptoms. [facility] Past Medical History Narrative Medical The patient's past medical history is significant for a prior cerebrovascular accident, bowel obstruction, depression, diabetes mellitus, history of seizure disorder, history of gastritis and recent endoscopy, history of mild pyloric stenosis and recent endoscopy. Hx Anticoagulant Therapy: Yes (PLAVIX) Asthma: No Anxiety: No Depression: No Heart Rhythm Problems: No Cancer: No Cardiovascular Problems: No High Cholesterol: No Chemotherapy: No Chest Pain: No Congestive Heart Failure: No COPD: No Cerebrovascular Accident: Yes (stroke 2007) Diabetes: Yes Diminished Hearing: No Endocrine: No Genitourinary: No Immune Disorder: No Musculoskeletal: Yes Neurologic: No Psychiatric: No Reproductive: No Respiratory: No Radiation Therapy: No Seizures: Yes (2010) Sleep Apnea: No Thyroid Disease: No ?: Not Past Surgical History Narrative Surgical The patient's past surgical history significant for partial colectomy, colonoscopy, hysterectomy, 3, adhesion lysis November 18, 2016. Abdominal Surgery: Yes Section: Yes Hysterectomy: Yes Other Surgery: Yes (c section, hysterectomy, ankle, sholder, overies removed) Social History Alcohol Use: No Tobacco Use: Yes (2 cigarettes per day) Substance Use: No Allergies-Medications (Allergen,Severity, Reaction): Coded Allergies: Bee Sting (Verified Allergy, Unknown, 09/25/16) Reported Meds & Prescriptions Reported Meds & Active Scripts Active Protonix (Pantoprazole Sodium) 40 Mg Tab 40 Mg PO DAILY Reported Ciprofloxacin (Ciprofloxacin HCl) 500 Mg Tab 500 Mg PO BID Biotin 5 Mg Tab 5 Mg PO DAILY Aspirin 81 (Aspirin) 81 Mg Tabdr 81 Mg PO DAILY Topiramate 50 Mg Tab 50 Mg PO BID Plavix (Clopidogrel Bisulfate) 75 Mg Tab 75 Mg PO DAILY Venlafaxine ER 24 HR (Venlafaxine HCl) 150 Mg Tab 150 Mg PO DAILY Review of Systems Except as stated in HPI: all other systems reviewed are Neg General / Constitutional: No: Fever Eyes: No: Visual changes HENT: No: Headaches Cardiovascular: No: Chest Pain or Discomfort Respiratory: No: Shortness of Breath Gastrointestinal: Positive: Nausea, Vomiting, Abdominal Pain, Changes in Bowel Habits, Loss of Appetite, No: Diarrhea, Hematemesis, Hematochezia, Indigestion Genitourinary: No: Dysuria Musculoskeletal: No: Pain Skin: No Rash Neurologic: No: Weakness Psychiatric: No: Depression Endocrine: No: Polydipsia Hematologic/Lymphatic: No: Easy Bruising Physical Exam Narrative General: The patient is well-developed well-nourished female in no acute distress Head and Neck exam: Head is normocephalic atraumatic. Eyes: EOMI, pupils are equal round and reactive to light. Nose: Midline septum with pink mucous membranes Mouth: Dentition unremarkable. Moist mucus membranes. Posterior oropharynx is not erythematous. No tonsillar hypertrophy. Uvula midline. Airway patent. Neck: No palpable lymphadenopathy. No nuchal rigidity. No thyromegaly. Cardiovascular: Regular rate and rhythm without murmurs, gallops, or rubs. No pulse deficit to the extremities. Lungs: Clear to auscultation bilaterally. No wheezes, rhonchi, or rales. Abdomen: Soft, with tenderness on palpation along the midepigastric area and right upper quadrant of the abdomen. No other tenderness on palpation of the other quadrants of the abdomen. No guarding, rebound, or rigidity. No tenderness on palpation of McBurney's point. Normal bowel sounds are audible. Negative [place] sign. Extremities: No clubbing, cyanosis, or edema. 2+ pulses in all 4 extremities. No calf tenderness on palpation. Back: No costovertebral angle tenderness to palpation. Neurologic Exam: Grossly nonfocal. Skin Exam: No rash noted. Intact skin that is warm and dry. Data Data Last Documented VS Vital Signs Date Time Temp Pulse Resp B/P Pulse Ox O2 Delivery O2 Flow Rate FiO2 12/20/16 03:08 74 18 142/66 100 Room Air 12/19/16 21:45 97.7 Orders Electrocardiogram (12/19/16 22:39) Complete Blood Count With Diff (12/19/16 22:39) Comprehensive Metabolic Panel (12/19/16 22:39) C-Reactive Protein (Crp) (12/19/16 22:39) Lipase (12/19/16 22:39) Urinalysis - C+S If Indicated (12/19/16 22:39) Magnesium (Mg) (12/19/16 22:39) Abdomen, Flat & Upright (12/19/16 22:39) Iv Access Insert/Monitor (12/19/16 22:39) Ecg Monitoring (12/19/16 22:39) Oximetry (12/19/16 22:39) Lactic Acid (12/19/16 22:39) Cta Abdomen W Iv Contrast W 3d (12/20/16 ) Sodium Chlor 0.9% 1000 Ml Inj (Ns 1000 M (12/20/16 00:30) Ondansetron Inj (Zofran Inj) (12/20/16 00:30) Morphine Inj (Morphine Inj) (12/20/16 00:30) Iohexol 350 Inj (Omnipaque 350 Inj) (12/20/16 01:03) Morphine Inj (Morphine Inj) (12/20/16 01:45) Sodium Chlorid 0.9% 500 Ml Inj (Ns 500 M (12/20/16 01:45) Lactic Acid (12/20/16 01:44) Labs Laboratory Tests Test 12/19/16 12/20/16 12/20/16 22:52 00:45 02:00 White Blood Count 10.5 TH/MM3 Red Blood Count 4.64 MIL/MM3 Hemoglobin 13.8 GM/DL Hematocrit 40.8 % Mean Corpuscular Volume 87.9 FL Mean Corpuscular Hemoglobin 29.8 PG Mean Corpuscular Hemoglobin 33.9 % Concent Red Cell Distribution Width 14.4 % Platelet Count 409 TH/MM3 Mean Platelet Volume 7.7 FL Neutrophils (%) (Auto) 45.9 % Lymphocytes (%) (Auto) 44.7 % Monocytes (%) (Auto) 7.2 % Eosinophils (%) (Auto) 1.9 % Basophils (%) (Auto) 0.3 % Neutrophils # (Auto) 4.8 TH/MM3 Lymphocytes # (Auto) 4.7 TH/MM3 Monocytes # (Auto) 0.8 TH/MM3 Eosinophils # (Auto) 0.2 TH/MM3 Basophils # (Auto) 0.0 TH/MM3 CBC Comment DIFF FINAL Differential Comment Sodium Level 141 MEQ/L Potassium Level 3.8 MEQ/L Chloride Level 107 MEQ/L Carbon Dioxide Level 23.1 MEQ/L Anion Gap 11 MEQ/L Blood Urea Nitrogen 8 MG/DL Creatinine 1.03 MG/DL Estimat Glomerular Filtration 55 ML/MIN Rate Random Glucose 92 MG/DL Lactic Acid Level 2.4 mmol/L 0.9 mmol/L Calcium Level 9.3 MG/DL Magnesium Level 2.5 MG/DL Total Bilirubin 0.2 MG/DL Aspartate Amino Transf 13 U/L (AST/SGOT) Alanine Aminotransferase 20 U/L (ALT/SGPT) Alkaline Phosphatase 109 U/L C-Reactive Protein LESS THAN 0.29 MG/DL Total Protein 8.3 GM/DL Albumin 4.0 GM/DL Lipase 170 U/L Urine Color YELLOW Urine Turbidity CLEAR Urine pH 7.0 Urine Specific [place] 1.010 Urine Protein TRACE mg/dL Urine Glucose (UA) NEG mg/dL Urine Ketones NEG mg/dL Urine Occult Blood NEG Urine Nitrite NEG Urine Bilirubin NEG Urine Urobilinogen LESS THAN 2.0 MG/DL Urine Leukocyte Esterase LARGE Urine RBC 0-3 /hpf Urine WBC 0-2 /hpf Urine WBC Clumps NONE Urine Squamous Epithelial 0-5 /hpf Cells Urine Bacteria NONE /hpf Urine Mucus RARE /lpf Urine Trichomonas OCC Microscopic Urinalysis Comment CULT NOT INDICATED MDM Medical Decision Making Medical Screen Exam Complete: Yes Emergency Medical Condition: Yes Medical Record Reviewed: Yes Interpretation(s) Last Impressions Abdomen CTA 12/20/16 0000 Signed Impressions: Service Date/Time: Tuesday, December 20, 2016 01:00 - CONCLUSION: Normal examination. There is no evidence of aneurysm or stenosis. Ludin Chambers MD Abdomen X-Ray 12/19/16 2239 Signed Impressions: Service Date/Time: Monday, December 19, 2016 22:53 - CONCLUSION: Normal examination. Ludin Chambers MD Differential Diagnosis Bowel obstruction, versus bowel obstruction, versus dehydration, versus gastroenteritis, ischemic bowel, versus pancreatitis, versus biliary colic. Narrative Course During the course of the patients emergency department visit, the patients history, examination, and differential diagnosis were reviewed with the patient. The patient had IV access obtained and blood work sent for analysis. The patient was placed on a business objects with oximetry and blood pressure monitoring. The patient was initially provided morphine for pain, Zofran for nausea, normal saline 1 L IV fluid bolus was administered. A second 500 mL bolus was administered after her lactic acid was noted to be elevated, thought to be related to mild dehydration. The patients laboratory studies were reviewed and remarkable for a white count 10.5, hemoglobin 13.8, platelets 409 with 44.7 and lymphocytes, CMP is remarkable for creatinine of 1.03, GFR 55, AST 13, C-reactive protein less than 0.29 decreased the likelihood of an infectious process, lipase 170, urinalysis shows large leukocyte esterase with only 0-2 WBCs no clumps, lactic acid was 2.4. This was repeated, however the meantime to rule out ischemic bowel a CTA of the abdomen and pelvis was ordered. Radiology studies were reviewed and remarkable for an abdominal flat and upright revealed a nonspecific bowel gas pattern without any evidence of obstruction. Repeat lactic acid was 0.9 after hydration. CTA of the abdomen and pelvis shows a normal examination, no evidence of aneurysm or stenosis The patient reports when her laboratory studies and imaging studies were discussed with her that her abdominal pain has improved. She reports that she does have a follow-up appointment with Dr. Musa and her primary care physician for tomorrow. The patient additionally reports that she does have Zofran for nausea at home. The patient is resting comfortably and feels better, is alert and in no distress. The patients results and examination findings were discussed with the patient. The repeat examination is unremarkable and benign. The history, exam, diagnostic testing, and current condition do not suggest any significant pathology to warrant further testing, continued ED treatment, admission, or surgical evaluation at this point. The vital signs have been stable. The patient does not have uncontrollable pain, intractable vomiting, or other significant symptoms. The patient's condition is stable and appropriate for discharge. The patient will pursue further outpatient evaluation with a primary care physician or other designated or consulting physician as indicated in the discharge instructions. The patient expressed understanding and was agreeable with this plan. Diagnosis Primary Impression: Abdominal pain Qualified Code: R10.11 - Right upper quadrant abdominal pain Referrals: Arnoldo Musa MD 1 day Primary Care Physician Patient Instructions: Abdominal Pain (ED), General Instructions Med/Other Pt SpecificInfo: No Change to Meds Disposition: 01 DISCHARGE HOME Condition: Stable Beata Brown MD Dec 19, 2016 23:14
[2016-12-19 23:25] LABS: ANION GAP 11 MEQ/L (5-15); AST (GOT) 13 U/L (15-37); BICARBONATE 23.1 MEQ/L (21.0-32.0); BLOOD UREA NITROGEN 8 MG/DL (7-18); CHLORIDE 107 MEQ/L (98-107); GLOMERULAR FILTRATION RATE 55 ML/MIN (>89); MAGNESIUM 2.5 MG/DL (1.5-2.5); POTASSIUM 3.8 MEQ/L (3.5-5.1); SODIUM (NA) 141 MEQ/L (136-145)
[2016-12-19 23:29] LABS: ALKALINE PHOSPHATASE 109 U/L (45-117); ALT (GPT) 20 U/L (10-53); TOTAL BILIRUBIN ADULT 0.2 MG/DL (0.2-1.0)
[2016-12-19 23:33] VITALS: BP 141/62; PULSE 68; RESP 20; O2SAT 99
[2016-12-20] MEDS ORDERED: MORPHINE SULFATE 4 MG/ML INJ IV PUSH ONE ×2 (00:30→01:45)
[2016-12-20] MEDS ORDERED: SODIUM CHLOR 0.9% 1000 ML INJ 1,000 ML IV ONE (00:30)
[2016-12-20] MEDS ORDERED: ONDANSETRON HCL 4 MG/2 ML VIAL IV PUSH ONE (00:30)
[2016-12-20 01:03] LABS: BLOOD, URINE NEG (NEG); GLUCOSE,URINE NEG (NEG); KETONE, URINE NEG (NEG); NITRITE,URINE NEG (NEG); URINE COLOR YELLOW (YELLW/STRAW)
[2016-12-20] MEDS ORDERED: IOHEXOL 350 MG/ML 10 ML VIAL (for RAD DIAG) IV ONE (01:03)
[2016-12-20 01:12] LABS: MUCUS URINE RARE /lpf (OCC); RBC, URINE 0-3 /hpf (0-3); WBC, URINE 0-2 /hpf (0-5)
[2016-12-20 01:13] LABS: COMMENT (UR) CULT NOT INDICATED; CULTURE IF INDICATED CULT NOT INDICATED; SQUAMOUS EPITHELIAL CELL URINE 0-5 /hpf (0-5)
[2016-12-20] MEDS ORDERED: SODIUM CHLORID 0.9% 500 ML INJ 500 ML IV ONE (01:45)
--- NOTE | 2016-12-20 01:50 | RADRPT ---
EXAM DATE/TIME: 12/20/2016 01:00 [facility] COMPARISON: No previous studies available for comparison. INDICATIONS : Diffuse abdominal pain. IV CONTRAST: 85 cc Omnipaque 350 (iohexol) IV RADIATION DOSE: 5.27 CTDIvol (mGy) MEDICAL HISTORY : Cerebrovascular disease. Seizures. Diabetes SURGICAL HISTORY : Hysterectomy. section. ENCOUNTER: Initial ACUITY: 1 day PAIN SCALE: 5/10 LOCATION: Bilateral abdomen TECHNIQUE: Volumetric scanning was performed using a multi-row detector CT scanner. The data was post processed with a variety of visualization algorithms including full volume maximum intensity projection, multi -planar sliding thin slab reformation, curved planar reformation, and surface rendering techniques. Using automated exposure control and adjustment of the mA and/or kV according to patient size, radiat ion dose was kept as low as reasonably achievable to obtain optimal diagnostic quality images. FINDINGS: ABDOMINAL AORTA: The lumen is smooth without significant narrowing or aneurismal dilation. The proximal celiac and sup erior mesenteric arteries are patent and normal in diameter. There are solitary renal arteries bilat erally without gross abnormality. BIFURCATION: Normal. RIGHT PELVIS: The right common iliac, internal iliac and external iliac vessels are patent without luminal irregula rity. LEFT PELVIS: The left common iliac, internal iliac and external iliac vessels are patent and without luminal irreg ularity. CONCLUSION: Normal examination. There is no evidence of aneurysm or stenosis. Ludin Chambers MD on December 20, 2016 at 1:48 Board Certified Radiologist. This report was verified electronically.
[2016-12-20 03:08] VITALS: BP 142/66; PULSE 74; RESP 18; O2SAT 100
--- NOTE | 2016-12-20 11:19 | EKG ---
Date Performed: 12/19/2016 Time Performed: 23:26:35 PTAGE: 56 years EKG: Sinus rhythm NONSPECIFIC T-WAVE ABNORMALITY BORDERLINE ECG Compared to prior tracing no significant change PREVIOUS TRACING : 11/19/2016 13.35 DOCTOR: Tez Brown Interpretating Date/Time 12/20/2016 11:16:51
== END 2016-12-20 03:13 | disposition home or self-care (01) ==
LOC: NEPE 21:44
DX: R10.11 Right upper quadrant pain (principal); R11.0 Nausea; E11.9 Type 2 diabetes mellitus without complications; R94.31 Abnormal electrocardiogram [ECG] [EKG]; F17.210 Nicotine dependence, cigarettes, uncomplicated; Z86.73 Personal history of transient ischemic attack (TIA), and cerebral infarction without residual deficits; Z79.02 Long term (current) use of antithrombotics/antiplatelets
CPT/HCPCS: 74020; 74175; 80053; 81001; 83605; 83690; 83735; 85025; 86140; 93005; 96361; 96374; 96375; 96376; 99285; J2270; J2405; J7030; J7040; Q9967

== ENCOUNTER 2016-12-20 14:24 | Inpatient (IN) | payer MEDICARE, OTHER ==
[~2016-12-20] VITALS: Ht 157.5 cm; Wt 57.6 kg
[~2016-12-20 14:24] MED LIST changes: +CIPR500T2 PO; -HYDR-3288 PO; -TRAZ100T4 PO
[2016-12-20 14:26] VITALS: BP 120/75; PULSE 86; RESP 20; TEMP 98.3; O2SAT 99
--- NOTE | 2016-12-20 14:52 | PD ---
Physical Exam Time Seen by Provider: 14:50 Narrative 56 y/o female sent for further evaluation of abdominal pain. Seen by surgeon Dr. Musa. Vital signs reviewed. Seen at triage desk. Awaiting bed placement. Data Data Last Documented VS Vital Signs Date Time Temp Pulse Resp B/P Pulse Ox O2 Delivery O2 Flow Rate FiO2 12/20/16 14:26 98.3 86 20 120/75 99 Room Air [facility] Medical Record Reviewed: Yes Supervised Visit with SRIRAM: Yasmany Garay Dec 20, 2016 14:52
--- NOTE | 2016-12-20 18:34 | PD ---
HPI Chief Complaint: GI Complaint Time Seen by Provider: 18:34 Travel History International Travel<30 days: No Contact w/Intl Traveler<30days: No Traveled to known affect area: No History of Present Illness HPI 56-year-old female presents the emergency Department with intractable abdominal pain. Patient was seen last evening with similar complaints and had a complete workup including CT scan and lab work. Patient was sent home last evening, and have follow-up with her early childhood specialist, Dr. Arnoldo Musa, who felt that her pain was not well controlled and she required further evaluation. Patient is here at his request. Patient denies fever, chills, has nausea but no vomiting. Patient states frequent diarrhea this afternoon. Pain is localized in the right lower quadrant. Patient recently had exploratory laparoscopy on November 18, [address] Musa, and adhesions were released at that time. Patient retains her gallbladder and appendix by her report. She denies urinary symptoms at this time. Currently she states her pain is crampy in nature, and 9 out of 10. Patient is allergic to bee stings. PFSH Past Medical History Hx Anticoagulant Therapy: Yes (PLAVIX) Asthma: No Anxiety: No Depression: No Heart Rhythm Problems: No Cancer: No Cardiovascular Problems: No High Cholesterol: No Chemotherapy: No Chest Pain: No Congestive Heart Failure: No COPD: No Cerebrovascular Accident: Yes (stroke 2007) Diabetes: Yes Diminished Hearing: No Endocrine: No Genitourinary: No Immune Disorder: No Musculoskeletal: Yes Neurologic: No Psychiatric: No Reproductive: No Respiratory: No Radiation Therapy: No Seizures: Yes (2010) Sleep Apnea: No Thyroid Disease: No Past Surgical History Abdominal Surgery: Yes Section: Yes Hysterectomy: Yes Other Surgery: Yes (c section, hysterectomy, ankle, sholder, overies removed) Social History Alcohol Use: No Tobacco Use: Yes (2 cigarettes per day) Substance Use: No Allergies-Medications (Allergen,Severity, Reaction): Coded Allergies: Bee Sting (Verified Allergy, Unknown, 12/20/16) Reported Meds & Prescriptions Reported Meds & Active Scripts Active Protonix (Pantoprazole Sodium) 40 Mg Tab 40 Mg PO DAILY Reported Ciprofloxacin (Ciprofloxacin HCl) 500 Mg Tab 500 Mg PO BID Biotin 5 Mg Tab 5 Mg PO DAILY Aspirin 81 (Aspirin) 81 Mg Tabdr 81 Mg PO DAILY Topiramate 50 Mg Tab 50 Mg PO BID Plavix (Clopidogrel Bisulfate) 75 Mg Tab 75 Mg PO DAILY Venlafaxine ER 24 HR (Venlafaxine HCl) 150 Mg Tab 150 Mg PO DAILY Review of Systems Except as stated in HPI: all other systems reviewed are Neg General / Constitutional: No: Fever, Chills Eyes: No: Visual changes HENT: No: Headaches Cardiovascular: No: Chest Pain or Discomfort Respiratory: No: Shortness of Breath Gastrointestinal: Positive: Nausea, Diarrhea, Abdominal Pain, Loss of Appetite , No: Vomiting Genitourinary: No: Dysuria Musculoskeletal: No: Pain Skin: No Rash Neurologic: No: Weakness Psychiatric: No: Depression Endocrine: No: Polydipsia Hematologic/Lymphatic: No: Easy Bruising Physical Exam Narrative GENERAL: Patient appears in mild distress. SKIN: Warm and dry. Normal color. Normal turgor. No icterus. HEAD: Atraumatic. Normocephalic. EYES: Pupils equal and round. No scleral icterus. No injection or drainage. ENT: No nasal bleeding or discharge. Mucous membranes pink and moist. Pharynx is clear. Airway is patent. NECK: Trachea midline. Supple nontender. CARDIOVASCULAR: Regular rate and rhythm. RESPIRATORY: No accessory muscle use. Clear to auscultation. Breath sounds equal bilaterally. GASTROINTESTINAL: Abdomen soft, generalized mild to moderate tenderness in the right lower quadrant, nondistended. No CVA tenderness. Hepatic and splenic margins not palpable. MUSCULOSKELETAL: Extremities without clubbing, cyanosis, or edema. No obvious deformities. NEUROLOGICAL: Awake and alert. No obvious cranial nerve deficits. Motor grossly within normal limits. Five out of 5 muscle strength in the arms and legs. Normal speech. PSYCHIATRIC: Appropriate mood and affect; insight and judgment normal. Data Data Last Documented VS Vital Signs Date Time Temp Pulse Resp B/P Pulse Ox O2 Delivery O2 Flow Rate FiO2 12/20/16 14:26 98.3 86 20 120/75 99 Room Air Orders Complete Blood Count With Diff (12/20/16 19:08) Comprehensive Metabolic Panel (12/20/16 19:08) Lipase (12/20/16 19:08) Lactic Acid (12/20/16 19:08) Prothrombin Time / Inr (Pt) (12/20/16 19:08) Act Partial Throm Time (Ptt) (12/20/16 19:08) Urinalysis - C+S If Indicated (12/20/16 19:08) Abdomen, Flat & Upright (12/20/16 ) Iv Access Insert/Monitor (12/20/16 19:08) Ecg Monitoring (12/20/16 19:08) Oximetry (12/20/16 19:08) NPO (12/20/16 19:08) Morphine Inj (Morphine Inj) (12/20/16 19:15) Ondansetron Inj (Zofran Inj) (12/20/16 19:15) Sodium Chlor 0.9% 1000 Ml Inj (Ns 1000 M (12/20/16 19:08) Sodium Chloride 0.9% Flush (Ns Flush) (12/20/16 19:15) Metronidazole (Flagyl) (12/20/16 19:30) Urine Culture (12/20/16 19:30) Labs Laboratory Tests Test 12/20/16 19:30 White Blood Count 9.4 TH/MM3 Red Blood Count 4.40 MIL/MM3 Hemoglobin 13.0 GM/DL Hematocrit 39.1 % Mean Corpuscular Volume 88.8 FL Mean Corpuscular Hemoglobin 29.5 PG Mean Corpuscular Hemoglobin 33.2 % Concent Red Cell Distribution Width 14.6 % Platelet Count 355 TH/MM3 Mean Platelet Volume 7.5 FL Neutrophils (%) (Auto) 57.3 % Lymphocytes (%) (Auto) 34.3 % Monocytes (%) (Auto) 6.5 % Eosinophils (%) (Auto) 1.7 % Basophils (%) (Auto) 0.2 % Neutrophils # (Auto) 5.4 TH/MM3 Lymphocytes # (Auto) 3.2 TH/MM3 Monocytes # (Auto) 0.6 TH/MM3 Eosinophils # (Auto) 0.2 TH/MM3 Basophils # (Auto) 0.0 TH/MM3 CBC Comment DIFF FINAL Differential Comment Prothrombin Time 10.4 SEC Prothromb Time International 0.9 RATIO Ratio Activated Partial 25.3 SEC Thromboplast Time Urine Color YELLOW Urine Turbidity HAZY Urine pH 5.0 Urine Specific [place] 1.024 Urine Protein TRACE mg/dL Urine Glucose (UA) NEG mg/dL Urine Ketones NEG mg/dL Urine Occult Blood NEG Urine Nitrite NEG Urine Bilirubin NEG Urine Urobilinogen LESS THAN 2.0 MG/DL Urine Leukocyte Esterase LARGE Urine RBC 20 /hpf Urine WBC 39 /hpf Urine Squamous Epithelial 8 /hpf Cells Urine Bacteria RARE /hpf Urine Mucus FEW /lpf Microscopic Urinalysis Comment CULTURE INDICATED Sodium Level 142 MEQ/L Potassium Level 3.7 MEQ/L Chloride Level 109 MEQ/L Carbon Dioxide Level 24.9 MEQ/L Anion Gap 8 MEQ/L Blood Urea Nitrogen 9 MG/DL Creatinine 0.89 MG/DL Estimat Glomerular Filtration 65 ML/MIN Rate Random Glucose 68 MG/DL Lactic Acid Level 0.7 mmol/L Calcium Level 9.1 MG/DL Total Bilirubin 0.3 MG/DL Aspartate Amino Transf 16 U/L (AST/SGOT) Alanine Aminotransferase 20 U/L (ALT/SGPT) Alkaline Phosphatase 105 U/L Total Protein 7.7 GM/DL Albumin 3.8 GM/DL Lipase 128 U/L [facility] Medical Decision Making Medical Screen Exam Complete: Yes Emergency Medical Condition: Yes Medical Record Reviewed: Yes Differential Diagnosis Intractable abdominal pain. Adhesions. Obstruction. Malingering. Narrative Course Patient is medically stable at time of exam. Call was placed to Dr. Musa, the patient is discussed. He recommends basic labs and x-ray and perhaps admission for observation with consultation to gastroenterology. Patient is also discussed with Dr. Brown who saw the patient last evening agrees with that plan. Labs ordered including CBC, CMP, lipase, lactic acid, and urinalysis. Abdominal x-rays flat and upright are ordered. IV access is obtained patient is given 4 mg Zofran IV as well as 4 mg morphine IV. CBC is unremarkable. CMP is unremarkable. Lactic acid is 0.7. Coagulation studies are normal. Urinalysis shows large leukocyte esterase, 20 RBCs, 39 the PVCs per high-power field., Rare bacteria, and culture is placed. Patient is noted be on Cipro for urinary tract infection currently. Abdominal x-ray flat and upright shows normal bowel gas pattern, no air-fluid levels, no abnormal masses, calcifications, or organomegaly. Patient discussed with Dr. Brown. Patient is felt to be needing admission for intractable pain not treated on an outpatient basis. Also the patient was already discussed with early childhood specialist who recommended observation and GI consult. Diagnosis Primary Impression: Intractable abdominal pain Admitting Information Admitting Physician Requests: Observation Condition: Stable Antoine Casillas Dec 20, 2016 18:34
[2016-12-20] MEDS ORDERED: SODIUM CHLOR 0.9% 1000 ML INJ 1,000 ML IV SCH (19:08)
[2016-12-20] MEDS ORDERED: ONDANSETRON HCL 4 MG/2 ML VIAL IVP ONE (19:15)
[2016-12-20] MEDS ORDERED: MORPHINE SULFATE 4 MG/ML INJ IV PUSH ONE (19:15)
--- NOTE | 2016-12-20 19:24 | PD ---
Physical Exam Narrative General: The patient is a well-developed well-nourished female in no acute distress. Head and Neck exam: Head is normocephalic atraumatic. Eyes: EOMI, pupils are equal round and reactive to light. Nose: Midline septum with pink mucous membranes Mouth: Dentition unremarkable. Moist mucus membranes. Posterior oropharynx is not erythematous. No tonsillar hypertrophy. Uvula midline. Airway patent. Neck: No palpable lymphadenopathy. No nuchal rigidity. No thyromegaly. Cardiovascular: Regular rate and rhythm without murmurs, gallops, or rubs. Lungs: Clear to auscultation bilaterally. No wheezes, rhonchi, or rales. Abdomen: Soft, with reported tenderness on palpation overlying the midline scar, center aspect without any palpable hernia, also tenderness on palpation is noted in the left lower quadrant of the abdomen no other tenderness on palpation is elicited in the other quadrants. No guarding, rebound, or rigidity. Negative Bryant sign. No tenderness on palpation of McBurney's point. Normal bowel sounds are audible. Extremities: No clubbing, cyanosis, or edema. 2+ pulses in all 4 extremities. No calf tenderness on palpation. Back: Right-sided CVA tenderness is noted on palpation. Neurologic Exam: Grossly nonfocal. Skin Exam: No rash noted. Intact skin that is warm and dry. Data Data Last Documented VS Vital Signs Date Time Temp Pulse Resp B/P Pulse Ox O2 Delivery O2 Flow Rate FiO2 12/20/16 14:26 98.3 86 20 120/75 99 Room Air Orders Complete Blood Count With Diff (12/20/16 19:08) Comprehensive Metabolic Panel (12/20/16 19:08) Lipase (12/20/16 19:08) Lactic Acid (12/20/16 19:08) Prothrombin Time / Inr (Pt) (12/20/16 19:08) Act Partial Throm Time (Ptt) (12/20/16 19:08) Urinalysis - C+S If Indicated (12/20/16 19:08) Abdomen, Flat & Upright (12/20/16 ) Iv Access Insert/Monitor (12/20/16 19:08) Ecg Monitoring (12/20/16 19:08) Oximetry (12/20/16 19:08) NPO (12/20/16 19:08) Morphine Inj (Morphine Inj) (12/20/16 19:15) Ondansetron Inj (Zofran Inj) (12/20/16 19:15) Sodium Chlor 0.9% 1000 Ml Inj (Ns 1000 M (12/20/16 19:08) Sodium Chloride 0.9% Flush (Ns Flush) (12/20/16 19:15) Metronidazole (Flagyl) (12/20/16 19:30) Urine Culture (12/20/16 19:30) Admit Order (Ed Use Only) (12/20/16 20:54) Consult Gastroenterology (12/20/16 ) Labs Laboratory Tests Test 12/20/16 19:30 White Blood Count 9.4 TH/MM3 Red Blood Count 4.40 MIL/MM3 Hemoglobin 13.0 GM/DL Hematocrit 39.1 % Mean Corpuscular Volume 88.8 FL Mean Corpuscular Hemoglobin 29.5 PG Mean Corpuscular Hemoglobin 33.2 % Concent Red Cell Distribution Width 14.6 % Platelet Count 355 TH/MM3 Mean Platelet Volume 7.5 FL Neutrophils (%) (Auto) 57.3 % Lymphocytes (%) (Auto) 34.3 % Monocytes (%) (Auto) 6.5 % Eosinophils (%) (Auto) 1.7 % Basophils (%) (Auto) 0.2 % Neutrophils # (Auto) 5.4 TH/MM3 Lymphocytes # (Auto) 3.2 TH/MM3 Monocytes # (Auto) 0.6 TH/MM3 Eosinophils # (Auto) 0.2 TH/MM3 Basophils # (Auto) 0.0 TH/MM3 CBC Comment DIFF FINAL Differential Comment Prothrombin Time 10.4 SEC Prothromb Time International 0.9 RATIO Ratio Activated Partial 25.3 SEC Thromboplast Time Urine Color YELLOW Urine Turbidity HAZY Urine pH 5.0 Urine Specific [place] 1.024 Urine Protein TRACE mg/dL Urine Glucose (UA) NEG mg/dL Urine Ketones NEG mg/dL Urine Occult Blood NEG Urine Nitrite NEG Urine Bilirubin NEG Urine Urobilinogen LESS THAN 2.0 MG/DL Urine Leukocyte Esterase LARGE Urine RBC 20 /hpf Urine WBC 39 /hpf Urine Squamous Epithelial 8 /hpf Cells Urine Bacteria RARE /hpf Urine Mucus FEW /lpf Microscopic Urinalysis Comment CULTURE INDICATED Sodium Level 142 MEQ/L Potassium Level 3.7 MEQ/L Chloride Level 109 MEQ/L Carbon Dioxide Level 24.9 MEQ/L Anion Gap 8 MEQ/L Blood Urea Nitrogen 9 MG/DL Creatinine 0.89 MG/DL Estimat Glomerular Filtration 65 ML/MIN Rate Random Glucose 68 MG/DL Lactic Acid Level 0.7 mmol/L Calcium Level 9.1 MG/DL Total Bilirubin 0.3 MG/DL Aspartate Amino Transf 16 U/L (AST/SGOT) Alanine Aminotransferase 20 U/L (ALT/SGPT) Alkaline Phosphatase 105 U/L Total Protein 7.7 GM/DL Albumin 3.8 GM/DL Lipase 128 U/L [facility] Medical Record Reviewed: Yes Supervised Visit with SRIRAM: Yes Interpretation(s) Last Impressions Abdomen X-Ray 12/20/16 0000 Signed Impressions: Service Date/Time: Tuesday, December 20, 2016 20:22 - CONCLUSION: Benign-appearing abdomen. Saeed Francis MD Differential Diagnosis Partial small bowel obstruction, versus gastroenteritis, versus dehydration, versus electrolyte derangement Narrative Course During the course of the patients emergency department visit, the patients history, examination, and differential diagnosis were reviewed with the patient. The patient had IV access obtained and blood work sent for analysis. The patient was placed on a director strategic planning with oximetry and blood pressure monitoring. The patient was initially evaluated by Antoine, the physician expanded duty dental assistant. Please see his complete history and physical. I assisted him with evaluation of the patient. The patient was seen by me yesterday with a workup that evaluated mild dehydration that improved with rehydration. A lactic acid that was elevated and a CTA of the abdomen and pelvis was done to follow to rule out ischemic bowel. CTA of the abdomen and pelvis was negative. Abdominal flat and upright revealed a nonspecific bowel gas pattern without any evidence of obstruction. The patient was therefore discharged home and she had an appointment with her surgeon scheduled for today. She reports that she continue to have nausea without vomiting. She reports that she continue to have abdominal pain although it moved to a different location today. She reports that she also had a watery bowel movement today. When she saw Dr. Musa in the office, due to the intractable pain he recommended that she come to the emergency department for evaluation, treatment of pain, admission for observation for pain. The patient was initially provided normal saline IV fluids, morphine for pain, Zofran for nausea. The patients laboratory studies were reviewed and remarkable for a reevaluation of a urinalysis done yesterday, trichomoniasis is noted on microscopy of her urine. The patient will be started on Flagyl for this. CBC is within normal limits, CMP is remarkable for chloride of 109, glucose 68, lipase 128, lactic acid 0.7, PT PTT unremarkable. Urinalysis shows large leukocyte esterase 20 RBCs 39 WBCs 8 squamous epithelial cells, rare bacteria. Culture is indicated. Radiology studies were reviewed and remarkable for abdominal flat and upright that shows a benign-appearing abdomen. The patients results were discussed with the patient, including the plan of care. I explained that further testing and/ or monitoring is indicated based on the patients history, examination, and/ or laboratory findings. Therefore, I recommended admission for additional evaluation. The patient expressed understanding and was agreeable with this plan. The patient was admitted to the hospital in stable condition and sent to a bed under the care of the [facility] hospitalist group. Diagnosis Primary Impression: Intractable abdominal pain Additional Impression: Trichomoniasis of bladder Admitting Information Admitting Physician Requests: Beata Smith MD Dec 20, 2016 19:24
[2016-12-20] MEDS ORDERED: metroNIDAZOLE 500 MG TAB PO ONE (19:30)
[2016-12-20 20:19] LABS: AUTOMATED NEUTROPHIL # 5.4 TH/MM3 (1.8-7.7); BASOPHIL % 0.2 % (0.0-2.0); EOSINOPHIL # 0.2 TH/MM3 (0-0.4); EOSINOPHIL % 1.7 % (0.0-4.0); HEMATOCRIT 39.1 % (35.0-46.0); HEMO FLAGS DIFF FINAL; LYMPH % 34.3 % (9.0-44.0); LYMPHOCYTE # 3.2 TH/MM3 (1.0-4.8); MEAN CELL VOLUME 88.8 FL (80.0-100.0); MEAN CORPUSCULAR HEMOGLOBIN 29.5 PG (27.0-34.0); MEAN CORPUSCULAR HGB CONC 33.2 % (32.0-36.0); MONO % 6.5 % (0.0-8.0); NEUT % 57.3 % (16.0-70.0); PLATELET COUNT 355 TH/MM3 (150-450); RED CELL DISTRIBUTION WIDTH 14.6 % (11.6-17.2); WHITE BLOOD COUNT 9.4 TH/MM3 (4.0-11.0)
[2016-12-20 20:31] LABS: APTT (PATIENT) 25.3 SEC (24.3-30.1); INTERNATIONAL NORMALIZED RATIO 0.9 RATIO; PROTHROMBIN TIME - PATIENT 10.4 SEC (9.8-11.6)
[2016-12-20 20:34] LABS: ANION GAP 8 MEQ/L (5-15); AST (GOT) 16 U/L (15-37); BICARBONATE 24.9 MEQ/L (21.0-32.0); BLOOD UREA NITROGEN 9 MG/DL (7-18); CHLORIDE 109 MEQ/L (98-107); GLOMERULAR FILTRATION RATE 65 ML/MIN (>89); POTASSIUM 3.7 MEQ/L (3.5-5.1); SODIUM (NA) 142 MEQ/L (136-145)
[2016-12-20 20:35] LABS: BACTERIA, URINE RARE /hpf; BLOOD, URINE NEG (NEG); COMMENT (UR) CULTURE INDICATED; CULTURE IF INDICATED CULTURE INDICATED; GLUCOSE,URINE NEG (NEG); KETONE, URINE NEG (NEG); MUCUS URINE FEW /lpf (OCC); NITRITE,URINE NEG (NEG); SQUAMOUS EPITHELIAL CELL URINE 8 /hpf (0-5); URINE COLOR YELLOW (YELLW/STRAW)
--- NOTE | 2016-12-20 20:37 | RADRPT ---
EXAM DATE/TIME: 12/20/2016 20:22 [facility] COMPARISON: No previous studies available for comparison. INDICATIONS : Aabdominal pain MEDICAL HISTORY : Cerebrovascular disease. Cardiovascular disease. Diabetes mellitus type II. SURGICAL HISTORY : Hysterectomy. section. ENCOUNTER: Initial ACUITY: 3 days PAIN SCORE: 8/10 LOCATION: Bilateral Abdomen FINDINGS: Supine and upright views of the abdomen were performed. The abdominal bowel gas pattern is normal. No air fluid levels are seen. No abnormal masses, calcifications, or organomegaly is seen. The visu alized lower lungs are clear. No evidence of free intraperitoneal gas. The osseous structures are u nremarkable. CONCLUSION: Benign-appearing abdomen. Saeed Francis MD on December 20, 2016 at 20:35 Board Certified Radiologist. This report was verified electronically.
[2016-12-20 20:38] LABS: ALKALINE PHOSPHATASE 105 U/L (45-117); ALT (GPT) 20 U/L (10-53); TOTAL BILIRUBIN ADULT 0.3 MG/DL (0.2-1.0)
[2016-12-20 21:30] VITALS: BP 105/60; PULSE 60; RESP 16; O2SAT 99
[2016-12-20 21:32] VITALS: O2SAT 97
[2016-12-20] MEDS: PANTOPRAZOLE SODIUM 40 MG VIAL IV PUSH SCH (22:45)
[2016-12-20] MEDS: MORPHINE SULFATE 4 MG/ML INJ IV PRN (23:25)
[2016-12-20 23:30] VITALS: BP 128/68; PULSE 77; RESP 18; TEMP 97.8; O2SAT 97
[2016-12-21] MEDS: MORPHINE SULFATE 4 MG/ML INJ IV PRN ×5 (03:22→20:12)
[2016-12-21 04:23] LABS: AUTOMATED NEUTROPHIL # 3.3 TH/MM3 (1.8-7.7); BASOPHIL % 0.2 % (0.0-2.0); EOSINOPHIL # 0.2 TH/MM3 (0-0.4); HEMATOCRIT 33.6 % (35.0-46.0); HEMO FLAGS DIFF FINAL; LYMPH % 47.2 % (9.0-44.0); LYMPHOCYTE # 3.6 TH/MM3 (1.0-4.8); MEAN CELL VOLUME 88.2 FL (80.0-100.0); MEAN CORPUSCULAR HEMOGLOBIN 29.5 PG (27.0-34.0); MEAN CORPUSCULAR HGB CONC 33.5 % (32.0-36.0); MONO % 6.5 % (0.0-8.0); NEUT % 43.1 % (16.0-70.0); PLATELET COUNT 297 TH/MM3 (150-450); RED BLOOD COUNT 3.82 MIL/MM3 (4.00-5.30); RED CELL DISTRIBUTION WIDTH 14.4 % (11.6-17.2); WHITE BLOOD COUNT 7.6 TH/MM3 (4.0-11.0)
[2016-12-21 04:55] VITALS: BP 111/67; PULSE 66; RESP 18; TEMP 98.4; O2SAT 97
[2016-12-21 05:02] LABS: BICARBONATE 22.1 MEQ/L (21.0-32.0); POTASSIUM 3.7 MEQ/L (3.5-5.1)
[2016-12-21 07:20] VITALS: BP 101/57; PULSE 83; RESP 16; TEMP 97.3; O2SAT 97
[2016-12-21] MEDS: SODIUM CHLORIDE 0.9% FLUSH 10 ML FLUSH IV FLUSH PRN (07:53)
[2016-12-21] MEDS: PANTOPRAZOLE SODIUM 40 MG VIAL IV PUSH SCH ×2 (07:59→20:12)
--- NOTE | 2016-12-21 08:21 | HHI.HP ---
HPI Service [facility] Primary Care Physician Dominic Hunter M.D. Admission Diagnosis Intractible Abdominal Pain Diagnoses: Chief Complaint: abdominal pain Travel History International Travel<30 Days: No Contact w/Intl Traveler <30 Da: No Traveled to Known Affected Are: No History of Present Illness This a 55-year-old white female well known to the [facility] for recent admissions for intractable abdominal pain. Patient has prior history of abdominal obstruction` and partial colectomy. She has been presented to the emergency room since October for evaluation of abdominal pain. Initially she was seen by GI and had a workup that was unremarkable. Surgery was consulted and she was evaluated by Dr. Musa. She underwent exploratory lap with lysis of adhesions on 11/19/2016. Patient indicates she did relatively well after surgery and was eating and pain was controlled. Over the last couple days her pain has recur, located mid lower pelvis and radiates across to the right abdomen. It's severe, constant and the only thing that helps is Morphine. She has been using Tylenol at home. She has not noted any weight loss, has poor appetite. Eating makes the pain worse. She is having stools are watery approximately 4-5 times a day. She's had chills but no fever. Men and not to the right upper quadrant. Indicates the pain is burning it is an 8. She did follow up with Dr. Camejo as outpatient and was recommended to have an MRI which was scheduled for tomorrow. She had other workup with GI but she is not sure of findings. Patient was actually here in the emergency room yesterday and had a CT of the abdomen lab work that was unremarkable, she was discharged home and instructed to follow up with GI. Because the pain was not controlled and she had diarrhea , she came back later in the day. States that she recently had a UTI and was prescribed Cipro which she has been taking. She denies any urinary symptoms. She denies any chest pain, shortness of breath.. Laboratory workup was unremarkable. Abdominal x-ray shows no acute findings. She does have a UTI, culture is pending. Dr. Musa is currently evaluating patient and has requested an upper GI series. Possibly may need more surgery as she does have adhesions however she is on Plavix for history of stroke. Patient is admitted for further evaluation and treatment. Review of Systems Constitutional: DENIES: Diaphoretic episodes, Fatigue, Fever, Weight gain, Weight loss, Chills, Dizziness, Change in appetite, Night Sweats Endocrine: DENIES: Abnorml menstrual pattern, Heat/cold intolerance, Polydipsia , Polyuria, Polyphagia Eyes: DENIES: Blurred vision, Diplopia, Eye inflammation, Eye pain, Vision loss , Photosensitivity, Double Vision Ears, nose, mouth, throat: DENIES: Tinnitus, Hearing loss, Vertigo, Nasal discharge, Oral lesions, Throat pain, Hoarseness, Ear Pain, Running Nose, Epistaxis, Sinus Pain, Toothache, Odynophagia Respiratory: DENIES: Apneas, Cough, Snoring, Wheezing, Hemoptysis, Sputum production, Shortness of breath Cardiovascular: DENIES: Chest pain, Palpitations, Syncope, Dyspnea on Exertion , PND, Lower Extremity Edema, Orthopnea, Claudication Gastrointestinal: COMPLAINS OF: Abdominal pain, Diarrhea, Nausea, DENIES: Black stools, Bloody stools, Constipation, Vomiting, Difficulty Swallowing, Anorexia Genitourinary: DENIES: Abnormal vaginal bleeding, Dysmenorrhea, Dyspareunia, Sexual dysfunction, Urinary frequency, Urinary incontinence, Urgency, Hematuria , Dysuria, Nocturia, Vaginal discharge Musculoskeletal: DENIES: Joint pain, Muscle aches, Stiffness, Joint Swelling, Back pain, Neck pain Integumentary: DENIES: Abnormal pigmentation, Pruritus, Rash, Nail changes, Breast masses, Breast skin changes, Nipple discharge Hematologic/lymphatic: DENIES: Bruising, Lymphadenopathy Immunologic/allergic: DENIES: Eczema, Urticaria Neurologic: DENIES: Abnormal gait, Headache, Localized weakness, Paresthesias, Seizures, Speech Problems, Tremor, Poor Balance Psychiatric: DENIES: Anxiety, Confusion, Mood changes, Depression, Hallucinations, Agitation, Suicidal Ideation, Homicidal Ideation, Delusions Past Family Social History Past Medical History CVA Bowel obstruction Depression. Past Surgical History Partial colectomy Colonoscopy Hysterectomy x 3 S/P exp. lap for SEVERIANO 11/19 Reported Medications Reported Meds & Active Scripts Active Protonix (Pantoprazole Sodium) 40 Mg Tab 40 Mg PO DAILY Reported Ciprofloxacin (Ciprofloxacin HCl) 500 Mg Tab 500 Mg PO BID Biotin 5 Mg Tab 5 Mg PO DAILY Aspirin 81 (Aspirin) 81 Mg Tabdr 81 Mg PO DAILY Topiramate 50 Mg Tab 50 Mg PO BID Plavix (Clopidogrel Bisulfate) 75 Mg Tab 75 Mg PO DAILY Venlafaxine ER 24 HR (Venlafaxine HCl) 150 Mg Tab 150 Mg PO DAILY Allergies: Coded Allergies: Bee Sting (Verified Allergy, Unknown, 12/20/16) Active Ordered Medications Inpatient Medications Metronidazole (Flagyl) 500 mg ONCE ONCE PO Last administered on 12/20/16 19:30 ; Start 12/20/16 at 19:30; Stop 12/20/16 at 19:31; Status DC Morphine Sulfate (Morphine Inj) 4 mg Q4H PRN IV PAIN Last administered on 07:52; Start 12/20/16 at 22:45 Ondansetron HCl 4 mg 4 mg ONCE ONCE IVP Last administered on 12/20/16 19:15; Start 12/20/16 at 19:15; Stop 12/20/16 at 19:16; Status DC Pantoprazole Sodium (Protonix Inj) 40 mg Q12HR IV PUSH Last administered on 12/21 07:59; Start 12/20/16 at 22:45 Sodium Chloride (NS 1000 ml Inj) 1,000 ml @ 1,000 mls/hr Q1H IV Last administered on 12/20/16 19:08; Start 12/20/16 at 19:08; Stop 12/20/16 at 20:07; Status DC Sodium Chloride (NS Flush) 2 ml UNSCH PRN IV FLUSH FLUSH AFTER USING IV ACCESS Last administered on 12/21/16 07:53; Start 12/20/16 at 19:15 Family History One sister from gastric cancer, one sister from colon cancer. Social History Smokes 5 cigarettes per day. No ETOH use. Physical Exam Vital Signs Vital Signs Date Time Temp Pulse Resp B/P Pulse Ox O2 Delivery O2 Flow Rate FiO2 12/21/16 04:55 98.4 66 18 111/67 97 12/20/16 23:30 97.8 77 18 128/68 97 12/20/16 21:32 97 Room Air 12/20/16 21:30 60 16 105/60 99 12/20/16 14:26 98.3 86 20 120/75 99 Room Air Physical Exam GENERAL: This is a well-nourished, well-developed patient, in no apparent distress. SKIN: No rashes, ecchymoses or lesions. Cool and dry. HEAD: Atraumatic. Normocephalic. No temporal or scalp tenderness. EYES: Pupils equal round and reactive. Extraocular motions intact. No scleral icterus. No injection or drainage. ENT: Nose without bleeding, purulent drainage or septal hematoma. Throat without erythema, tonsillar hypertrophy or exudate. Uvula midline. Airway patent. NECK: Trachea midline. No JVD or lymphadenopathy. Supple, nontender, no meningeal signs. CARDIOVASCULAR: Regular rate and rhythm without murmurs, gallops, or rubs. RESPIRATORY: Clear to auscultation. Breath sounds equal bilaterally. No wheezes , rales, or rhonchi. GASTROINTESTINAL: Abdomen soft, tender over lower pelvis and right abdomen, nondistended. No hepato-splenomegaly, or palpable masses. No guarding. Bowel sounds normal active 4. MUSCULOSKELETAL: Extremities without clubbing, cyanosis, or edema. No joint tenderness, effusion, or edema noted. No calf tenderness. Negative Homans sign bilaterally. NEUROLOGICAL: Awake and alert. Cranial nerves II through XII intact. Motor and sensory grossly within normal limits. Five out of 5 muscle strength in all muscle groups. Normal speech. Laboratory Laboratory Tests Test 12/20/16 12/21/16 19:30 03:41 White Blood Count 9.4 7.6 Red Blood Count 4.40 3.82 Hemoglobin 13.0 11.3 Hematocrit 39.1 33.6 Mean Corpuscular Volume 88.8 88.2 Mean Corpuscular Hemoglobin 29.5 29.5 Mean Corpuscular Hemoglobin 33.2 33.5 Concent Red Cell Distribution Width 14.6 14.4 Platelet Count 355 297 Mean Platelet Volume 7.5 7.6 Neutrophils (%) (Auto) 57.3 43.1 Lymphocytes (%) (Auto) 34.3 47.2 Monocytes (%) (Auto) 6.5 6.5 Eosinophils (%) (Auto) 1.7 3.0 Basophils (%) (Auto) 0.2 0.2 Neutrophils # (Auto) 5.4 3.3 Lymphocytes # (Auto) 3.2 3.6 Monocytes # (Auto) 0.6 0.5 Eosinophils # (Auto) 0.2 0.2 Basophils # (Auto) 0.0 0.0 CBC Comment DIFF FINAL DIFF FINAL Differential Comment Prothrombin Time 10.4 Prothromb Time International 0.9 Ratio Activated Partial 25.3 Thromboplast Time Urine Color YELLOW Urine Turbidity HAZY Urine pH 5.0 Urine Specific [place] 1.024 Urine Protein TRACE Urine Glucose (UA) NEG Urine Ketones NEG Urine Occult Blood NEG Urine Nitrite NEG Urine Bilirubin NEG Urine Urobilinogen LESS THAN 2.0 Urine Leukocyte Esterase LARGE Urine RBC 20 Urine WBC 39 Urine Squamous Epithelial 8 Cells Urine Bacteria RARE Urine Mucus FEW Microscopic Urinalysis Comment CULTURE INDICATED Sodium Level 142 144 Potassium Level 3.7 3.7 Chloride Level 109 113 Carbon Dioxide Level 24.9 22.1 Anion Gap 8 9 Blood Urea Nitrogen 9 7 Creatinine 0.89 0.65 Estimat Glomerular Filtration 65 94 Rate Random Glucose 68 63 Lactic Acid Level 0.7 Calcium Level 9.1 8.0 Total Bilirubin 0.3 Aspartate Amino Transf 16 (AST/SGOT) Alanine Aminotransferase 20 (ALT/SGPT) Alkaline Phosphatase 105 Total Protein 7.7 Albumin 3.8 Lipase 128 Date/Time Procedure Status Source Growth 12/20/16 19:30 Urine Culture Received Urine Random Urine Pending Result Diagram: 12/21/16 0341 12/21/16 0341 Imaging Last Impressions Abdomen X-Ray 12/20/16 0000 Signed Impressions: Service Date/Time: Tuesday, December 20, 2016 20:22 - CONCLUSION: Benign-appearing abdomen. Saeed Francis MD Assessment and Plan Problem List: (1) Intractable abdominal pain (2) Hx of intestinal obstruction (3) History of CVA (cerebrovascular accident) (4) Tobacco abuse counseling (5) S/P exploratory laparotomy Assessment and Plan Admit to Dr. Bravo 55-year-old female admitted with recurrent abdominal pain that is intractable associated with nausea, diarrhea. Significant past medical history of bowel resection. Patient with recent extensive GI workup including EGD and colonoscopy were no significant findings. He was evaluated by general surgery and underwent exploratory lap and lysis of adhesions on 11/19/2016. Abdominal pain, recurrent, possibly secondary to adhesions. Rule out other etiologies such as ischemia Diarrhea, rule out infectious process. Had stool studies done as outpatient. Was on Cipro for UTI -Continue with pain management, patient indicates morphine is working Surgical evaluation per Dr. Musa, input appreciated. At this time recommends upper GI series, patient may require more surgery as she does have adhesions. -Hold Plavix and ASA Gastroenterology has been consulted. Patient may need MRI of the abdomen, we will defer decision to GI -Check stools for C. difficile -Continue Protonix 40 mg IV twice a day -Continue antiemetics as needed UA positive for UTI, follow cultures. Pending -Rocephin 1 g IV daily History of CVA Monitor closely, hold aspirin and Plavix Tobacco abuse -Counseled about tobacco abuse -Smoking very little now, 2 cigarettes every couple days. SCDs for DVT prophylaxis Protonix for GI prophylax Plan of care has been discussed with the patient, attending and registered nurse. Further management of the patient be dependent on hospital course This patient was seen by myself and Dr. Bravo, this H&P is written her behalf Taya Hicks Dec 21, 2016 08:21
--- NOTE | 2016-12-21 11:00 | RADRPT ---
EXAM DATE/TIME: 12/21/2016 09:25 [place] COMPARISON: ABDOMEN FLAT & UPRIGHT, December 20, 2016, 20:22. INDICATIONS : Nausea x 2 days. FLUORO TIME: 0.0 minutes IMAGE COUNT: 9 CONTRAST: [facility] IMAGING TIME(S): 15 min, 30 min, 45 min, 1 hr MEDICAL HISTORY : SURGICAL HISTORY : 3 c-sections, tubes tied, ovaries removed, partial hysterectomy ENCOUNTER: Initial ACUITY: 2 days PAIN SCORE: 7/10 LOCATION: Right abdomen FINDINGS: Preliminary film is unremarkable. The stomach is grossly unremarkable. Examination of the small bowel demonstrates normal mucosal pattern involving the jejunum and ileum. There is no evidence of mass or obstruction. No intraluminal filling defects are identified. Contra st is seen in the colon at one hour. Incidental note of a significant amount of the oral contrast re senthil in the stomach at one hour. CONCLUSION: Negative water-soluble contrast small bowel series. Herbie Cantrell MD on December 21, 2016 at 10:56 Board Certified Radiologist. This report was verified electronically.
[2016-12-21] MEDS: ONDANSETRON HCL 4 MG/2 ML VIAL IV PUSH PRN (11:28)
[2016-12-21] MEDS: cefTRIAXone INJ 1,000 MG in SODIUM CHLORIDE 0.9% INJ 100 ML IV SCH (11:28)
[2016-12-21 11:45] VITALS: BP 138/63; PULSE 63; RESP 18; TEMP 97.7; O2SAT 96
[2016-12-21 13:04] LABS: C. DIFF EPI 027 PRESUMPTIVE NEGATIVE (NEGATIVE); C. DIFF TOXIN PCR NEGATIVE (NEGATIVE)
[2016-12-21] MEDS: metroNIDAZOLE 500 MG INJ 100 ML IV SCH ×2 (13:50→20:12)
[2016-12-21 16:06] VITALS: BP 102/56; PULSE 54; RESP 17; TEMP 97.5; O2SAT 97
--- NOTE | 2016-12-21 16:40 | PD.CONS ---
HPI History of Present Illness This is a 56 year old [lady] with hx partial colectomy for colon obstruction who presented to the ER yesterday for for abdominal pain. The pain is in lower abdomen and moves up, it is burning pain, 8/10 currently. Eating makes it worse. She currently has diarrhea. She just had BM. She is unable to say if she has blood in her stool. She has been nauseated, no vomiting. She was here recently for same, s/p diagnostic laparoscopy and lysis adhesions 11/19/16, and was discharged and it got worse. On a previous admission 11/08/16 she had normal colonoscopy and EGD showing poss pyloric stenosis and benign path. She also had a negative MRA in October. (Chata Gannon) PFSH Past Medical History depression hx CVA 2007 Past Surgical History ankle surgery c section x 3 shoulder surgery hysterectomy (Chata Gannon) Coded Allergies: Bee Sting (Verified Allergy, Unknown, 12/20/16) Family History DM Social History no ETOH cigarettes "off and on" no drugs (Chata Gannon) Review of Systems Constitutional: COMPLAINS OF: Fever Eyes: DENIES: Blurred vision Ears, nose, mouth, throat: DENIES: Hearing loss Respiratory: DENIES: Cough Cardiovascular: DENIES: Chest pain Gastrointestinal: COMPLAINS OF: Abdominal pain, Diarrhea, Nausea, DENIES: Black stools, Bloody stools, Constipation, Vomiting Genitourinary: DENIES: Hematuria Musculoskeletal: DENIES: Muscle aches Integumentary: DENIES: Jaundice Hematologic/lymphatic: COMPLAINS OF: Bruising Neurologic: DENIES: Abnormal gait Psychiatric: COMPLAINS OF: Confusion ROS subjective (Chata Gannon) GI Exam Vitals I&O Vital Signs Date Time Temp Pulse Resp B/P Pulse Ox O2 Delivery O2 Flow Rate FiO2 12/21/16 16:06 97.5 54 17 102/56 97 12/21/16 11:45 97.7 63 18 138/63 96 12/21/16 07:20 97.3 83 16 101/57 97 12/21/16 04:55 98.4 66 18 111/67 97 12/20/16 23:30 97.8 77 18 128/68 97 12/20/16 21:32 97 Room Air 12/20/16 21:30 60 16 105/60 99 I/O 12/20/16 12/20/16 12/20/16 12/21/16 12/21/16 12/21/16 07:00 15:00 23:00 07:00 15:00 23:00 Output Total 7 ml 3 ml Balance -7 ml -3 ml Output Stool Total 7 ml 3 ml # Voids 5 3 Imaging Last Impressions Small Bowel X-Ray 12/21/16 0000 Signed Impressions: Service Date/Time: Wednesday, December 21, 2016 09:25 - CONCLUSION: Negative water-soluble contrast small bowel series. Herbie Cantrell MD Abdomen X-Ray 12/20/16 0000 Signed Impressions: Service Date/Time: Tuesday, December 20, 2016 20:22 - CONCLUSION: Benign-appearing abdomen. Saeed Francis MD Laboratory Test 12/20/16 12/21/16 12/21/16 19:30 03:41 11:30 Prothrombin Time 10.4 SEC Prothromb Time International 0.9 RATIO Ratio Activated Partial 25.3 SEC Thromboplast Time Sodium Level 142 MEQ/L 144 MEQ/L Potassium Level 3.7 MEQ/L 3.7 MEQ/L Chloride Level 109 MEQ/L 113 MEQ/L Carbon Dioxide Level 24.9 MEQ/L 22.1 MEQ/L Anion Gap 8 MEQ/L 9 MEQ/L Blood Urea Nitrogen 9 MG/DL 7 MG/DL Creatinine 0.89 MG/DL 0.65 MG/DL Estimat Glomerular Filtration 65 ML/MIN 94 ML/MIN Rate Random Glucose 68 MG/DL 63 MG/DL Lactic Acid Level 0.7 mmol/L Calcium Level 9.1 MG/DL 8.0 MG/DL Total Bilirubin 0.3 MG/DL Aspartate Amino Transf 16 U/L (AST/SGOT) Alanine Aminotransferase 20 U/L (ALT/SGPT) Alkaline Phosphatase 105 U/L Total Protein 7.7 GM/DL Albumin 3.8 GM/DL Lipase 128 U/L White Blood Count 9.4 TH/MM3 7.6 TH/MM3 Red Blood Count 4.40 MIL/MM3 3.82 MIL/MM3 Hemoglobin 13.0 GM/DL 11.3 GM/DL Hematocrit 39.1 % 33.6 % Mean Corpuscular Volume 88.8 FL 88.2 FL Mean Corpuscular Hemoglobin 29.5 PG 29.5 PG Mean Corpuscular Hemoglobin 33.2 % 33.5 % Concent Red Cell Distribution Width 14.6 % 14.4 % Platelet Count 355 TH/MM3 297 TH/MM3 Mean Platelet Volume 7.5 FL 7.6 FL Neutrophils (%) (Auto) 57.3 % 43.1 % Lymphocytes (%) (Auto) 34.3 % 47.2 % Monocytes (%) (Auto) 6.5 % 6.5 % Eosinophils (%) (Auto) 1.7 % 3.0 % Basophils (%) (Auto) 0.2 % 0.2 % Neutrophils # (Auto) 5.4 TH/MM3 3.3 TH/MM3 Lymphocytes # (Auto) 3.2 TH/MM3 3.6 TH/MM3 Monocytes # (Auto) 0.6 TH/MM3 0.5 TH/MM3 Eosinophils # (Auto) 0.2 TH/MM3 0.2 TH/MM3 Basophils # (Auto) 0.0 TH/MM3 0.0 TH/MM3 CBC Comment DIFF FINAL DIFF FINAL Differential Comment Urine Color YELLOW Urine Turbidity HAZY Urine pH 5.0 Urine Specific [place] 1.024 Urine Protein TRACE mg/dL Urine Glucose (UA) NEG mg/dL Urine Ketones NEG mg/dL Urine Occult Blood NEG Urine Nitrite NEG Urine Bilirubin NEG Urine Urobilinogen LESS THAN 2.0 MG/DL Urine Leukocyte Esterase LARGE Urine RBC 20 /hpf Urine WBC 39 /hpf Urine Squamous Epithelial 8 /hpf Cells Urine Bacteria RARE /hpf Urine Mucus FEW /lpf Microscopic Urinalysis Comment CULTURE INDICATED Stool C. difficile Toxin (PCR) NEGATIVE Stl C. difficile Toxin PRESUMPTIVE Epiderm 027 NEGATIVE Date/Time Procedure Status Source Growth 12/20/16 19:30 Urine Culture - Preliminary Resulted Urine Random Urine Group D Enterococcus Physical Examination HEENT: EOMI; normocephalic; atraumatic; no jaundice. CHEST: CTA CARDIAC: RRR ABDOMEN: mildly distended, mildly firm lower abd, nontender; no hepatosplenomegaly; bowel sounds are present in all four quadrants. EXTREMITIES: No clubbing, cyanosis, or edema. SKIN: Normal; no rash; no jaundice. MACHINE [employer]: No focal deficits; alert and oriented times three. (Chata Gannon) Assessment and Plan Plan ASSESSMENT - abdominal pain - unclear etiology, has had extensive workup. EGD, colonoscopy , MRA in october did not reveal any cause of pain. Pt had diagnostic laparoscopy and lysis adhesions 11/19/16. GS consulted. UGI series neg, xr neg. stool cx pending. She is being treated for UTI. - diarrhea - unclear etiology, stool cx pending PLAN - await stool cx - await GS consult - supportive care Further recommendations to follow\\ This pt seen by myself and Dr Markham and this note is written on his behalf ( Chata Gannon) Physician Comments Agree with the plan as above, further recommendations to follow. (Beltran Markham MD) Chata Gannon Dec 21, 2016 16:40 Beltran Markham MD Dec 21, 2016 17:33
[2016-12-21 19:42] VITALS: BP 118/63; PULSE 63; RESP 18; TEMP 97.9; O2SAT 100
--- NOTE | 2016-12-21 20:16 | MB ---
cc: WILL WILLIS MD DATE OF CONSULTATION 12/21/2016 REASON FOR CONSULTATION Abdominal pain. HISTORY OF PRESENT ILLNESS The patient is a 55-year-old female who presents with acute onset of intractable abdominal pain. The patient had history approximately one month ago where she had significant severe abdominal pain, actually 6 weeks ago she was admitted with appendicitis with negative workup, sent home, for which she returned two weeks following. This was in November. She had a recurrent workup and underwent diagnostic laparoscopy, lysis of adhesions to the right lower quadrant. She did have improvement in pain at this time and was doing relatively well. The patient represented actually two nights ago to the emergency department with complaints of severe significant right lower quadrant pain. She describes the pain somewhat sharp, radiating in the lower pelvis to the right side without much improvement. She had a CT angio to rule out appearance of mesenteric ischemia with further labs that were within normal limits. At that time she had some stool in her colon and evidence of constipation. She came to the surgery clinic the following day with continued, significant, intractable, severe abdominal pain. She stated the pain was 09/10. Nothing improved the pain and it continued to get worse. On examination she was very tender, especially localized in the right lower quadrant. Therefore she was sent to emergency department with further workup and evaluation including normal white count and vital signs. But the pain did improve somewhat with pain medication and IV fluids. The patient has had multiple bowel movements. She did take some stool softeners with assistance with bowel movements. She further denied any fevers or chills but states the pain continues to progress. She has some associated nausea, denies any vomiting. The patient does have a history of stroke and currently on Plavix. She is admitted to medicine for optimization, evaluation also with consultation with GI for further recommendations. She had been followed by Dr. Camejo who was doing further workup including stool cultures and the patient did have previous endoscopy approximately one month ago which was negative as well. PAST MEDICAL HISTORY 1. Bowel obstruction. 2. Depression. 3. Stroke. PAST SURGICAL HISTORY 1. Partial colectomy. 2. Hysterectomy. 3. x3. 4. Diagnostic laparoscopy. 5. Lysis of adhesions. MEDICATIONS See MAR, Plavix. ALLERGIES NO KNOWN DRUG ALLERGIES. SOCIAL HISTORY Smokes five cigarettes a day. Denies EtOH or IVDA. FAMILY HISTORY Denies diabetes, hypertension. Sister with gastric cancer. Another sister with colon cancer history. REVIEW OF SYSTEMS GENERAL: The patient denies eye pain, ear pain, fevers. HEENT: Denies drainage or vision loss. NECK: Denies swelling or pain. CARDIOVASCULAR: Denies palpitations or chest pain. RESPIRATORY: Denies cough or wheeze. GASTROINTESTINAL: Complains of abdominal pain now with diarrhea and nausea. Denies vomiting. GENITOURINARY: Denies dysuria, hematuria. MUSCULOSKELETAL: Denies arthralgia, myalgias. INTEGUMENT: Denies abnormal pigmentation or lesions. HEMATOLOGIC: Denies easy bruising. NEUROLOGIC: Denies numbness or tingling. PSYCHIATRIC: Complaint of history of depression. Denies anxiety or confusion. PHYSICAL EXAMINATION GENERAL: The patient no acute distress. VITAL SIGNS: Temperature 98.4, pulse 66, respirations 18, blood pressure 111/67, saturation 97% on room air. HEENT: PERRLA, pupils equal, round, reactive. NECK: Supple. Trachea midline. LUNGS: Bilateral expansion. Clear. HEART: S1-S2, regular. ABDOMEN: Soft, positive tenderness to palpation right lower quadrant. Positive bowel sounds. EXTREMITIES: Warm, well-perfused. Moving all extremities. NEUROLOGIC: Alert and oriented times four. 5/5 motor. Normal gait. LABORATORY AND DIAGNOSTIC DATA WBC 7.6, hemoglobin 11.3, hematocrit 33.6, platelets 297. Sodium 144, potassium 3.7, chloride 113, CO2 22, BUN 7, creatinine 0.65. Glucose 63. Calcium 8. INR 0.9. PT 10.4. IMAGING CT reviewed by myself, no evidence of cancer or masses, perforation of fluid. Evidence of stool in colon. Abdominal x-ray obtained no evidence of obstruction. ASSESSMENT The patient is a 56-year-old female, chronic right lower quadrant pain, uncertain etiology at this time. PLAN After full clinical, radiologic and laboratory workup the patient with above-named complaints including intractable right lower quadrant abdominal pain. RECOMMENDATIONS Clear diet. Pain control. IV fluids. Continue to monitor the patient. We will obtain small bowel follow-through to further evaluate bowel and colon. Recommend bowel regimen. The patient did have diagnostic laparoscopy, lysis of adhesions to the right lower quadrant, somewhat limited surgery due to the patient's history of blood thinner and Plavix and risk. Currently would recommend continued workup. Appreciate gastroenterology input. We will consider possible exploratory laparotomy if no improvement or still with uncertain etiology and diagnosis of right lower quadrant pain.. If surgery is considered the patient will need to be off Plavix for several days and recommend evaluation from medical standpoint to assess surgical risk and evaluate if this is possible. MD MERRITT Jones/PEBBLES /7:18 PM /7:50 PM
[2016-12-22] VITALS (7 sets, daily range): BP systolic 109–133; BP diastolic 57–63; PULSE 55–66; RESP 16–20; TEMP 97–98.8; O2SAT 93–98
[2016-12-22] MEDS: MORPHINE SULFATE 4 MG/ML INJ IV PRN ×6 (00:13→22:46)
[2016-12-22] MEDS: ONDANSETRON HCL 4 MG/2 ML VIAL IV PUSH PRN ×3 (03:33→21:39)
[2016-12-22] MEDS: metroNIDAZOLE 500 MG INJ 100 ML IV SCH ×3 (04:07→21:39)
[2016-12-22 04:37] LABS: AUTOMATED NEUTROPHIL # 3.9 TH/MM3 (1.8-7.7); BASOPHIL % 0.3 % (0.0-2.0); EOSINOPHIL # 0.2 TH/MM3 (0-0.4); HEMATOCRIT 32.7 % (35.0-46.0); HEMO FLAGS DIFF FINAL; LYMPH % 40.6 % (9.0-44.0); LYMPHOCYTE # 3.2 TH/MM3 (1.0-4.8); MEAN CELL VOLUME 87.5 FL (80.0-100.0); MEAN CORPUSCULAR HEMOGLOBIN 29.8 PG (27.0-34.0); NEUT % 49.1 % (16.0-70.0); PLATELET COUNT 307 TH/MM3 (150-450); RED BLOOD COUNT 3.74 MIL/MM3 (4.00-5.30); RED CELL DISTRIBUTION WIDTH 14.6 % (11.6-17.2); WHITE BLOOD COUNT 7.9 TH/MM3 (4.0-11.0)
[2016-12-22 04:54] LABS: BICARBONATE 23.4 MEQ/L (21.0-32.0); POTASSIUM 3.6 MEQ/L (3.5-5.1)
[2016-12-22] MEDS: PANTOPRAZOLE SODIUM 40 MG VIAL IV PUSH SCH ×2 (07:54→21:00)
--- NOTE | 2016-12-22 08:58 | HHI.PR ---
Subjective Remarks drowsy responds to verbal stimuli Afebrile States last loose stool was this a.m. (Michelle Stapleton) Objective Objective Results - Vital Signs Date Time Temp Pulse Resp B/P Pulse Ox O2 Delivery O2 Flow Rate FiO2 12/22/16 07:14 98.8 58 18 112/63 93 12/22/16 04:50 97.4 66 20 109/57 94 12/22/16 04:13 18 12/22/16 00:23 97.1 62 18 119/59 96 12/21/16 19:42 97.9 63 18 118/63 100 12/21/16 16:06 97.5 54 17 102/56 97 12/21/16 11:45 97.7 63 18 138/63 96 I/O 12/21/16 12/21/16 12/21/16 12/22/16 12/22/16 12/22/16 07:00 15:00 23:00 07:00 15:00 23:00 Output Total 7 ml 3 ml Balance -7 ml -3 ml Output Stool Total 7 ml 3 ml # Voids 5 3 (Michelle Stapleton) Result Diagram: 12/22/16 0337 12/22/16 0337 ROS General: Weakness (generalized), Other (10 point ROS done positives noted otherwise systems negative or unremarkable) GI: Abdominal Pain, Diarrhea, N/V (no vomiting) /ORTHOPEDICS NURSE: Dysuria (previous UTI still persist) (Michelle Stapleton) Physical Exam Physical Exam PHYSICAL EXAMINATION GENERAL: This is a well-developed, well-nourished female resting in the bed. Appears comfortable She is drowsy HEAD: Normocephalic, atraumatic OROPHARYNGEAL: Oropharynx without erythema or edema. NECK: Supple. Trachea midline without deviation. CARDIAC: Regular rhythm, regular rate, no murmurs rubs or gallops LUNGS: Low volumes but essentially clear auscultation bilaterally. ABDOMEN: Soft, mild tenderness, left mid to lower quadrant that radiates into the right lower quadrant. Bowel sounds are heard in all four quadrants. EXTREMITIES: no edema. Pulses intact NEUROLOGICAL: Patient mood and affect appropriate. Tongue is midline SKIN:Warm and moist Objective Remarks I'm still having diarrhea and some lower abdominal pain at intervals. (Michelle Stapleton) A/P Assessment and Plan (1) Intractable abdominal pain (2) Hx of intestinal obstruction (3) History of CVA (cerebrovascular accident) (4) Tobacco abuse counseling (5) S/P exploratory laparotomy Abdominal pain, recurrent, hx of adhesions. Diarrhea continues with abd apin. pain starts on LLQ and radiates to RLQ. Bowel sounds active all 4 quadrants. pain management effective, continue Flagyl Surgical evaluation per Dr. Musa, input appreciated. At this time recommends upper GI series, patient may require more surgery as she does have adhesions. stools for C. difficile negative GI consult, small bowel follow-through negative, we'll continue to follow for the source of her pain. Appreciate input. Continue hydration with IV fluids Blood thinners, risks to benefit UTI, On IV Rocephin for now. Still has burning dysuria. culturs pending History of CVA Monitor closely, hold aspirin and Plavix Tobacco abuse low volume patient states. SCDs for DVT prophylaxis Protonix for GI prophylax Discussed with patient Discussed with nurse Discussed with Dr. bravo, patient seen on her behalf (Michelle Stapleton) Assessment and Plan patient seen and examined BMs improved still complaining of severe abdominal pain d/w Dr Musa keep holding plavix likely exp lap end of week switch to inpatient discussed with patient discussed with Michelle RIOS (Romana Bravo MD) Michelle Stapleton Dec 22, 2016 08:58 Romana Bravo MD Dec 22, 2016 14:44
[2016-12-22] MEDS: cefTRIAXone INJ 1,000 MG in SODIUM CHLORIDE 0.9% INJ 100 ML IV SCH (09:31)
[2016-12-22] MEDS ORDERED: PEG (High)/E-LYTE SOLN 4000 ML BTL PO ONE (11:45)
--- NOTE | 2016-12-22 12:16 | HHI.GIFU ---
Subjective Remarks Still complaining of abdominal pain and nausea. Objective Vitals I&O Vital Signs Date Time Temp Pulse Resp B/P Pulse Ox O2 Delivery O2 Flow Rate FiO2 12/22/16 11:38 97.6 55 16 119/57 94 12/22/16 08:10 16 12/22/16 07:14 98.8 58 18 112/63 93 12/22/16 04:50 97.4 66 20 109/57 94 12/22/16 00:23 97.1 62 18 119/59 96 12/21/16 19:42 97.9 63 18 118/63 100 12/21/16 16:06 97.5 54 17 102/56 97 I/O 12/21/16 12/21/16 12/21/16 12/22/16 12/22/16 12/22/16 07:00 15:00 23:00 07:00 15:00 23:00 Output Total 7 ml 3 ml Balance -7 ml -3 ml Output Stool Total 7 ml 3 ml # Voids 5 3 Laboratory Laboratory Tests Test 12/22/16 03:37 White Blood Count 7.9 Red Blood Count 3.74 Hemoglobin 11.1 Hematocrit 32.7 Mean Corpuscular Volume 87.5 Mean Corpuscular Hemoglobin 29.8 Mean Corpuscular Hemoglobin 34.0 Concent Red Cell Distribution Width 14.6 Platelet Count 307 Mean Platelet Volume 7.6 Neutrophils (%) (Auto) 49.1 Lymphocytes (%) (Auto) 40.6 Monocytes (%) (Auto) 7.0 Eosinophils (%) (Auto) 3.0 Basophils (%) (Auto) 0.3 Neutrophils # (Auto) 3.9 Lymphocytes # (Auto) 3.2 Monocytes # (Auto) 0.6 Eosinophils # (Auto) 0.2 Basophils # (Auto) 0.0 CBC Comment DIFF FINAL Differential Comment Sodium Level 142 Potassium Level 3.6 Chloride Level 109 Carbon Dioxide Level 23.4 Anion Gap 10 Blood Urea Nitrogen 7 Creatinine 0.70 Estimat Glomerular Filtration 86 Rate Random Glucose 67 Calcium Level 8.0 Date/Time Procedure Status Source Growth 12/20/16 19:30 Urine Culture - Preliminary Resulted Urine Random Urine Group D Enterococcus Physical Exam HEENT: Pupils round and reactive to light; normocephalic; atraumatic; no jaundice. Throat is clear. NECK: Neck is supple, no JVD, no lymphadenopathy. CHEST: Chest is clear to auscultation and percussion. CARDIAC: Regular rate and rhythm with no murmur gallop or rubs. ABDOMEN: Soft, nondistended, minimal tenderness; no hepatosplenomegaly; bowel sounds are present in all four quadrants. EXTREMITIES: No clubbing, cyanosis, or edema. SKIN: Normal; no rash; no jaundice. Assessment and Plan Plan ASSESSMENT - Abdominal pain - unclear etiology, has had extensive workup. EGD, colonoscopy , MRA in october did not reveal any cause of pain. Pt had diagnostic laparoscopy and lysis adhesions 11/19/16. GS consulted. UGI series neg, xr neg. stool cx pending. She is being treated for UTI. - Negative SBFT - Diarrhea - unclear etiology, stool cx pending PLAN - await stool cx - check stool Calprotectin - supportive care - liquid diet for now Beltran Markham MD Dec 22, 2016 12:16
--- NOTE | 2016-12-22 17:07 | HHI.PR ---
Subjective Subjective Notes patient with continued abdominal pain. +bms, decreased po intake Objective Vitals/I&O Vital Signs Date Time Temp Pulse Resp B/P Pulse Ox O2 Delivery O2 Flow Rate FiO2 12/22/16 15:01 98.6 55 17 133/60 95 12/20/16 21:32 Room Air Labs Laboratory Tests Test 12/22/16 03:37 White Blood Count 7.9 Red Blood Count 3.74 Hemoglobin 11.1 Hematocrit 32.7 Mean Corpuscular Volume 87.5 Mean Corpuscular Hemoglobin 29.8 Mean Corpuscular Hemoglobin 34.0 Concent Red Cell Distribution Width 14.6 Platelet Count 307 Mean Platelet Volume 7.6 Neutrophils (%) (Auto) 49.1 Lymphocytes (%) (Auto) 40.6 Monocytes (%) (Auto) 7.0 Eosinophils (%) (Auto) 3.0 Basophils (%) (Auto) 0.3 Neutrophils # (Auto) 3.9 Lymphocytes # (Auto) 3.2 Monocytes # (Auto) 0.6 Eosinophils # (Auto) 0.2 Basophils # (Auto) 0.0 CBC Comment DIFF FINAL Differential Comment Sodium Level 142 Potassium Level 3.6 Chloride Level 109 Carbon Dioxide Level 23.4 Anion Gap 10 Blood Urea Nitrogen 7 Creatinine 0.70 Estimat Glomerular Filtration 86 Rate Random Glucose 67 Calcium Level 8.0 Date/Time Procedure Status Source Growth 12/20/16 19:30 Urine Culture - Final Complete Urine Random Urine Enterococcus Faecium Vre Cardiovascular: Regular Lungs: Clear Abdomen: Other (+ttp RLQ) A/P Assessment and Plan RLQ abdominal pain PLAN Will plan to take pt to or for ex lap SEVERIANO pending medical clearance continue liquid diet pain control Arnoldo Musa MD Dec 22, 2016 17:07
[2016-12-22] MEDS: SODIUM CHLORIDE 0.9% FLUSH 10 ML FLUSH IV FLUSH PRN ×3 (18:15→22:46)
[2016-12-23 00:20] VITALS: BP 139/67; PULSE 58; RESP 17; TEMP 97.4; O2SAT 96
[2016-12-23] MEDS: SODIUM CHLORIDE 0.9% FLUSH 10 ML FLUSH IV FLUSH PRN ×2 (03:14→04:39)
[2016-12-23] MEDS: MORPHINE SULFATE 4 MG/ML INJ IV PRN ×5 (03:14→23:05)
[2016-12-23 04:00] VITALS: BP 151/71; PULSE 55; RESP 17; TEMP 96.9; O2SAT 95
[2016-12-23] MEDS: metroNIDAZOLE 500 MG INJ 100 ML IV SCH ×3 (04:39→21:16)
[2016-12-23 08:00] VITALS: BP 123/67; PULSE 54; RESP 18; TEMP 97.4; O2SAT 98
[2016-12-23] MEDS: cefTRIAXone INJ 1,000 MG in SODIUM CHLORIDE 0.9% INJ 100 ML IV SCH (10:38)
[2016-12-23] MEDS: PANTOPRAZOLE SODIUM 40 MG VIAL IV PUSH SCH ×2 (10:39→21:16)
--- NOTE | 2016-12-23 11:44 | HHI.PR ---
Subjective Remarks Awake testing on cell phone No acute shortness of breath Abdominal pain right lower quadrant up to right upper quadrant persist Pain management Afebrile Patient states still having multiple loose stools, negative for C. difficile ( Michelle Stapleton) Objective Objective Results - Vital Signs Date Time Temp Pulse Resp B/P Pulse Ox O2 Delivery O2 Flow Rate FiO2 12/23/16 08:00 97.4 54 18 123/67 98 12/23/16 04:00 96.9 55 17 151/71 95 12/23/16 00:20 97.4 58 17 139/67 96 12/22/16 20:20 97.0 56 17 123/58 96 12/22/16 17:30 98.3 55 18 119/62 98 12/22/16 15:01 98.6 55 17 133/60 95 12/22/16 14:00 15 12/22/16 11:38 97.6 55 16 119/57 94 I/O 12/22/16 12/22/16 12/22/16 12/23/16 12/23/16 12/23/16 07:00 15:00 23:00 07:00 15:00 23:00 Intake Total 240 ml 240 ml Balance 240 ml 240 ml Intake Oral 240 ml 240 ml # Voids 2 3 # Bowel Movements 0 3 (Michelle Stapleton) Result Diagram: 12/22/1633612/22/16 0337 ROS General: Weakness (and realized) Pulmonary: SOB (none) GI: Abdominal Pain (predominantly on the right side today upper and lower quadrant) /RAND CEMENTER: Urgency (mild) Neuro/MS: Other (mild anxiety) (Michelle Stapleton) Physical Exam Physical Exam PHYSICAL EXAMINATION GENERAL: This is a well-developed, female who appears to be in mild distress. She is alert and awake, HEAD: Normocephalic atraumatic OROPHARYNGEAL: Oropharynx clear NECK: Supple. Trachea midline without deviation. CARDIAC: Regular rhythm, regular rate, S1 and S2 LUNGS: Clear to auscultation bilaterally no shortness of breath adequate volumes ABDOMEN: Soft, mild tenderness, generalized pain predominantly on the right upper and right lower quadrant today EXTREMITIES: no edema. Pulses tactile NEUROLOGICAL: Patient mood and affect appropriate. SKIN:Warm and moist Objective Remarks I'm still having abdominal pain (Michelle Stapleton) A/P Assessment and Plan (1) Intractable abdominal pain (2) Hx of intestinal obstruction (3) History of CVA (cerebrovascular accident) (4) Tobacco abuse counseling (5) S/P exploratory laparotomy Abdominal pain, recurrent, hx of adhesions. Multiple hospital admissions and multiple surgeries for her diagnosis. Still having loose stools requiring pain management with abd apin. Negative for any C. difficile. pain start at RLQ and moves up into the right upper quadrant. Bowel sounds active all 4 quadrants. pain management effective, continue Flagyl Resting in bed encourage patient to sit up increase her mobility and be up in chair if possible. Surgical evaluation per Dr. Musa, input appreciated. Current testing negative but patient is known to have adhesions. Nothing by mouth at midnight plan for surgery exploratory lap in the morning Blood thinners, risks to benefit, she states pain is still persists UTI, On IV Rocephin for now. Still has burning dysuria. culture positive for VRE Patient's now in contact isolation History of CVA Monitor closely, hold aspirin and Plavix Tobacco abuse low volume patient states. SCDs for DVT prophylaxis Protonix for GI prophylax Discussed with patient Discussed with nurse Discussed with Dr. bravo, patient seen on her behalf (Michelle Stapleton) Assessment and Plan patient seen and examined still complaining of RLQ pain and nausea add prn phenergan, zofran not seem to be helping NPO after midnight plan for exp lap in am discussed with patient discussed with nursing staff discussed with Michelle RIOS (Romana Bravo MD) Michelle Stapleton Dec 23, 2016 11:44 Romana Bravo MD Dec 23, 2016 17:25
[2016-12-23 12:00] VITALS: BP 133/63; PULSE 58; RESP 18; TEMP 97.7; O2SAT 93
--- NOTE | 2016-12-23 12:13 | HHI.PR ---
Subjective Subjective Notes Resting in bed Had multiple BMs overnight Still with persistent RLQ pain Objective Vitals/I&O Vital Signs Date Time Temp Pulse Resp B/P Pulse Ox O2 Delivery O2 Flow Rate FiO2 12/23/16 08:00 97.4 54 18 123/67 98 12/20/16 21:32 Room Air Labs Date/Time Procedure Status Source Growth 12/20/16 19:30 Urine Culture - Final Complete Urine Random Urine Enterococcus Faecium Vre Cardiovascular: Regular Lungs: Clear Abdomen: Other (RLQ pain with and without palpation ) Extremities: No edema A/P Assessment and Plan 56 year old female with persistent RLQ -Stool studies negative -Tolerating clear liquids -NPO after MN -Continue to hold Plavix -Obtain consents for OR tomorrow with Dr. Musa for exploratory laparotomy Attending Statement patient seen at bedside patient plan for or for ex lap jen discussed with patient plan. I discussed possible cause of pain is adhesions however this may also not solve her problem She is aware of this but would like to proceed. Attestation The exam, history, and the medical decision-making described in the above note were completed with the assistance of the mid-level provider. I reviewed and agree with the findings presented. I attest that I had a [id number] encounter with the patient on the same day, and personally performed and documented my assessment and findings in the medical record. Riddhi Jones Dec 23, 2016 12:13 Arnoldo Musa MD Dec 30, 2016 13:05
[2016-12-23] MEDS: ONDANSETRON HCL 4 MG/2 ML VIAL IV PUSH PRN ×2 (12:19→17:29)
--- NOTE | 2016-12-23 15:27 | HHI.GIFU ---
Subjective Remarks Pt resting in bed, in no apparent distress. Pain unchanged. Says she is more nauseous today. (Chata Gannon) Objective Vitals I&O Vital Signs Date Time Temp Pulse Resp B/P Pulse Ox O2 Delivery O2 Flow Rate FiO2 12/23/16 12:00 97.7 58 18 133/63 93 12/23/16 08:00 97.4 54 18 123/67 98 12/23/16 04:00 96.9 55 17 151/71 95 12/23/16 00:20 97.4 58 17 139/67 96 12/22/16 20:20 97.0 56 17 123/58 96 12/22/16 17:30 98.3 55 18 119/62 98 I/O 12/22/16 12/22/16 12/22/16 12/23/16 12/23/16 12/23/16 07:00 15:00 23:00 07:00 15:00 23:00 Intake Total 240 ml 240 ml Balance 240 ml 240 ml Intake Oral 240 ml 240 ml # Voids 2 3 # Bowel Movements 0 3 Laboratory Date/Time Procedure Status Source Growth 12/20/16 19:30 Urine Culture - Final Complete Urine Random Urine Enterococcus Faecium Vre Imaging Last Impressions Small Bowel X-Ray 12/21/16 0000 Signed Impressions: Service Date/Time: Wednesday, December 21, 2016 09:25 - CONCLUSION: Negative water-soluble contrast small bowel series. Herbie Cantrell MD Abdomen X-Ray 12/20/16 0000 Signed Impressions: Service Date/Time: Tuesday, December 20, 2016 20:22 - CONCLUSION: Benign-appearing abdomen. Saeed Francis MD Physical Exam HEENT: EOMI, normocephalic; atraumatic; no jaundice. CHEST: CTA CARDIAC: RRR ABDOMEN: Soft, nondistended, minimal tenderness RLQ; no hepatosplenomegaly; bowel sounds are present in all four quadrants. EXTREMITIES: No clubbing, cyanosis, or edema. SKIN: Normal; no rash; no jaundice. (Chata Gannon) Assessment and Plan Plan ASSESSMENT - Abdominal pain - unclear etiology, has had extensive workup. EGD, colonoscopy , MRA in october did not reveal any cause of pain. Pt had diagnostic laparoscopy and lysis adhesions 11/19/16. GS consulted. UGI series neg, xr neg. stool cx pending. She is being treated for UTI. She is having ex lap tomorrow. - Negative SBFT - Diarrhea - unclear etiology, C DIFF neg stool cx pending PLAN - await ex lap - check stool Calprotectin - supportive care - diet per GS - GI will sign off for now This pt seen by myself and DR Markham and this note is written on his behalf ( Chata Gannon) Physician Comments Agree with the plan as above, please notify us if needed. (Beltran Markham MD ) Chata Gannon Dec 23, 2016 15:27 Beltran Markham MD Dec 23, 2016 15:35
[2016-12-23 16:00] VITALS: BP 155/69; PULSE 58; RESP 18; TEMP 97.5; O2SAT 94
[2016-12-23 20:15] VITALS: BP 134/65; PULSE 51; RESP 16; TEMP 97.3; O2SAT 97
[2016-12-23] MEDS: PROMETHAZINE HCL 25 MG TAB PO PRN (21:17)
[2016-12-24] VITALS (8 sets, daily range): BP systolic 114–143; BP diastolic 59–69; PULSE 51–65; RESP 16–20; TEMP 95.7–97.7; O2SAT 96–99
[2016-12-24] MEDS: PROMETHAZINE HCL 25 MG TAB PO PRN ×3 (03:57→20:12)
[2016-12-24] MEDS: MORPHINE SULFATE 4 MG/ML INJ IV PRN ×4 (03:57→20:30)
[2016-12-24] MEDS: metroNIDAZOLE 500 MG INJ 100 ML IV SCH ×3 (03:58→20:13)
[2016-12-24] MEDS: cefTRIAXone INJ 1,000 MG in SODIUM CHLORIDE 0.9% INJ 100 ML IV SCH (08:47)
[2016-12-24] MEDS: PANTOPRAZOLE SODIUM 40 MG VIAL IV PUSH SCH ×2 (08:47→20:12)
[2016-12-24] MEDS ORDERED: ONDANSETRON HCL 4 MG/2 ML VIAL IV PUSH ONE (12:00)
[2016-12-24] MEDS ORDERED: PROPOFOL 200 MG/20 ML AMP IV ONE (12:00)
[2016-12-24] MEDS ORDERED: KETOROLAC TROMETHAMINE 60 MG/2 ML (IM) VIAL IM ONE (12:00)
[2016-12-24] MEDS ORDERED: LACTATED RINGER'S 1000 ML INJ 2,000 ML IV ONE (12:00)
[2016-12-24] MEDS ORDERED: NEOSTIGMINE 3 MG/3 ML SYR IV ONE (12:00)
[2016-12-24] MEDS ORDERED: HYDROmorphone HCL PF 2 MG/ML VIAL ONE (13:34)
[2016-12-24] MEDS ORDERED: DICLOFENAC SODIUM 37.5 MG/ML VIAL IV PUSH ONE (13:34)
[2016-12-24] MEDS ORDERED: ACETAMINOPHEN 1000 MG/100 ML VIAL IV ONE (13:34)
[2016-12-24] MEDS ORDERED: MIDAZOLAM HCL 2 MG/2 ML VIAL ONE (13:34)
[2016-12-24] MEDS ORDERED: fentaNYL CITRATE 250 MCG/5 ML AMP ONE (13:34)
[2016-12-24] MEDS ORDERED: ceFAZolin 2 GM PREMIX 50 ML ONE (14:22)
--- NOTE | 2016-12-24 14:43 | HHI.PR ---
Subjective Remarks Continues with some mild nausea States diarrhea is improved, BM 1 No acute shortness of breath Pain management for persistent abdominal pain predominantly in the right upper and lower quadrant Afebrile And by mouth for surgery today pending this afternoon round 2pm (Michelle Stapleton) Objective Objective Results - Vital Signs Date Time Temp Pulse Resp B/P Pulse Ox O2 Delivery O2 Flow Rate FiO2 12/24/16 12:15 97.1 52 20 135/62 96 12/24/16 08:00 95.7 51 16 130/59 98 12/24/16 04:25 96.9 54 16 121/66 97 12/24/16 00:15 97.3 53 16 114/59 96 12/23/16 20:15 97.3 51 16 134/65 97 12/23/16 16:00 97.5 58 18 155/69 94 I/O 12/23/16 12/23/16 12/23/16 12/24/16 12/24/16 12/24/16 07:00 15:00 23:00 07:00 15:00 23:00 Intake Total 240 ml 600 ml Balance 240 ml 600 ml Intake Oral 240 ml 600 ml # Voids 3 4 1 # Bowel Movements 3 1 1 (Michelle Stapleton) Result Diagram: 12/22/16 03312/22/16 033 ROS General: Weakness (mineralized), Other (10 point ROS done positives noted) Pulmonary: Cough (occasional) GI: Abdominal Pain, Diarrhea (slow improvement), Other (currently nothing by mouth) (Michelle Stapleton) Physical Exam Physical Exam PHYSICAL EXAMINATION GENERAL: This is a elderly female who appears comfortable for now She is awake and responsive, nothing by mouth HEAD: Normocephalic , atraumatic OROPHARYNGEAL: Oropharynx clear NECK: Supple. Trachea midline without deviation. CARDIAC: Regular rhythm, regular rate, S1 and S2 are heard LUNGS: Clear to auscultation bilaterally. Volumes are adequate ABDOMEN: Soft, generalized mild tenderness or dominant lesion on the right upper and lower quadrant no organomegaly or masses. Bowel sounds are present. EXTREMITIES: no edema. Pulses equal bilateral. NEUROLOGICAL: Patient mood and affect appropriate SKIN: Warm and dry (Michelle Stapleton) A/P Assessment and Plan (1) Intractable abdominal pain (2) Hx of intestinal obstruction (3) History of CVA (cerebrovascular accident) (4) Tobacco abuse counseling (5) S/P exploratory laparotomy Abdominal pain, recurrent, hx of adhesions. Multiple hospital admissions and multiple surgeries for her diagnosis. Still having loose stools with slow improvement and less abdominal cramping, pain management effective, continue Flagyl Resting in bed encourage patient to sit up increase her mobility and be up in chair if possible. Surgical evaluation per Dr. Musa, input appreciated. Current testing negative but patient is known to have adhesions. Nothing by mouth at midnight, plan for exploratory lap around 2 PM Will check labs in the morning and reevaluate postop. UTI, On IV Rocephin for now. Dysuria has mild improvement culture positive for VRE Patient's now in contact isolation History of CVA Monitor closely, hold aspirin and Plavix Tobacco abuse low volume patient states. SCDs for DVT prophylaxis Protonix for GI prophylax Discussed with patient Discussed with nurse Discussed with Dr. bravo, patient seen on her behalf (Michelle Stapleton) Assessment and Plan patient seen and examined agree with above assessment and plan plan for surgery today d/w Michelle RIOS (Romana Bravo MD) Michelle Stapleton Dec 24, 2016 14:43 Romana Bravo MD Dec 24, 2016 16:05
--- NOTE | 2016-12-24 16:48 | HHI.PR ---
Immediate Post Op Note Procedure Date: Dec 24, 2016 Pre Op Diagnosis: abdominal pain Post Op Diagnosis: same, adhesions, mesh abscess Surgeon: Arnoldo Musa MD Cleaning Associate(s): see or sheet Procedure: exploratory laparotomy, SEVERIANO >120minutes, placement of antiadhesion barrier, drainage of mesh abscess Findings: dense adhesions, mesh abscess Complications: none Specimen(s) removed: abscess anterior abdominal wall Estimated blood loss: 40cc Anesthesia: General Drains: ANGEL IVF ([id number]) Patient to: PACU Patient Condition: Good Arnoldo Musa MD Dec 24, 2016 16:48
[2016-12-24] MEDS ORDERED: DO NOT ADM ANY ANTICOAGULANT DRUGS PRN (16:59)
[2016-12-24] MEDS ORDERED: *morphine SULFATE 8 MG/ML PERIprocedure ONLY ONE (17:33)
[2016-12-24] MEDS: ALVIMOPAN 12 MG CAPSULE PO SCH (20:48)
[2016-12-25] MEDS: MORPHINE SULFATE 4 MG/ML INJ IV PRN ×6 (00:28→21:02)
[2016-12-25 04:05] VITALS: BP 127/63; PULSE 86; RESP 18; TEMP 98.8; O2SAT 98
[2016-12-25] MEDS: metroNIDAZOLE 500 MG INJ 100 ML IV SCH ×2 (05:09→13:00)
--- NOTE | 2016-12-25 07:49 | HHI.PR ---
Subjective Subjective Notes no acute events, c/o incisional pain, oob Objective Vitals/I&O Vital Signs Date Time Temp Pulse Resp B/P Pulse Ox O2 Delivery O2 Flow Rate FiO2 12/25/16 04:05 98.8 86 18 127/63 98 12/24/16 22:18 Nasal Cannula 2.00 Labs Date/Time Procedure Status Source Growth 12/24/16 17:36 Gram Stain Received Wound Abdomen Pending 12/24/16 17:36 Wound Culture Received Wound Abdomen Pending 12/24/16 17:36 Fungal Smear Received Wound Abdomen Pending 12/24/16 17:36 Fungal Culture Received Wound Abdomen Pending 12/24/16 17:36 Acid Fast Stain Received Wound Abdomen Pending 12/24/16 17:36 Mycobacterial Culture Received Wound Abdomen Pending 12/20/16 19:30 Urine Culture - Final Complete Urine Random Urine Enterococcus Faecium Vre Cardiovascular: Regular Lungs: Clear Abdomen: Other (+incisional tenderness, mary serosang, incision scant dry blood) A/P Assessment and Plan RLQ abdominal pain, POD 1 Ex lap jen pod 1- multiple adhesions, abscess to anterior abd wall PLAN ok to advance diet slowly oob pain control hold lovenox one more day mary to sxn discussed with patient Arnoldo Musa MD Dec 25, 2016 07:48
[2016-12-25 08:00] VITALS: BP 133/74; PULSE 90; RESP 18; TEMP 99.7; O2SAT 96
[2016-12-25 08:48] LABS: MEAN CELL VOLUME 89.8 FL (80.0-100.0); MEAN CORPUSCULAR HEMOGLOBIN 28.6 PG (27.0-34.0); MEAN CORPUSCULAR HGB CONC 31.9 % (32.0-36.0); PLATELET COUNT 350 TH/MM3 (150-450); RED BLOOD COUNT 4.57 MIL/MM3 (4.00-5.30); RED CELL DISTRIBUTION WIDTH 14.5 % (11.6-17.2); REVIEW FLAG FINAL; WHITE BLOOD COUNT 12.6 TH/MM3 (4.0-11.0)
[2016-12-25] MEDS: cefTRIAXone INJ 1,000 MG in SODIUM CHLORIDE 0.9% INJ 100 ML IV SCH (09:01)
[2016-12-25] MEDS: ALVIMOPAN 12 MG CAPSULE PO SCH ×2 (09:01→21:04)
[2016-12-25] MEDS: PANTOPRAZOLE SODIUM 40 MG VIAL IV PUSH SCH ×2 (09:01→21:05)
[2016-12-25 09:05] LABS: POTASSIUM 3.5 MEQ/L (3.5-5.1)
[2016-12-25] MEDS: PROMETHAZINE HCL 25 MG TAB PO PRN ×3 (09:14→23:55)
--- NOTE | 2016-12-25 09:23 | HHI.PR ---
Subjective Remarks Resting in bed postop day 1 Uncomfortable asking for pain management when awake No acute shortness of breath Afebrile this a.m. (Michelle Stapleton) Objective Objective Results - Vital Signs Date Time Temp Pulse Resp B/P Pulse Ox O2 Delivery O2 Flow Rate FiO2 12/25/16 08:00 99.7 90 18 133/74 96 12/25/16 04:05 98.8 86 18 127/63 98 12/25/16 00:31 16 12/24/16 23:35 97.7 65 17 135/66 98 12/24/16 22:18 99 Nasal Cannula 2.00 12/24/16 19:45 97.7 62 17 133/68 99 12/24/16 18:25 96.7 58 20 143/69 98 12/24/16 18:06 Nasal Cannula 2.00 12/24/16 17:45 59 18 144/65 100 Nasal Cannula 2 12/24/16 17:30 58 18 147/63 99 Nasal Cannula 2 12/24/16 17:15 59 18 158/69 100 Nasal Cannula 2 12/24/16 16:58 97.8 72 18 125/65 99 Nasal Cannula 2 12/24/16 12:15 97.1 52 20 135/62 96 I/O 12/24/16 12/24/16 12/24/16 12/25/16 12/25/16 12/25/16 07:00 15:00 23:00 07:00 15:00 23:00 Intake Total 2000 ml 240 ml Output Total 600 ml 400 ml Balance 1400 ml -160 ml Intake Oral 240 ml 240 ml IV Total 60 ml Other 1700 ml Output Urine Total 400 ml 400 ml Estimated Blood Loss 200 ml # Voids 1 # Bowel Movements 1 0 0 (Michelle Stapleton) Result Diagram: 12/25/1640 12/25/16 0740 ROS General: Fatigue, Weakness, Other (10 point ROS done positives noted) GI: Abdominal Pain, Diarrhea (none this a.m.) /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 She is alert and awake, HEAD: Normocephalic OROPHARYNGEAL: Oropharynx clear NECK: Supple. No nuchal rigidity or lymphadenopathy. Trachea midline without deviation. CARDIAC: Regular rhythm, regular rate, S1 and S2 LUNGS: Clear to auscultation bilaterally. Encouraged to turn cough and deep breathe ABDOMEN: Soft, nontender, no organomegaly or masses. Bowel sounds minimal. Midline incision with dressing no acute bleeding noted EXTREMITIES: Edema NEUROLOGICAL: Patient mood and affect I'll do anxiety SKIN:Warm and moist (Michelle Stapleton) A/P Assessment and Plan (1) Intractable abdominal pain (2) Hx of intestinal obstruction (3) History of CVA (cerebrovascular accident) (4) Tobacco abuse counseling (5) S/P exploratory laparotomy Abdominal pain, recurrent, hx of adhesions. , Appreciate surgical consult with Dr. Musa RLQ abdominal pain, POD 1 Ex lap jen pod 1- multiple adhesions, abscess to anterior abd wall advance diet slowly, intake and output Patient to be out of bed, monitor ANGEL drain output pain control hold lovenox one more day Diarrhea, loose stools, none since surgery Amada day pain management effective, continue Flagyl UTI, On IV Rocephin for now. Dysuria has mild improvement culture positive for VRE Patient's now in contact isolation Discontinue Ware in early a.m., may BladderScan when necessary, reinsert Ware if patient is unable to void in 8 hours History of CVA Monitor closely, hold aspirin and Plavix Tobacco abuse low volume patient states. SCDs for DVT prophylaxis Protonix for GI prophylax Discussed with patient Discussed with nurse Discussed with Dr. Arambula patient seen on his behalf Discharge planning when stable from surgical standpoint Will need case management consult Tuesday (Michelle Stapleton) Assessment and Plan pt is seen & Examined chart reviewed s/p Exp lap w JEN & removal of infected mesh post op care per Gen Sx UA/ VRE +ve UTI repeat UA, c& if indicated 'start Po zyvox f/u wound c/s obtain ID consult for Abx rec cont analgesic am labs d/w RN d/w PT dirk cespedes w above will f/u (Rodney Arambula MD) Michelle Stapleton Dec 25, 2016 09:23 Rodney Arambula MD Dec 25, 2016 13:27
[2016-12-25 12:00] VITALS: BP 135/73; PULSE 111; RESP 18; TEMP 98.7; O2SAT 97
[2016-12-25] MEDS: SODIUM CHLORIDE 0.9% FLUSH 10 ML FLUSH IV FLUSH PRN ×2 (13:00→16:57)
[2016-12-25] MEDS ORDERED: LINEZOLID 600 MG TAB PO SCH (14:00)
[2016-12-25 14:41] LABS: BLOOD, URINE MOD (NEG); GLUCOSE,URINE NEG (NEG); KETONE, URINE 150 mg/dL (NEG); MUCUS URINE FEW /lpf (OCC); NITRITE,URINE NEG (NEG); PH, URINE 5.5 (5.0-8.5); SQUAMOUS EPITHELIAL CELL URINE <1 /hpf (0-5); URINE COLOR YELLOW (YELLW/STRAW)
[2016-12-25 14:42] LABS: COMMENT (UR) CULT NOT INDICATED; CULTURE IF INDICATED CULT NOT INDICATED
[2016-12-25 16:00] VITALS: BP 121/88; PULSE 103; RESP 18; TEMP 99.2; O2SAT 96
[2016-12-25] MEDS ORDERED: diphenhydrAMINE HCL 25 MG CAP PO PRN (18:15)
[2016-12-25 20:10] VITALS: BP 101/65; PULSE 130; RESP 18; TEMP 99.7; O2SAT 97
--- NOTE | 2016-12-25 20:34 | MB ---
cc: MEL BRYANT MD DATE OF CONSULTATION 12/25/[address] Arambula REASON FOR CONSULTATION VRE UTI and infected abdominal mesh. Recommend antibiotic. HISTORY OF PRESENT ILLNESS This is a 56-year-old white female who has had problems with intractable abdominal pain. The patient has been admitted to the hospital a couple times this year because of the same problem. She was admitted on December 22 and was evaluated including evaluation by general surgery. She underwent exploratory laparotomy and was found to have multiple adhesions and was treated with mesh to the anterior abdominal wall. The surgery was on 12/24. The patient had culture of the urine on 12/19 which came back with VRE. She was receiving ceftriaxone and Zyvox was started today. She was also started on metronidazole. Wound culture from the surgical procedure is negative at 24 hours. The patient continues to have some degree of abdominal pain. She had low grade fever of 99.7 today. Otherwise, she feels okay. She started having some itching of the skin today. This consultation is requested because of the VRE in the urine. She denies chills. Her white blood cell count increased from 7.9 on 12/22 to 12.6 today. The patient has a Ware catheter in place which has cloudy urine. This consultation is requested for antibiotic management. PAST MEDICAL HISTORY Bowel obstruction, CVA, history of depression, partial colectomy, hysterectomy, colonoscopy, exploratory laparotomy with lysis of adhesion on November 19, 2016, . ALLERGIES NO KNOWN DRUG ALLERGIES. The patient is allergic to bee sting. MEDICATIONS 1. Zyvox. 2. Metronidazole. 3. Ceftriaxone. 4. Morphine sulfate p.r.n. 5. Entereg. 6. Phenergan p.r.n. SOCIAL HISTORY The patient smokes two cigarettes a day. No alcohol. No illicit drugs. FAMILY HISTORY Noncontributory. REVIEW OF SYSTEMS GENERAL: Denies fever or chills. HEENT: Denies visual blurring or diplopia. Denies nasal drainage. Denies soreness of the throat. RESPIRATORY: No cough or shortness of breath. CARDIOVASCULAR: No palpitations or chest pain. GASTROINTESTINAL: Significant for abdominal pain and nausea. GENITOURINARY: No urgency, frequency or dysuria. MUSCULOSKELETAL: No muscle aches or pains. HEMATOPOEITIC: No easy bruising or bleeding. INTEGUMENTARY: No skin rash or itching. NEUROLOGIC: No problems with gait. The patient has restless legs movements of her lower extremities. PSYCHIATRIC: No mood changes or depression. PHYSICAL EXAMINATION GENERAL: On the physical exam this is a slender female who is in no acute distress. She is awake and alert and oriented. VITAL SIGNS: Include temperature 99.2, BP 121/88, respirations 18, heart rate 103. HEENT: The head is atraumatic. Extraocular movements grossly intact, pupils reactive to light. No icterus. Oropharynx no visible lesions. NECK: Supple without adenopathy. LUNGS: Clear breath sounds. HEART: Regular rate and rhythm. No murmurs, rubs or gallops. ABDOMEN: Bowel sounds present but diminished. Surgical dressing in place at the abdomen. The incision looks good. RECTAL: Not performed. EXTREMITIES: No clubbing, cyanosis or edema. SKIN: Diffuse maculopapular rash which is beefy red including the back, trunk, groin, buttocks and proximal thighs. PSYCHIATRIC: The patient is calm and cooperative. LABORATORY DATA WBC 12.6, platelets 350, hemoglobin 13.1, creatinine 0.46, BUN 6, sodium 143. IMPRESSION 1. UTI with VRE in patient with positive urine culture on 12/20. 2. Abdominal pain. Patient status post lysis of adhesions and abdominal mesh. Wound culture from surgery has no growth in 24 hours. 3. Abscess of the anterior abdominal wall postsurgical procedure report. Culture negative at 24 hours. 4. Drug rash related to antibiotic. The patient has been on three different antibiotic. Possibly due to Zyvox which is the latest antibiotics prior to onset of the drug rash. RECOMMENDATIONS 1. Discontinue Zyvox. 2. Discontinue ceftriaxone. 3. Discontinue metronidazole. 4. Obtain a urine culture, repeat. 5. Benadryl for itching. 6. Prednisone p.o. x2 doses. 7. Monitor without antibiotics for now and further determination on need for antibiotics once we get further information on cultures. The patient is not toxic appearing and therefore we can hold off on antibiotics for now. The VRE appeared to be sensitive to Zyvox and Cubicin but more sensitive to Zyvox. Hopefully, the new urine culture will help determine whether she needs antibiotic treatment still for VRE. Thank you for this consultation. The patient's progress will be monitored and further recommendations will be given on followup. Mel Bryant MD FD/RUTH ANN /6:17 PM /8:04 PM
[2016-12-25] MEDS: predniSONE 10 MG TAB PO SCH (21:05)
[2016-12-25] MEDS: diphenhydrAMINE HCL 50 MG CAP PO PRN (23:55)
[2016-12-26] VITALS (8 sets, daily range): BP systolic 119–135; BP diastolic 63–91; PULSE 74–120; RESP 18–19; TEMP 95.5–97.9; O2SAT 94–96
[2016-12-26] MEDS: MORPHINE SULFATE 4 MG/ML INJ IV PRN ×3 (00:54→09:27)
[2016-12-26] MEDS ORDERED: methylPREDNISolone SOD SUCC 125 MG/2 ML VIAL IV SCH (03:00)
[2016-12-26] MEDS ORDERED: methylPREDNISolone SOD SUCC 40 MG/1 ML VIAL IV PUSH ONE (06:00)
[2016-12-26 07:01] LABS: HEMATOCRIT 39.8 % (35.0-46.0); MEAN CELL VOLUME 88.3 FL (80.0-100.0); MEAN CORPUSCULAR HEMOGLOBIN 29.9 PG (27.0-34.0); MEAN CORPUSCULAR HGB CONC 33.9 % (32.0-36.0); PLATELET COUNT 375 TH/MM3 (150-450); RED CELL DISTRIBUTION WIDTH 14.6 % (11.6-17.2); REVIEW FLAG FINAL; WHITE BLOOD COUNT 12.5 TH/MM3 (4.0-11.0)
[2016-12-26 07:19] LABS: BICARBONATE 22.2 MEQ/L (21.0-32.0); POTASSIUM 3.8 MEQ/L (3.5-5.1)
[2016-12-26] MEDS: PANTOPRAZOLE SODIUM 40 MG VIAL IV PUSH SCH ×2 (09:26→21:36)
[2016-12-26] MEDS: diphenhydrAMINE HCL 50 MG CAP PO PRN ×2 (09:26→17:33)
[2016-12-26] MEDS: predniSONE 10 MG TAB PO SCH (09:26)
[2016-12-26] MEDS: ALVIMOPAN 12 MG CAPSULE PO SCH (09:26)
--- NOTE | 2016-12-26 09:28 | HHI.PR ---
Subjective Subjective Notes no acute issues, c/o itching with meds yesterday, no bm Objective Vitals/I&O Vital Signs Date Time Temp Pulse Resp B/P Pulse Ox O2 Delivery O2 Flow Rate FiO2 12/26/16 08:13 96 Nasal Cannula 2.00 12/26/16 08:00 97.6 120 18 126/76 Labs Laboratory Tests Test 12/25/16 12/26/16 14:25 06:03 Urine Color YELLOW Urine Turbidity CLEAR Urine pH 5.5 Urine Specific [place] 1.025 Urine Protein 30 Urine Glucose (UA) NEG Urine Ketones 150 Urine Occult Blood MOD Urine Nitrite NEG Urine Bilirubin NEG Urine Urobilinogen LESS THAN 2.0 Urine Leukocyte Esterase TRACE Urine RBC 4 Urine WBC 2 Urine Squamous Epithelial <1 Cells Urine Mucus FEW Microscopic Urinalysis Comment CULT NOT INDICATED White Blood Count 12.5 Red Blood Count 4.50 Hemoglobin 13.5 Hematocrit 39.8 Mean Corpuscular Volume 88.3 Mean Corpuscular Hemoglobin 29.9 Mean Corpuscular Hemoglobin 33.9 Concent Red Cell Distribution Width 14.6 Platelet Count 375 Mean Platelet Volume 8.2 Sodium Level 140 Potassium Level 3.8 Chloride Level 107 Carbon Dioxide Level 22.2 Anion Gap 11 Blood Urea Nitrogen 11 Creatinine 0.68 Estimat Glomerular Filtration 89 Rate Random Glucose 137 Calcium Level 8.3 Date/Time Procedure Status Source Growth 12/25/16 14:25 Urine Culture Received Urine Catheterized Urine Pending 12/24/16 17:36 Gram Stain - Final Resulted Wound Abdomen 12/24/16 17:36 Wound Culture - Preliminary Resulted Wound Abdomen NO GROWTH IN 24 HOURS. 12/24/16 17:36 Fungal Smear - Final Resulted Wound Abdomen NO FUNGAL ELEMENTS SEEN. 12/24/16 17:36 Fungal Culture Resulted Wound Abdomen Pending 12/24/16 17:36 Acid Fast Stain Received Wound Abdomen Pending 12/24/16 17:36 Mycobacterial Culture Received Wound Abdomen Pending Cardiovascular: Regular Lungs: Clear Abdomen: Other (incision scant drainage, no infection, mary serosang) A/P Assessment and Plan RLQ abdominal pain, POD 1 Ex lap jen pod 2- multiple adhesions, abscess to anterior abd wall PLAN ok to advance diet reg, bowel regimen oob pain control dvt ppx ok mary to Arnoldo Kumar MD Dec 26, 2016 09:28
--- NOTE | 2016-12-26 13:58 | HHI.PR ---
Subjective Subjective Remarks surgical site pain c/o itching, mainly ears no fever no cp no sob noted anxious no fever tachycardic, HR up to 120s at times. no flatus yet Review of Systems Constitutional Constitutional Remarks 12 point ROS completed, negative except as noted above Vitals/Results Intake & Output 12/25/16 12/25/16 12/26/16 15:00 23:00 07:00 Intake Total 800 ml 120 ml 240 ml Output Total 354 ml 110 ml 110 ml Balance 446 ml 10 ml 130 ml Intake Oral 480 ml 120 ml 240 ml IV Total 320 ml Output Urine Total 350 ml 100 ml 100 ml Stool Total 0 ml Drainage Total 4 ml 10 ml 10 ml # Bowel Movements 0 Vital Signs Vital Signs Date Time Temp Pulse Resp B/P Pulse Ox O2 Delivery O2 Flow Rate FiO2 12/26/16 12:00 96.0 114 18 125/91 95 12/26/16 08:13 96 Nasal Cannula 2.00 12/26/16 08:00 97.6 120 18 126/76 95 12/26/16 04:05 97.9 107 19 120/72 94 12/26/16 00:10 96.3 112 19 119/63 95 12/25/16 20:10 99.7 130 18 101/65 97 12/25/16 16:00 99.2 103 18 121/88 96 CBC/BMP: 12/26/16 0603 12/26/16 0603 Lab Results Laboratory Tests Test 12/25/16 12/26/16 14:25 06:03 Urine Color YELLOW Urine Turbidity CLEAR Urine pH 5.5 Urine Specific [place] 1.025 Urine Protein 30 mg/dL Urine Glucose (UA) NEG mg/dL Urine Ketones 150 mg/dL Urine Occult Blood MOD Urine Nitrite NEG Urine Bilirubin NEG Urine Urobilinogen LESS THAN 2.0 MG/DL Urine Leukocyte Esterase TRACE Urine RBC 4 /hpf Urine WBC 2 /hpf Urine Squamous Epithelial <1 /hpf Cells Urine Mucus FEW /lpf Microscopic Urinalysis Comment CULT NOT INDICATED White Blood Count 12.5 TH/MM3 Red Blood Count 4.50 MIL/MM3 Hemoglobin 13.5 GM/DL Hematocrit 39.8 % Mean Corpuscular Volume 88.3 FL Mean Corpuscular Hemoglobin 29.9 PG Mean Corpuscular Hemoglobin 33.9 % Concent Red Cell Distribution Width 14.6 % Platelet Count 375 TH/MM3 Mean Platelet Volume 8.2 FL Sodium Level 140 MEQ/L Potassium Level 3.8 MEQ/L Chloride Level 107 MEQ/L Carbon Dioxide Level 22.2 MEQ/L Anion Gap 11 MEQ/L Blood Urea Nitrogen 11 MG/DL Creatinine 0.68 MG/DL Estimat Glomerular Filtration 89 ML/MIN Rate Random Glucose 137 MG/DL Calcium Level 8.3 MG/DL Microbiology Microbiology 12/25/16 Urine Culture - Preliminary, Resulted NO GROWTH IN 24 HOURS. Physical Exam General General Appearance: Well Developed, Well Nourished, No Acute Distress, Comfortable Eyes Eye Exam: Pupils Equal, Pupils Reactive Ears & Nose Ears & Nose Exam: Nasal Mucosa [place] Throat Throat Exam: Oral Mucosa [place] & Moist Neck Neck Exam: Neck Supple, Trachea Midline Pulmonary Resp Exam: Breath Sounds Equal Cardiology CV Exam: Regular Gastrointestinal/Abdomen GI Exam: Soft, Non-Distended, Bowel Sounds Hypoactive GI Remarks abd. dressing D/I ANGEL drain Musculoskeletal MS Exam: Joints Intact Integumentary Skin Exam: Warm, Dry Extremeties Extremities Exam: No Edema, Pedal Pulses Palpable Neurologic Neuro Exam: Alert, Awake, Oriented, Speech Clear, Moving All Extremities, No Focal Deficits Psychiatric Psych Exam: Appropriate Responses VTE Prophylaxis VTE Prophylaxis Device: SCDs VTE Prophylaxis Meds: Coumadin PUD Prophylasis PUD Prophylaxis: Protonix Assessment/Plan Problem List: (1) Intractable abdominal pain (2) S/P exploratory laparotomy (3) Hx of intestinal obstruction (4) Tobacco abuse counseling (5) History of CVA (cerebrovascular accident) (6) Rash (7) Ex lap jen - multiple adhesions, abscess to anterior abd wall Assessment/Plan 55-year-old female admitted with recurrent abdominal pain that is intractable associated with nausea, diarrhea. Significant past medical history of bowel resection. Patient with recent extensive GI workup including EGD and colonoscopy were no significant findings. He was evaluated by general surgery and underwent exploratory lap and lysis of adhesions on 11/19/2016. Abdominal pain, recurrent, possibly secondary to adhesions. Rule out other etiologies such as ischemia Diarrhea, rule out infectious process. Had stool studies done as outpatient. Was on Cipro for UTI -appreciate GI input, ok SBFT -stools negative for cdiff -no more diarrhea, off Flagyl now -appreciate Dr. Musa's input -S/P Ex lap jen - multiple adhesions, abscess to anterior abd wall 12/26 -continue with post op care -IS, needs out of bed -toribio out, now voiding -Morphine IV PRN, add [place] PRN Urine VRE Rash after Zyvox -Rocephin dc -given Zyvox, developed rash and pruritus, given PO Prednisone, Med d/c -appreciate ID input -continue with Benadryl PRN -repeat UA/UC pending History of CVA Monitor closely, continue to hold aspirin and Plavix Tobacco abuse -Counseled about tobacco abuse -Smoking very little now, 2 cigarettes every couple days. Tachycardic, no CP, no SOB ? anxious -EKG now -Resume Effexor SCDs for DVT prophylaxis Protonix for GI prophylax toribio dc,monitor for voiding IS OOB Labs reviewed Overall stable, continue to monitor, hopefullyy dc 2 days D/W RN D/W Dr. Arambula D/W pt This patient was seen by myself and Dr. Arambula, this note is written her behalf Taya Hicks Dec 26, 2016 13:58
[2016-12-26] MEDS: ACETAMINOPHEN/HYDROcodone 325 MG/7.5 MG TAB PO PRN ×2 (14:13→20:16)
--- NOTE | 2016-12-26 15:30 | HHI.IDPN ---
Note Infectious Disease Note Patient is up in chair. feels okay. Rash is almost completely resolved. Afebrile. Urine culture repeat has no growth in 24 hours. Seen for VRE in urine. PAST MEDICAL HISTORY Bowel obstruction, CVA, history of depression, partial colectomy, hysterectomy, colonoscopy, exploratory laparotomy with lysis of adhesion on November 19, 2016, . ALLERGIES NO KNOWN DRUG ALLERGIES. The patient is allergic to bee sting. ANTIBIOTICS : None. OBJECTIVE: Vital Signs Date Time Temp Pulse Resp B/P Pulse Ox O2 Delivery O2 Flow Rate FiO2 12/26/16 12:00 96.0 114 18 125/91 95 12/26/16 08:13 96 Nasal Cannula 2.00 12/26/16 08:00 97.6 120 18 126/76 95 12/26/16 04:05 97.9 107 19 120/72 94 12/26/16 00:10 96.3 112 19 119/63 95 12/25/16 20:10 99.7 130 18 101/65 97 12/25/16 16:00 99.2 103 18 121/88 96 12/25/16 12/25/16 12/26/16 15:00 23:00 07:00 Intake Total 800 ml 120 ml 240 ml Output Total 354 ml 110 ml 110 ml Balance 446 ml 10 ml 130 ml Intake Oral 480 ml 120 ml 240 ml IV Total 320 ml Output Urine Total 350 ml 100 ml 100 ml Stool Total 0 ml Drainage Total 4 ml 10 ml 10 ml # Bowel Movements 0 Laboratory Tests Test 12/25/16 12/26/16 07:40 06:03 White Blood Count 12.6 TH/MM3 12.5 TH/MM3 Red Blood Count 4.57 MIL/MM3 4.50 MIL/MM3 Hemoglobin 13.1 GM/DL 13.5 GM/DL Hematocrit 41.0 % 39.8 % Mean Corpuscular Volume 89.8 FL 88.3 FL Mean Corpuscular Hemoglobin 28.6 PG 29.9 PG Mean Corpuscular Hemoglobin 31.9 % 33.9 % Concent Red Cell Distribution Width 14.5 % 14.6 % Platelet Count 350 TH/MM3 375 TH/MM3 Mean Platelet Volume 7.8 FL 8.2 FL Laboratory Tests Test 12/25/16 12/26/16 07:40 06:03 Sodium Level 143 MEQ/L 140 MEQ/L Potassium Level 3.5 MEQ/L 3.8 MEQ/L Chloride Level 109 MEQ/L 107 MEQ/L Carbon Dioxide Level 18.0 MEQ/L 22.2 MEQ/L Anion Gap 16 MEQ/L 11 MEQ/L Blood Urea Nitrogen 6 MG/DL 11 MG/DL Creatinine 0.46 MG/DL 0.68 MG/DL Estimat Glomerular Filtration 140 ML/MIN 89 ML/MIN Rate Random Glucose 54 MG/DL 137 MG/DL Calcium Level 7.8 MG/DL 8.3 MG/DL Microbiology Date/Time Procedure Status Source Growth 12/24/16 17:36 Gram Stain - Final Resulted Wound Abdomen 12/24/16 17:36 Wound Culture - Preliminary Resulted Wound Abdomen NO GROWTH IN 48 HOURS. 12/24/16 17:36 Acid Fast Stain - Final Resulted Wound Abdomen NO ACID FAST BACILLI SEEN 12/24/16 17:36 Mycobacterial Culture Resulted Wound Abdomen Pending 12/24/16 17:36 Fungal Smear - Final Resulted Wound Abdomen NO FUNGAL ELEMENTS SEEN. 12/24/16 17:36 Fungal Culture Resulted Wound Abdomen Pending 12/24/16 17:36 Gram Stain - Final Resulted Wound Abdomen 12/24/16 17:36 Wound Culture - Preliminary Resulted Wound Abdomen NO GROWTH IN 48 HOURS. 12/24/16 17:36 Acid Fast Stain - Final Resulted Wound Abdomen NO ACID FAST BACILLI SEEN 12/24/16 17:36 Mycobacterial Culture Resulted Wound Abdomen Pending 12/24/16 17:36 Fungal Smear - Final Resulted Wound Abdomen NO FUNGAL ELEMENTS SEEN. 12/24/16 17:36 Fungal Culture Resulted Wound Abdomen Pending 12/25/16 14:25 Urine Culture - Preliminary Resulted Urine Catheterized Urine NO GROWTH IN 24 HOURS. Last Impressions Small Bowel X-Ray 12/21/16 0000 Signed Impressions: Service Date/Time: Wednesday, December 21, 2016 09:25 - CONCLUSION: Negative water-soluble contrast small bowel series. Herbie Cantrell MD Abdomen X-Ray 12/20/16 0000 Signed Impressions: Service Date/Time: Tuesday, December 20, 2016 20:22 - CONCLUSION: Benign-appearing abdomen. Saeed Francis MD PHYSICAL EXAMINATION GENERAL: no acute distress. She is awake and alert and oriented. HEENT: No icterus. Oropharynx no visible lesions. NECK: Supple without adenopathy. LUNGS: Clear breath sounds. HEART: Regular rate and rhythm. No murmurs, rubs or gallops. ABDOMEN: Bowel sounds present but diminished. Surgical dressing in place at the abdomen. Abdominal drainage catheter in place with serous drainage. EXTREMITIES: No clubbing, cyanosis or edema. SKIN: Resolved rash. PSYCHIATRIC: The patient is calm and cooperative. IMPRESSION 1. UTI with VRE in patient with positive urine culture on 12/20. Repeat culture has no growth. 2. Abdominal pain. Patient status post lysis of adhesions and abdominal mesh. Wound culture from surgery has no growth in 24 hours. 3. Abscess of the anterior abdominal wall postsurgical procedure report. Culture negative thus far. 4. Drug rash related to antibiotic. Resolved. The patient has been on three different antibiotic. Possibly due to Zyvox which is the latest antibiotics prior to onset of the drug rash. Also was on Ceftriaxone and flagyl. RECOMMENDATIONS Monitor without antibiotics. The patient is not toxic appearing and therefore we can hold off on antibiotics. Monitor cultures. Duncan Bryant MD Dec 26, 2016 15:30
[2016-12-26] MEDS: methylPREDNISolone SOD SUCC 40 MG/1 ML VIAL IV SCH (21:35)
[2016-12-26] MEDS: HEPARIN SODIUM - SQ 10,000 UNITS/ML VIAL SQ SCH (21:36)
[2016-12-26] MEDS: TOPIRAMATE 25 MG TAB PO SCH (21:36)
[2016-12-27] VITALS (9 sets, daily range): BP systolic 125–136; BP diastolic 64–77; PULSE 80–91; RESP 18–19; TEMP 96.5–97.8; O2SAT 92–95
[2016-12-27] MEDS: methylPREDNISolone SOD SUCC 40 MG/1 ML VIAL IV SCH ×2 (04:43→13:29)
[2016-12-27] MEDS: ACETAMINOPHEN/HYDROcodone 325 MG/7.5 MG TAB PO PRN ×3 (06:41→19:51)
[2016-12-27] MEDS: PANTOPRAZOLE SODIUM 40 MG VIAL IV PUSH SCH (09:17)
[2016-12-27] MEDS: VENLAFAXINE HCL XR 75 MG CAP PO SCH (09:17)
[2016-12-27] MEDS: TOPIRAMATE 25 MG TAB PO SCH ×2 (09:17→19:50)
[2016-12-27] MEDS: HEPARIN SODIUM - SQ 10,000 UNITS/ML VIAL SQ SCH ×2 (09:18→19:50)
[2016-12-27] MEDS: diphenhydrAMINE HCL 50 MG CAP PO PRN (09:27)
--- NOTE | 2016-12-27 09:32 | HHI.PR ---
Subjective Subjective Notes no acute issues, tolerating diet, small bm Objective Vitals/I&O Vital Signs Date Time Temp Pulse Resp B/P Pulse Ox O2 Delivery O2 Flow Rate FiO2 12/27/16 08:00 96.5 83 18 125/64 95 12/26/16 15:47 21 12/26/16 08:13 Nasal Cannula 2.00 Labs Date/Time Procedure Status Source Growth 12/27/16 04:50 Gram Stain Received Wound Mouth Pending 12/27/16 04:50 Wound Culture Received Wound Mouth Pending 12/27/16 04:50 Cancelled Respiratory 12/25/16 14:25 Urine Culture - Preliminary Resulted Urine Catheterized Urine NO GROWTH IN 24 HOURS. 12/24/16 17:36 Gram Stain - Final Complete Wound Abdomen 12/24/16 17:36 Wound Culture - Final Complete Wound Abdomen NO GROWTH IN 72 HRS.--AEROBICALLY OR ... 12/24/16 17:36 Fungal Smear - Final Resulted Wound Abdomen NO FUNGAL ELEMENTS SEEN. 12/24/16 17:36 Fungal Culture Resulted Wound Abdomen Pending 12/24/16 17:36 Acid Fast Stain - Final Resulted Wound Abdomen NO ACID FAST BACILLI SEEN 12/24/16 17:36 Mycobacterial Culture Resulted Wound Abdomen Pending Cardiovascular: Regular Lungs: Clear Abdomen: Other (soft incision c/d/i, mary serosang) A/P Assessment and Plan RLQ abdominal pain, Ex lap jen pod 3- multiple adhesions, abscess to anterior abd wall PLAN diet reg, bowel regimen oob pain control dvt ppx ok mary will d/c today Arnoldo Musa MD Dec 27, 2016 09:32
--- NOTE | 2016-12-27 10:17 | HHI.PR ---
Subjective Subjective Remarks more awake, oriented x 3, states she slept well, pain well controlled ate good, no n/v had small bm rash improving, itching around ears, noted to legs, trunk. less hives noted no cp no sob HR better 90s Review of Systems Constitutional Constitutional Remarks 12 point ROS completed, negative except as noted above Vitals/Results Intake & Output 12/26/16 12/26/16 12/27/16 15:00 23:00 07:00 Intake Total 720 ml 240 ml 240 ml Output Total 10 ml 10 ml 5 ml Balance 710 ml 230 ml 235 ml Intake Oral 720 ml 240 ml 240 ml Drainage Total 10 ml 10 ml 5 ml # Voids 1 1 1 # Bowel Movements 0 1 Vital Signs Vital Signs Date Time Temp Pulse Resp B/P Pulse Ox O2 Delivery O2 Flow Rate FiO2 12/27/16 08:00 96.5 83 18 125/64 95 12/27/16 04:15 97.6 91 18 134/76 92 12/27/16 00:25 97.1 89 18 132/74 92 12/26/16 20:30 96.9 98 18 125/74 95 12/26/16 16:00 95.5 74 18 135/76 94 12/26/16 15:47 95 21 12/26/16 12:00 96.0 114 18 125/91 95 CBC/BMP: 12/26/16 0603 12/26/16 0603 Microbiology Microbiology 12/27/16 Gram Stain, Received Pending 12/27/16 Wound Culture, Received Pending Physical Exam General General Appearance: Well Developed, Well Nourished, No Acute Distress, Comfortable Eyes Eye Exam: Pupils Equal, Pupils Reactive Ears & Nose Ears & Nose Exam: Nasal Mucosa [place] Throat Throat Exam: Oral Mucosa [place] & Moist Neck Neck Exam: Neck Supple, Trachea Midline Pulmonary Resp Exam: Breath Sounds Equal Cardiology CV Exam: Regular Gastrointestinal/Abdomen GI Exam: Soft, Non-Distended, Bowel Sounds Hypoactive GI Remarks abd. dressing D/I ANGEL drain Musculoskeletal MS Exam: Joints Intact Integumentary Skin Exam: Warm, Dry Skin Remarks pink rash, hives to trunk, legs, chest, ears Extremeties Extremities Exam: No Edema, Pedal Pulses Palpable Neurologic Neuro Exam: Alert, Awake, Oriented, Speech Clear, Moving All Extremities, No Focal Deficits Psychiatric Psych Exam: Appropriate Responses VTE Prophylaxis VTE Prophylaxis Device: SCDs VTE Prophylaxis Meds: Coumadin PUD Prophylasis PUD Prophylaxis: Protonix Assessment/Plan Problem List: (1) Intractable abdominal pain (2) S/P exploratory laparotomy (3) Hx of intestinal obstruction (4) Tobacco abuse counseling (5) History of CVA (cerebrovascular accident) (6) Rash (7) Ex lap jen - multiple adhesions, abscess to anterior abd wall Assessment/Plan 55-year-old female admitted with recurrent abdominal pain that is intractable associated with nausea, diarrhea. Significant past medical history of bowel resection. Patient with recent extensive GI workup including EGD and colonoscopy were no significant findings. He was evaluated by general surgery and underwent exploratory lap and lysis of adhesions on 11/19/2016. Abdominal pain, recurrent, possibly secondary to adhesions. Rule out other etiologies such as ischemia Diarrhea, rule out infectious process. Had stool studies done as outpatient. Was on Cipro for UTI -appreciate GI input, ok SBFT -stools negative for cdiff -no more diarrhea, off Flagyl now -appreciate Dr. Musa's input -S/P Ex lap jen - multiple adhesions, abscess to anterior abd wall 12/26 -continue with post op care -IS, needs out of bed -Morphine IV PRN, and [place] PRN -doing well post op, had small BM Urine VRE Rash after Zyvox -Rocephin dc -given Zyvox, developed rash and pruritus, given PO Prednisone, Med d/c -appreciate ID input -continue with Benadryl PRN -repeat UA/UC no growth -rash improving, continue with Solumedrol 40 mg IV q 8. History of CVA Monitor closely, continue to hold aspirin and Plavix Tobacco abuse -Counseled about tobacco abuse -Smoking very little now, 2 cigarettes every couple days. Tachycardic, no CP, no SOB ? anxious -HR improved, less anxious -continue Effexor SCDs for DVT prophylaxis Protonix for GI prophylax IS OOB doing well, hopefully home in 1-2 days D/W RN D/W Dr. Arambula D/W pt This patient was seen by myself and Dr. Arambula, this note is written her behalf Taya Hicks Dec 27, 2016 10:17
--- NOTE | 2016-12-27 13:20 | HHI.IDPN ---
Note Infectious Disease Note Patient feels tired. No new complaints. notes itching of the skin. Afebrile. No burning on urination. Urine culture repeat has no growth at 48 hours. Seen for VRE in urine. PAST MEDICAL HISTORY Bowel obstruction, CVA, history of depression, partial colectomy, hysterectomy, colonoscopy, exploratory laparotomy with lysis of adhesion on November 19, 2016, . ALLERGIES NO KNOWN DRUG ALLERGIES. The patient is allergic to bee sting. ANTIBIOTICS : None. OBJECTIVE: Vital Signs Date Time Temp Pulse Resp B/P Pulse Ox O2 Delivery O2 Flow Rate FiO2 12/27/16 08:00 96.5 83 18 125/64 95 12/27/16 04:15 97.6 91 18 134/76 92 12/27/16 00:25 97.1 89 18 132/74 92 12/26/16 20:30 96.9 98 18 125/74 95 12/26/16 16:00 95.5 74 18 135/76 94 12/26/16 15:47 95 21 12/26/16 12/26/16 12/27/16 15:00 23:00 07:00 Intake Total 720 ml 240 ml 240 ml Output Total 10 ml 10 ml 5 ml Balance 710 ml 230 ml 235 ml Intake Oral 720 ml 240 ml 240 ml Drainage Total 10 ml 10 ml 5 ml # Voids 1 1 1 # Bowel Movements 0 1 Laboratory Tests Test 12/26/16 06:03 White Blood Count 12.5 TH/MM3 Red Blood Count 4.50 MIL/MM3 Hemoglobin 13.5 GM/DL Hematocrit 39.8 % Mean Corpuscular Volume 88.3 FL Mean Corpuscular Hemoglobin 29.9 PG Mean Corpuscular Hemoglobin 33.9 % Concent Red Cell Distribution Width 14.6 % Platelet Count 375 TH/MM3 Mean Platelet Volume 8.2 FL Laboratory Tests Test 12/26/16 06:03 Sodium Level 140 MEQ/L Potassium Level 3.8 MEQ/L Chloride Level 107 MEQ/L Carbon Dioxide Level 22.2 MEQ/L Anion Gap 11 MEQ/L Blood Urea Nitrogen 11 MG/DL Creatinine 0.68 MG/DL Estimat Glomerular Filtration 89 ML/MIN Rate Random Glucose 137 MG/DL Calcium Level 8.3 MG/DL PHYSICAL EXAMINATION GENERAL: no acute distress. Awake and alert and oriented. HEENT: No icterus. Oropharynx no visible lesions. NECK: Supple without adenopathy. LUNGS: Clear breath sounds. HEART: Regular rate and rhythm. No murmurs, rubs or gallops. ABDOMEN: Bowel sounds present but diminished. Surgical dressing in place at the abdomen. Abdominal drainage catheter in place with serous drainage. EXTREMITIES: No clubbing, cyanosis or edema. SKIN: few scattered erythematous areas on lower abdomen. PSYCHIATRIC: The patient is calm and cooperative. IMPRESSION 1. UTI with VRE in patient with positive urine culture on 12/20. Repeat culture has no growth. 2. Abdominal pain. Patient status post lysis of adhesions and abdominal mesh. Wound culture from surgery has no growth. General surgery following. 3. Abscess of the anterior abdominal wall per surgical procedure report. No growth on culture. 4. Drug rash related to antibiotic. Resolved. The patient has been on three different antibiotic. Possibly due to Zyvox which is the latest antibiotics prior to onset of the drug rash. Also was on Ceftriaxone and flagyl. RECOMMENDATIONS No antibiotic treatment necessary at this time. I will sign off now. Discussed with Dr. Arambula. Duncan Bryant MD Dec 27, 2016 13:20
--- NOTE | 2016-12-27 18:13 | EKG ---
Date Performed: 12/26/2016 Time Performed: 14:17:29 PTAGE: 56 years EKG: SINUS TACHYCARDIA Diffuse T wave abnormalities, can not exclude ischemia. When compared to previous tracing, T wave inversions are new. Clinical corralation is needed, per possible ischemia. A BNORMAL ECG PREVIOUS TRACING : 12/19/2016 23.26 DOCTOR: Tez Brown Interpretating Date/Time 12/27/2016 18:12:52
[2016-12-27] MEDS: PANTOPRAZOLE SOD 40 MG DELAYED RELEASE TAB PO SCH (19:50)
[2016-12-27] MEDS ORDERED: TRAZ100T6 PO (22:57)
[2016-12-27] MEDS ORDERED: traZODone HCL 100 MG TAB PO SCH (23:45)
[2016-12-28] VITALS (7 sets, daily range): BP systolic 109–123; BP diastolic 55–75; PULSE 67–95; RESP 17–18; TEMP 96.2–98.5; O2SAT 93–97
[2016-12-28] MEDS: ACETAMINOPHEN/HYDROcodone 325 MG/7.5 MG TAB PO PRN ×3 (05:20→18:00)
[2016-12-28] MEDS: VENLAFAXINE HCL XR 75 MG CAP PO SCH (09:00)
[2016-12-28] MEDS: PANTOPRAZOLE SOD 40 MG DELAYED RELEASE TAB PO SCH ×2 (09:00→20:38)
[2016-12-28] MEDS: TOPIRAMATE 25 MG TAB PO SCH ×2 (09:00→20:38)
[2016-12-28] MEDS: HEPARIN SODIUM - SQ 10,000 UNITS/ML VIAL SQ SCH ×2 (09:01→20:39)
--- NOTE | 2016-12-28 10:06 | HHI.DCPOC ---
Discharge Care Plan Diagnosis: (1) Ex lap jen - multiple adhesions, abscess to anterior abd wall (2) Intractable abdominal pain Your Health Problems Are: Anxiety Appetite Changes Irregular Bowel Function Goals to Promote Your Health * To prevent worsening of your condition and complications * To maintain your health at the optimal level Directions to Meet Your Goals Take your medications as prescribed Follow your dietary instruction Follow activity as directed Keep your appointments as scheduled Take your immunizations and boosters as scheduled If your symptoms worsen call your PCP, if no PCP go to Urgent Care Center or Emergency Room Smoking is Dangerous to Your Health. Avoid second hand smoke Call the 24-hour hour crisis hotline for domestic abuse at Taya Hicks Dec 28, 2016 10:06
--- NOTE | 2016-12-28 10:11 | HHI.PR ---
Subjective Subjective Remarks pain at 6, tolerable eating well no n/v having BMs okay no fever rash resolved minimal itching ANGEL removed yesterday Review of Systems Constitutional Constitutional Remarks 12 point ROS completed, negative except as noted above Vitals/Results Intake & Output 12/27/16 12/27/16 12/28/16 15:00 23:00 07:00 Intake Total 1200 ml 240 ml Balance 1200 ml 240 ml Intake Oral 1200 ml 240 ml # Voids 7 2 # Bowel Movements 1 1 Vital Signs Vital Signs Date Time Temp Pulse Resp B/P Pulse Ox O2 Delivery O2 Flow Rate FiO2 12/28/16 07:51 98.0 67 18 114/55 97 12/28/16 03:48 96.7 70 17 111/66 93 12/27/16 23:06 96.9 85 18 132/71 94 12/27/16 20:36 94 21 12/27/16 19:10 97.8 80 19 126/71 94 12/27/16 16:00 97.3 84 18 133/77 94 12/27/16 13:55 92 21 12/27/16 12:00 97.0 85 18 136/70 94 CBC/BMP: 12/26/16 0603 12/26/16 0603 Physical Exam General General Appearance: Well Developed, Well Nourished, No Acute Distress, Comfortable Eyes Eye Exam: Pupils Equal, Pupils Reactive Ears & Nose Ears & Nose Exam: Nasal Mucosa [place] Throat Throat Exam: Oral Mucosa [place] & Moist Neck Neck Exam: Neck Supple, Trachea Midline Pulmonary Resp Exam: Breath Sounds Equal Cardiology CV Exam: Regular Gastrointestinal/Abdomen GI Exam: Soft, Non-Distended, Bowel Sounds Hypoactive GI Remarks abd. dressing D/I ANGEL drain removed Musculoskeletal MS Exam: Joints Intact Integumentary Skin Exam: Warm, Dry Skin Remarks rash mostly gone, a few areas on back Extremeties Extremities Exam: No Edema, Pedal Pulses Palpable Neurologic Neuro Exam: Alert, Awake, Oriented, Speech Clear, Moving All Extremities, No Focal Deficits Psychiatric Psych Exam: Appropriate Responses VTE Prophylaxis VTE Prophylaxis Device: SCDs PUD Prophylasis PUD Prophylaxis: Protonix Assessment/Plan Problem List: (1) Intractable abdominal pain (2) S/P exploratory laparotomy (3) Hx of intestinal obstruction (4) Tobacco abuse counseling (5) History of CVA (cerebrovascular accident) (6) Rash (7) Ex lap jen - multiple adhesions, abscess to anterior abd wall Assessment/Plan 55-year-old female admitted with recurrent abdominal pain that is intractable associated with nausea, diarrhea. Significant past medical history of bowel resection. Patient with recent extensive GI workup including EGD and colonoscopy were no significant findings. He was evaluated by general surgery and underwent exploratory lap and lysis of adhesions on 11/19/2016. Abdominal pain, recurrent, possibly secondary to adhesions. Rule out other etiologies such as ischemia Diarrhea, rule out infectious process. Had stool studies done as outpatient. Was on Cipro for UTI -appreciate GI input, ok SBFT -stools negative for cdiff -no more diarrhea, off Flagyl now -appreciate Dr. Musa's input -S/P Ex lap jen - multiple adhesions, abscess to anterior abd wall 12/26 -continue with post op care -continue with IS, OOB -Morphine IV PRN, and [place] PRN -doing well post op, having BMs, tolerating diet. Urine VRE Rash after Zyvox -Rocephin dc -given Zyvox, developed rash and pruritus, given PO Prednisone, Med d/c -appreciate ID input -continue with Benadryl PRN -repeat UA/UC no growth -rash mostly resolved, steroids dc'd History of CVA resume ASA and Plavix at home Tobacco abuse -Counseled about tobacco abuse -Smoking very little now, 2 cigarettes every couple days. Tachycardic, no CP, no SOB ? anxious -HR improved, less anxious -continue Effexor -resolved SCDs for DVT prophylaxis Protonix for GI prophylax Post op course stable, ok for discharge. Will wait for surgery to clear F/U Dr. Musa 1-2 weeks Diet-heart healthy Activity-as tolerated, D/W RN D/W Dr. Arambula D/W pt This patient was seen by myself and Dr. Arambula, this note is written her behalf Discharge Minutes: 45 Taya Hicks Dec 28, 2016 10:11
--- NOTE | 2016-12-28 13:43 | HHI.PR ---
Subjective Subjective Notes Sitting on the side of the bed Eating breakfast No issues overnight Objective Vitals/I&O Vital Signs Date Time Temp Pulse Resp B/P Pulse Ox O2 Delivery O2 Flow Rate FiO2 12/28/16 11:34 96.2 95 18 123/75 95 12/28/16 10:19 21 12/26/16 08:13 Nasal Cannula 2.00 Labs Date/Time Procedure Status Source Growth 12/27/16 04:50 Gram Stain - Final Resulted Wound Mouth 12/27/16 04:50 Wound Culture Resulted Wound Mouth Pending 12/27/16 04:50 Cancelled Respiratory 12/25/16 14:25 Urine Culture - Final Complete Urine Catheterized Urine NO GROWTH IN 48 HOURS. 12/24/16 17:36 Fungal Smear - Final Resulted Wound Abdomen NO FUNGAL ELEMENTS SEEN. 12/24/16 17:36 Fungal Culture Resulted Wound Abdomen Pending 12/24/16 17:36 Acid Fast Stain - Final Resulted Wound Abdomen NO ACID FAST BACILLI SEEN 12/24/16 17:36 Mycobacterial Culture Resulted Wound Abdomen Pending Cardiovascular: Regular Lungs: Clear Abdomen: Other (midline incision ---stapled; minimal serous drainage ) Extremities: No edema A/P Assessment and Plan 56 year old female with persistent RLQ -POD4 ex lap; SEVERIANO -Tolerating regular diet -OOB and mobilize -ANGEL drain out Attending Statement patient seen at bedside no issues tolerating diet pain better Attestation The exam, history, and the medical decision-making described in the above note were completed with the assistance of the mid-level provider. I reviewed and agree with the findings presented. I attest that I had a [id number] encounter with the patient on the same day, and personally performed and documented my assessment and findings in the medical record. Riddhi Jones Dec 28, 2016 13:43 Arnoldo Musa MD Jan 06, 2017 18:45
[2016-12-28] MEDS ORDERED: traZODone HCL 100 MG TAB PO SCH (21:00)
[2016-12-29] MEDS: ACETAMINOPHEN/HYDROcodone 325 MG/7.5 MG TAB PO PRN ×3 (00:02→10:58)
[2016-12-29 08:00] VITALS: BP 96/51; PULSE 62; RESP 18; TEMP 97.3; O2SAT 94
[2016-12-29] MEDS: TOPIRAMATE 25 MG TAB PO SCH (09:23)
[2016-12-29] MEDS: HEPARIN SODIUM - SQ 10,000 UNITS/ML VIAL SQ SCH (09:23)
[2016-12-29] MEDS: PANTOPRAZOLE SOD 40 MG DELAYED RELEASE TAB PO SCH (09:23)
[2016-12-29] MEDS: VENLAFAXINE HCL XR 75 MG CAP PO SCH (09:23)
--- NOTE | 2016-12-29 11:36 | HHI.FF ---
Face to Face Verification Diagnosis: (1) Ex lap jen - multiple adhesions, abscess to anterior abd wall (2) Hx of intestinal obstruction (3) Intractable abdominal pain Home Health Nursing Order: Medical education Wound care and dressing changes Nursing assessment with vital signs I have seen patient Trina Emery on 12/29/16. My clinical findings support the need for the requested home health care services because: Deconditioned w/ increased weakness Need for psychosocial assistance I certify that my clinical findings support that this patient is homebound because: Post-op weakness Need for psychosocial assistance Taya Hicks [facility] Dec 29, 2016 11:36
[2016-12-29 11:37] VITALS: BP 100/62; PULSE 76; RESP 18; TEMP 97.5; O2SAT 97
--- NOTE | 2016-12-29 11:39 | HHI.PR ---
Subjective Subjective Remarks pain improved eating well having BMs minimal drainage from surgical site Dr. Musa at [facility], cleared for dc and f/u as OP no rash no fever Review of Systems Constitutional Constitutional Remarks 12 point ROS completed, negative except as noted above Vitals/Results Intake & Output 12/28/16 12/28/16 12/29/16 15:00 23:00 07:00 Intake Total 600 ml 480 ml 240 ml Balance 600 ml 480 ml 240 ml Intake Oral 600 ml 480 ml 240 ml # Voids 2 3 2 # Bowel Movements 1 0 0 Vital Signs Vital Signs Date Time Temp Pulse Resp B/P Pulse Ox O2 Delivery O2 Flow Rate FiO2 12/29/16 08:00 97.3 62 18 96/51 94 12/28/16 23:26 96.7 70 17 122/60 94 12/28/16 20:19 98.5 83 18 109/60 96 12/28/16 19:12 Room Air 12/28/16 15:44 97.4 83 18 110/55 95 CBC/BMP: 12/26/16 0603 12/26/16 0603 Physical Exam General General Appearance: Well Developed, Well Nourished, No Acute Distress, Comfortable Eyes Eye Exam: Pupils Equal, Pupils Reactive Ears & Nose Ears & Nose Exam: Nasal Mucosa [place] Throat Throat Exam: Oral Mucosa [place] & Moist Neck Neck Exam: Neck Supple, Trachea Midline Pulmonary Resp Exam: Breath Sounds Equal Cardiology CV Exam: Regular Gastrointestinal/Abdomen GI Exam: Soft, Non-Distended, Bowel Sounds Hypoactive GI Remarks abd. dressing D/I angel noted, minimal serous drainage ANGEL drain removed Musculoskeletal MS Exam: Joints Intact Integumentary Skin Exam: Warm, Dry Skin Remarks rash gone Extremeties Extremities Exam: No Edema, Pedal Pulses Palpable Neurologic Neuro Exam: Alert, Awake, Oriented, Speech Clear, Moving All Extremities, No Focal Deficits Psychiatric Psych Exam: Appropriate Responses VTE Prophylaxis VTE Prophylaxis Device: SCDs PUD Prophylasis PUD Prophylaxis: Protonix Assessment/Plan Problem List: (1) Intractable abdominal pain (2) S/P exploratory laparotomy (3) Hx of intestinal obstruction (4) Tobacco abuse counseling (5) History of CVA (cerebrovascular accident) (6) Rash (7) Ex lap jen - multiple adhesions, abscess to anterior abd wall Assessment/Plan 55-year-old female admitted with recurrent abdominal pain that is intractable associated with nausea, diarrhea. Significant past medical history of bowel resection. Patient with recent extensive GI workup including EGD and colonoscopy were no significant findings. He was evaluated by general surgery and underwent exploratory lap and lysis of adhesions on 11/19/2016. Abdominal pain, recurrent, possibly secondary to adhesions. Rule out other etiologies such as ischemia Diarrhea, rule out infectious process. Had stool studies done as outpatient. Was on Cipro for UTI -appreciate GI input, ok SBFT -stools negative for cdiff -no more diarrhea, off Flagyl now -appreciate Dr. Musa's input -S/P Ex lap jen - multiple adhesions, abscess to anterior abd wall 12/26 -continue with post op care -continue with IS, OOB -Morphine IV PRN, and [place] PRN -doing well post op, having BMs, tolerating diet. -cleared for dc by Dr. Musa Urine VRE Rash after Zyvox -Rocephin dc -given Zyvox, developed rash and pruritus, given PO Prednisone, Med d/c -appreciate ID input -continue with Benadryl PRN -repeat UA/UC no growth -rash mostly resolved, steroids dc'd -ID signed off, no need for abx History of CVA resume ASA and Plavix at home Tobacco abuse -Counseled about tobacco abuse -Smoking very little now, 2 cigarettes every couple days. Tachycardic, no CP, no SOB ? anxious -HR improved, less anxious -continue Effexor -resolved SCDs for DVT prophylaxis Protonix for GI prophylax Post op course stable, ok for discharge. Cleared by surgery CM consult for dc planning, set up C F/U Dr. Musa 1-2 weeks Diet-heart healthy Activity-as tolerated, no bath tubs Wound care- keep site clean and dry and use 4x4 D/W RN D/W Dr. Arambula D/W pt This patient was seen by myself and Dr. Arambula, this note is written her behalf Discharge Minutes: 40 Taya Hicks Dec 29, 2016 11:39
[2016-12-29] MEDS ORDERED: HYDR-3580 PO (12:04)
--- NOTE | 2016-12-29 14:28 | HHI.PR ---
Subjective Subjective Notes Resting in bed No acute events Objective Vitals/I&O Vital Signs Date Time Temp Pulse Resp B/P Pulse Ox O2 Delivery O2 Flow Rate FiO2 12/29/16 11:37 97.5 76 18 100/62 97 12/28/16 19:12 Room Air 12/28/16 10:19 21 12/26/16 08:13 2.00 Labs Date/Time Procedure Status Source Growth 12/27/16 04:50 Gram Stain - Final Complete Wound Mouth 12/27/16 04:50 Wound Culture - Final Complete [place] 12/27/16 04:50 Cancelled Respiratory 12/25/16 14:25 Urine Culture - Final Complete Urine Catheterized Urine NO GROWTH IN 48 HOURS. 12/24/16 17:36 Fungal Smear - Final Resulted Wound Abdomen NO FUNGAL ELEMENTS SEEN. 12/24/16 17:36 Fungal Culture Resulted Wound Abdomen Pending 12/24/16 17:36 Acid Fast Stain - Final Resulted Wound Abdomen NO ACID FAST BACILLI SEEN 12/24/16 17:36 Mycobacterial Culture Resulted Wound Abdomen Pending Cardiovascular: Regular Lungs: Clear Abdomen: Other (incision c/d/i---stapled ) Extremities: No edema A/P Assessment and Plan 56 year old female with persistent RLQ -POD5 ex lap; SEVERIANO -Tolerating regular diet -OOB and mobilize -ANGEL drain out -DC home today; Follow up with Dr. Musa is about one week Attending Statement patient seen at bedside increased pain but better Attestation The exam, history, and the medical decision-making described in the above note were completed with the assistance of the mid-level provider. I reviewed and agree with the findings presented. I attest that I had a [id number] encounter with the patient on the same day, and personally performed and documented my assessment and findings in the medical record. Riddhi Jones Dec 29, 2016 14:28 Arnoldo Musa MD Jan 06, 2017 18:50
--- NOTE | 2016-12-30 19:27 | HHI.DS ---
Discharge Summary Admission Date Dec 22, 2016 at 14:26 Discharge Date: Dec 29, 2016 Admitting Diagnosis Intractible Abdominal Pain (1) Intractable abdominal pain (2) Hx of intestinal obstruction (3) History of CVA (cerebrovascular accident) (4) Tobacco abuse counseling (5) S/P exploratory laparotomy CBC/BMP: 12/26/16 0603 12/26/16 0603 Imaging Last Impressions Small Bowel X-Ray 12/21/16 0000 Signed Impressions: Service Date/Time: Wednesday, December 21, 2016 09:25 - CONCLUSION: Negative water-soluble contrast small bowel series. Herbie Cantrell MD Abdomen X-Ray 12/20/16 0000 Signed Impressions: Service Date/Time: Tuesday, December 20, 2016 20:22 - CONCLUSION: Benign-appearing abdomen. Saeed Francis MD Hospital Course This a 55-year-old white female well known to the undersigned for recent admissions for intractable abdominal pain. Patient has prior history of abdominal obstruction` and partial colectomy. She has been presented to the emergency room since October for evaluation of abdominal pain. Initially she was seen by GI and had a workup that was unremarkable. Surgery was consulted and she was evaluated by Dr. Musa. She underwent exploratory lap with lysis of adhesions on 11/19/2016. Patient indicates she did relatively well after surgery and was eating and pain was controlled. Over the last couple days her pain has recur, located mid lower pelvis and radiates across to the right abdomen. It's severe, constant and the only thing that helps is Morphine. She has been using Tylenol at home. She has not noted any weight loss, has poor appetite. Eating made the pain worse. She was having stools that were watery approximately 4-5 times a day. She's had chills but no fever. Indicated the pain is burning it is an 8. She did follow up with Dr. Camejo as outpatient and was recommended to have an MRI which was scheduled for tomorrow. She had other workup with GI but she is not sure of findings. Patient was actually here in the emergency room yesterday and had a CT of the abdomen lab work that was unremarkable, she was discharged home and instructed to follow up with GI. Because the pain was not controlled and she had diarrhea, she came back later in the day. Stated that she recently had a UTI and was prescribed Cipro which she has been taking. She denied any urinary symptoms. She denied any chest pain, shortness of breath.. Laboratory workup was unremarkable. Abdominal x-ray shows no acute findings. She does have a UTI, culture was pending. Dr. Musa evaluated patient and requested an upper GI series. Possibly may need more surgery as she does have adhesions however she is on Plavix for history of stroke. Patient was admitted for further evaluation and treatment. (1) Intractable abdominal pain (2) S/P exploratory laparotomy (3) Hx of intestinal obstruction (4) Tobacco abuse counseling (5) History of CVA (cerebrovascular accident) (6) Rash (7) Ex lap jen - multiple adhesions, abscess to anterior abd wall During the course of the hospitalization, the following took place: 55-year-old female admitted with recurrent abdominal pain that is intractable associated with nausea, diarrhea. Significant past medical history of bowel resection. Patient with recent extensive GI workup including EGD and colonoscopy were no significant findings. He was evaluated by general surgery and underwent exploratory lap and lysis of adhesions on 11/19/2016. Abdominal pain, recurrent, possibly secondary to adhesions. Rule out other etiologies such as ischemia Diarrhea, rule out infectious process. Had stool studies done as outpatient. Was on Cipro for UTI -Patient was admitted, put on clear liquid diet. Surgery was consulted as well as GI. -appreciate GI input, ok SBFT -stools negative for cdiff -Initially put on Flagyl. Diarrhea resolved. Flagyl was eventually discontinued. -appreciate Dr. Musa's input. Surgery was recommended. -S/P Ex lap jen - multiple adhesions, abscess to anterior abd wall 12/26 -continue with post op care -continue with IS, OOB -Morphine IV PRN, and [place] PRN -Did well post op, having BMs, tolerated diet. -cleared for dc by Dr. Musa Urine came back positive for VRE. -Rocephin dc -given Zyvox, developed rash and pruritus, given PO Prednisone, Med d/c -Rash persisted, more IV steroids were given. -ID consulted, input appreciated. -continue with Benadryl PRN -repeated UA/UC no growth -rash mostly resolved, steroids dc'd -ID signed off, no need for abx -no fever, no WBC elevation, no urinary symptoms History of CVA resume ASA and Plavix at home Tobacco abuse -Counseled about tobacco abuse -Smoking very little now, 2 cigarettes every couple days. Tachycardic, no CP, no SOB ? anxious -HR improved, less anxious -continued Effexor -resolved SCDs for DVT prophylaxis Protonix for GI prophylax Post op course stable, ok for discharge. Cleared by surgery CM consult for dc planning, set up [facility] F/U Dr. Musa 1-2 weeks Diet-heart healthy Activity-as tolerated, no bath tubs Wound care- keep site clean and dry and use 4x4 Pt Condition on Discharge: Stable Discharge Disposition: Disch w/ Home Health Serv Discharge Instructions DIET: Follow Instructions for: Heart Healthy Diet Activities you can perform: Weight Bearing as Reji, Shower Only-No Bath Follow up Referrals: PCP Follow-up SNF/[facility]/ with [facility] - 2 Weeks with Arnoldo Musa MD New Medications: Hydrocodone-Acetaminophen (Hydrocodone-Acetaminophen) 7.5-325 mg Tab 1 TAB PO Q6H PRN PAIN 6-8 #40 TAB Continued Medications: Aspirin DR (Aspirin 81) 81 Mg Tabdr 81 MG PO DAILY Ref 0 TAB Biotin (Biotin) 5 Mg Tab 5 MG PO DAILY #1 BOTTLE Clopidogrel (Plavix) 75 Mg Tab 75 MG PO DAILY Blood Clot Prevention #30 Ref 0 TAB Pantoprazole (Protonix) 40 Mg Tab 40 MG PO DAILY Reflux #30 Ref 0 TAB Topiramate (Topiramate) 50 Mg Tab 50 MG PO BID Control Seizures #60 Ref 0 TAB Trazodone (Trazodone) 100 Mg Tablet 100 MG PO HS Control Depression #30 Ref 0 TAB Venlafaxine ER 24 HR (Venlafaxine ER 24 HR) 150 Mg Tab 150 MG PO DAILY #30 Ref 0 TAB Discontinued Medications: Ciprofloxacin (Ciprofloxacin) 500 Mg Tab 500 MG PO BID Infection Ref 0 TAB Taya Hicks Dec 30, 2016 19:27
--- NOTE | 2017-01-05 07:18 | MP ---
cc: WILL MUSA MD DATE OF SURGERY 12/24/2016 PREOPERATIVE DIAGNOSIS Abdominal pain. POSTOPERATIVE DIAGNOSIS Pain, adhesions, mesh abscess. SURGEON Dr. Will Musa FOREST NURSERY WORKER See OR sheet ANESTHESIA GETA IV FLUIDS 1700 cc ESTIMATED BLOOD LOSS 40 cc DRAINS ANGEL drain placed subcutaneous tissue. COMPLICATIONS None WOUND CLASSIFICATION Clean FINDINGS Dense adhesions, mesh abscess. No appendix present. SPECIMEN Anterior abdominal wall abscess sent for culture INDICATION The patient is a 56-year-old female who presents with complaints of chronic right-sided abdominal pain. The patient has been admitted to the emergency department several times before with chronic unremitting pain. She has had further workup including CT scans without evidence of free air or significant obstruction, but the patient has had this severe persistent pain. She was seen in the office for further evaluation with complaints of unrelenting 9/10 pain, sharp right lower quadrant. The patient has difficulty with ambulation and due to a significant amount of pain was sent to the emergency department for further workup including CT scan without evidence of free air or acute pathology, but the patient has had multiple abdominal surgeries in the past and severe uncontrolled pain. Decision was made for exploratory laparotomy, lysis of adhesions. Discussed with the patient in detail, they agreed and would like to proceed. DETAILS OF THE PROCEDURE The patient was taken to the operating suite, placed in the supine position. She was prepped and draped in the usual sterile fashion after induction of general endotracheal anesthesia. A brief time-out done stating correct patient, procedure and surgical site and we are all in agreement with this. Attention directed to the lower midline. A 15 blade scalpel used to incise previous incisional scar. Further dissection done with electro-Bovie cautery. This was done down to the fascia. The fascia noted to be extremely dense and scarred evidence of mesh placement in the anterior abdominal wall. Further dissection continued. The perineum was grasped with two DeBakey's and Metzenbaum scissors were used to incise and enter the peritoneum proximal to the dense scarring. Further dissection and transection of the fascia done in the lower midline. Upon dissecting through some of the mesh, there was noted to be significant knotting scar tissue with evidence of purulent drainage and abscess. Cultures of this sent for sensitivities. Once I entering the peritoneum, there was noted to be multiple dense adhesions. These were taken down with mets scissors and careful blunt dissection electro-Bovie cautery. Bookwalter retractor was placed. The bowel was noted to be tensely adhered. Manipulation of this was done in order to gain access to the right lower quadrant. Previous adhesion takedown was noted at this site. Further dissection down to the right lower quadrant and identification of the cecum was noted. There was no evidence of appendix present at the base of the cecum, likely resected at previous surgical intervention. The terminal ileum was identified. Small bowel loops noted to go distally into the lower pelvis. Again multiple adhesions done to lyse these adhesions, manipulate and mobilize the small bowel. Once the bowel was relatively freed and mobilized, after meticulously lysing adhesions, other quadrants of the abdomen were also further mobilized. There was noted be a small bowel anastomosis [id number] that was in place. Also noted to be a colonic anastomosis as well. Both noted to be patent and in place. The small bowel was mobilized. The bowel was run proximally to the ligament Treitz and down. There was no evidence of injury or enterotomy and the bowel was again fully mobilized. Adhesions taken down to the anterior abdominal wall going through the right lower quadrant and down to the left lower quadrant. After manipulation, immobilizing this, the colon was also inspected and again thoroughly the transverse descending and ascending. Again, no evidence of abnormality, Meckel's or issues. Omentum was somewhat scarred and retracted, however, the abdomen was irrigated with saline until clear. Electro-Bovie cautery and obtained and hemostasis achieved. Following this and a full examinations abdomen and the lower quadrant, anti-adhesive barrier was placed including Seprafilm to multiple quadrants and especially to the right lower quadrant. Following this, the peritoneum was reapproximated. This was done. Prior to this again, several small little abscess cavities were resected and sent for cultures. Healthy tissue was approximated on the anterior abdominal wall. This was reapproximated using looped PDS. Prior to this, subcutaneous flaps were mobilized especially to the right side anterior to the fascia. Two looped #1 PDS were done in a running fashion. Next, a drain was placed in the subcutaneous tissues and pulled out through a separate stab in the skin and secured with a 2-0 nylon. Electro-Bovie cautery was used for hemostasis. 3-0 Vicryl used to approximate and decrease space cavity. Skin was then approximated with angel. Sterile dressings then placed. The patient tolerated the procedure well. There were no intraoperative complications. The patient was extubated, taken to the PACU. All lap and instrument counts were correct at the end of the procedure. MD MERRITT Jones/RAMONE /6:12 PM /7:06 AM [place]
== END 2016-12-29 15:28 | DRG 908 ==
LOC: NEPC 14:24 → NEDA 20:56 → NEPFCDU 23:10 → OBSVTOIN 12-22 14:26 → N06B 12-22 17:30
PROVIDERS: ADMIT Internal Medicine; ATTEND Internal Medicine
PROC: 0DNW0ZZ Release Peritoneum, Open Approach (ICD-10-PCS; 2016-12-24)
PROC: 0DN80ZZ Release Small Intestine, Open Approach (ICD-10-PCS; 2016-12-24)
PROC: 3E0M05Z Introduction of Adhesion Barrier into Peritoneal Cavity, Open Approach (ICD-10-PCS; 2016-12-24)
PROC: 0J980ZZ Drainage of Abdomen Subcutaneous Tissue and Fascia, Open Approach (ICD-10-PCS; principal; 2016-12-24 13:48)
DX: T85.79XA Infection and inflammatory reaction due to other internal prosthetic devices, implants and grafts, initial encounter (principal); N39.0 Urinary tract infection, site not specified; L02.211 Cutaneous abscess of abdominal wall; F32.9 Major depressive disorder, single episode, unspecified; E11.9 Type 2 diabetes mellitus without complications; B95.2 Enterococcus as the cause of diseases classified elsewhere; A59.03 Trichomonal cystitis and urethritis; F17.210 Nicotine dependence, cigarettes, uncomplicated; R19.7 Diarrhea, unspecified; Z16.21 Resistance to vancomycin; T36.8X5A Adverse effect of other systemic antibiotics, initial encounter; L27.0 Generalized skin eruption due to drugs and medicaments taken internally; R00.0 Tachycardia, unspecified; Y83.8 Other surgical procedures as the cause of abnormal reaction of the patient, or of later complication, without mention of misadventure at the time of the procedure; K66.0 Peritoneal adhesions (postprocedural) (postinfection); Z86.73 Personal history of transient ischemic attack (TIA), and cerebral infarction without residual deficits; Z79.02 Long term (current) use of antithrombotics/antiplatelets; Z79.82 Long term (current) use of aspirin; R10.11 Right upper quadrant pain; R11.0 Nausea
CPT/HCPCS: 74020; 74175; 74250; 80048; 80053; 81001; 83605; 83690; 83735; 85025; 85027; 85610; 85730; 86140; 87015; 87070; 87077; 87086; 87102; 87116; 87176; 87186; 87205; 87206; 87493; 93005; 96361; 96374; 96375; 96376; C1765; C9113; G0378; J0131; J0690; J0696; J1130; J1170; J1644; J1885; J2250; J2270; J2405; J2710; J2920; J2930; J3010; J7030; J7040; J7120; J7512; Q0163; Q0169; Q9967

== ENCOUNTER 2016-12-31 16:58 | Inpatient (IN) | payer MEDICARE, MEDICAID ==
[~2016-12-31] VITALS: Ht 157.5 cm; Wt 58.0 kg
[~2016-12-31 16:58] MED LIST changes: -CIPR500T2 PO; +HYDR-3580 PO; +TRAZ100T6 PO
--- NOTE | 2016-12-31 18:18 | PD ---
HPI Chief Complaint: abdominal pain Time Seen by Provider: 18:16 Travel History International Travel<30 days: No Contact w/Intl Traveler<30days: No History of Present Illness HPI 56 YO F presents to the ED via EMS for evaluation of abdominal pain 2/[address] Musa. She denies fevers, chills, N/V, anorexia or changes in bowel habits, dysuria. She states that she was discharged from the hospital yesterday. She endorses compliance with pain medication prescriptions. PFSH Past Medical History Hx Anticoagulant Therapy: Yes (PLAVIX) Asthma: No Anxiety: No Depression: No Heart Rhythm Problems: No Cancer: No Cardiovascular Problems: No High Cholesterol: No Chemotherapy: No Chest Pain: No Congestive Heart Failure: No COPD: No Cerebrovascular Accident: Yes (stroke 2007) Diminished Hearing: No Endocrine: No Gastrointestinal Disorders: No Genitourinary: No Hypertension: No Immune Disorder: No Implanted Vascular Access Dvce: No Musculoskeletal: Yes Neurologic: No Psychiatric: No Reproductive: No Respiratory: No Radiation Therapy: No Seizures: Yes (2010) Sleep Apnea: No Thyroid Disease: No Past Surgical History Abdominal Surgery: Yes Body Medical Devices: pins/plate left ankle Section: Yes Hysterectomy: Yes Other Surgery: Yes (c section, hysterectomy, ankle, sholder, overies removed) Social History Alcohol Use: No Tobacco Use: Yes (2 cigarettes per day) Substance Use: No Allergies-Medications (Allergen,Severity, Reaction): Coded Allergies: Zyvox (Verified Allergy, Mild, RASH, 12/31/16) Bee Sting (Verified Allergy, Unknown, 12/20/16) *MDRO Multi-Drug Resistant Organism (Verified Adverse Reaction, Unknown, ) 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 Reported Meds & Prescriptions Reported Meds & Active Scripts Active Hydrocodone-Acetaminophen 7.5-325 mg Tab 1 Tab PO Q6H PRN Protonix (Pantoprazole Sodium) 40 Mg Tab 40 Mg PO DAILY Reported Trazodone (Trazodone HCl) 100 Mg Tablet 100 Mg PO HS Biotin 5 Mg Tab 5 Mg PO DAILY Aspirin 81 (Aspirin) 81 Mg Tabdr 81 Mg PO DAILY Topiramate 50 Mg Tab 50 Mg PO BID Plavix (Clopidogrel Bisulfate) 75 Mg Tab 75 Mg PO DAILY Venlafaxine ER 24 HR (Venlafaxine HCl) 150 Mg Tab 150 Mg PO DAILY Review of Systems Except as stated in HPI: all other systems reviewed are Neg Physical Exam Exam Limitations: Other: (exam performed in the ambulance call, limited secondary to privacy issues.) Narrative GENERAL: Well-nourished, well-developed white female in no acute distress.. SKIN: Focused skin assessment warm/dry. Well healing surgical scar from the umbilicus to the pelvis, no drainage, no signs of infection. HEAD: Normocephalic. EYES: No scleral icterus. No injection or drainage. NECK: Supple, trachea midline. No JVD or lymphadenopathy. CARDIOVASCULAR: Regular rate and rhythm without murmurs, gallops, or rubs. RESPIRATORY: Breath sounds equal bilaterally. No accessory muscle use. GASTROINTESTINAL: Abdomen soft, nondistended, active bowel sounds. Mild diffuse TTP. ++TTP in the suprapubic region. MUSCULOSKELETAL: No cyanosis, or edema. BACK: Nontender without obvious deformity. No CVA tenderness. Data Data Last Documented VS Vital Signs Date Time Temp Pulse Resp B/P Pulse Ox O2 Delivery O2 Flow Rate FiO2 12/31/16 20:49 18 12/31/16 20:38 97.6 68 121/60 98 Orders Complete Blood Count With Diff (12/31/16 21:04) Comprehensive Metabolic Panel (12/31/16 21:04) Lipase (12/31/16 21:04) Prothrombin Time / Inr (Pt) (12/31/16 21:04) Act Partial Throm Time (Ptt) (12/31/16 21:04) Urinalysis - C+S If Indicated (12/31/16 21:04) Ct Abd/Pel W Iv Contrast(Rout) (12/31/16 21:04) Iv Access Insert/Monitor (12/31/16 21:04) Ecg Monitoring (12/31/16 21:04) Oximetry (12/31/16 21:04) Morphine Inj (Morphine Inj) (12/31/16 21:15) Ondansetron Inj (Zofran Inj) (12/31/16 21:15) Pantoprazole Inj (Protonix Inj) (12/31/16 21:15) Sodium Chlor 0.9% 1000 Ml Inj (Ns 1000 M (12/31/16 21:04) MDM Medical Decision Making Medical Screen Exam Complete: Yes Emergency Medical Condition: Yes Differential Diagnosis postoperative pain versus intractable abdominal pain versus UTI versus other Narrative Course 56 YO F presents to the ED via EMS for evaluation of abdominal pain 2/[address] Musa. She denies fevers, chills, N/V, anorexia or changes in bowel habits, dysuria. She states that she was discharged from the hospital yesterday. She endorses compliance with pain medication prescriptions. Vitals stable en route per EMS. Abdomen with mild diffuse TTP and very TTP in the suprapubic area. Patient is awaiting bed placement. Please see oncoming provider note for disposition. Padmini Bae Dec 31, 2016 18:18
[2016-12-31 20:38] VITALS: BP 121/60; PULSE 68; RESP 18; TEMP 97.6; O2SAT 98
[2016-12-31] MEDS ORDERED: MORPHINE SULFATE 4 MG/ML INJ IV PUSH ONE ×2 (21:15→23:45)
[2016-12-31] MEDS ORDERED: ONDANSETRON HCL 4 MG/2 ML VIAL IVP ONE (21:15)
[2016-12-31] MEDS ORDERED: PANTOPRAZOLE SODIUM 40 MG VIAL IVP ONE (21:15)
--- NOTE | 2016-12-31 21:16 | PD ---
HPI Chief Complaint: Abdominal Pain Time Seen by Provider: 20:49 Travel History International Travel<30 days: No Contact w/Intl Traveler<30days: No Traveled to known affect area: No History of Present Illness HPI 56-year-old female complains of abdominal pain. Patient was discharged from the hospital 2 days ago with diagnosis of intractable abdominal pain, multiple adhesions, abscess to anterior abdominal wall. Patient was discharged 2 days ago with prescription for hydrocodone for pain. Patient states the pain got worse since discharge. Patient denies any nausea vomiting diarrhea. Patient denies any dysuria or frequency. Patient denies any vaginal discharge or bleeding. Patient denies any fever chills. Patient states the pain and accommodation sharp pain cramping pain diffuse over the abdomen. Patient denies any pain radiation. On a scale of 1-10 the pain is a 10. PFSH Past Medical History Hx Anticoagulant Therapy: Yes (PLAVIX) Asthma: No Anxiety: No Depression: No Heart Rhythm Problems: No Cancer: No Cardiovascular Problems: No High Cholesterol: No Chemotherapy: No Chest Pain: No Congestive Heart Failure: No COPD: No Cerebrovascular Accident: Yes (stroke 2007) Diminished Hearing: No Endocrine: No Gastrointestinal Disorders: Yes Genitourinary: No Hypertension: No Immune Disorder: No Implanted Vascular Access Dvce: Yes Musculoskeletal: Yes Neurologic: No Psychiatric: No Reproductive: No Respiratory: No Radiation Therapy: No Seizures: Yes (2010) Sleep Apnea: No Thyroid Disease: No ?: Not Past Surgical History Abdominal Surgery: Yes Body Medical Devices: pins/plate left ankle Section: Yes Hysterectomy: Yes Other Surgery: Yes (c section, hysterectomy, ankle sx, shoulder sx, ovaries removed) Social History Alcohol Use: No Tobacco Use: Yes (2 cigarettes per day) Substance Use: No Allergies-Medications (Allergen,Severity, Reaction): Coded Allergies: Zyvox (Verified Allergy, Mild, RASH, 12/31/16) Bee Sting (Verified Allergy, Unknown, 12/20/16) *MDRO Multi-Drug Resistant Organism (Verified Adverse Reaction, Unknown, ) 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 Reported Meds & Prescriptions Reported Meds & Active Scripts Active Hydrocodone-Acetaminophen 7.5-325 mg Tab 1 Tab PO Q6H PRN Protonix (Pantoprazole Sodium) 40 Mg Tab 40 Mg PO DAILY Reported Trazodone (Trazodone HCl) 100 Mg Tablet 100 Mg PO HS Biotin 5 Mg Tab 5 Mg PO DAILY Aspirin 81 (Aspirin) 81 Mg Tabdr 81 Mg PO DAILY Topiramate 50 Mg Tab 50 Mg PO BID Plavix (Clopidogrel Bisulfate) 75 Mg Tab 75 Mg PO DAILY Venlafaxine ER 24 HR (Venlafaxine HCl) 150 Mg Tab 150 Mg PO DAILY Review of Systems General / Constitutional: No: Fever Eyes: No: Visual changes HENT: No: Headaches Cardiovascular: No: Chest Pain or Discomfort Respiratory: No: Shortness of Breath Gastrointestinal: Positive: Abdominal Pain Genitourinary: No: Dysuria Musculoskeletal: No: Pain Skin: No Rash Neurologic: No: Weakness Psychiatric: No: Depression Endocrine: No: Polydipsia Hematologic/Lymphatic: No: Easy Bruising Physical Exam Narrative GENERAL: Well-nourished, well-developed patient. SKIN: Focused skin assessment warm/dry. HEAD: Normocephalic. EYES: No scleral icterus. No injection or drainage. NECK: Supple, trachea midline. No JVD or lymphadenopathy. CARDIOVASCULAR: Regular rate and rhythm without murmurs, gallops, or rubs. RESPIRATORY: Breath sounds equal bilaterally. No accessory muscle use. GASTROINTESTINAL: Abdomen soft, nondistended. Patient has moderate diffuse tenderness over the abdomen. Questionable rebound tenderness. MUSCULOSKELETAL: No cyanosis, or edema. BACK: Nontender without obvious deformity. No CVA tenderness. neurologic exam normal. Data Data Last Documented VS Vital Signs Date Time Temp Pulse Resp B/P Pulse Ox O2 Delivery O2 Flow Rate FiO2 12/31/16 23:30 72 18 115/62 94 12/31/16 20:38 97.6 Orders Complete Blood Count With Diff (12/31/16 21:04) Comprehensive Metabolic Panel (12/31/16 21:04) Lipase (12/31/16 21:04) Prothrombin Time / Inr (Pt) (12/31/16 21:04) Act Partial Throm Time (Ptt) (12/31/16 21:04) Urinalysis - C+S If Indicated (12/31/16 21:04) Ct Abd/Pel W Iv Contrast(Rout) (12/31/16 21:04) Iv Access Insert/Monitor (12/31/16 21:04) Ecg Monitoring (12/31/16 21:04) Oximetry (12/31/16 21:04) Morphine Inj (Morphine Inj) (12/31/16 21:15) Ondansetron Inj (Zofran Inj) (12/31/16 21:15) Pantoprazole Inj (Protonix Inj) (12/31/16 21:15) Sodium Chlor 0.9% 1000 Ml Inj (Ns 1000 M (12/31/16 21:04) Lactic Acid (12/31/16 21:10) Iohexol 350 Inj (Omnipaque 350 Inj) (12/31/16 22:51) Levofloxacin 750 Mg Premix Inj (Levaquin (12/31/16 23:45) Metronidazole 500 Mg Inj (Flagyl 500 Mg (12/31/16 23:45) Morphine Inj (Morphine Inj) (12/31/16 23:45) Battery Container Finishing Hand / Telemetry JEFF.Q8H (12/31/16 23:51) Vital Signs (Adult) Q4H (12/31/16 23:51) Diet Npo (01/02/17 Breakfast) Activity Bed Rest With Brp (12/31/16 23:51) ^ Saline Lock (12/31/16 23:51) Resp Oxygen Brando C Titrat 1-4 L (12/31/16 ) Notify Dr: Other (12/31/16 23:51) Ondansetron Inj (Zofran Inj) (01/01/17 00:00) Acetaminophen (Tylenol) (01/01/17 00:00) Sodium Chloride 0.9% Flush (Ns Flush) (01/01/17 09:00) Sodium Chloride 0.9% Flush (Ns Flush) (01/01/17 00:00) Consult General Surgery (12/31/16 23:51) Morphine Inj (Morphine Inj) (01/01/17 00:00) Pantoprazole Inj (Protonix Inj) (01/01/17 21:00) Admit Order (Ed Use Only) (01/01/17 00:10) Labs Laboratory Tests Test 12/31/16 21:10 White Blood Count 11.6 TH/MM3 Red Blood Count 3.71 MIL/MM3 Hemoglobin 10.7 GM/DL Hematocrit 33.0 % Mean Corpuscular Volume 88.8 FL Mean Corpuscular Hemoglobin 28.8 PG Mean Corpuscular Hemoglobin 32.5 % Concent Red Cell Distribution Width 14.8 % Platelet Count 454 TH/MM3 Mean Platelet Volume 7.7 FL Neutrophils (%) (Auto) 61.8 % Lymphocytes (%) (Auto) 27.6 % Monocytes (%) (Auto) 6.3 % Eosinophils (%) (Auto) 4.1 % Basophils (%) (Auto) 0.2 % Neutrophils # (Auto) 7.2 TH/MM3 Lymphocytes # (Auto) 3.2 TH/MM3 Monocytes # (Auto) 0.7 TH/MM3 Eosinophils # (Auto) 0.5 TH/MM3 Basophils # (Auto) 0.0 TH/MM3 CBC Comment DIFF FINAL Differential Comment Prothrombin Time 9.6 SEC Prothromb Time International 0.9 RATIO Ratio Activated Partial 25.9 SEC Thromboplast Time Urine Color YELLOW Urine Turbidity HAZY Urine pH 7.0 Urine Specific [place] 1.014 Urine Protein NEG mg/dL Urine Glucose (UA) NEG mg/dL Urine Ketones NEG mg/dL Urine Occult Blood NEG Urine Nitrite NEG Urine Bilirubin NEG Urine Urobilinogen LESS THAN 2.0 MG/DL Urine Leukocyte Esterase TRACE Urine WBC 1 /hpf Urine Squamous Epithelial <1 /hpf Cells Urine Amorphous Sediment OCC Urine Yeast (Budding) FEW Microscopic Urinalysis Comment CULT NOT INDICATED Sodium Level 142 MEQ/L Potassium Level 3.7 MEQ/L Chloride Level 111 MEQ/L Carbon Dioxide Level 23.2 MEQ/L Anion Gap 8 MEQ/L Blood Urea Nitrogen 8 MG/DL Creatinine 0.57 MG/DL Estimat Glomerular Filtration 109 ML/MIN Rate Random Glucose 111 MG/DL Lactic Acid Level 1.2 mmol/L Calcium Level 7.9 MG/DL Total Bilirubin 0.1 MG/DL Aspartate Amino Transf 13 U/L (AST/SGOT) Alanine Aminotransferase 15 U/L (ALT/SGPT) Alkaline Phosphatase 58 U/L Total Protein 6.4 GM/DL Albumin 2.6 GM/DL Lipase 521 U/L MDM Medical Decision Making Medical Screen Exam Complete: Yes Emergency Medical Condition: Yes Interpretation(s) 22:46 PM. CBC with WBC 11.6. Hemoglobin 10.7 hematocrit 33.0. Normal differential. CMP within normal limit. Calcium 7.9. Total bili 0.1. Lipase 521. UA is negative. 23:31 PM. Last Impressions Abdomen/Pelvis CT 12/31/162103 Signed Impressions: Service Date/Time: Saturday, December 31, 2016 22:52 - CONCLUSION: Loculated rim-enhancing fluid collection within the pelvis also containing a locule of air as above. Primary differential diagnosis is a pelvic abscess. Postoperative changes of laparotomy noted in the lower anterior abdominal wall with several small locules of fluid around the incision. No free intraperitoneal air identified. Mildly dilated loops of small bowel are seen in the lower abdomen. Winston Restrepo MD Differential Diagnosis Differential diagnosis including ileus, bowel obstruction, post op pain, dehydration, electrolyte imbalance, UTI, sepsis. Narrative Course 56-year-old female with acute exacerbation of abdominal pain. Status post exploratory laparotomy. Patient was discharged from the hospital 2 days ago. Normal saline solution 1 25 cc an hour. Morphine 4 mg IV. Zofran 4 mg IV. Protonix 40 mg IV. Levaquin 750 mg IV. Flagyl 500 mg IV. Repeated morphine 4 mg IV. Flagyl IV was started and then stop immediately after patient complains of itching rash and became more lethargic. Patient's blood pressure dropped into 70s and 80s. Normal saline solution 2 L IV bolus given. Solu-Medrol 125 mg IV. Benadryl 50 Magram IV. Epinephrine 0.3 cc IM. Blood pressure stabilized. Patient feeling better. Examination reveals no focal neurological deficit. Patient's answer questions appropriately. [place] hospitalist was notified. Patient will be admitted to validation specialist tonight in ICU. Levaquin IV was not given. Diagnosis Primary Impression: Acute pancreatitis Qualified Code: K85.90 - Acute pancreatitis without infection or necrosis, unspecified pancreatitis type Additional Impressions: Pelvic abscess in female Anaphylactoid reaction Qualified Code: T78.2XXA - Anaphylactoid reaction, initial encounter Admitting Information Admitting Physician Requests: Admit Himanshu Nichols MD Dec 31, 2016 21:16
[2016-12-31] MEDS: SODIUM CHLOR 0.9% 1000 ML INJ 1,000 ML IV SCH (21:18)
[2016-12-31 21:37] LABS: APTT (PATIENT) 25.9 SEC (24.3-30.1); INTERNATIONAL NORMALIZED RATIO 0.9 RATIO; PROTHROMBIN TIME - PATIENT 9.6 SEC (9.8-11.6)
[2016-12-31 21:45] LABS: AUTOMATED NEUTROPHIL # 7.2 TH/MM3 (1.8-7.7); BASOPHIL % 0.2 % (0.0-2.0); EOSINOPHIL # 0.5 TH/MM3 (0-0.4); EOSINOPHIL % 4.1 % (0.0-4.0); HEMO FLAGS DIFF FINAL; LYMPH % 27.6 % (9.0-44.0); LYMPHOCYTE # 3.2 TH/MM3 (1.0-4.8); MEAN CELL VOLUME 88.8 FL (80.0-100.0); MEAN CORPUSCULAR HEMOGLOBIN 28.8 PG (27.0-34.0); MEAN CORPUSCULAR HGB CONC 32.5 % (32.0-36.0); MONO % 6.3 % (0.0-8.0); NEUT % 61.8 % (16.0-70.0); PLATELET COUNT 454 TH/MM3 (150-450); RED BLOOD COUNT 3.71 MIL/MM3 (4.00-5.30); RED CELL DISTRIBUTION WIDTH 14.8 % (11.6-17.2); WHITE BLOOD COUNT 11.6 TH/MM3 (4.0-11.0)
[2016-12-31 21:53] LABS: BLOOD, URINE NEG (NEG); COMMENT (UR) CULT NOT INDICATED; CULTURE IF INDICATED CULT NOT INDICATED; GLUCOSE,URINE NEG (NEG); KETONE, URINE NEG (NEG); NITRITE,URINE NEG (NEG); SQUAMOUS EPITHELIAL CELL URINE <1 /hpf (0-5); URINE COLOR YELLOW (YELLW/STRAW)
[2016-12-31 22:32] LABS: ALT (GPT) 15 U/L (10-53); ANION GAP 8 MEQ/L (5-15); AST (GOT) 13 U/L (15-37); BICARBONATE 23.2 MEQ/L (21.0-32.0); BLOOD UREA NITROGEN 8 MG/DL (7-18); CHLORIDE 111 MEQ/L (98-107); GLOMERULAR FILTRATION RATE 109 ML/MIN (>89); POTASSIUM 3.7 MEQ/L (3.5-5.1); SODIUM (NA) 142 MEQ/L (136-145)
[2016-12-31 22:35] LABS: ALKALINE PHOSPHATASE 58 U/L (45-117); TOTAL BILIRUBIN ADULT 0.1 MG/DL (0.2-1.0)
[2016-12-31] MEDS ORDERED: IOHEXOL 350 MG/ML 10 ML VIAL (for RAD DIAG) IV ONE (22:51)
--- NOTE | 2016-12-31 23:21 | RADRPT ---
EXAM DATE/TIME: 12/31/2016 22:52 [facility] COMPARISON: CTA ABDOMEN W 3D RECON, December 20, 2016, 1:00. INDICATIONS : Abdominal pain. IV CONTRAST: 96 cc Omnipaque 350 (iohexol) IV ORAL CONTRAST: No oral contrast ingested. RADIATION DOSE: 9.96 CTDIvol (mGy) MEDICAL HISTORY : Cerebrovascular disease. Seizures. SURGICAL HISTORY : Hysterectomy. section. ENCOUNTER: Initial ACUITY: 1 day PAIN SCALE: 6/10 LOCATION: Abdomen TECHNIQUE: Volumetric scanning of the abdomen and pelvis was performed. Using automated exposure control and ad justment of the mA and/or kV according to patient size, radiation dose was kept as low as reasonably achievable to obtain optimal diagnostic quality images. FINDINGS: Comparison CTA dated December 20. Since the previous exam patient is status post laparotomy. There is a sm all amount loculated fluid around the laparotomy incision. Within the pelvis there is a loculated fluid collection measuring up to 8.7 cm transverse, 5.2 cm cep halocaudad and 10.4 cm AP. This loculated fluid contains a loculated air and is most characteristic o f an abscess. There is a small amount of air within the bladder which is mildly distended. Lung bases demonstrate dependent atelectasis. Mild fatty liver. Spleen, adrenals, kidneys and pancrea s unremarkable. No gallstones or biliary ductal dilatation. No free intraperitoneal air. CONCLUSION: Loculated rim-enhancing fluid collection within the pelvis also containing a locule of air as above. Primary differential diagnosis is a pelvic abscess. Postoperative changes of laparotomy noted in the lower anterior abdominal wall with several small locules of fluid around the incision. No free intrap eritoneal air identified. Mildly dilated loops of small bowel are seen in the lower abdomen. Winston Restrepo MD on December 31, 2016 at 23:06 Board Certified Radiologist. This report was verified electronically.
[2016-12-31 23:30] VITALS: BP 115/62; PULSE 72; RESP 18; O2SAT 94
[2016-12-31] MEDS ORDERED: LEVOFLOXACIN 750 MG PREMIX INJ 150 ML IV ONE (23:45)
[2016-12-31] MEDS ORDERED: metroNIDAZOLE 500 MG INJ 100 ML IV ONE (23:45)
[2017-01-01] VITALS (28 sets, daily range): BP systolic 66–139; BP diastolic 37–64; PULSE 58–125; RESP 11–26; TEMP 97.8–98.2; O2SAT 92–100
[2017-01-01] MEDS ORDERED: SODIUM CHLORIDE 0.9% FLUSH 10 ML FLUSH IVF PRN
[2017-01-01] MEDS ORDERED: ONDANSETRON HCL 4 MG/2 ML VIAL IV PRN
[2017-01-01] MEDS ORDERED: MAGNESIUM HYDROXIDE SUSP 30 ML CUP PO PRN ×2 (00:15→02:45)
[2017-01-01] MEDS ORDERED: BISACODYL 10 MG SUPP RECTAL PRN ×2 (00:15→02:45)
[2017-01-01] MEDS ORDERED: LACTULOSE SYRUP 20 GM/30 ML CUP PO PRN ×2 (00:15→02:45)
[2017-01-01] MEDS ORDERED: NALOXONE HCL 0.4 MG/ML AMP IV PRN (00:15)
[2017-01-01] MEDS ORDERED: SENNOSIDES 8.6 MG TAB PO PRN ×2 (00:15→02:45)
[2017-01-01] MEDS ORDERED: ONDANSETRON HCL 4 MG/2 ML VIAL IVP PRN (00:15)
[2017-01-01] MEDS ORDERED: SODIUM CHLORIDE 0.9% FLUSH 10 ML FLUSH IV FLUSH PRN ×2 (00:15→00:45)
[2017-01-01] MEDS ORDERED: diphenhydrAMINE HCL 50 MG/ML VIAL ONE (00:28)
[2017-01-01] MEDS ORDERED: methylPREDNISolone SOD SUCC 125 MG/2 ML VIAL ONE (00:29)
[2017-01-01] MEDS ORDERED: diphenhydrAMINE HCL 50 MG/ML VIAL IV PUSH ONE (00:30)
[2017-01-01] MEDS ORDERED: methylPREDNISolone SOD SUCC 125 MG/2 ML VIAL IV PUSH ONE (00:30)
[2017-01-01] MEDS ORDERED: SODIUM CHLOR 0.9% 1000 ML INJ 1,000 ML IV ONE ×2 (00:45)
[2017-01-01] MEDS ORDERED: EPINEPHrine HCL (1:1000) 1 MG/ML VIAL IM ONE (00:45)
[2017-01-01] MEDS: DEXTROSE 5% IN WATE 1000ML INJ 1,000 ML IV SCH ×4 (01:00→21:03)
[2017-01-01] MEDS: SODIUM CHLOR 0.9% 1000 ML INJ 1,000 ML IV SCH (01:37)
[2017-01-01] MEDS ORDERED: SODIUM CHLOR 0.9% 1000 ML INJ 1,000 ML IV SCH (02:40)
[2017-01-01] MEDS ORDERED: MISCELLANEOUS NURSING INFORMATION XX SCH (02:45)
[2017-01-01] MEDS ORDERED: CHLORHEXIDINE GLUCONATE 2 % 1 PACK (2 CLOTHS) TOP PRN (02:45)
[2017-01-01] MEDS ORDERED: ACETAMINOPHEN 325 MG TAB PO PRN ×2 (02:45)
[2017-01-01] MEDS ORDERED: RESP: ALBUTEROL 2.5 MG/IPRATROPIUM 0.5 MG NEB (PRN) INH (02:45)
[2017-01-01] MEDS ORDERED: SODIUM CHLORIDE 0.9% FLUSH 10 ML FLUSH PRN (02:45)
--- NOTE | 2017-01-01 02:47 | HHI.HP ---
HPI Service Critical Care Medicine Primary Care Physician Unknown Admission Diagnosis acute pancreatitis. Pelvic abscess. Diagnosis: Travel History International Travel<30 Days: No Contact w/Intl Traveler <30 Da: No Traveled to Known Affected Are: No History of Present Illness 56-year-old female complains of abdominal pain. Patient was discharged from the hospital 2 days ago with diagnosis of intractable abdominal pain, multiple adhesions, abscess to anterior abdominal wall. Patient was discharged 2 days ago with prescription for hydrocodone for pain. Patient states the pain got worse since discharge. Patient denies any nausea vomiting diarrhea. Patient denies any dysuria or frequency. Patient denies any vaginal discharge or bleeding. Patient denies any fever chills. Patient states the pain and accommodation sharp pain cramping pain diffuse over the abdomen. Patient denies any pain radiation. On a scale of 1-10 the pain is a 10. In the emergency department after the administration of morphine and Flagyl she broke in hives, was treated as anaphylactic reaction with Benadryl and epinephrine and is now admitted to ICU. When I saw the patient she was in no distress comfortably sitting in the bed. Review of Systems Constitutional: DENIES: Diaphoretic episodes, Fatigue, Fever, Weight gain, Weight loss, Chills, Dizziness, Change in appetite, Night Sweats Endocrine: DENIES: Abnorml menstrual pattern, Heat/cold intolerance, Polydipsia , Polyuria, Polyphagia Eyes: DENIES: Blurred vision, Diplopia, Eye inflammation, Eye pain, Vision loss , Photosensitivity, Double Vision Ears, nose, mouth, throat: DENIES: Tinnitus, Hearing loss, Vertigo, Nasal discharge, Oral lesions, Throat pain, Hoarseness, Ear Pain, Running Nose, Epistaxis, Sinus Pain, Toothache, Odynophagia Respiratory: DENIES: Apneas, Cough, Snoring, Wheezing, Hemoptysis, Sputum production, Shortness of breath Cardiovascular: DENIES: Chest pain, Palpitations, Syncope, Dyspnea on Exertion , PND, Lower Extremity Edema, Orthopnea, Claudication Gastrointestinal: COMPLAINS OF: Abdominal pain, DENIES: Black stools, Bloody stools, Constipation, Diarrhea, Nausea, Vomiting, Difficulty Swallowing, Anorexia Genitourinary: DENIES: Abnormal vaginal bleeding, Dysmenorrhea, Dyspareunia, Sexual dysfunction, Urinary frequency, Urinary incontinence, Urgency, Hematuria , Dysuria, Nocturia, Vaginal discharge Musculoskeletal: DENIES: Joint pain, Muscle aches, Stiffness, Joint Swelling, Back pain, Neck pain Integumentary: DENIES: Abnormal pigmentation, Pruritus, Rash, Nail changes, Breast masses, Breast skin changes, Nipple discharge Hematologic/lymphatic: DENIES: Bruising, Lymphadenopathy Immunologic/allergic: DENIES: Eczema, Urticaria Neurologic: DENIES: Abnormal gait, Headache, Localized weakness, Paresthesias, Seizures, Speech Problems, Tremor, Poor Balance Psychiatric: DENIES: Anxiety, Confusion, Mood changes, Depression, Hallucinations, Agitation, Suicidal Ideation, Homicidal Ideation, Delusions Past Family Social History Allergies: Coded Allergies: Flagyl (Verified Allergy, Intermediate, 01/01/17) Zyvox (Verified Allergy, Mild, RASH, 12/31/16) Bee Sting (Verified Allergy, Unknown, 12/20/16) *MDRO Multi-Drug Resistant Organism (Verified Adverse Reaction, Unknown, ) 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 Past Surgical History Partial colectomy Colonoscopy Hysterectomy x 3 S/P exp. lap for SEVERIANO 11/19 Reported Medications Reported Meds & Active Scripts Active Hydrocodone-Acetaminophen 7.5-325 mg Tab 1 Tab PO Q6H PRN Protonix (Pantoprazole Sodium) 40 Mg Tab 40 Mg PO DAILY Reported Trazodone (Trazodone HCl) 100 Mg Tablet 100 Mg PO HS Biotin 5 Mg Tab 5 Mg PO DAILY Aspirin 81 (Aspirin) 81 Mg Tabdr 81 Mg PO DAILY Topiramate 50 Mg Tab 50 Mg PO BID Plavix (Clopidogrel Bisulfate) 75 Mg Tab 75 Mg PO DAILY Venlafaxine ER 24 HR (Venlafaxine HCl) 150 Mg Tab 150 Mg PO DAILY Active Ordered Medications Current Medications Medications (Trade) Dose Ordered Sig/Prabhakar Route PRN Reason Start Time Stop Time Status Last Admin Dose Admin Morphine Sulfate 4 mg 4 mg Q3H PRN IV PUSH PAIN 1-10 01/01/17 00:00 01/01/17 03:43 Dextrose (D5W 1000 ml Inj) 1,000 ml @ 100 mls/hr Q10H IV 01/01/17 01:00 Sodium Chloride 2 ml 2 ml UNSCH PRN IV FLUSH FLUSH AFTER USING IV ACCESS 01/01/17 00:45 Sodium Chloride (NS 1000 ml Inj) 1,000 ml @ 84 mls/hr [id number] IV 01/01/17 02:40 01/01/17 03:42 Sodium Chloride (NS Flush) 2 ml UNSCH PRN .XX FLUSH AFTER USING IV ACCESS 01/01/17 02:45 Sodium Chloride (NS Flush) 2 ml BID .XX 01/01/17 09:00 Acetaminophen (Tylenol) 650 mg Q6H PRN PO PAIN 1-10 AND/OR FEVER >101F 01/01/17 02:45 Hydromorphone HCl (Dilaudid Pf Inj) 1 mg Q4H PRN IV PAIN SCALE 6 TO 10 01/01/17 02:45 Pantoprazole Sodium (Protonix Inj) 40 mg DAILY IV 01/01/17 09:00 Heparin Sodium (Porcine) (Heparin Inj) 5,000 units Q12HR SQ 01/01/17 09:00 Miscellaneous Information 1 [id number] XX 01/01/17 02:45 Chlorhexidine Gluconate (Chlorhexidine 2% Cloth) 3 pack Taper DAILY@04 TOP 01/01/17 04:00 12/28/17 03:59 01/01/17 03:23 Chlorhexidine Gluconate (Chlorhexidine 2% Cloth) 3 pack UNSCH PRN TOP HYGIENIC CARE 01/01/17 02:45 Senna/Docusate Sodium (July-Colace) 1 tab BID PO 01/01/17 09:00 Magnesium Hydroxide (Milk Of Magnesia Liq) 30 ml Q12H PRN PO MILD - MODERATE CONSTIPATION 01/01/17 02:45 Sennosides (Senokot) 17.2 mg Q12H PRN PO MODERATE - SEVERE CONSTIPATION 01/01/17 02:45 Bisacodyl (Dulcolax Supp) 10 mg DAILY PRN RECTAL SEVERE CONSITIPATION 01/01/17 02:45 Lactulose (Lactulose Liq) 30 ml DAILY PRN PO SEVERE CONSITIPATION 01/01/17 02:45 Aspirin (Ecotrin Ec) 81 mg DAILY PO 01/01/17 09:00 Clopidogrel Bisulfate (Plavix) 75 mg DAILY PO 01/01/17 09:00 Topiramate (Topamax) 50 mg BID PO 01/01/17 09:00 Venlafaxine HCl (Effexor Xr) 150 mg DAILY PO 01/01/17 09:00 Trazodone HCl (Desyrel) 100 mg HS PO 01/01/17 21:00 Family History Noncontributory Social History Smokes 5 cigarettes per day. No ETOH use. Physical Exam Vital Signs Vital Signs Date Time Temp Pulse Resp B/P Pulse Ox O2 Delivery O2 Flow Rate FiO2 01/01/17 01:59 97 01/01/17 01:10 71 18 112/54 98 Nasal Cannula 4 01/01/17 00:50 80 18 114/55 96 Nasal Cannula 4 01/01/17 00:40 99 18 84/42 96 Non-Rebreather 15 01/01/17 00:30 125 22 66/37 92 Nasal Cannula 7 12/31/16 23:30 72 18 115/62 94 12/31/16 20:49 18 12/31/16 20:38 97.6 68 18 121/60 98 Physical Exam GENERAL: This is a well-nourished, well-developed patient, in no apparent distress. SKIN: No rashes, ecchymoses or lesions. Cool and dry. HEAD: Atraumatic. Normocephalic. No temporal or scalp tenderness. EYES: Pupils equal round and reactive. Extraocular motions intact. No scleral icterus. No injection or drainage. ENT: Nose without bleeding, purulent drainage or septal hematoma. Throat without erythema, tonsillar hypertrophy or exudate. Uvula midline. Airway patent. NECK: Trachea midline. No JVD or lymphadenopathy. Supple, nontender, no meningeal signs. CARDIOVASCULAR: Regular rate and rhythm without murmurs, gallops, or rubs. RESPIRATORY: Clear to auscultation. Breath sounds equal bilaterally. No wheezes , rales, or rhonchi. GASTROINTESTINAL: Abdomen soft, tender over lower pelvis and right abdomen, nondistended. No hepato-splenomegaly, or palpable masses. No guarding. Bowel sounds normal active 4. MUSCULOSKELETAL: Extremities without clubbing, cyanosis, or edema. No joint tenderness, effusion, or edema noted. No calf tenderness. Negative Homans sign bilaterally. NEUROLOGICAL: Awake and alert. Cranial nerves II through XII intact. Motor and sensory grossly within normal limits. Five out of 5 muscle strength in all muscle groups. Normal speech. Laboratory Laboratory Tests Test 12/31/16 21:10 White Blood Count 11.6 Red Blood Count 3.71 Hemoglobin 10.7 Hematocrit 33.0 Mean Corpuscular Volume 88.8 Mean Corpuscular Hemoglobin 28.8 Mean Corpuscular Hemoglobin 32.5 Concent Red Cell Distribution Width 14.8 Platelet Count 454 Mean Platelet Volume 7.7 Neutrophils (%) (Auto) 61.8 Lymphocytes (%) (Auto) 27.6 Monocytes (%) (Auto) 6.3 Eosinophils (%) (Auto) 4.1 Basophils (%) (Auto) 0.2 Neutrophils # (Auto) 7.2 Lymphocytes # (Auto) 3.2 Monocytes # (Auto) 0.7 Eosinophils # (Auto) 0.5 Basophils # (Auto) 0.0 CBC Comment DIFF FINAL Differential Comment Prothrombin Time 9.6 Prothromb Time International 0.9 Ratio Activated Partial 25.9 Thromboplast Time Urine Color YELLOW Urine Turbidity HAZY Urine pH 7.0 Urine Specific [place] 1.014 Urine Protein NEG Urine Glucose (UA) NEG Urine Ketones NEG Urine Occult Blood NEG Urine Nitrite NEG Urine Bilirubin NEG Urine Urobilinogen LESS THAN 2.0 Urine Leukocyte Esterase TRACE Urine WBC 1 Urine Squamous Epithelial <1 Cells Urine Amorphous Sediment OCC Urine Yeast (Budding) FEW Microscopic Urinalysis Comment CULT NOT INDICATED Sodium Level 142 Potassium Level 3.7 Chloride Level 111 Carbon Dioxide Level 23.2 Anion Gap 8 Blood Urea Nitrogen 8 Creatinine 0.57 Estimat Glomerular Filtration 109 Rate Random Glucose 111 Lactic Acid Level 1.2 Calcium Level 7.9 Total Bilirubin 0.1 Aspartate Amino Transf 13 (AST/SGOT) Alanine Aminotransferase 15 (ALT/SGPT) Alkaline Phosphatase 58 Total Protein 6.4 Albumin 2.6 Lipase 521 Result Diagram: 12/31/16210912/31/162109 Imaging Last 24 hours Impressions Abdomen/Pelvis CT 12/31/162103 Signed Impressions: Service Date/Time: Saturday, December 31, 2016 22:52 - CONCLUSION: Loculated rim-enhancing fluid collection within the pelvis also containing a locule of air as above. Primary differential diagnosis is a pelvic abscess. Postoperative changes of laparotomy noted in the lower anterior abdominal wall with several small locules of fluid around the incision. No free intraperitoneal air identified. Mildly dilated loops of small bowel are seen in the lower abdomen. Winston Restrepo MD Assessment and Plan Assessment and Plan Allergic reaction - Avoid Flagyl - Asymptomatic during my exam - Supportive care Abdominal abscess - Broad-spectrum antibiotics - Follow-up cultures - Infectious disease consult Seizure disorder ??? - History of CVA - Topamax Coronary artery disease - Aspirin Plavix Depression/anxiety - Effexor DVT GI prophylaxis - Teds SCDs subcutaneous heparin and Pepcid Critical Care: The total critical care time was 35 minutes. Time to perform other separately billable procedures was not included in the critical care time. Amos Montes MD Jan 01, 2017 02:47
[2017-01-01] MEDS: CHLORHEXIDINE GLUCONATE 2 % 1 PACK (2 CLOTHS) TOP SCH (03:23)
[2017-01-01] MEDS: MORPHINE SULFATE 4 MG/ML INJ IV PUSH PRN ×5 (03:43→21:02)
[2017-01-01] MEDS: PIPERACIL-TAZO 4.5 GM PREMIX 100 ML IV SCH ×3 (07:02→17:05)
[2017-01-01] MEDS ORDERED: metroNIDAZOLE 500 MG INJ 100 ML IV SCH (08:00)
[2017-01-01] MEDS: TOPIRAMATE 25 MG TAB PO SCH ×2 (08:09→21:02)
[2017-01-01] MEDS: DOCUSATE SODIUM 50 MG/SENNA 8.6 MG TAB PO SCH ×2 (08:09→21:03)
[2017-01-01] MEDS: VENLAFAXINE HCL XR 75 MG CAP PO SCH (08:09)
[2017-01-01] MEDS: HEPARIN SODIUM - SQ 10,000 UNITS/ML VIAL SQ SCH ×2 (08:16→21:03)
[2017-01-01] MEDS: PANTOPRAZOLE SODIUM 40 MG VIAL IV SCH (08:16)
[2017-01-01] MEDS: SODIUM CHLORIDE 0.9% FLUSH 10 ML FLUSH SCH ×2 (08:17→21:03)
--- NOTE | 2017-01-01 08:30 | PD.ID.CON ---
History of Present Illness Service ID Consult Requested By Dr Montes Reason for Consult liver abscess Primary Care Physician Unknown Diagnoses: History of Present Illness 56 yo female with h/o colon resection in 2016 (? obstruction, no malignancy) sp lysis of adhesion s laparoscopically on 11/[address] Musa , followed by another surgery on 12/24 - open laparotomy with lysis of adhesion co abdominal pain since surgery that got worse in the last few day On presentation afebrile, with leukocytosis CT abd showed loculated rim-enhancing fluid collection within the pelvis also containing a locule of air cw pelvic abscess 10.4 cm in max dimention In the emergency department after the administration of morphine and Flagyl she broke in hives and was treated as anaphylactic reaction with Benadryl and epinephrine and was admitted to ICU. 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 VRE UTI 10 days ago Past Surgical History Partial colectomy Colonoscopy Hysterectomy x 3 S/P exp. lap for SEVERIANO 11/19 Active Ordered Medications Medications where reviewed in EMR Antibiotics Include: zosyn Family History Non-Contributory. Social History 5 sigs/d no ETOH no IVDU Physical Exam Vital Signs Vital Signs Date Time Temp Pulse Resp B/P Pulse Ox O2 Delivery O2 Flow Rate FiO2 01/01/17 06:51 100 Nasal Cannula 3.00 01/01/17 06:00 97.9 71 20 117/62 100 01/01/17 06:00 71 01/01/17 05:00 97.9 74 11 124/58 100 01/01/17 04:00 69 01/01/17 04:00 98.1 71 16 118/57 100 01/01/17 03:03 98.1 64 20 139/64 100 01/01/17 01:59 97 01/01/17 01:10 71 18 112/54 98 Nasal Cannula 4 01/01/17 00:50 80 18 114/55 96 Nasal Cannula 4 01/01/17 00:40 99 18 84/42 96 Non-Rebreather 15 01/01/17 00:30 125 22 66/37 92 Nasal Cannula 7 12/31/16 23:30 72 18 115/62 94 12/31/16 20:49 18 12/31/16 20:38 97.6 68 18 121/60 98 Physical Exam CONSTITUTIONAL/GENERAL: This is an adequately nourished patient, in no apparent distress. TUBES/LINES/DRAINS: SKIN: No jaundice, rashes, or lesions. Skin temperature appropriate. Not diaphoretic. HEAD: Atraumatic. Normocephalic. EYES: Pupils equal and round and reactive. Extraocular motions intact. No scleral icterus. No injection or drainage. Fundi not examined. ENT: Hearing grossly normal. Nose without bleeding or purulent drainage. Oral mucosae without visible erythema, exudates, masses, or lesions. NECK: Trachea midline. Supple, nontender. CARDIOVASCULAR: Regular rate and rhythm without murmurs, gallops, or rubs. No JVD. Peripheral pulses symmetric. RESPIRATORY/CHEST: Symmetric, unlabored respirations. Clear to auscultation. Breath sounds equal bilaterally. No wheezes, rales, or rhonchi. GASTROINTESTINAL: Abdomen soft, quite tender to palpation mostly RLQ , moderately distended. Incision is dry and clean, angel in, no drainage No hepato-splenomegaly, or palpable masses. No guarding. Bowel sounds present. GENITOURINARY: Without palpable bladder distension. MUSCULOSKELETAL: Extremities without clubbing, cyanosis, or edema. No joint tenderness or effusion noted. No calf tenderness. No mottling or clubbing. LYMPHATICS: No palpable cervical or supraclavicular adenopathy. NEUROLOGICAL: Awake and alert. Motor and sensory grossly within normal limits. Follows commands. Clear speech. Moves all extremities. PSYCHIATRIC: No obvious anxiety/depression. no apparent hallucinations or other psychotic thought process. Laboratory Laboratory Tests Test 12/31/16 01/01/17 21:10 03:10 White Blood Count 11.6 Red Blood Count 3.71 Hemoglobin 10.7 Hematocrit 33.0 Mean Corpuscular Volume 88.8 Mean Corpuscular Hemoglobin 28.8 Mean Corpuscular Hemoglobin 32.5 Concent Red Cell Distribution Width 14.8 Platelet Count 454 Mean Platelet Volume 7.7 Neutrophils (%) (Auto) 61.8 Lymphocytes (%) (Auto) 27.6 Monocytes (%) (Auto) 6.3 Eosinophils (%) (Auto) 4.1 Basophils (%) (Auto) 0.2 Neutrophils # (Auto) 7.2 Lymphocytes # (Auto) 3.2 Monocytes # (Auto) 0.7 Eosinophils # (Auto) 0.5 Basophils # (Auto) 0.0 CBC Comment DIFF FINAL Differential Comment Prothrombin Time 9.6 Prothromb Time International 0.9 Ratio Activated Partial 25.9 Thromboplast Time Urine Color YELLOW Urine Turbidity HAZY Urine pH 7.0 Urine Specific [place] 1.014 Urine Protein NEG Urine Glucose (UA) NEG Urine Ketones NEG Urine Occult Blood NEG Urine Nitrite NEG Urine Bilirubin NEG Urine Urobilinogen LESS THAN 2.0 Urine Leukocyte Esterase TRACE Urine WBC 1 Urine Squamous Epithelial <1 Cells Urine Amorphous Sediment OCC Urine Yeast (Budding) FEW Microscopic Urinalysis Comment CULT NOT INDICATED Sodium Level 142 Potassium Level 3.7 Chloride Level 111 Carbon Dioxide Level 23.2 Anion Gap 8 Blood Urea Nitrogen 8 Creatinine 0.57 Estimat Glomerular Filtration 109 Rate Random Glucose 111 Lactic Acid Level 1.2 Calcium Level 7.9 Total Bilirubin 0.1 Aspartate Amino Transf 13 (AST/SGOT) Alanine Aminotransferase 15 (ALT/SGPT) Alkaline Phosphatase 58 Total Protein 6.4 Albumin 2.6 Lipase 521 Nasal Screen MRSA (PCR) MRSA NOT DETECTED Result Diagram: 12/31/16210912/31/162109 Imaging Last Impressions Abdomen/Pelvis CT 12/31/162103 Signed Impressions: Service Date/Time: Saturday, December 31, 2016 22:52 - CONCLUSION: Loculated rim-enhancing fluid collection within the pelvis also containing a locule of air as above. Primary differential diagnosis is a pelvic abscess. Postoperative changes of laparotomy noted in the lower anterior abdominal wall with several small locules of fluid around the incision. No free intraperitoneal air identified. Mildly dilated loops of small bowel are seen in the lower abdomen. Winston Restrepo MD Assessment and Plan Assessment and Plan Pelvic abscess, large, post op Anaphylactic reaction aw with multiple medx including flagyl - complete clinical resolution Tolerating zosyn - consult Dr Muas -cont zosyn - further rec's per clincial course and available clx Stephanie Lugo MD Jan 01, 2017 08:30
[2017-01-01] MEDS ORDERED: SODIUM CHLORIDE 0.9% FLUSH 10 ML FLUSH IV FLUSH SCH ×2 (09:00)
[2017-01-01] MEDS ORDERED: PANTOPRAZOLE SODIUM 40 MG VIAL IV PUSH SCH ×2 (09:00→21:00)
[2017-01-01] MEDS ORDERED: ASPIRIN EC 81 MG TABEC PO SCH (09:00)
[2017-01-01] MEDS ORDERED: CLOPIDOGREL 75 MG TAB PO SCH (09:00)
--- NOTE | 2017-01-01 10:31 | HHI.HP ---
HPI Service [facility] Primary Care Physician Unknown Admission Diagnosis acute pancreatitis. Pelvic abscess. Diagnoses: Chief Complaint: abdomen pain Travel History International Travel<30 Days: No Contact w/Intl Traveler <30 Da: No Traveled to Known Affected Are: No History of Present Illness This a 55-year-old white female well known to the the [facility] for recent admissions for intractable abdominal pain. Patient has been seen by Dr. Musa has had 2 surgical procedures in the last 2 months. She has had initial GI workup that was unremarkable. She was then evaluated by surgery and underwent expiratory lap and lysis of adhesions on 11/19/2016. Patient was then readmitted on 12/22/2013 with abdominal pain. She underwent exploratory lap with multiple adhesions, sulfa with an abscess to the anterior abdominal wall on 12/26/2016. Postop course was complicated when she was started on Zyvox for positive VRE in the urine and had a allergic reaction in the form of a rash. Infectious disease consultation was obtained and monitor patient. She received steroids. She had no fever, no white blood count elevation. Rash resolved. She was able to tolerate diet, had bowel movements and was discharged home with home health care in stable condition on 12/29/2016. According to the patient, she was doing relatively well. Yesterday she started to have severe abdominal pain to the lower abdomen to the distal aspect of the incision. Her home health care nurse came to change her bandage and recommended to call Dr. Musa. She contacted Dr. Musa and was told to come to the emergency room for further evaluation. She's had no dehiscence of the wound, no redness, no drainage. In the emergency room, patient was evaluated. Vital signs were stable. No fever. CBC remarkable for mild leukocytosis, WBC 11.6. BMP remarkable for no calcium , 7.9. Lipase was 521. Lactic acid 1.2. Urinalysis was negative for infection. CT of the abdomen and pelvis was done showing a loculated rim enhancing fluid collection within the pelvis also containing a loculated air as above. Primary differential diagnosis is a pelvic abscess. Postoperative changes of laparotomy noted in the lower anterior abdominal wall with several small locules of fluid around the incision. No free intraperitoneal air identified. Mildly dilated loops of small bowel are seen in the lower abdomen. Patient was given IV fluid bolus, she was started on antibiotics, Flagyl. After being started on the antibiotics, patient started to complain of itching rash and became lethargic. Her blood pressure dropped into the 70s and 80s. She was given a normal saline bolus of 2 L, Solu-Medrol 125 mg IV, Benadryl 50 mg and epinephrine. Blood pressure stabilized. Patient indicated feeling better. Patient was admitted to the intensive care unit for close monitoring. Construction Trades Contractor was consulted for evaluation. At the time of this dictation, patient awakes to voice she is appropriate. She is hemodynamically stable. She is complaining of distal incision pain, tender to palpation. There is no erythema noted. There is no rash visible, denies any itching. Patient denies any recent fever, has had some chills. Also been moving regularly, no urinary symptoms. She has been taking medications as prescribed. Patient is admitted for further evaluation treatment Review of Systems Constitutional: COMPLAINS OF: Chills, DENIES: Diaphoretic episodes, Fatigue, Fever, Weight gain, Weight loss, Dizziness, Change in appetite, Night Sweats Endocrine: DENIES: Abnorml menstrual pattern, Heat/cold intolerance, Polydipsia , Polyuria, Polyphagia Eyes: DENIES: Blurred vision, Diplopia, Eye inflammation, Eye pain, Vision loss , Photosensitivity, Double Vision Ears, nose, mouth, throat: DENIES: Tinnitus, Hearing loss, Vertigo, Nasal discharge, Oral lesions, Throat pain, Hoarseness, Ear Pain, Running Nose, Epistaxis, Sinus Pain, Toothache, Odynophagia Respiratory: DENIES: Apneas, Cough, Snoring, Wheezing, Hemoptysis, Sputum production, Shortness of breath Cardiovascular: DENIES: Chest pain, Palpitations, Syncope, Dyspnea on Exertion , PND, Lower Extremity Edema, Orthopnea, Claudication Gastrointestinal: COMPLAINS OF: Abdominal pain, Nausea, DENIES: Black stools, Bloody stools, Constipation, Diarrhea, Vomiting, Difficulty Swallowing, Anorexia Genitourinary: DENIES: Abnormal vaginal bleeding, Dysmenorrhea, Dyspareunia, Sexual dysfunction, Urinary frequency, Urinary incontinence, Urgency, Hematuria , Dysuria, Nocturia, Vaginal discharge Musculoskeletal: DENIES: Joint pain, Muscle aches, Stiffness, Joint Swelling, Back pain, Neck pain Integumentary: DENIES: Abnormal pigmentation, Pruritus, Rash, Nail changes, Breast masses, Breast skin changes, Nipple discharge Hematologic/lymphatic: DENIES: Bruising, Lymphadenopathy Immunologic/allergic: DENIES: Eczema, Urticaria Neurologic: DENIES: Abnormal gait, Headache, Localized weakness, Paresthesias, Seizures, Speech Problems, Tremor, Poor Balance Psychiatric: DENIES: Anxiety, Confusion, Mood changes, Depression, Hallucinations, Agitation, Suicidal Ideation, Homicidal Ideation, Delusions Past Family Social History Past Medical History CVA Bowel obstruction Depression. abdomen pain with 3 admissions, ext GI work up, x 2 surgeries for JEN admitted 12/22 to 12/29 for abd. pain , had surgery. HTN Tobacco abuse Past Surgical History Partial colectomy Colonoscopy Hysterectomy x 3 S/P exp. lap for JEN / S/P Ex lap jen - multiple adhesions, abscess to anterior abd wall 12/26 Reported Medications Reported Meds & Active Scripts Active Hydrocodone-Acetaminophen 7.5-325 mg Tab 1 Tab PO Q6H PRN Protonix (Pantoprazole Sodium) 40 Mg Tab 40 Mg PO DAILY Reported Trazodone (Trazodone HCl) 100 Mg Tablet 100 Mg PO HS Biotin 5 Mg Tab 5 Mg PO DAILY Aspirin 81 (Aspirin) 81 Mg Tabdr 81 Mg PO DAILY Topiramate 50 Mg Tab 50 Mg PO BID Plavix (Clopidogrel Bisulfate) 75 Mg Tab 75 Mg PO DAILY Venlafaxine ER 24 HR (Venlafaxine HCl) 150 Mg Tab 150 Mg PO DAILY Allergies: Coded Allergies: Flagyl (Verified Allergy, Intermediate, 01/01/17) Zyvox (Verified Allergy, Mild, RASH, 12/31/16) Bee Sting (Verified Allergy, Unknown, 12/20/16) *MDRO Multi-Drug Resistant Organism (Verified Adverse Reaction, Unknown, ) 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 Ordered Medications Inpatient Medications Acetaminophen (Tylenol) 650 mg Q6H PRN PO PAIN 1-10 AND/OR FEVER >101F; Start 01/01/17 at 02:45 Albuterol/ Ipratropium (Duoneb Neb) 1 ampule Q2HR NEB PRN INH WHEEZING; Start 01/01/17 at 02:45 Aspirin (Ecotrin Ec) 81 mg DAILY PO ; Start 01/01/17 at 09:00 Bisacodyl (Dulcolax Supp) 10 mg DAILY PRN RECTAL SEVERE CONSITIPATION; Start at 02:45 Chlorhexidine Gluconate (Chlorhexidine 2% Cloth) 3 pack UNSCH PRN TOP HYGIENIC CARE; Start 01/01/17 at 02:45 Ciprofloxacin/ Dextrose (Cipro 400 Mg Premix) 200 ml @ 200 mls/hr Q12H IV ; Start 01/01/17 at 21:00; Stop 01/01/17 at 21:00; Status DC Clopidogrel Bisulfate (Plavix) 75 mg DAILY PO ; Start 01/01/17 at 09:00 Dextrose (D5W 1000 ml Inj) 1,000 ml @ 100 mls/hr Q10H IV ; Start 01/01/17 at 01 :00 Diphenhydramine HCl (Benadryl Inj) 50 mg ONCE ONCE IV PUSH Last administered on 01/01/17 01:05; Start 01/01/17 at 00:30; Stop 01/01/17 at 00:33; Status DC Epinephrine HCl 0.3 mg 0.3 mg ONCE ONCE IM Last administered on 01/01/17 01: 06; Start 01/01/17 at 00:45; Stop 01/01/17 at 00:46; Status DC Heparin Sodium (Porcine) (Heparin Inj) 5,000 units Q12HR SQ Last administered on 01/01/17 08:16; Start 01/01/17 at 09:00 Hydromorphone HCl (Dilaudid Pf Inj) 1 mg Q4H PRN IV PAIN SCALE 6 TO 10; Start 01/01/17 at 02:45 Lactulose (Lactulose Liq) 30 ml DAILY PRN PO SEVERE CONSITIPATION; Start at 02:45 Lactulose 30 ml 30 ml DAILY PRN PO SEVERE CONSITIPATION; Start 01/01/17 at 00: 15; Stop 01/01/17 at 01:43; Status DC Levofloxacin/ Dextrose 150 ml @ 100 mls/hr ONCE ONCE IV ; Start 12/31/16 at 23 :45; Stop 01/01/17 at 01:14; Status DC Magnesium Hydroxide (Milk Of Magnesia Liq) 30 ml Q12H PRN PO MILD - MODERATE CONSTIPATION; Start 01/01/17 at 02:45 Methylprednisolone Sodium Succinate (SoluMEDROL INJ) 125 mg ONCE ONCE IV PUSH Last administered on 01/01/17 01:06; Start 01/01/17 at 00:30; Stop 01/01/17 at 00:33; Status DC Metronidazole 100 ml @ 100 mls/hr Q8H IV ; Start 01/01/17 at 08:00; Stop at 08:00; Status DC Metronidazole (Flagyl 500 Mg Inj) 100 ml @ 100 mls/hr ONCE ONCE IV Last administered on 01/01/17 00:30; Start 12/31/16 at 23:45; Stop 01/01/17 at 00:44 ; Status DC Miscellaneous Information 1 [id number] ; Start 01/01/17 at 02:45 Morphine Sulfate (Morphine Inj) 4 mg Q3H PRN IV PUSH PAIN 1-10 Last administered on 01/01/17 08:16; Start 01/01/17 at 00:00 Naloxone HCl (Narcan Inj) 0.4 mg UNSCH PRN IV SEE LABEL COMMENTS; Start at 00:15; Stop 01/01/17 at 01:43; Status DC Ondansetron HCl (Zofran Inj) 4 mg Q6H PRN IVP NAUSEA OR VOMITING; Start at 00:15; Stop 01/01/17 at 01:43; Status DC Ondansetron HCl 4 mg 4 mg ONCE ONCE IVP Last administered on 12/31/16 21:18; Start 12/31/16 at 21:15; Stop 12/31/16 at 21:16; Status DC Pantoprazole Sodium (Protonix Inj) 40 mg DAILY IV Last administered on 08:16; Start 01/01/17 at 09:00 Pantoprazole Sodium 40 mg 40 mg Q12H IV PUSH ; Start 01/01/17 at 09:00; Stop at 09:00; Status DC Piperacillin Sod/ Tazobactam Sod (Zosyn 4.5 Gm Premix) 100 ml @ 200 mls/hr Q6HR IV Last administered on 01/01/17 07:02; Start 01/01/17 at 06:15 Senna/Docusate Sodium (July-Colace) 1 tab BID PO ; Start 01/01/17 at 09:00 Sennosides (Senokot) 17.2 mg Q12H PRN PO MODERATE - SEVERE CONSTIPATION; Start 01/01/17 at 02:45 Sodium Chloride (NS 1000 ml Inj) 1,000 ml @ 84 mls/hr [id number] IV Last administered on 01/01/17 03:42; Start 01/01/17 at 02:40 Sodium Chloride (NS Flush) 2 ml BID .XX Last administered on 01/01/17 08:17; Start 01/01/17 at 09:00 Topiramate (Topamax) 50 mg BID PO ; Start 01/01/17 at 09:00 Trazodone HCl 100 mg 100 mg HS PO ; Start 01/01/17 at 21:00 Venlafaxine HCl (Effexor Xr) 150 mg DAILY PO ; Start 01/01/17 at 09:00 Family History One sister from gastric cancer, one sister from colon cancer. Social History Smokes 5 cigarettes per day. No ETOH use. Physical Exam Vital Signs Vital Signs Date Time Temp Pulse Resp B/P Pulse Ox O2 Delivery O2 Flow Rate FiO2 01/01/17 06:51 100 Nasal Cannula 3.00 01/01/17 06:00 97.9 71 20 117/62 100 01/01/17 06:00 71 01/01/17 05:00 97.9 74 11 124/58 100 01/01/17 04:00 69 01/01/17 04:00 98.1 71 16 118/57 100 01/01/17 03:03 98.1 64 20 139/64 100 01/01/17 01:59 97 01/01/17 01:10 71 18 112/54 98 Nasal Cannula 4 01/01/17 00:50 80 18 114/55 96 Nasal Cannula 4 01/01/17 00:40 99 18 84/42 96 Non-Rebreather 15 01/01/17 00:30 125 22 66/37 92 Nasal Cannula 7 12/31/16 23:30 72 18 115/62 94 12/31/16 20:49 18 12/31/16 20:38 97.6 68 18 121/60 98 Physical Exam GENERAL: This is a well-nourished, well-developed patient, in no apparent distress. SKIN: No rashes, ecchymoses or lesions. Cool and dry. HEAD: Atraumatic. Normocephalic. No temporal or scalp tenderness. EYES: Pupils equal round and reactive. Extraocular motions intact. No scleral icterus. No injection or drainage. ENT: Nose without bleeding, purulent drainage or septal hematoma. Throat without erythema, tonsillar hypertrophy or exudate. Uvula midline. Airway patent. NECK: Trachea midline. No JVD or lymphadenopathy. Supple, nontender, no meningeal signs. CARDIOVASCULAR: Regular rate and rhythm without murmurs, gallops, or rubs. RESPIRATORY: Clear to auscultation. Breath sounds equal bilaterally. No wheezes , rales, or rhonchi. GASTROINTESTINAL: Abdomen is soft. Has midabdomen incision with angel, the are intact. No erythema, no drainage. Tender to palpation to the distal incision. Bowel sounds normoactive 4. MUSCULOSKELETAL: Extremities without clubbing, cyanosis, or edema. No joint tenderness, effusion, or edema noted. No calf tenderness. Negative Homans sign bilaterally. NEUROLOGICAL: Awake, alert oriented 3. No focal deficits. Laboratory Laboratory Tests Test 12/31/16 01/01/17 21:10 03:10 White Blood Count 11.6 Red Blood Count 3.71 Hemoglobin 10.7 Hematocrit 33.0 Mean Corpuscular Volume 88.8 Mean Corpuscular Hemoglobin 28.8 Mean Corpuscular Hemoglobin 32.5 Concent Red Cell Distribution Width 14.8 Platelet Count 454 Mean Platelet Volume 7.7 Neutrophils (%) (Auto) 61.8 Lymphocytes (%) (Auto) 27.6 Monocytes (%) (Auto) 6.3 Eosinophils (%) (Auto) 4.1 Basophils (%) (Auto) 0.2 Neutrophils # (Auto) 7.2 Lymphocytes # (Auto) 3.2 Monocytes # (Auto) 0.7 Eosinophils # (Auto) 0.5 Basophils # (Auto) 0.0 CBC Comment DIFF FINAL Differential Comment Prothrombin Time 9.6 Prothromb Time International 0.9 Ratio Activated Partial 25.9 Thromboplast Time Urine Color YELLOW Urine Turbidity HAZY Urine pH 7.0 Urine Specific [place] 1.014 Urine Protein NEG Urine Glucose (UA) NEG Urine Ketones NEG Urine Occult Blood NEG Urine Nitrite NEG Urine Bilirubin NEG Urine Urobilinogen LESS THAN 2.0 Urine Leukocyte Esterase TRACE Urine WBC 1 Urine Squamous Epithelial <1 Cells Urine Amorphous Sediment OCC Urine Yeast (Budding) FEW Microscopic Urinalysis Comment CULT NOT INDICATED Sodium Level 142 Potassium Level 3.7 Chloride Level 111 Carbon Dioxide Level 23.2 Anion Gap 8 Blood Urea Nitrogen 8 Creatinine 0.57 Estimat Glomerular Filtration 109 Rate Random Glucose 111 Lactic Acid Level 1.2 Calcium Level 7.9 Total Bilirubin 0.1 Aspartate Amino Transf 13 (AST/SGOT) Alanine Aminotransferase 15 (ALT/SGPT) Alkaline Phosphatase 58 Total Protein 6.4 Albumin 2.6 Lipase 521 Nasal Screen MRSA (PCR) MRSA NOT DETECTED Result Diagram: 12/31/16210912/31/162109 Imaging Last Impressions Abdomen/Pelvis CT 12/31/162103 Signed Impressions: Service Date/Time: Saturday, December 31, 2016 22:52 - CONCLUSION: Loculated rim-enhancing fluid collection within the pelvis also containing a locule of air as above. Primary differential diagnosis is a pelvic abscess. Postoperative changes of laparotomy noted in the lower anterior abdominal wall with several small locules of fluid around the incision. No free intraperitoneal air identified. Mildly dilated loops of small bowel are seen in the lower abdomen. Winston Restrepo MD Assessment and Plan Problem List: (1) Intractable abdominal pain (2) Anaphylactoid reaction (3) Ex lap jen - multiple adhesions, abscess to anterior abd wall (4) History of CVA (cerebrovascular accident) (5) Pelvic abscess in female (6) Acute pancreatitis Assessment and Plan Admit to Dr Arambula 55-year-old female with history of abdominal pain, prior bowel obstruction and surgery. Recent exploratory lap with lysis of adhesions on 11/19/2016, was readmitted again with recurrent abdominal pain and underwent another expiratory lap with multiple adhesions and abscess done to all 12/26/2016. Was discharge in stable condition. Patient returns to the hospital with recurrent abdominal pain, this time mostly to the distal incision area. No recent fever, no chills. CT findings of loculated rim-enhancing fluid collection within the pelvis also containing a loculated air as above. -Consul Dr. Musa for evaluation Continue with Elizabeth, patient had allergic reaction to Flagyl. Continue to follow cultures -Infectious disease has been consulted for evaluation. Elevated lipase, etiology unclear. -Nothing by mouth status continue with IV fluids Continue with pain management Anaphylactic reaction to Flagyl, became hypotensive, lethargic, developed rash. Symptoms have now resolved Patient had a recent similar reaction to Zyvox. 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 History of CVA We will hold aspirin and Plavix in the event the patient is to have procedure. SCDs/heparin for DVT prophylaxis Protonix for GI prophylax Plan of care has been discussed with the patient, attending and registered nurse. Further management of the patient be dependent on hospital course This patient was seen by myself and Dr. Arambula, this H&P is written her behalf Physician Certification 2 Midnight Certification Type: Admission for Inpatient Services Order for Inpatient Services The services are ordered in accordance with Medicare regulations or non- Medicare payer requirements, as applicable. In the case of services not specified as inpatient-only, they are appropriately provided as inpatient services in accordance with the 2-midnight benchmark. Estimated LOS (days): 2 2 days is the estimated time the patient will need to remain in the hospital, assuming treatment plan goals are met and no additional complications. Post-Hospital Plan: Home Health Problem Qualifiers (1) Anaphylactoid reaction: Qualified Code: T78.2XXA - Anaphylactoid reaction, initial encounter (2) Acute pancreatitis: Qualified Code: K85.90 - Acute pancreatitis without infection or necrosis, unspecified pancreatitis type Taya Hicks Jan 01, 2017 10:31
--- NOTE | 2017-01-01 17:56 | HHI.PR ---
Subjective Subjective Notes Pt just discharged home Tuesday, POD 6 after exp lap adhesiolysis. She had been tolerating oral intake and oral pain meds. Tuesday her pain became intolerable and she returned. Workup showed a WBC of 11,600 with a normal differential and a CT shows a pelvic fluid collection with a drop of air. She is doing fine now, albeit sore in the RLQ. Pain meds effective. Had some allergic reaction with hives in ED, is now in IMC, HD stable, awake and alert. She has had normal bowel and bladder function throughout. No N/V. Objective Vitals/I&O Vital Signs Date Time Temp Pulse Resp B/P Pulse Ox O2 Delivery O2 Flow Rate FiO2 01/01/17 16:00 61 01/01/17 16:00 98.2 20 124/58 100 01/01/17 06:51 Nasal Cannula 3.00 Labs Laboratory Tests Test 12/31/16 01/01/17 21:10 03:10 White Blood Count 11.6 Red Blood Count 3.71 Hemoglobin 10.7 Hematocrit 33.0 Mean Corpuscular Volume 88.8 Mean Corpuscular Hemoglobin 28.8 Mean Corpuscular Hemoglobin 32.5 Concent Red Cell Distribution Width 14.8 Platelet Count 454 Mean Platelet Volume 7.7 Neutrophils (%) (Auto) 61.8 Lymphocytes (%) (Auto) 27.6 Monocytes (%) (Auto) 6.3 Eosinophils (%) (Auto) 4.1 Basophils (%) (Auto) 0.2 Neutrophils # (Auto) 7.2 Lymphocytes # (Auto) 3.2 Monocytes # (Auto) 0.7 Eosinophils # (Auto) 0.5 Basophils # (Auto) 0.0 CBC Comment DIFF FINAL Differential Comment Prothrombin Time 9.6 Prothromb Time International 0.9 Ratio Activated Partial 25.9 Thromboplast Time Urine Color YELLOW Urine Turbidity HAZY Urine pH 7.0 Urine Specific [place] 1.014 Urine Protein NEG Urine Glucose (UA) NEG Urine Ketones NEG Urine Occult Blood NEG Urine Nitrite NEG Urine Bilirubin NEG Urine Urobilinogen LESS THAN 2.0 Urine Leukocyte Esterase TRACE Urine WBC 1 Urine Squamous Epithelial <1 Cells Urine Amorphous Sediment OCC Urine Yeast (Budding) FEW Microscopic Urinalysis Comment CULT NOT INDICATED Sodium Level 142 Potassium Level 3.7 Chloride Level 111 Carbon Dioxide Level 23.2 Anion Gap 8 Blood Urea Nitrogen 8 Creatinine 0.57 Estimat Glomerular Filtration 109 Rate Random Glucose 111 Lactic Acid Level 1.2 Calcium Level 7.9 Total Bilirubin 0.1 Aspartate Amino Transf 13 (AST/SGOT) Alanine Aminotransferase 15 (ALT/SGPT) Alkaline Phosphatase 58 Total Protein 6.4 Albumin 2.6 Lipase 521 Nasal Screen MRSA (PCR) MRSA NOT DETECTED Abdomen: Non-distended, Other (tender in RLQ no rebound, normal BS. [place] intact, no erythema or drainage. Abdomen soft, non distended.) A/P Assessment and Plan POD 10 exp lap lysis of adhesions for SBO by Dr Musa. Pain refractory to oral pain meds. No fevers, nausea or vomiting. Admission WBC decreased from DC. Fluid collection on CT likely normal postoperative changes, doubt abscess. I recommend no intervention at this time, no drain, no surgery. I discussed with patient. Dr Frederick will see tomorrow, Dr Musa will be back Tuesday. Sanjeev Gerard MD Jan 01, 2017 17:56
[2017-01-01] MEDS ORDERED: CIPROFLOXACIN 400 MG PREMIX 200 ML IV SCH (21:00)
[2017-01-01] MEDS: traZODone HCL 100 MG TAB PO SCH (21:02)
[2017-01-02] VITALS (19 sets, daily range): BP systolic 96–153; BP diastolic 51–70; PULSE 47–81; RESP 10–26; TEMP 97.6–98.6; O2SAT 100
[2017-01-02] MEDS: PIPERACIL-TAZO 4.5 GM PREMIX 100 ML IV SCH ×4 (01:16→17:01)
[2017-01-02] MEDS: MORPHINE SULFATE 4 MG/ML INJ IV PUSH PRN ×5 (01:16→20:20)
[2017-01-02] MEDS: CHLORHEXIDINE GLUCONATE 2 % 1 PACK (2 CLOTHS) TOP SCH (01:17)
[2017-01-02 03:58] LABS: AUTOMATED NEUTROPHIL # 7.4 TH/MM3 (1.8-7.7); BASOPHIL % 0.2 % (0.0-2.0); EOSINOPHIL # 0.1 TH/MM3 (0-0.4); EOSINOPHIL % 0.7 % (0.0-4.0); HEMATOCRIT 29.2 % (35.0-46.0); HEMO FLAGS DIFF FINAL; LYMPH % 26.5 % (9.0-44.0); MEAN CELL VOLUME 89.9 FL (80.0-100.0); MEAN CORPUSCULAR HEMOGLOBIN 28.7 PG (27.0-34.0); MEAN CORPUSCULAR HGB CONC 31.9 % (32.0-36.0); MONO % 7.8 % (0.0-8.0); NEUT % 64.8 % (16.0-70.0); PLATELET COUNT 386 TH/MM3 (150-450); RED BLOOD COUNT 3.25 MIL/MM3 (4.00-5.30); RED CELL DISTRIBUTION WIDTH 14.8 % (11.6-17.2); WHITE BLOOD COUNT 11.4 TH/MM3 (4.0-11.0)
[2017-01-02 04:08] LABS: INTERNATIONAL NORMALIZED RATIO 0.9 RATIO; PROTHROMBIN TIME - PATIENT 10.3 SEC (9.8-11.6)
[2017-01-02 04:19] LABS: ALT (GPT) 14 U/L (10-53); ANION GAP 6 MEQ/L (5-15); AST (GOT) 12 U/L (15-37); BICARBONATE 28.3 MEQ/L (21.0-32.0); BLOOD UREA NITROGEN 4 MG/DL (7-18); CHLORIDE 113 MEQ/L (98-107); GLOMERULAR FILTRATION RATE 133 ML/MIN (>89); MAGNESIUM 2.3 MG/DL (1.5-2.5); POTASSIUM 3.4 MEQ/L (3.5-5.1); SODIUM (NA) 147 MEQ/L (136-145)
[2017-01-02 04:21] LABS: ALKALINE PHOSPHATASE 46 U/L (45-117); TOTAL BILIRUBIN ADULT 0.2 MG/DL (0.2-1.0)
[2017-01-02] MEDS: DEXTROSE 5% IN WATE 1000ML INJ 1,000 ML IV SCH ×2 (07:00→17:00)
--- NOTE | 2017-01-02 07:38 | HHI.PR ---
Subjective Remarks Tolerating clear liquid diet well No nausea, no vomiting No diarrhea No fever last night Hemodynamically stable Heart rate at times 40s 50s, asymptomatic, patient was asleep No rashes Objective Objective Results - Vital Signs Date Time Temp Pulse Resp B/P Pulse Ox O2 Delivery O2 Flow Rate FiO2 01/02/17 06:00 50 01/02/17 05:00 58 01/02/17 04:39 16 01/02/17 04:00 57 01/02/17 04:00 98.2 57 14 96/54 100 01/02/17 03:00 47 15 117/56 100 01/02/17 03:00 47 01/02/17 02:01 54 01/02/17 02:01 54 16 118/56 100 01/02/17 02:00 53 16 100 01/02/17 02:00 53 01/02/17 01:01 61 01/02/17 01:01 61 22 153/70 100 01/02/17 01:00 58 01/02/17 01:00 58 26 100 01/02/17 00:01 55 01/02/17 00:01 55 10 105/51 100 01/02/17 00:00 97.6 56 10 100 01/02/17 00:00 56 01/01/17 23:00 65 14 124/58 100 01/01/17 23:00 65 01/01/17 22:00 72 26 115/56 100 01/01/17 22:00 72 01/01/17 21:00 65 24 117/58 100 01/01/17 20:00 97.9 63 24 114/58 100 01/01/17 20:00 63 01/01/17 19:21 100 Nasal Cannula 3.00 01/01/17 18:00 59 01/01/17 18:00 59 19 122/60 100 01/01/17 17:00 58 20 113/56 100 01/01/17 16:00 61 01/01/17 16:00 98.2 61 20 124/58 100 01/01/17 16:00 61 20 124/58 100 01/01/17 15:00 60 23 121/57 100 01/01/17 14:00 62 01/01/17 14:00 62 15 116/57 100 01/01/17 13:00 67 18 110/53 100 01/01/17 12:00 58 15 113/55 100 01/01/17 12:00 58 01/01/17 12:00 97.8 58 15 113/55 100 01/01/17 11:00 73 20 110/57 100 01/01/17 10:00 62 01/01/17 10:00 62 16 112/58 100 01/01/17 09:01 74 16 114/59 100 01/01/17 09:00 75 22 100 01/01/17 08:00 98.2 71 24 112/61 100 01/01/17 08:00 71 24 112/61 100 01/01/17 08:00 71 I/O 01/01/17 01/01/17 01/01/17 01/02/17 01/02/17 01/02/17 07:00 15:00 23:00 07:00 15:00 23:00 Intake Total 478 ml 836 ml 866 ml 1091 ml Output Total 600 ml 1450 ml 800 ml 975 ml Balance -122 ml -614 ml 66 ml 116 ml Intake Oral 50 ml 240 ml 240 ml IV Total 478 ml 786 ml 626 ml 851 ml Output Urine Total 600 ml 1450 ml 800 ml 975 ml # Voids 4 2 Result Diagram: 01/02/179 01/02/17308 Imaging Last Impressions Abdomen/Pelvis CT 12/31/162103 Signed Impressions: Service Date/Time: Saturday, December 31, 2016 22:52 - CONCLUSION: Loculated rim-enhancing fluid collection within the pelvis also containing a locule of air as above. Primary differential diagnosis is a pelvic abscess. Postoperative changes of laparotomy noted in the lower anterior abdominal wall with several small locules of fluid around the incision. No free intraperitoneal air identified. Mildly dilated loops of small bowel are seen in the lower abdomen. Winston Restrepo MD Other Results Laboratory Tests Test 01/02/17 03:09 White Blood Count 11.4 Red Blood Count 3.25 Hemoglobin 9.3 Hematocrit 29.2 Mean Corpuscular Volume 89.9 Mean Corpuscular Hemoglobin 28.7 Mean Corpuscular Hemoglobin 31.9 Concent Red Cell Distribution Width 14.8 Platelet Count 386 Mean Platelet Volume 7.6 Neutrophils (%) (Auto) 64.8 Lymphocytes (%) (Auto) 26.5 Monocytes (%) (Auto) 7.8 Eosinophils (%) (Auto) 0.7 Basophils (%) (Auto) 0.2 Neutrophils # (Auto) 7.4 Lymphocytes # (Auto) 3.0 Monocytes # (Auto) 0.9 Eosinophils # (Auto) 0.1 Basophils # (Auto) 0.0 CBC Comment DIFF FINAL Differential Comment Prothrombin Time 10.3 Prothromb Time International 0.9 Ratio Sodium Level 147 Potassium Level 3.4 Chloride Level 113 Carbon Dioxide Level 28.3 Anion Gap 6 Blood Urea Nitrogen 4 Creatinine 0.48 Estimat Glomerular Filtration 133 Rate Random Glucose 117 Calcium Level 7.9 Phosphorus Level 2.7 Magnesium Level 2.3 Total Bilirubin 0.2 Aspartate Amino Transf 12 (AST/SGOT) Alanine Aminotransferase 14 (ALT/SGPT) Alkaline Phosphatase 46 Total Protein 5.7 Albumin 2.4 Lipase 198 ROS General: No: Fatigue, Weakness HEENT: No: Sore Throat, Dysphagia Cardiac: No: Chest Pain, Edema, Palpitations Pulmonary: No: Cough, SOB, Wheezing GI: Abdominal Pain (abdominal incision tenderness improved.), No: BM, Diarrhea , N/V /TWX OPERATOR: No: Dysuria, Urgency Neuro/MS: No: Lightheaded, Confusion Psych: No: Anxiety, Depression Skin: No: Itching, Rash Physical Exam Physical Exam GENERAL: This is a well-nourished, well-developed patient, in no apparent distress. SKIN: No rashes, ecchymoses or lesions. Cool and dry. HEAD: Atraumatic. Normocephalic. No temporal or scalp tenderness. EYES: Pupils equal round and reactive. Extraocular motions intact. No scleral icterus. No injection or drainage. ENT: Nose without bleeding, purulent drainage or septal hematoma. Throat without erythema, tonsillar hypertrophy or exudate. Uvula midline. Airway patent. NECK: Trachea midline. No JVD or lymphadenopathy. Supple, nontender, no meningeal signs. CARDIOVASCULAR: Regular rate and rhythm without murmurs, gallops, or rubs. RESPIRATORY: Clear to auscultation. Breath sounds equal bilaterally. No wheezes , rales, or rhonchi. GASTROINTESTINAL: Abdomen is soft. Has midabdomen incision with angel, they are intact. No erythema, no drainage. Minimal tenderness to palpation to the distal incision. Bowel sounds normoactive 4. MUSCULOSKELETAL: Extremities without clubbing, cyanosis, or edema. No joint tenderness, effusion, or edema noted. No calf tenderness. Negative Homans sign bilaterally. NEUROLOGICAL: Awake, alert oriented 3. No focal deficits Urinary Catheter: No Vascular Central Line Catheter: No A/P Diagnosis: (1) Intractable abdominal pain (2) Anaphylactoid reaction (3) Ex lap jen - multiple adhesions, abscess to anterior abd wall (4) History of CVA (cerebrovascular accident) (5) Pelvic abscess in female (6) Acute pancreatitis Assessment and Plan 55-year-old female with history of abdominal pain, prior bowel obstruction and surgery. Recent exploratory lap with lysis of adhesions on 11/19/2016, was readmitted again with recurrent abdominal pain and underwent another expiratory lap with multiple adhesions and abscess done to all 12/26/2016. Was discharge in stable condition. Patient returns to the hospital with recurrent abdominal pain, this time mostly to the distal incision area. No recent fever, no chills. CT findings of loculated rim-enhancing fluid collection within the pelvis also containing a loculated air as above. Continue with Zosyn, patient had allergic reaction to Flagyl. Continue to follow cultures -ID input appreciated, at this time the plan is to continue with antibiotics and follow cultures -Evaluated per Dr. Gerard, does not believe this is an abscess and more likely postsurgical changes. Dr. Musa is to follow-up tomorrow -At this time we will continue with antibiotics, pain appears to have resolved significantly. Elevated lipase, etiology unclear. -Advanced to clear liquid diet, tolerating well. Lipase down to 198. continue with IV fluids -Advanced diet to her healthy Anaphylactic reaction to Flagyl, became hypotensive, lethargic, developed rash. Symptoms have now resolved Patient had a recent similar reaction to Zyvox. 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 History of CVA We will hold aspirin and Plavix in the event the patient is to have procedure. Hypernatremia Hypokalemia -replace k -Sodium 147, continue D5W SCDs/heparin for DVT prophylaxis Protonix for GI prophylax Repeat labs in the morning Transfer out of ICU Increase activity, out of bed IS every 2 while awake Discussed with her and Discussed with patient Discussed with Dr. Arambula This patient was seen by myself and Dr. Arambula, this note is written her behalf Problem Qualifiers (1) Anaphylactoid reaction: Qualified Code: T78.2XXA - Anaphylactoid reaction, initial encounter (2) Acute pancreatitis: Qualified Code: K85.90 - Acute pancreatitis without infection or necrosis, unspecified pancreatitis type Taya Hicks [facility] Jan 02, 2017 07:38
[2017-01-02] MEDS ORDERED: POTASSIUM CHLORIDE 25 MEQ EFFERVESCENT TAB PO ONE (08:00)
[2017-01-02] MEDS: SODIUM CHLORIDE 0.9% FLUSH 10 ML FLUSH SCH ×2 (08:08→20:20)
[2017-01-02] MEDS: HEPARIN SODIUM - SQ 10,000 UNITS/ML VIAL SQ SCH ×2 (08:08→20:20)
[2017-01-02] MEDS: TOPIRAMATE 25 MG TAB PO SCH ×2 (08:08→20:19)
[2017-01-02] MEDS: VENLAFAXINE HCL XR 75 MG CAP PO SCH (08:08)
[2017-01-02] MEDS: PANTOPRAZOLE SODIUM 40 MG VIAL IV SCH (08:08)
[2017-01-02] MEDS: DOCUSATE SODIUM 50 MG/SENNA 8.6 MG TAB PO SCH ×2 (08:09→20:20)
--- NOTE | 2017-01-02 09:17 | HHI.CCPN ---
Subjective Remarks/Hospital Course 56-year-old female complains of abdominal pain. Patient was discharged from the hospital 2 days ago with diagnosis of intractable abdominal pain, multiple adhesions, abscess to anterior abdominal wall. Patient was discharged 2 days ago with prescription for hydrocodone for pain. Patient states the pain got worse since discharge. Patient denies any nausea vomiting diarrhea. Patient denies any dysuria or frequency. Patient denies any vaginal discharge or bleeding. Patient denies any fever chills. Patient states the pain and accommodation sharp pain cramping pain diffuse over the abdomen. Patient denies any pain radiation. On a scale of 1-10 the pain is a 10. In the emergency department after the administration of morphine and Flagyl she broke in hives, was treated as anaphylactic reaction with Benadryl and epinephrine and is now admitted to ICU. When I saw the patient she was in no distress comfortably sitting in the bed. Subjective: 01/02: Afebrile overnight. Pain much better controlled. The patient continues on D5W secondary to elevated sodium level. Repletion of potassium this a.m. noted a potassium level 3.4. The patient's diet was increased to heart healthy this a.m.. Plan for increase in physical activity out of bed to chair today. Objective Vital Signs Date Time Temp Pulse Resp B/P Pulse Ox O2 Delivery O2 Flow Rate FiO2 01/02/17 06:00 50 01/02/17 04:39 16 01/02/17 04:00 98.2 96/54 100 01/01/17 19:21 Nasal Cannula 3.00 Intake and Output 01/01/17 01/01/17 01/02/17 08:00 16:00 00:00 Intake Total 478 ml 836 ml 866 ml Output Total 600 ml 1450 ml 800 ml Balance -122 ml -614 ml 66 ml Result Diagram: 01/02/17 0309 01/02/17 0309 Imaging Last 24 hours Impressions Abdomen/Pelvis CT 12/31/162103 Signed Impressions: Service Date/Time: Saturday, December 31, 2016 22:52 - CONCLUSION: Loculated rim-enhancing fluid collection within the pelvis also containing a locule of air as above. Primary differential diagnosis is a pelvic abscess. Postoperative changes of laparotomy noted in the lower anterior abdominal wall with several small locules of fluid around the incision. No free intraperitoneal air identified. Mildly dilated loops of small bowel are seen in the lower abdomen. Winston Restrepo MD Objective Remarks GENERAL: This is a well-nourished, well-developed patient, in no apparent distress. SKIN: No rashes, ecchymoses or lesions. Cool and dry. HEAD: Atraumatic. Normocephalic. No temporal or scalp tenderness. EYES: Pupils equal round and reactive. Extraocular motions intact. No scleral icterus. No injection or drainage. ENT: Nose without bleeding, purulent drainage or septal hematoma. Throat without erythema, tonsillar hypertrophy or exudate. Airway patent. NECK: Trachea midline. No JVD or lymphadenopathy. Supple, nontender, no meningeal signs. CARDIOVASCULAR: Regular rate and rhythm without murmurs, gallops, or rubs. RESPIRATORY: Clear to auscultation. Breath sounds equal bilaterally. No wheezes , rales, or rhonchi. GASTROINTESTINAL: Abdomen soft, no tenderness to palpation this a.m., nondistended. No hepato-splenomegaly, or palpable masses. No guarding. Bowel sounds normal active 4. MUSCULOSKELETAL: Extremities without clubbing, cyanosis, or edema. No joint tenderness, effusion, or edema noted. No calf tenderness. Negative Homans sign bilaterally. NEUROLOGICAL: Awake and alert. Cranial nerves II through XII intact. Motor and sensory grossly within normal limits. 5/5 muscle strength in all muscle groups. Normal speech. A/P Assessment and Plan Allergic reaction-resolved - Avoid Flagyl - Supportive care Abdominal abscess - Broad-spectrum antibiotics - Follow-up cultures - Infectious disease following -Gen. surgery consulted- no surgical intervention at this time -Advance diet to heart healthy Seizure disorder ??? - History of CVA - Topamax Coronary artery disease - Continue Aspirin, Plavix Depression/anxiety - Effexor DVT GI prophylaxis - Teds SCDs subcutaneous heparin and Pepcid PT evaluation and treat Out of bed to chair Critical Care: Discussed with TOP DYEING MACHINE TENDER at bedside. Plan transfer to [facility] in a.m.. Level 2. Physician Marcy Elliott MD Jan 02, 2017 09:17
--- NOTE | 2017-01-02 11:19 | HHI.PR ---
Subjective Subjective Notes States she feels better today; tolerating PO's, passing flatus and having BM's. Objective Vitals/I&O Vital Signs Date Time Temp Pulse Resp B/P Pulse Ox O2 Delivery O2 Flow Rate FiO2 01/02/17 10:00 62 01/02/17 08:00 97.6 13 108/57 100 01/01/17 19:21 Nasal Cannula 3.00 Labs Laboratory Tests Test 01/02/17 03:09 White Blood Count 11.4 Red Blood Count 3.25 Hemoglobin 9.3 Hematocrit 29.2 Mean Corpuscular Volume 89.9 Mean Corpuscular Hemoglobin 28.7 Mean Corpuscular Hemoglobin 31.9 Concent Red Cell Distribution Width 14.8 Platelet Count 386 Mean Platelet Volume 7.6 Neutrophils (%) (Auto) 64.8 Lymphocytes (%) (Auto) 26.5 Monocytes (%) (Auto) 7.8 Eosinophils (%) (Auto) 0.7 Basophils (%) (Auto) 0.2 Neutrophils # (Auto) 7.4 Lymphocytes # (Auto) 3.0 Monocytes # (Auto) 0.9 Eosinophils # (Auto) 0.1 Basophils # (Auto) 0.0 CBC Comment DIFF FINAL Differential Comment Prothrombin Time 10.3 Prothromb Time International 0.9 Ratio Sodium Level 147 Potassium Level 3.4 Chloride Level 113 Carbon Dioxide Level 28.3 Anion Gap 6 Blood Urea Nitrogen 4 Creatinine 0.48 Estimat Glomerular Filtration 133 Rate Random Glucose 117 Calcium Level 7.9 Phosphorus Level 2.7 Magnesium Level 2.3 Total Bilirubin 0.2 Aspartate Amino Transf 12 (AST/SGOT) Alanine Aminotransferase 14 (ALT/SGPT) Alkaline Phosphatase 46 Total Protein 5.7 Albumin 2.4 Lipase 198 Lungs: Clear Abdomen: Non-distended, Non-tender Narrative Exam Maricarmen intact without erythema or ecchymosis A/P Assessment and Plan Assessment and Plan POD 11 exp lap lysis of adhesions for SBO by Dr Musa. Pain improved. Transfer to floor Likely discharge next day or so. Danielito Frederick MD Jan 02, 2017 11:19
[2017-01-02] MEDS: traZODone HCL 100 MG TAB PO SCH (20:19)
[2017-01-03] VITALS: BP 105/56; PULSE 54; RESP 13; TEMP 97.4; O2SAT 100
[2017-01-03] MEDS: CHLORHEXIDINE GLUCONATE 2 % 1 PACK (2 CLOTHS) TOP SCH (00:16)
[2017-01-03] MEDS: PIPERACIL-TAZO 4.5 GM PREMIX 100 ML IV SCH ×5 (00:16→23:41)
[2017-01-03] MEDS: MORPHINE SULFATE 4 MG/ML INJ IV PUSH PRN ×8 (00:20→21:58)
[2017-01-03 04:00] VITALS: BP 102/53; PULSE 55; RESP 13; TEMP 98.1; O2SAT 100
[2017-01-03 06:26] LABS: HEMATOCRIT 31.2 % (35.0-46.0); MEAN CELL VOLUME 90.8 FL (80.0-100.0); MEAN CORPUSCULAR HEMOGLOBIN 28.7 PG (27.0-34.0); MEAN CORPUSCULAR HGB CONC 31.6 % (32.0-36.0); PLATELET COUNT 434 TH/MM3 (150-450); RED BLOOD COUNT 3.44 MIL/MM3 (4.00-5.30); RED CELL DISTRIBUTION WIDTH 14.8 % (11.6-17.2); REVIEW FLAG FINAL; WHITE BLOOD COUNT 9.4 TH/MM3 (4.0-11.0)
[2017-01-03 06:55] LABS: BICARBONATE 30.2 MEQ/L (21.0-32.0); MAGNESIUM 2.3 MG/DL (1.5-2.5); POTASSIUM 3.2 MEQ/L (3.5-5.1)
[2017-01-03 08:00] VITALS: BP 108/59; PULSE 55; RESP 16; TEMP 98; O2SAT 100
[2017-01-03] MEDS: SODIUM CHLORIDE 0.9% FLUSH 10 ML FLUSH SCH ×2 (08:13→20:15)
[2017-01-03] MEDS: VENLAFAXINE HCL XR 75 MG CAP PO SCH (08:13)
[2017-01-03] MEDS: TOPIRAMATE 25 MG TAB PO SCH ×2 (08:14→20:15)
[2017-01-03] MEDS: PANTOPRAZOLE SODIUM 40 MG VIAL IV SCH (08:14)
[2017-01-03] MEDS: DOCUSATE SODIUM 50 MG/SENNA 8.6 MG TAB PO SCH ×2 (08:14→20:15)
[2017-01-03] MEDS: HEPARIN SODIUM - SQ 10,000 UNITS/ML VIAL SQ SCH ×2 (08:14→20:15)
[2017-01-03] MEDS ORDERED: POTASSIUM CHLORIDE 25 MEQ EFFERVESCENT TAB PO ONE (09:30)
--- NOTE | 2017-01-03 09:33 | HHI.PR ---
Subjective Remarks Continues with IV pain management and right-sided abdominal pain States BM normal this early a.m., no diarrhea Potassium low, extra by mouth dose given today No nausea vomiting, abdominal dressing clean dry and intact (Michelle Stapleton) Objective Objective Results - Vital Signs Date Time Temp Pulse Resp B/P Pulse Ox O2 Delivery O2 Flow Rate FiO2 01/03/17 08:00 55 01/03/17 08:00 98.0 55 16 108/59 100 01/03/17 04:00 98.1 55 13 102/53 100 01/03/17 04:00 55 01/03/17 00:00 54 01/03/17 00:00 97.4 54 13 105/56 100 01/02/17 20:00 64 01/02/17 20:00 98.6 64 20 115/59 100 01/02/17 19:05 100 2.00 01/02/17 18:00 79 01/02/17 16:00 81 01/02/17 16:00 98.2 81 20 111/55 100 01/02/17 14:00 60 01/02/17 12:00 60 01/02/17 12:00 98.1 60 15 108/58 100 01/02/17 10:00 62 I/O 01/02/17 01/02/17 01/02/17 01/03/17 01/03/17 01/03/17 07:00 15:00 23:00 07:00 15:00 23:00 Intake Total 1091 ml 676 ml 776 ml 415 ml Output Total 975 ml 1300 ml 450 ml 1000 ml Balance 116 ml -624 ml 326 ml -585 ml Intake Oral 240 ml 250 ml 240 ml 200 ml IV Total 851 ml 426 ml 536 ml 215 ml Output Urine Total 975 ml 1300 ml 450 ml 1000 ml # Voids 5 2 # Bowel Movements 1 (Michelle Stapleton) Result Diagram: 01/03/1740 01/03/17 0540 ROS General: Weakness (generalized and postop), Other (10 point ROS done positives noted) Pulmonary: Cough (occasional) GI: Abdominal Pain (right upper to mid quadrant, status post surgical exploratory lap previous recent admission) (Michelle Stapleton) Physical Exam Physical Exam PHYSICAL EXAMINATION GENERAL: This is a thin elderly female Complaints of right-sided abdominal pain She is alert and awake, HEAD: Normocephalic, atraumatic OROPHARYNGEAL: Oropharynx without erythema or edema. NECK: Supple. . CARDIAC: Bradycardic rhythm, regular rate, resting in the 50s . Asymptomatic S1 and S2 are heard. LUNGS: Clear to auscultation bilaterally. Volumes low to adequate ABDOMEN: Soft, mild tenderness in the right mid upper quadrant. Dressing clean dry and intact. I'll sounds active EXTREMITIES: no edema. Pulses intact NEUROLOGICAL: Patient mood and affect with some mild anxiety and requiring pain management SKIN:Warm and moist (Michelle Stapleton) A/P Assessment and Plan (1) Intractable abdominal pain (2) Anaphylactoid reaction (3) Ex lap jen - multiple adhesions, abscess to anterior abd wall (4) History of CVA (cerebrovascular accident) (5) Pelvic abscess in female (6) Acute pancreatitis Assessment and Plan Recent history noted . 55-year-old female with history of abdominal pain, prior bowel obstruction and surgery. Recent exploratory lap with lysis of adhesions on 11/19/2016, was readmitted again with recurrent abdominal pain and underwent another expiratory lap with multiple adhesions and abscess done to all 2016. Was discharge in stable condition. Patient returns to the hospital with recurrent abdominal pain, this time mostly to the distal incision area. No recent fever, no chills. Acute pancreatitis, monitoring was labs, antibiotics, and monitoring cultures -ID input appreciated, Elevated lipase, etiology unclear. Advanced diet heart healthy, tolerating small feedings. Labs trending down we' ll continue to monitor Anaphylactic reaction to Flagyl, became hypotensive, lethargic, developed rash. Symptoms have now resolved. Can transfer out to regular room Tobacco abuse -Counseled about tobacco abuse -Smoking very little now, 2 cigarettes every couple days. History of CVA We will hold aspirin and Plavix in the event the patient is to have procedure. Hypokalemia, placed potassium today and will check BMP in the morning SCDs/heparin for DVT prophylaxis Protonix for GI prophylax Increase activity, out of bed IS every 2 while awake Discussed with patient Discussed with Dr. Blake, seen on his behalf Discussed with nurse (Michelle Stapleton) Assessment and Plan Patient seen and examined as above Labs, medication and radiological data reviewed Discussed with RN Plan of care and unable no discussed with SKATE SHOP ATTENDANT Discussed with surgical PA Discussed with patient Stable to transfer to floor (Brii Blake MD) Michelle Stapleton Jan 03, 2017 09:33 Brii Blake MD Jan 03, 2017 12:01
[2017-01-03 12:00] VITALS: BP 95/50; PULSE 64; RESP 18; TEMP 98; O2SAT 100
--- NOTE | 2017-01-03 14:32 | HHI.PR ---
Subjective Subjective Notes Resting in bed Reports pain has dulled down significantly since admission Objective Vitals/I&O Vital Signs Date Time Temp Pulse Resp B/P Pulse Ox O2 Delivery O2 Flow Rate FiO2 01/03/17 13:32 14 01/03/17 12:00 98.0 64 95/50 100 01/02/17 19:05 2.00 Labs Laboratory Tests Test 01/03/17 05:40 White Blood Count 9.4 Red Blood Count 3.44 Hemoglobin 9.9 Hematocrit 31.2 Mean Corpuscular Volume 90.8 Mean Corpuscular Hemoglobin 28.7 Mean Corpuscular Hemoglobin 31.6 Concent Red Cell Distribution Width 14.8 Platelet Count 434 Mean Platelet Volume 7.5 Sodium Level 146 Potassium Level 3.2 Chloride Level 110 Carbon Dioxide Level 30.2 Anion Gap 6 Blood Urea Nitrogen 3 Creatinine 0.63 Estimat Glomerular Filtration 97 Rate Random Glucose 103 Calcium Level 8.1 Phosphorus Level 3.0 Magnesium Level 2.3 Cardiovascular: Regular Lungs: Clear Abdomen: Non-distended, Other (soft; midline incision with angel--c/d/i; mild tenderness in RLQ ) Extremities: No edema A/P Assessment and Plan 56 year old female POD12 ex lap; SEVERIANO -Re-admission due to pain -Pain control -Continue antibiotics -Tolerating heart healthy diet -Likely DC in the next day or so -Discussed with Dr. Blake Attending Statement patient seen at bedside pain has improved some tolerating diet d/c planning Attestation The exam, history, and the medical decision-making described in the above note were completed with the assistance of the mid-level provider. I reviewed and agree with the findings presented. I attest that I had a [id number] encounter with the patient on the same day, and personally performed and documented my assessment and findings in the medical record. Riddhi Jones Jan 03, 2017 14:32 Arnoldo Musa MD Jan 07, 2017 11:02
[2017-01-03 16:00] VITALS: BP 126/56; PULSE 68; RESP 20; TEMP 98; O2SAT 100
[2017-01-03 20:00] VITALS: BP 107/58; PULSE 64; RESP 18; TEMP 98.2; O2SAT 97
[2017-01-03] MEDS: traZODone HCL 100 MG TAB PO SCH (20:15)
[2017-01-04] VITALS (7 sets, daily range): BP systolic 91–122; BP diastolic 50–60; PULSE 63–72; RESP 14–18; TEMP 96.5–98.3; O2SAT 95–99
[2017-01-04] MEDS: MORPHINE SULFATE 4 MG/ML INJ IV PUSH PRN ×3 (01:19→08:45)
[2017-01-04] MEDS: CHLORHEXIDINE GLUCONATE 2 % 1 PACK (2 CLOTHS) TOP SCH ×2 (03:08→20:18)
[2017-01-04] MEDS: PIPERACIL-TAZO 4.5 GM PREMIX 100 ML IV SCH ×2 (05:51→11:40)
[2017-01-04 06:55] LABS: BICARBONATE 26.8 MEQ/L (21.0-32.0); POTASSIUM 3.8 MEQ/L (3.5-5.1)
[2017-01-04] MEDS: SODIUM CHLORIDE 0.9% FLUSH 10 ML FLUSH SCH ×2 (08:44→20:17)
[2017-01-04] MEDS: VENLAFAXINE HCL XR 75 MG CAP PO SCH (08:44)
[2017-01-04] MEDS: TOPIRAMATE 25 MG TAB PO SCH ×2 (08:44→20:17)
[2017-01-04] MEDS: DOCUSATE SODIUM 50 MG/SENNA 8.6 MG TAB PO SCH ×2 (08:44→20:17)
[2017-01-04] MEDS: PANTOPRAZOLE SODIUM 40 MG VIAL IV SCH (08:44)
[2017-01-04] MEDS: HEPARIN SODIUM - SQ 10,000 UNITS/ML VIAL SQ SCH ×2 (08:45→20:18)
--- NOTE | 2017-01-04 10:34 | HHI.PR ---
Subjective Remarks Right-sided abdominal pain persist especially with increased activity, but improved Bowel regimen normal, BM this a.m. Potassium normal today 3.8 after dose being given yesterday No nausea vomiting, abdominal dressing clean dry and intact Encouraged to be out of bed (Michelle Stapleton) Objective Objective Results - Vital Signs Date Time Temp Pulse Resp B/P Pulse Ox O2 Delivery O2 Flow Rate FiO2 01/04/17 08:00 97.1 67 14 102/58 99 01/04/17 04:40 18 01/04/17 04:00 97.3 63 18 122/60 99 01/04/17 00:00 96.5 69 18 92/50 95 01/03/17 20:00 98.2 64 18 107/58 97 01/03/17 16:00 98.0 68 20 126/56 100 01/03/17 16:00 68 01/03/17 12:00 98.0 64 18 95/50 100 01/03/17 12:00 64 I/O 01/03/17 01/03/17 01/03/17 01/04/17 01/04/17 01/04/17 07:00 15:00 23:00 07:00 15:00 23:00 Intake Total 415 ml 100 ml 320 ml 520 ml Output Total 1000 ml 600 ml 300 ml 1100 ml 401 ml Balance -585 ml -500 ml 20 ml -580 ml -401 ml Intake Oral 200 ml 320 ml 320 ml IV Total 215 ml 100 ml 200 ml Output Urine Total 1000 ml 600 ml 300 ml 1100 ml 400 ml Stool Total 1 ml # Voids 4 # Bowel Movements 1 0 0 (Michelle Stapleton) Result Diagram: 01/03/17 0540 01/04/17 0613 ROS General: Fatigue (mild improvement), Weakness, Other (10 point ROS done positives noted) GI: Abdominal Pain (right-sided postop approximately 2 weeks ago improving) ( Michelle Stapleton) Physical Exam Physical Exam PHYSICAL EXAMINATION GENERAL: This is a elderly female who appears to be in no acute distress while laying in bed She is alert and awake HEAD: Normocephalic, atraumatic OROPHARYNGEAL: Oropharynx clear NECK: Supple. CARDIAC: Regular rhythm, regular rate, S1 and S2 are heard. LUNGS: Clear to auscultation bilaterally. Volumes low to normal range ABDOMEN: Soft, mild right mid to upper quadrant improving, worse with movement EXTREMITIES: no edema. Pulse intact NEUROLOGICAL: Patient mood and affect appropriate. No focal deficit SKIN:Warm and moist (Michelle Stapleton) A/P Assessment and Plan (1) Intractable abdominal pain (2) Anaphylactoid reaction (3) Ex lap jen - multiple adhesions, abscess to anterior abd wall (4) History of CVA (cerebrovascular accident) (5) Pelvic abscess in female (6) Acute pancreatitis Assessment and Plan Recent history noted . 55-year-old female with history of abdominal pain, prior bowel obstruction and surgery. Recent exploratory lap with lysis of adhesions on 11/19/2016, was readmitted again with recurrent abdominal pain and underwent another expiratory lap with multiple adhesions and abscess done to all 2016. Was discharge in stable condition. Patient returns to the hospital with recurrent abdominal pain, this time mostly to the distal incision area. No recent fever, no chills. Vital signs reviewed patient's afebrile, normal trends Labs reviewed Pain management, pain is more controlled, we will discuss by mouth management with Dr. Blake Bowel regimen normal trends daily normal BMs Possible Acute pancreatitis, monitoring was labs, antibiotics, and monitoring cultures -ID input appreciated, possible abdominal abscess, current treatment with IV Zosyn Elevated lipase, etiology unclear. Advanced diet heart healthy, tolerating small feedings. Labs trending down we' ll continue to monitor Tobacco abuse -Counseled about tobacco abuse -Smoking very little now, 2 cigarettes every couple days. History of CVA We will hold aspirin and Plavix in the event the patient is to have procedure. Hypokalemia, placed potassium today and will check BMP in the morning SCDs/heparin for DVT prophylaxis Protonix for GI prophylax Increase activity, out of bed, encouraged again to increase mobility be up walking in room and out of bed. IS every 2 while awake Discussed with patient Discussed with Dr. Blake, seen on his behalf Discussed with nurse Discharge planning when patient can be transitioned to by mouth antibiotics Home with home health recommended (Michelle Stapleton) Assessment and Plan pt seen and examined as above labs reviewed dw surgeon and ID on floor about managment see orders dirk media monitor about plan of care dw pr dw rn labs for tomorrow (Brii Blake MD) Michelle Stapleton Jan 04, 2017 10:34 Brii Blake MD Jan 04, 2017 11:37
[2017-01-04] MEDS: oxyCODONE/ACETAMINOPHEN 7.5 MG/325 MG TAB PO PRN ×2 (11:40→16:54)
--- NOTE | 2017-01-04 13:24 | HHI.IDPN ---
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 Vital Signs Date Time Temp Pulse Resp B/P Pulse Ox O2 Delivery O2 Flow Rate FiO2 01/04/17 12:00 98.3 72 16 91/55 97 01/04/17 08:30 96 21 01/04/17 08:00 97.1 67 14 102/58 99 01/04/17 04:40 18 01/04/17 04:00 97.3 63 18 122/60 99 01/04/17 00:00 96.5 69 18 92/50 95 01/03/17 20:00 98.2 64 18 107/58 97 01/03/17 16:00 98.0 68 20 126/56 100 01/03/17 16:00 68 01/03/17 01/03/17 01/04/17 15:00 23:00 07:00 Intake Total 100 ml 320 ml 520 ml Output Total 600 ml 300 ml 1100 ml Balance -500 ml 20 ml -580 ml Intake Oral 320 ml 320 ml IV Total 100 ml 200 ml Output Urine Total 600 ml 300 ml 1100 ml # Voids 4 # Bowel Movements 1 0 0 . Laboratory Tests Test 01/03/17 05:40 White Blood Count 9.4 TH/MM3 Red Blood Count 3.44 MIL/MM3 Hemoglobin 9.9 GM/DL Hematocrit 31.2 % Mean Corpuscular Volume 90.8 FL Mean Corpuscular Hemoglobin 28.7 PG Mean Corpuscular Hemoglobin 31.6 % Concent Red Cell Distribution Width 14.8 % Platelet Count 434 TH/MM3 Mean Platelet Volume 7.5 FL Laboratory Tests Test 01/03/17 01/04/17 05:40 06:13 Sodium Level 146 MEQ/L 144 MEQ/L Potassium Level 3.2 MEQ/L 3.8 MEQ/L Chloride Level 110 MEQ/L 109 MEQ/L Carbon Dioxide Level 30.2 MEQ/L 26.8 MEQ/L Anion Gap 6 MEQ/L 8 MEQ/L Blood Urea Nitrogen 3 MG/DL 5 MG/DL Creatinine 0.63 MG/DL 0.57 MG/DL Estimat Glomerular Filtration 97 ML/MIN 109 ML/MIN Rate Random Glucose 103 MG/DL 86 MG/DL Calcium Level 8.1 MG/DL 8.0 MG/DL Phosphorus Level 3.0 MG/DL Magnesium Level 2.3 MG/DL Imaging Last Impressions Abdomen/Pelvis CT 12/31/162103 Signed Impressions: Service Date/Time: Saturday, December 31, 2016 22:52 - CONCLUSION: Loculated rim-enhancing fluid collection within the pelvis also containing a locule of air as above. Primary differential diagnosis is a pelvic abscess. Postoperative changes of laparotomy noted in the lower anterior abdominal wall with several small locules of fluid around the incision. No free intraperitoneal air identified. Mildly dilated loops of small bowel are seen in the lower abdomen. Winston Restrepo MD Physical Exam CONSTITUTIONAL/GENERAL: This is an adequately nourished patient, in no apparent distress. TUBES/LINES/DRAINS: SKIN: No jaundice, rashes, or lesions. CARDIOVASCULAR: Regular rate and rhythm without murmurs, gallops, or rubs. No JVD. Peripheral pulses symmetric. RESPIRATORY/CHEST: Symmetric, unlabored respirations. Clear to auscultation. Breath sounds equal bilaterally. No wheezes, rales, or rhonchi. GASTROINTESTINAL: Abdomen soft, quite tender to palpation mostly RLQ , moderately distended on the R side R side feels full and is tender to palpation Incision is dry and clean, angel in, no drainage No hepato-splenomegaly, or palpable masses. No guarding. Bowel sounds present. GENITOURINARY: Without palpable bladder distension. MUSCULOSKELETAL: Extremities without clubbing, cyanosis, or edema. No joint tenderness or effusion noted. No calf tenderness. No mottling or clubbing. NEUROLOGICAL: Awake and alert.Non focal PSYCHIATRIC: No obvious anxiety/depression. no apparent hallucinations or other psychotic thought process. Assessment & Plan Remarks Initially edi[pected pelvic abscess, - dw Dr Musa, he thinks its a post op fluid collection/change within expected post op changes No fever, no leukocyutosis Anaphylactic reaction aw with multiple medx including flagyl - complete clinical resolution -dc zosyn - monitor off abx - Aspiration if clinically indicated with clx dw Rylan Frank, Lencho Lugo,Stephanie Ann MD Jan 04, 2017 13:24
--- NOTE | 2017-01-04 13:29 | HHI.PR ---
Subjective Subjective Notes Resting ing bed Overall reports that she feels better today; only slight abdominal pain +BM Objective Vitals/I&O Vital Signs Date Time Temp Pulse Resp B/P Pulse Ox O2 Delivery O2 Flow Rate FiO2 01/04/17 12:00 98.3 72 16 91/55 97 01/04/17 08:30 21 01/02/17 19:05 2.00 Labs Laboratory Tests Test 01/04/17 06:13 Sodium Level 144 Potassium Level 3.8 Chloride Level 109 Carbon Dioxide Level 26.8 Anion Gap 8 Blood Urea Nitrogen 5 Creatinine 0.57 Estimat Glomerular Filtration 109 Rate Random Glucose 86 Calcium Level 8.0 Cardiovascular: Regular Lungs: Clear Abdomen: Other (incision c/d/i---stapled; mild abdominal pain with palpation ) Extremities: No edema A/P Assessment and Plan 56 year old female POD13 ex lap; SEVERIANO -Re-admission due to pain -Pain control---transition to PO pain medications -DC antibiotics -Tolerating heart healthy diet -BM -Likely DC in the next day or so -Discussed with Dr. Blake and Dr. Lugo Attending Statement patient seen at bedside as above d/c abx d/c planning Attestation The exam, history, and the medical decision-making described in the above note were completed with the assistance of the mid-level provider. I reviewed and agree with the findings presented. I attest that I had a [id number] encounter with the patient on the same day, and personally performed and documented my assessment and findings in the medical record. Riddhi Jones Jan 04, 2017 13:29 Arnoldo Musa MD Jan 11, 2017 22:42
[2017-01-04] MEDS: HYDROmorphone HCL PF 1 MG/ML VIAL IV PRN ×2 (14:33→20:29)
[2017-01-04] MEDS: traZODone HCL 100 MG TAB PO SCH (20:17)
[2017-01-05] VITALS: BP 101/56; PULSE 68; RESP 18; TEMP 96.8; O2SAT 97
[2017-01-05] MEDS: HYDROmorphone HCL PF 1 MG/ML VIAL IV PRN (00:41)
[2017-01-05] MEDS: oxyCODONE/ACETAMINOPHEN 7.5 MG/325 MG TAB PO PRN ×5 (03:32→23:50)
[2017-01-05] MEDS: MORPHINE SULFATE 4 MG/ML INJ IV PUSH PRN ×3 (04:38→21:01)
[2017-01-05 05:11] LABS: AUTOMATED NEUTROPHIL # 4.1 TH/MM3 (1.8-7.7); BASOPHIL % 0.2 % (0.0-2.0); EOSINOPHIL # 0.3 TH/MM3 (0-0.4); EOSINOPHIL % 3.5 % (0.0-4.0); HEMATOCRIT 30.9 % (35.0-46.0); HEMO FLAGS DIFF FINAL; LYMPH % 45.4 % (9.0-44.0); LYMPHOCYTE # 4.2 TH/MM3 (1.0-4.8); MEAN CELL VOLUME 88.6 FL (80.0-100.0); MEAN CORPUSCULAR HEMOGLOBIN 29.8 PG (27.0-34.0); MEAN CORPUSCULAR HGB CONC 33.7 % (32.0-36.0); MONO % 7.4 % (0.0-8.0); NEUT % 43.5 % (16.0-70.0); PLATELET COUNT 510 TH/MM3 (150-450); RED BLOOD COUNT 3.49 MIL/MM3 (4.00-5.30); RED CELL DISTRIBUTION WIDTH 14.6 % (11.6-17.2); WHITE BLOOD COUNT 9.3 TH/MM3 (4.0-11.0)
[2017-01-05 08:00] VITALS: BP 110/63; PULSE 107; RESP 20; TEMP 97.7; O2SAT 100
[2017-01-05] MEDS: TOPIRAMATE 25 MG TAB PO SCH ×2 (08:08→21:01)
[2017-01-05] MEDS: VENLAFAXINE HCL XR 75 MG CAP PO SCH (08:09)
[2017-01-05] MEDS: DOCUSATE SODIUM 50 MG/SENNA 8.6 MG TAB PO SCH ×2 (08:09→21:00)
[2017-01-05] MEDS: SODIUM CHLORIDE 0.9% FLUSH 10 ML FLUSH SCH ×2 (08:09→21:02)
[2017-01-05] MEDS: PANTOPRAZOLE SODIUM 40 MG VIAL IV SCH (08:10)
[2017-01-05] MEDS: HEPARIN SODIUM - SQ 10,000 UNITS/ML VIAL SQ SCH ×2 (08:11→21:01)
--- NOTE | 2017-01-05 10:12 | HHI.PR ---
Subjective Remarks With daily assessment patient complains of hurting at every visit States abdominal pain right-sided Patient got out of bed for bath but has not ambulated in all Heart rate increased when up and down in the 80s Taking by mouth pain meds, and using IV meds in between her nurse (Michelle Stapleton) Objective Objective Results - Vital Signs Date Time Temp Pulse Resp B/P Pulse Ox O2 Delivery O2 Flow Rate FiO2 01/05/17 08:00 97.7 107 20 110/63 100 01/05/17 00:00 96.8 68 18 101/56 97 01/04/17 20:00 97.5 70 18 107/58 97 01/04/17 16:00 96.8 71 18 113/55 96 01/04/17 12:00 98.3 72 16 91/55 97 I/O 01/04/17 01/04/17 01/04/17 01/05/17 01/05/17 01/05/17 07:00 15:00 23:00 07:00 15:00 23:00 Intake Total 520 ml 705 ml 320 ml 240 ml 240 ml Output Total 1100 ml 1251 ml 800 ml 950 ml Balance -580 ml -546 ml -480 ml -710 ml 240 ml Intake Oral 320 ml 600 ml 320 ml 240 ml 240 ml IV Total 200 ml 105 ml Output Urine Total 1100 ml 1250 ml 800 ml 950 ml Stool Total 1 ml # Bowel Movements 0 2 2 0 (Michelle Stapleton) Result Diagram: 01/05/17 0434 01/04/17 0613 ROS General: Fatigue, Weakness (debility), Other (10 point ROS done positives noted ) GI: Abdominal Pain (right-sided) Neuro/MS: Other (requesting constant pain meds) (Michelle Stapleton) Physical Exam Physical Exam PHYSICAL EXAMINATION GENERAL: This is a slim elderly female Resting in the bed eyes closed when I entered room. Immediately noted her right abdominal pain HEAD: Normocephalic, atraumatic OROPHARYNGEAL: Oropharynx clear NECK: Supple. No nuchal rigidity or lymphadenopathy. Trachea midline without deviation. CARDIAC: Regular rhythm, regular rate, S1 and S2 are heard. LUNGS: Clear to auscultation bilaterally. No wheeze but low to adequate volumes ABDOMEN: Soft, complaints of right-sided tenderness EXTREMITIES: no edema. Pulses intact NEUROLOGICAL: Patient mood responsive, drowsy, but still complains of pain SKIN:Warm and moist (Michelle Stapleton) A/P Assessment and Plan (1) Intractable abdominal pain (2) Anaphylactoid reaction (3) Ex lap jen - multiple adhesions, abscess to anterior abd wall (4) History of CVA (cerebrovascular accident) (5) Pelvic abscess in female (6) Acute pancreatitis Assessment and Plan Recent history noted . 55-year-old female with history of abdominal pain, prior bowel obstruction and surgery. Recent exploratory lap with lysis of adhesions on 11/19/2016, was readmitted again with recurrent abdominal pain and underwent another expiratory lap with multiple adhesions and abscess done to all 2016. Was discharge in stable condition. Patient returns to the hospital with recurrent abdominal pain, this time mostly to the distal incision area. No recent fever, no chills. Vital signs reviewed patient's afebrile, 1 bump in pulse 107, bathing, back down in 80s Labs reviewed Pain management, change to PO Bowel regimen normal trends Possible Acute pancreatitis, monitoring was labs, antibiotics, and monitoring cultures, no growth so far -ID input appreciated, Elevated lipase, etiology unclear. Advanced diet heart healthy, tolerating small feedings. Monitoring her labs SCDs/heparin for DVT prophylaxis Protonix for GI prophylax Increase activity, out of bed, encouraged again to increase mobility be up walking in room and out of bed. IS every 2 while awake Patient not moving around much. Still complains of abdominal pain, staff concerned patient takes by mouth and IV pain meds as much as possible. Continues to complain of right quadrant pain, but drowsy when I went in for assessment Will follow post op needs with surgery team and Dr. Blake Discussed with patient Discussed with Dr. Blake, seen on his behalf Discussed with nurse (Michelle Stapleton) Assessment and Plan Patient seen and examined as above Medications and labs reviewed Plan of care and above note reviewed with CARE TEAM ASSISTANT Discussed with RN Discussed with patient Continue current management Appreciate consultants input. Discussed with surgeon Will monitor off of antibiotics. DC Dilaudid continue on Percocet/morphine. (Brii Blake MD) Michelle Stapleton Jan 05, 2017 10:12 Brii Blake MD Jan 05, 2017 15:44
[2017-01-05 12:00] VITALS: BP 104/64; PULSE 102; RESP 20; TEMP 97; O2SAT 98
--- NOTE | 2017-01-05 12:43 | HHI.PR ---
Subjective Subjective Notes Resting in bed Reports pain is still on and off in RLQ Objective Vitals/I&O Vital Signs Date Time Temp Pulse Resp B/P Pulse Ox O2 Delivery O2 Flow Rate FiO2 01/05/17 12:00 97.0 102 20 104/64 98 01/04/17 08:30 21 01/02/17 19:05 2.00 Labs Laboratory Tests Test 01/05/17 04:34 White Blood Count 9.3 Red Blood Count 3.49 Hemoglobin 10.4 Hematocrit 30.9 Mean Corpuscular Volume 88.6 Mean Corpuscular Hemoglobin 29.8 Mean Corpuscular Hemoglobin 33.7 Concent Red Cell Distribution Width 14.6 Platelet Count 510 Mean Platelet Volume 7.2 Neutrophils (%) (Auto) 43.5 Lymphocytes (%) (Auto) 45.4 Monocytes (%) (Auto) 7.4 Eosinophils (%) (Auto) 3.5 Basophils (%) (Auto) 0.2 Neutrophils # (Auto) 4.1 Lymphocytes # (Auto) 4.2 Monocytes # (Auto) 0.7 Eosinophils # (Auto) 0.3 Basophils # (Auto) 0.0 CBC Comment DIFF FINAL Differential Comment Cardiovascular: Regular Lungs: Clear Abdomen: Other (midline incision with angel---c/d/i; abdomen soft; RLQ tenderness with palpation ) Extremities: No edema A/P Assessment and Plan 56 year old female POD14 ex lap; SEVERIANO -Re-admission due to pain -Pain control---transition to PO pain medications -DC every other staple in midline incision -Tolerating heart healthy diet -BM -Likely DC in the next day or so -Discussed with Michelle RIOS Attending Statement pt seen at bedside pain better sterile fluid collection d/c planning Attestation The exam, history, and the medical decision-making described in the above note were completed with the assistance of the mid-level provider. I reviewed and agree with the findings presented. I attest that I had a [id number] encounter with the patient on the same day, and personally performed and documented my assessment and findings in the medical record. Riddhi Jones Jan 05, 2017 12:43 Arnoldo Musa MD Jan 18, 2017 08:51
[2017-01-05 16:00] VITALS: BP 92/52; PULSE 85; RESP 19; TEMP 97.6; O2SAT 96
[2017-01-05 18:13] VITALS: O2SAT 96
[2017-01-05 20:22] VITALS: BP 101/69; PULSE 73; RESP 17; TEMP 97.7; O2SAT 96
[2017-01-05] MEDS: traZODone HCL 100 MG TAB PO SCH (21:01)
[2017-01-06 00:14] VITALS: BP 98/61; PULSE 73; RESP 17; TEMP 96.5; O2SAT 94
[2017-01-06] MEDS: CHLORHEXIDINE GLUCONATE 2 % 1 PACK (2 CLOTHS) TOP SCH (04:00)
[2017-01-06] MEDS: oxyCODONE/ACETAMINOPHEN 7.5 MG/325 MG TAB PO PRN ×2 (06:01→12:39)
[2017-01-06 08:00] VITALS: BP 111/60; PULSE 59; RESP 16; TEMP 96.6; O2SAT 97
[2017-01-06] MEDS: VENLAFAXINE HCL XR 75 MG CAP PO SCH (09:03)
[2017-01-06] MEDS: DOCUSATE SODIUM 50 MG/SENNA 8.6 MG TAB PO SCH (09:03)
[2017-01-06] MEDS: PANTOPRAZOLE SODIUM 40 MG VIAL IV SCH (09:03)
[2017-01-06] MEDS: TOPIRAMATE 25 MG TAB PO SCH (09:03)
[2017-01-06] MEDS: MORPHINE SULFATE 4 MG/ML INJ IV PUSH PRN ×2 (09:03→15:07)
[2017-01-06] MEDS: SODIUM CHLORIDE 0.9% FLUSH 10 ML FLUSH SCH (09:04)
[2017-01-06] MEDS: HEPARIN SODIUM - SQ 10,000 UNITS/ML VIAL SQ SCH (09:04)
--- NOTE | 2017-01-06 09:44 | HHI.PR ---
Subjective Remarks Up walking to bathroom, encourage patient to be out of bed in chair States abdominal pain right-sided, abdomen soft, appears to be muscular in nature By mouth pain management now Vital signs normal trends (Michelle Stapleton) Objective Objective Results - Vital Signs Date Time Temp Pulse Resp B/P Pulse Ox O2 Delivery O2 Flow Rate FiO2 01/06/17 08:00 96.6 59 16 111/60 97 01/06/17 00:14 96.5 73 17 98/61 94 01/05/17 20:22 97.7 73 17 101/69 96 01/05/17 18:13 96 21 01/05/17 16:00 97.6 85 19 92/52 96 01/05/17 12:00 97.0 102 20 104/64 98 I/O 01/05/17 01/05/17 01/05/17 01/06/17 01/06/17 01/06/17 07:00 15:00 23:00 07:00 15:00 23:00 Intake Total 240 ml 1640 ml 480 ml 380 ml Output Total 950 ml 1201 ml Balance -710 ml 439 ml 480 ml 380 ml Intake Oral 240 ml 1640 ml 480 ml 380 ml Output Urine Total 950 ml 1200 ml Stool Total 1 ml # Voids 3 3 # Bowel Movements 0 1 1 (Michelle Stapleton) Result Diagram: 01/05/17 0434 01/04/17 0613 ROS General: Fatigue, Weakness (postop surgical procedure approximately 2 weeks ago ) GI: Abdominal Pain (right-sided appears to be muscular) Skin: Other (mid incision without erythema clean dry and intact) (Michelle Stapleton) Physical Exam Physical Exam PHYSICAL EXAMINATION GENERAL: This is a slim female up in chair She is alert and awake, states she is ready to go home HEAD: Normocephalic , atraumatic OROPHARYNGEAL: Oropharynx without erythema or edema. NECK: Supple. Trachea midline without deviation. CARDIAC: Regular rhythm, regular rate, S1 and S2 are heard. LUNGS: Clear to auscultation bilaterally. ABDOMEN: Soft, nontender, no organomegaly or masses. Bowel sounds are heard , soft EXTREMITIES: no edema. Pulses equal bilateral NEUROLOGICAL: Patient mood tearful this a.m. wants to go home SKIN:Warm and moist, midline incision without erythema (Michelle Stapleton) A/P Assessment and Plan (1) Intractable abdominal pain (2) Anaphylactoid reaction (3) Ex lap jen - multiple adhesions, abscess to anterior abd wall (4) History of CVA (cerebrovascular accident) (5) Pelvic abscess in female (6) Acute pancreatitis Assessment and Plan Vital signs reviewed patient's afebrile, normal trends Labs reviewed, no leukocytosis, mild anemia but stable. No active bleeding noted Pain management, change to PO Bowel regimen normal trends , states daily bowel movements 1-3 soft, no diarrhea Elevated lipase, on admission, monitoring labs, normal trends now from 6-18 lab draw Regular diet heart healthy, appetite fair to good, states her abdomen hurts when she eats a large meal. Taking by mouth fluids well SCDs/heparin for DVT prophylaxis Protonix for GI prophylax Increase activity, out of bed, encouraged again to increase mobility be up walking in room and out of bed. Supportive care for her ability and ambulation IS every 2 while awake Encourage patient to get up in chair problems in room Still complains of abdominal pain, soreness on the left side. Exam is negative, abdomen is soft, no rebound tenderness. Encouraged again patient to ambulate and work her muscle soreness. Spoke to surgical POLICY ADVISOR. Removing angel today and patient should be able to discharge. Records requested from [place] where her original surgery was performed. Possible discharge planning today or tomorrow, Discussed with patient Discussed with Dr. Blake, seen on his behalf Discussed with nurse (Michelle Stapleton) Assessment and Plan Patient seen and examined as above During exam patient was walking. Patient just clean herself and was in the bathroom for exam without any problem. Abdomen is soft nontender no rebound positive bowel sounds Discussed with surgical PA No fever no sign of infection Plan to discharge her home today on Percocet Medications reviewed advised to follow primary care doctor and surgery as outpatient (Brii Blake MD) Michelle Stapleton Jan 06, 2017 09:44 Brii Blake MD Jan 06, 2017 10:43
[2017-01-06] MEDS ORDERED: OXYC1TAB35 PO (10:45)
[2017-01-06 12:00] VITALS: BP 120/58; PULSE 73; RESP 16; TEMP 97.8; O2SAT 100
--- NOTE | 2017-01-06 14:11 | HHI.PR ---
Subjective Subjective Notes Up to chair Pain seems better today Objective Vitals/I&O Vital Signs Date Time Temp Pulse Resp B/P Pulse Ox O2 Delivery O2 Flow Rate FiO2 01/06/17 12:00 97.8 73 16 120/58 100 01/05/17 18:13 21 01/02/17 19:05 2.00 Cardiovascular: Regular Lungs: Clear Abdomen: Other (Midline incision---angel removed; SS placed ) Extremities: No edema A/P Assessment and Plan 56 year old female POD15 ex lap; SEVERIANO -Re-admission due to pain -Pain control---transition to PO pain medications -DCed all angel and placed SS -Tolerating heart healthy diet -BM -GS clear for DC; follow up with Dr. Musa in about a week -Discussed with Michelle RIOS Attending Statement patient seen at bedside doing better as above d/c planning Attestation The exam, history, and the medical decision-making described in the above note were completed with the assistance of the mid-level provider. I reviewed and agree with the findings presented. I attest that I had a [id number] encounter with the patient on the same day, and personally performed and documented my assessment and findings in the medical record. Riddhi Jones Jan 06, 2017 14:11 Arnoldo Musa MD Jan 19, 2017 22:27
--- NOTE | 2017-01-06 18:03 | HHI.DS ---
Discharge Summary Admission Date Jan 01, 2017 at 00:13 Discharge Date: Jan 06, 2017 Admitting Diagnosis acute pancreatitis. Pelvic abscess. (1) Intractable abdominal pain Diagnosis: Principal (2) Anaphylactoid reaction Diagnosis: Secondary (3) Ex lap jen - multiple adhesions, abscess to anterior abd wall Diagnosis: Principal (4) History of CVA (cerebrovascular accident) Diagnosis: Secondary (5) Pelvic abscess in female Diagnosis: Secondary (6) Acute pancreatitis Diagnosis: Principal Brief History This was a 55-year-old white female well known to the [facility] for recent admissions for intractable abdominal pain. Patient had been seen by Dr. Musa has had 2 surgical procedures in the last 2 months. She had initial GI workup that was unremarkable. She was then evaluated by surgery and underwent expiratory lap and lysis of adhesions on 11/19/2016. Patient was then readmitted on 12/22/2013 with abdominal pain. She underwent exploratory lap with multiple adhesions, sulfa with an abscess to the anterior abdominal wall on 12/26/2016. Postop course was complicated when she was started on Zyvox for positive VRE in the urine and had a allergic reaction in the form of a rash. Infectious disease consultation was obtained and monitor patient. She received steroids. She had no fever, no white blood count elevation. Rash resolved. She was able to tolerate diet, had bowel movements and was discharged home with home health care in stable condition on 12/29/2016. According to the patient, she was doing relatively well. Yesterday she started to have severe abdominal pain to the lower abdomen to the distal aspect of the incision. Her home health care nurse came to change her bandage and recommended to call Dr. Musa. CBC/BMP: 01/05/17 0434 01/04/17 0613 Significant Findings Laboratory Tests Test 01/04/17 01/05/17 06:13 04:34 Chloride Level 109 MEQ/L (98-107) Blood Urea Nitrogen 5 MG/DL (7-18) Calcium Level 8.0 MG/DL (8.5-10.1) Red Blood Count 3.49 MIL/MM3 (4.00-5.30) Hemoglobin 10.4 GM/DL (11.6-15.3) Hematocrit 30.9 % (35.0-46.0) Platelet Count 510 TH/MM3 (150-450) Lymphocytes (%) (Auto) 45.4 % (9.0-44.0) Imaging Last Impressions Abdomen/Pelvis CT 12/31/16 2104 Signed Impressions: Service Date/Time: Saturday, December 31, 2016 22:52 - CONCLUSION: Loculated rim-enhancing fluid collection within the pelvis also containing a locule of air as above. Primary differential diagnosis is a pelvic abscess. Postoperative changes of laparotomy noted in the lower anterior abdominal wall with several small locules of fluid around the incision. No free intraperitoneal air identified. Mildly dilated loops of small bowel are seen in the lower abdomen. Winston Restrepo MD PE at Discharge PHYSICAL EXAMINATION GENERAL: This is a slim elderly female Resting in the bed eyes closed when I entered room. Immediately noted her right abdominal pain HEAD: Normocephalic, atraumatic OROPHARYNGEAL: Oropharynx clear NECK: Supple. No nuchal rigidity or lymphadenopathy. Trachea midline without deviation. CARDIAC: Regular rhythm, regular rate, S1 and S2 are heard. LUNGS: Clear to auscultation bilaterally. No wheeze but low to adequate volumes ABDOMEN: Soft, complaints of right-sided tenderness EXTREMITIES: no edema. Pulses intact NEUROLOGICAL: Patient mood responsive, drowsy, but still complains of pain SKIN:Warm and moist Hospital Course Dr. Musa told patient to come to the emergency room for further evaluation. She's had no dehiscence of the wound, no redness, no drainage. In the emergency room, patient was evaluated. Vital signs were stable. No fever. CBC remarkable for mild leukocytosis, WBC 11.6. BMP remarkable for no calcium , 7.9. Lipase was 521. Lactic acid 1.2. Urinalysis was negative for infection. CT of the abdomen and pelvis was done showing a loculated rim enhancing fluid collection within the pelvis also containing a loculated air as above. Primary differential diagnosis is a pelvic abscess. Postoperative changes of laparotomy noted in the lower anterior abdominal wall with several small locules of fluid around the incision. No free intraperitoneal air identified. Mildly dilated loops of small bowel are seen in the lower abdomen. Patient was given IV fluid bolus, she was started on antibiotics, Flagyl. After being started on the antibiotics, patient started to complain of itching rash and became lethargic. Her blood pressure dropped into the 70s and 80s. She was given a normal saline bolus of 2 L, Solu-Medrol 125 mg IV, Benadryl 50 mg and epinephrine. Blood pressure stabilized. Patient indicated feeling better. Patient was admitted to the intensive care unit for close monitoring. [employer]er was consulted for evaluation. At the time of this dictation, patient awoke to voice she is appropriate. She was hemodynamically stable. She was complaining of distal incision pain, tender to palpation. There is no erythema noted. There is no rash visible, denies any itching. Patient denied any recent fever, has had some chills. Also been moving regularly, no urinary symptoms. She had been taking medications as prescribed. Patient was admitted for further evaluation treatment Easily the diagnoses that were used to treat the patient after she was admitted to the hospital (1) Intractable abdominal pain (2) Anaphylactoid reaction (3) Ex lap jen - multiple adhesions, abscess to anterior abd wall (4) History of CVA (cerebrovascular accident) (5) Pelvic abscess in female (6) Acute pancreatitis Recent history noted . 55-year-old female with history of abdominal pain, prior bowel obstruction and surgery. Recent exploratory lap with lysis of adhesions on 11/19/2016, was readmitted again with recurrent abdominal pain and underwent another expiratory lap with multiple adhesions and abscess done to all 2016. Was discharge in stable condition. Patient returns to the hospital with recurrent abdominal pain, this time mostly to the distal incision area. No recent fever, no chills. Patient was initially admitted to the ICU for a couple of days due to an anaphylactic reaction to an antibiotic. He was closely monitored and stabilized and transferred to the floor. Hospitalists will consult could to assist with her medical management on 617. Vital signs and labs were monitored every 4 and daily for any trends or changes in her assessment. Bowel management was monitored throughout stay with normal trends and daily BMs. It was thought the patient possibly had Acute pancreatitis, she required monitoring was labs, antibiotics, and monitoring cultures, with no growth -ID input appreciated, and consult was done on 620. Patient was placed on IV Zosyn for several days, patient leukocytosis was resolved, IV Zosyn was DC'd Elevated lipase, etiology unclear., But resolved with hydration Advanced diet heart healthy, tolerating small feedings. Monitoring her labs SCDs/heparin for DVT prophylaxis Protonix for GI prophylax In encouraged patient and wrote activity orders to Increase activity, be out of the bed out of bed, encouraged again to increase mobility. IS every 2 while awake Patient not moving around much. Spent most of her time, unless she got up to bathe or go to the bathroom Patient would appear to be drowsy after pain management, but noted constant abdominal pain throughout her hospital stay. IV pain management Dilaudid was discontinued 24 hours before discharge, by mouth management was used. On day of discharge patient had a negative benign abdomen, had normal bowel regimen, midline incision was clean dry and intact. Patient had fair to good appetite and was taking by mouth fluids well. Encouraged to continue to increase her mobility which would help her healing process from her recent abdominal surgery. Dr. Blake visited patient noted his assessment Patient seen and examined as above Medications and labs reviewed Plan of care and above note reviewed with ELECTRICIAN SECOND Discussed with RN Discussed with patient Continue current management Appreciate consultants input. Discussed with surgeon Will monitor off of antibiotics. DC Dilaudid continue on Percocet/morphine Pt Condition on Discharge: Fair Discharge Disposition: Discharge Home Discharge Instructions DIET: Follow Instructions for: Heart Healthy Diet Activities you can perform: Weight Bearing as Reji Follow up Referrals: PCP Follow-up - 1 Week Surgical - 1 Week with Arnoldo Musa MD New Medications: Oxycodone-Acetaminophen (Oxycodone-Acetaminophen) 7.5-325 mg Tab 1 TAB PO Q4H PRN PAIN SCALE 6 TO 10 #30 TAB Continued Medications: Aspirin DR (Aspirin 81) 81 Mg Tabdr 81 MG PO DAILY Ref 0 TAB Biotin (Biotin) 5 Mg Tab 5 MG PO DAILY #1 BOTTLE Clopidogrel (Plavix) 75 Mg Tab 75 MG PO DAILY Blood Clot Prevention #30 Ref 0 TAB Pantoprazole (Protonix) 40 Mg Tab 40 MG PO DAILY Reflux #30 Ref 0 TAB Topiramate (Topiramate) 50 Mg Tab 50 MG PO BID Control Seizures #60 Ref 0 TAB Trazodone (Trazodone) 100 Mg Tablet 100 MG PO HS Control Depression #30 Ref 0 TAB Venlafaxine ER 24 HR (Venlafaxine ER 24 HR) 150 Mg Tab 150 MG PO DAILY #30 Ref 0 TAB Discontinued Medications: Hydrocodone-Acetaminophen (Hydrocodone-Acetaminophen) 7.5-325 mg Tab 1 TAB PO Q6H PRN PAIN 6-8 #40 TAB Michelle Stapleton Jan 06, 2017 18:03
== END 2017-01-06 16:18 | disposition home or self-care (01) | DRG 757 ==
LOC: NEDAMB 16:58 → NEDA 01-01 00:13 → HIMN 01-01 02:50 → N07B 01-03 18:19
PROVIDERS: ADMIT Specialist; ATTEND Specialist
DX: N73.9 Female pelvic inflammatory disease, unspecified (principal); K85.90 Acute pancreatitis without necrosis or infection, unspecified; E87.0 Hyperosmolality and hypernatremia; T78.2XXA Anaphylactic shock, unspecified, initial encounter; L50.9 Urticaria, unspecified; T40.2X5A Adverse effect of other opioids, initial encounter; T37.3X5A Adverse effect of other antiprotozoal drugs, initial encounter; Y92.238 Other place in hospital as the place of occurrence of the external cause; E87.6 Hypokalemia; Z98.890 Other specified postprocedural states; Z86.73 Personal history of transient ischemic attack (TIA), and cerebral infarction without residual deficits; I25.10 Atherosclerotic heart disease of native coronary artery without angina pectoris; I10 Essential (primary) hypertension; Z79.02 Long term (current) use of antithrombotics/antiplatelets; Z79.82 Long term (current) use of aspirin; F17.210 Nicotine dependence, cigarettes, uncomplicated; F32.9 Major depressive disorder, single episode, unspecified; F41.9 Anxiety disorder, unspecified
CPT/HCPCS: 74177; 80048; 80053; 81001; 83605; 83690; 83735; 84100; 85025; 85027; 85610; 85730; 87641; 94150; 96361; 96374; 96375; C9113; J0171; J1170; J1200; J1644; J2270; J2405; J2543; J2930; J7030; J7070; Q9967